=== PATIENT | female | born 1960 | race Caucasian/White ===

== ENCOUNTER 2024-03-15 12:05 | Emergency (ER) | payer SELFPAY ==
[2024-03-15 12:07] VITALS: BP 119/68; PULSE 88; RESP 16; TEMP 36.5; O2SAT 100
== END 2024-03-15 13:50 | disposition left against medical advice (07) ==
LOC: ED 13:53
PROVIDERS: PCP Internal Medicine
DX: M54.50 Low back pain, unspecified (principal); Z53.21 Procedure and treatment not carried out due to patient leaving prior to being seen by health care provider

== ENCOUNTER 2024-11-28 05:04 | Emergency (ER) | payer BC, SELFPAY ==
[2024-11-28 05:05] VITALS: BP 127/76; PULSE 89; RESP 11; TEMP 37.1; O2SAT 97; BMI 33.0
[2024-11-28] MEDS: 0.9% Normal Saline (1000mL) 1,000 ML 150 ML IV (05:15)
--- NOTE | 2024-11-28 05:15 | EKG12_ITS ---
Test Reason : BACK PAIN Blood Pressure : */* mmHG Vent. Rate : 86 BPM Atrial Rate : 86 BPM P-R Int : 142 ms QRS Dur : 82 ms QT Int : 414 ms P-R-T Axes : 50 16 -4 degrees QTcB Int : 495 ms Normal sinus rhythm QTcB >= 480 msec Abnormal ECG Confirmed by UMAIR SCANLON, LAMBERTO ([id number]), medical transcription editor MONIQUE MCCABE ([id number]) on 11/29/2024 1:32:45 PM Referred By: TRACEY Confirmed By: LAMBERTO BLOCK MD
--- NOTE | 2024-11-28 05:15 | CT_ITS ---
PROCEDURE: CTA CHEST W/WO CONTRAST 11/28/2024 REASON FOR EXAM: UPPER BACK PAIN, RULE OUT DISSECTION TECHNIQUE: CTA CHEST with CONTRAST Multiplanar Sagittal and Coronal images were obtained. CONTRAST: Isovue 370 VOLUME: 96 mL One or more dose reduction techniques were used (e.g., Automated exposure control, adjustment of the mA and/or kV according to patient size, use of iterative reconstruction technique). RADIATION DOSE SUMMARY: CTDlvol: 20 mGy DLP: 141 mGycm COMPARISON: No FINDINGS: Unremarkable base of neck and axilla. Thoracic spine degeneration. Normal esophagus. Small hiatal hernia. Normal heart size. No aortic dissection. No central pulmonary embolism No acute chest wall findings. No acute upper abdominal findings. Central airways are patent. Dependent atelectasis. No consolidation, effusion, or pneumothorax. CT/CTA Chest W/WO Contrast IMPRESSION: No embolism, dissection, or pneumonia. Reading Location: [place] [address]
--- NOTE | 2024-11-28 05:16 | ED.VIS.BACK ---
HPI History of Present Illness Chief Complaint: Back Detail of Chief Complaint: Upper back pain Informant: patient Narrative Narrative: Patient presents with upper back pain that she woke up with yesterday underneath her shoulder blades. It has been continuous. Does not seem to be positional. Rates her pain an 8 or 9 out of 10. This morning she woke up nauseated and then became diaphoretic. She had recent travel to [place] for vacation last week. She is currently anticoagulated with Eliquis for history of A-fib. She has had prior ablations for her A-fib. She is also on Tikosyn. She denies fever or cough or sore throat. She states few days ago she had some neck pain and headache that then resolved. Currently does not have any neck pain or headache. [facility] Medical History (Updated 11/28/24 @ 06:[address] Howie Constantino, DO) Hyperlipidemia HTN (hypertension) GERD (gastroesophageal reflux disease) Sleep apnea Osteoarthritis Afib Home Medications ?Medication ?Instructions ?Recorded ?Last Taken ?Type apixaban 5 mg tablet (Eliquis) 5 mg PO BID 11/28/24 Unknown History cetirizine 10 mg capsule (Allergy 10 mg PO DAILY 11/28/24 Unknown History Relief (cetirizine)) dofetilide 250 mcg capsule 250 mcg PO Q12H 11/28/24 Unknown History (Tikosyn) magnesium oxide 400 mg (241.3 mg 800 mg PO QHS 11/28/24 Unknown History magnesium) tablet metoclopramide HCl 5 mg tablet 5 mg PO Q6H PRN nausea and 11/28/24 Unknown Rx (Reglan) vomiting #10 tabs multivitamin 1 tab PO DAILY 11/28/24 Unknown History oxycodone-acetaminophen 5 mg-325 1 tab PO Q6H PRN PRN Pain 3 days 11/28/24 Unknown Rx mg tablet #12 TABLETS pantoprazole 20 mg tablet,delayed 20 mg PO DAILY 11/28/24 Unknown History release potassium chloride 10 mEq 10 meq PO BID 11/28/24 Unknown History capsule,extended release rosuvastatin 10 mg tablet 10 mg PO QHS 11/28/24 Unknown History sertraline 50 mg tablet (Zoloft) 75 mg PO Q24H 11/28/24 Unknown History spironolactone 25 mg tablet 25 mg PO DAILY 11/28/24 Unknown History Allergy/AdvReac Type Severity Reaction Status Date / Time morphine AdvReac Mild Nausea Verified 03/15/24 12:07 Social History Smoking Status: Never smoker ROS ROS ED Review of Systems ROS Unobtainable: other Constitutional Constitutional ED: Reports lethargy and sweats; Denies chills, fever(s) or weight loss Eyes Eyes: Denies blurry vision, change in vision or diplopia ENT ENT ED: Denies rhinorrhea or sore throat Cardiovascular Cardiovascular: Denies chest pain, orthopnea or racing heartbeat Respiratory/Chest Respiratory/Chest: Denies cough, dyspnea, dyspnea on exertion, orthopnea or sputum Gastrointestinal Gastrointestinal: Reports nausea; Denies abdominal pain, diarrhea or vomiting Genitourinary Genitourinary ED: Denies dysuria, hematuria or urinary frequency Musculoskeletal Musculoskeletal: Reports back pain; Denies arthralgias, myalgias or neck pain Integumentary Denies abscess, Abrasions or rash Neurologic Neurologic: Denies headache(s) or weakness Psychiatric Psychiatric: Denies anxiety, depression or suicidal thoughts Endocrine Endocrinology: Denies polydipsia, polyphagia or polyuria Hematologic/Lymphatic Hematologic/Lymphatic: Denies easy bleeding, easy bruising or lymphadenopathy Allergic/Immunologic Allergic/Immunologic ED: Denies mouth swelling, tongue swelling or urticaria EXAM Physical Exam Const Vital Signs: 11/28/24 05:05 11/28/24 05:30 Temperature 98.8 F Temperature Source Oral Pulse Rate 89 Respiratory Rate 11 L Respiratory Effort Normal Non-Labored Blood Pressure 127/76 H Blood Pressure Mean 93 Pulse Ox 97 Oxygen Delivery Method Room Air Positive well nourished and well developed General Appearance ED: well developed and NAD HEENT Reports TM's clear and moist mucous membranes normocephalic and atraumatic; Negative for trauma or tenderness Tympanic Membrane ED: Yes TM's clear Eyes PERRL and EOMs intact bilaterally General Eye ED: Negative for pale conjunctiva or scleral icterus Neck no lymphadenopathy, supple and no JVD General: Negative for tenderness Chest Wall inspection of chest normal and palpation of chest normal Chest: Negative for tenderness Resp normal respiratory effort and clear to auscultation bilaterally Effort and Inspection: Negative for respiratory distress or pain with movement Auscultation: Negative for rhonchi, wheezes or diminished lung sounds Cardio regular rate, regular rhythm, S1 normal heart sound, S2 normal heart sound and no murmurs Peripheral Pulses: pulses 2+ throughout GI normal to inspection, nondistended, normoactive bowel sounds, soft to palpation, non-tender, non-distended and no masses Back/Spine no CVA tenderness, normal to inspection and no thoracic nor lumbar tenderness Back/Spine Narrative: Unable to reproduce her pain with palpation of her back. Pain does not seem to be positional. Extremity normal to inspection General Extremety ED: Negative for edema General Extremity: Negative for edema Neuro oriented x3, CN's II-XII intact bilaterally, no sensory deficits noted and gait normal Sensorium / Orientation: awake, alert, oriented to person, oriented to place and oriented to time Motor Exam: strength 5/5 throughout and strength abnormal Psych mental status grossly normal Skin no rashes or lesions noted and no wounds MDM MDM MDM Narrative Medical decision making narrative: Patient presents with upper back pain. Nausea. At 1 point had some minimal chest discomfort that is now resolved. Clinically she looks well. She has no heart history. EKG obtained on arrival showed a sinus rhythm with ventricular rate of 86 bpm with no acute ST segment changes. CBC with differential showed a low white count of 2.8 with hemoglobin 12.4 platelet count of 161. Chemistries unremarkable. Troponin was less than 6. Lipase normal at 36. LFTs were normal. CTA of the chest was obtained to rule out dissection and this was negative for dissection or PE or pneumothorax or any acute process. She did have a noted small hiatal hernia. Patient was medicated with Dilaudid and Zofran initially and then continued to have nausea and was given Reglan 10 mg IV. We will obtain a delta troponin at 2 hours. Suspicion is low for acute coronary syndrome. Care of patient will be turned over to morning physician awaiting delta troponin however if this is negative I feel she can be safely discharged to home with a prescription for oxycodone and Reglan. Lab Data Attestation: I reviewed the patient's lab results. Labs: Laboratory Results - last 24 hr 11/28/24 05:15 WBC 2.8 L RBC 4.24 Hgb 12.4 Hct 37.0 MCV 87.3 MCH 29.2 MCHC 33.5 RDW Std Deviation 45.1 H RDW Coeff of Brayan 14.2 Plt Count 181 MPV 9.9 Immature Gran % (Auto) 0.400 Neut % (Auto) 58.3 Lymph % (Auto) 21.7 [place] % (Auto) 18.8 H Eos % (Auto) 0.4 Baso % (Auto) 0.4 Absolute Neuts (auto) 1.6 L Absolute Lymphs (auto) 0.60 L Nucleated RBC % 0 Sodium 136 Potassium 4.0 Chloride 100 Carbon Dioxide 23.0 Anion Gap 14 BUN 19 Creatinine 0.75 Estim Creat Clear Calc 73.93 Est GFR (MDRD) Non-Af 88 BUN/Creatinine Ratio 25.7 H Glucose 140 H Calcium 9.3 Total Bilirubin 0.56 Direct Bilirubin 0.24 AST 20 ALT 18 Alkaline Phosphatase 126 H Troponin T High Sens < 6 Total Protein 7.4 Albumin 4.3 Globulin 3.1 Lipase 36 Radiography Diagnostic Testing: Clinical Impression(s) from Imaging Studies Chest CTA 11/28/24 05:15 IMPRESSION: No embolism, dissection, or pneumonia. Reading Location: [place] [address] Discharge Plan Triage Chief Complaint: Back ED Provider: Howie Constantino Dx/Rx/DC Orders Clinical Impression: Back pain Instructions: ED Back Pain (Acute or Chronic) Prescriptions: New oxycodone-acetaminophen 5-325 mg tablet 1 tab PO Q6H PRN PRN (Reason: Pain) 3 Days Qty: 12 0RF metoclopramide HCl [Reglan] 5 mg tablet 5 mg PO Q6H PRN (Reason: nausea and vomiting) Qty: 10 0RF No Action dofetilide [Tikosyn] 250 mcg capsule 250 mcg PO Q12H Eliquis 5 mg tablet 5 mg PO BID sertraline [Zoloft] 50 mg tablet 75 mg PO Q24H spironolactone 25 mg tablet 25 mg PO DAILY pantoprazole 20 mg tablet,delayed release (DR/EC) 20 mg PO DAILY magnesium oxide 400 mg (241.3 mg magnesium) tablet 800 mg PO QHS Allergy Relief (cetirizine) 10 mg capsule 10 mg PO DAILY rosuvastatin 10 mg tablet 10 mg PO QHS multivitamin Tablet 1 tab PO DAILY potassium chloride 10 mEq capsule, extended release 10 meq PO BID Primary Care Provider: Luisa Garrison Referrals: Luisa Garrison MD [Primary Care Provider] - 3-5 Days Print Language: Romanian Disposition Disposition: Home, Self Care
[2024-11-28] MEDS: Ondansetron 4 MG/2 ML Vial IV (05:23)
[2024-11-28] MEDS: HYDROmorphone 1 MG/ML Syringe IV (05:24)
[2024-11-28 05:28] LABS: Absolute Neutrophil Count 1.6 X10^3/uL (2.0-7.7); Basophil# 0.01 X10^3/uL; Basophil% 0.4 % (0-1); Eosinophil# 0.01 X10^3/uL; Eosinophils% 0.4 % (0-5); Hemoglobin 12.4 g/dL (12.0-15.0); Lymphocyte % 21.7 % (19-41); Mean Corp Hgb Conc 33.5 g/dL (32-36); Mean Corpuscular Hgb 29.2 pg (27.0-32.0); Mean Corpuscular Volume 87.3 fL (81-99); Mean Platelet Vol. 9.9 fl (6.2-12.0); Monocyte# 0.52 X10^3/uL; Monocyte% 18.8 % (0-10); NRBC Flagged by Analyzer 0 % (0-5); Neutrophil # 1.61 X10^3/uL (2.7-7.7); Neutrophil % 58.3 % (47-70); POSITIVE DIFFERENTIAL YES; Platelet Count 181 K/mm3 (150-450); RBC Distribution Width CV 14.2 % (11.6-14.6); RBC Distribution Width SD 45.1 fl (35.1-43.9); Red Blood Count 4.24 M/mm3 (4.2-5.4); White Blood Count 2.8 K/mm3 (4.4-11.0)
--- OUTSIDE RECORDS SUMMARY | 2024-11-28 05:32 | XMS RPT_ITS | CCD ---
Author Organization [facility] Care Team Providers Care Mixer Machine Feeder Name Role Phone BLADIMIR SCANLON, DR LUISA Vargas Primary Care Physician Sharron Triplett Unavailable Unavailable Samples Supply Controller, Amy Unavailable Unavailable Araceli Ron Unavailable Unavailable LUISA GARRISON Primary Care Unavailable ABDULLAHI SCANLON~[phone], ABDULLAHI CHINCHILLA Attending Unavailable ABDULLAHI SCANLON~[phone], ABDULLAHI CHINCHILLA Admitting Unavailable BLADIMIR SCANLON, DR LUISA Vargas Primary Care Physician BLADIMIR SCANLON, DR LUISA Vargas Attending Donavan GARRISON MD, DR LUISA Vargas Primary Care Donavan GARRISON MD, DR LUISA Vargas Primary Care Donavan SALDAÑA MD, DR YANEZ Attending Ruby GARRISON MD, DR LUISA Vargas Primary Care Donavan GARRISON MD, DR LUISA Vargas Attending Donavan GARRISON MD, DR LUISA Vargas Primary Care Donavan GARRISON MD, DR LUISA Vargas Attending Donavan MITCHELL MD, DR MEMO Fernandez Admitting Donavan MITCHELL MD, DR MEMO Fernandez Attending Donavan GARRISON MD, DR LUISA Vargas Primary Care Donavan GARRISON MD, DR LUISA Vargas Attending Donavan GARRISON MD, DR LUISA Vargas Primary Care Donavan Garrison MD, Luisa Kwon Primary Care Provider LUISA GARRISON Primary Care Unavaila LUISA Perry Primary Care UnavailAVELINO Manriquez Admitting AVELINO [place] Attending LUISA Abbasi Primary Care UnavailLATHA Norman Consulting Ruby GARRISON MD, DR LUISA Vargas Primary Care Donavan GARRISON MD, DR LUISA Vargas Attending Donavan GARRISON MD, DR LUISA Vargas Attending Donavan GARRISON MD, DR LUISA Vargas Primary Care Donavan GARRISON MD, DR LUISA Vargas Primary Care Donavan GARRISON MD, DR LUISA Vargas Attending Donavan GARRISON MD, DR LUISA Vargas Primary Care Donavan GARRISON MD, DR LUISA Vargas Attending Donavan GARRISON MD, DR LUISA Vargas Primary Care Donavan GARRISON MD, DR LUISA Vargas Attending Donavan GARRISON MD, DR LUISA Vargas Primary Care Donavan GARRISON MD, DR LUISA Vargas Attending Donavan lizarraga Provider, Ed Physician Attending Luisa Moore [facility] Luisa Abbasi [facility] Care Howie Saleh Attending Unavailable Allergies Allergy Classification Reported Allergen(s) Allergy Type Date of Onset Reaction(s) Facility (20 sources) metroNIDAZOLE; Translations: [metronidazole containing compounds] Drug Allergy 9 Candidiasis of mouth and esophagus (disorder), Other: See Comments [facility] (20 sources) Morphine; Translations: [morphine] Drug Allergy 9 Nausea (finding), Vomiting [facility] (12 sources) Haloperidol; Translations: [haloperidol] Drug Allergy 4 [facility] Comment on above: chest heaviness (1 source) Morphine Drug Allergy 4 [facility] Repository Medications Current Medications Medication Drug Class(es) Dates Sig (Normalized) Sig (Original) apixaban 5 mg oral tablet (20 sources) Factor Xa Inhibitor Start: 03-26-2021 Eliquis 5 mg oral tablet Dose : 5 mg = 1 tab(s), Oral, BID, # 180 tab(s), 3 Refill(s), [id number] 162.6, cm, 09/29/23 11:39:00 EDT, Height, 73.3, kg, 09/29/23 11:39:00 EDT, Dosing Weight Start Date: 12/01/23 Status: Ordered Quantity: 180.0 Unit: tab(s) Repeat number: 4 ascorbic acid 500 mg oral tablet (9 sources) Vitamin C Start: 08-14-2020 Vitamin C 500 mg oral tablet Dose : 500 mg = 1 tab(s), Oral, qDay, # 30 tab(s), 0 Refill(s) Start Date: 08/14/20 Status: Ordered atorvastatin 20 mg oral tablet (16 sources) HMG-CoA Reductase Inhibitor Start: 02-20-2022 atorvastatin 20 mg oral tablet Dose : 20 mg = 1 tab(s), Oral, qHS, # 30 tab(s), 11 Refill(s), [id number] 163, cm, 02/19/22 15:24:00 EDT, Height, kg, 02/19/22 15:24:00 EDT, Dosing Weight Start Date: 02/20/22 Status: Ordered Start: 02-19-2021 atorvastatin 2 0 mg oral tablet Dose : 20 mg = 1 tab(s), Oral, qHS, # 30 tab(s), 11 Refill(s), [id number] 162.6, cm, 11/22/20 8:35:00 EDT, Height, kg, 02/11/21 10:40:00 EDT, Dosing Weight Start Date: 02/19/21 Status: Ordered baclofen 5 mg oral tablet (4 sources) gamma-Aminobutyric Acid-ergic Agonist Start: 09-24-2023 baclofen 5 mg oral tablet Dose : 10 mg = 2 tab(s), Oral, qHS, PRN Muscle pain, # 60 tab(s), 0 Refill(s), Pharmacy: [facility]/pharmacy #[id number], Lumbar strain, 162, cm, 09/24/23 13:19:00 EDT, Height, kg, 09/24/23 13:19:00 EDT, Dosing Weight Start Date: 09/24/23 Status: Ordered cetirizine hydrochloride 10 mg oral tablet (20 sources) Histamine-1 Receptor Antagonist Start: 03-26-2021 Zyrtec 10 mg oral tablet Dose : 10 mg = 1 tab(s), Oral, qDay, # 30 tab(s), 0 Refill(s) Start Date: 03/26/21 Status: Ordered Quantity: 30.0 Unit: tab(s) Repeat number: 1 clotrimazole 10 mg oral lozenge (3 sources) Azole Antifungal Start: 01-23-2024 End: 01-30-2024 clotrimazole (MYCELEX) 10 mg delano Use 1 Delano as instructed five times a day for 7 days. 35 tablet 01/23/2024 01/30/2024 Active Start: 03-19-2021 End: 04-02-2021 take 1 dose by mouth once Mycelex Delano 10 mg oral lo zenge Dose : 10 mg = 1 lozenge(s), Oral, 5x/Day, X 14 day(s), # 70 lozenge(s), 0 Refill(s), 04/02/21 12:18:00 EDT, Pharmacy: [facility]/pharmacy #[id number], 162.6, cm, 11/22/20 8:35:00 EDT, Height, kg, 02/11/21 10:40:00 EDT, Dosing Weight Start Date: 03/19/21 Stop Date: 04/02/21 Status: Ordered Co Q-10 100 mg oral capsule (7 sources) Start: 03-27-2023 Co Q-10 100 mg oral capsule Dose : 200 mg = 2 cap(s), Oral, Daily, 0 Refill(s) Start Date: 03/27/23 Status: Ordered Repeat number: 1 Start: 03-27-2023 Co Q-10 100 mg oral capsule Dose : 200 mg = 2 cap(s), Oral, Daily, 0 Refill(s) Start Date: 03/27/23 Status: Ordered colchicine 0.6 mg oral tablet (1 source) Start: 02-13-2022 colchicine 0.6 mg oral tablet Dose : 0.6 mg = 1 tab(s), Oral, BID, # 14 tab(s), 0 Refill(s), Pharmacy: [facility]/pharmacy #[id number], 163, cm, 02/12/22 6:17:00 EDT, Height Start Date: 02/13/22 Status: Ordered cyclobenzaprine hydrochloride 5 mg oral tablet (7 sources) Muscle Relaxant Start: 01-04-2024 take 1-2 tablets by mouth twice daily as needed for pain cyclobenzaprine 5 mg oral tablet See Instructions, PRN back pain, Take 1-2 tabs PO BID PRN for pain, # 30 tab(s), 11 Refill(s), Pharmacy: [facility]/pharmacy #[id number], 162.6, cm, 01/04/24 9:44:00 EDT, Height, kg, 01/04/24 9:44:00 EDT, Dosing Weight Start Date: 01/25/24 Status: Ordered Quantity: 30.0 Unit: tab(s) Repeat number: 12 24 hr dilTIAZem hydrochloride 120 mg extended release oral capsule (7 sources) Calcium Channel Carmela Start: 03-07-2022 Cardizem CD 120 mg/24 hours oral capsule, extended release Dose : 120 mg = 1 cap(s), Oral, qDay, # 30 cap(s), 11 Refill(s), Pharmacy: [facility]/pharmacy #[id number], 163, cm, 02/19/22 15:24:00 EDT, Height, kg, 02/19/22 15:24:00 EDT, Dosing Weight Start Date: 03/07/22 Status: Ordered Start: 01-14-2022 Cardizem CD 12 0 mg/24 hours oral capsule, extended release Dose : 120 mg = 1 cap(s), Oral, qDay, # 30 cap(s), 2 Refill(s), Pharmacy: [facility]/pharmacy #[id number], 162.6, cm, 01/13/22 16:12:00 EDT, Height Start Date: 01/14/22 Status: Ordered DME MISCellaneous (16 sources) Start: 09-23-2023 DME MISCellane ous See Instructions, CPAP 7CM, # 1 EA, 0 Refill(s), 75.6 Start Date: 09/23/23 Status: Ordered Quantity: 1.0 Unit: EA Repeat number: 1 Start: 09-23-2023 DME MISCellane ous See Instructions, CPAP 7CM, # 1 EA, 0 Refill(s), 75.6 Start Date: 09/23/23 Status: Ordered Start: 09-13-2018 DME MISCellane ous See Instructions, cpap 7 cm H20., # 1 EA, 0 Refill(s) Start Date: 09/13/18 Status: Ordered dofetilide 0.25 mg oral capsule (18 sources) Antiarrhythmic Start: 01-07-2024 take 1 capsule by mouth every twelve hours dofetilide 250 mcg oral capsule 1 cap(s), Oral, q12h, # 180 cap(s), 3 Refill(s), [id number] 162.6, cm, 01/04/24 9:44:00 EDT, Height, kg, 01/04/24 9:44:00 EDT, Dosing Weight Start Date: 01/07/24 Status: Ordered Quantity: 180.0 Unit: cap(s) Repeat number: 4 Start: 01-12-2023 take 1 capsule by mo ut every twelve hours dofetilide 250 mcg oral capsule 1 cap(s), Oral, q12h, # 60 cap(s), 11 Refill(s), Pharmacy: [id number], 162.6, cm, 12/01/22 15:43:00 EDT, Height, kg, 12/01/22 15:43:00 EDT, Dosing Weight Start Date: 01/12/23 Status: Ordered Start: 01-19-2022 Tikosyn 250 mc g oral capsule Dose : 250 mcg = 1 cap(s), Oral, q12h, # 60 cap(s), 11 Refill(s), Pharmacy: [facility] #[id number], Atrial fibrillation, 162.6, cm, 01/13/22 16:12:00 EDT, Height Start Date: 01/19/22 Status: Ordered take 1 capsule by mo ut every twelve hours dofetilide (TIKOSYN) 250 mcg capsule Take 250 mcg by mouth every 12 hours. Active inulin 1500 mg chewable tabl et (18 sources) Start: 11-22-2020 Fiber Choice 1 .5 g oral tablet, chewable Dose : 1.5 gram(s) = 1 tab(s), Chewed, Daily, # 90 tab(s), 0 Refill(s) Start Date: 11/22/20 Status: Ordered magnesium oxide 400 mg oral tablet (18 sources) Start: 03-14-2024 magnesium oxid e 400 mg oral tablet Dose : 800 mg = 2 tab(s), Oral, qHS, # 180 tab(s), 3 Refill(s), Pharmacy: [facility]/pharmacy #[id number], 162.6, cm, 01/04/24 9:44:00 EDT, Height, kg, 01/04/24 9:44:00 EDT, Dosing Weight Start Date: 03/14/24 Status: Ordered Quantity: 180.0 Unit: tab(s) Repeat number: 4 Start: 12-03-2023 take 2 tablets by mo [facility] once daily at bedtime magnesium oxide (MAG-OX) 400 mg (241.3 mg magnesium) tablet Take 2 tablets by mouth daily at bedtime. 12/03/2023 Active Start: 12-03-2023 take 1 tablet by jeannette every twelve hours magnesium oxide (MAG-OX) 400 mg (241.3 mg magnesium) tablet Take 1 tablet by mouth every 12 hours. 12/03/2023 Active Start: 01-19-2022 End: 01-20-2023 magnesium oxide 400 mg oral tablet Dose : 800 mg = 2 tab(s), Oral, qHS, # 180 tab(s), 3 Refill(s), Pharmacy: [facility] [id number], 162.6, cm, 12/01/22 15:43:00 EDT, Height, kg, 12/01/22 15:43:00 EDT, Dosing Weight Start Date: 01/08/23 Status: Ordered methylPREDNISolone 4 mg oral tablet (1 source) Corticosteroid Start: 09-28-2023 End: 10-04-2023 Medrol Dosepak 4 mg oral tablet Per Dosepak Instructions, Oral, Daily, as directed on package labeling, X 6 day(s), # 1 EA, 0 Refill(s), 10/04/23 10:45:00 AM EDT, Pharmacy: [facility]/pharmacy #[id number], 162, cm, 09/24/23 13:19:00 EDT, Height, kg, 09/24/23 13:19:00 EDT, Dosing Weight Start Date: 09/28/23 Stop Date: 10/04/23 Status: Ordered 24 hr metoprolol succinate 25 mg extended release oral tablet (2 sources) beta-Adrenergic Carmela Start: 02-12-2023 metoprolol succinate 25 mg oral TABLET extended release Dose : 12.5 mg = 0.5 tab(s), Oral, BIDM, # 30 tab(s), 11 Refill(s), Pharmacy: [facility]/pharm[facility] #[id number], 162.6, cm, 02/11/23 9:33:00 EDT, Height, kg, 02/11/23 9:33:00 EDT, Dosing Weight Start Date: 02/12/23 Status: Ordered Start: 02-11-2023 End: 02-11-2023 take 0.5 tablet by mouth in the evening metoprolol succinate 25 mg oral TABLET extended release Start: 02/11/23 7:00:00 PM EDT, Dose = 12.5 mg, = 0.5 tab(s), Oral, Hold if SBP (mmHg) Start Date: 02/11/23 Stop Date: 02/11/23 Status: Completed multivit with minerals/lutei n (MULTIVITAMIN 50 PLUS ORAL) (3 sources) Start: 07-19-2018 multivit with minerals/lutein (MULTIVITAMIN 50 PLUS ORAL) Take 1 tablet by mouth once daily. Last dose 04/05 due to surgery 07/19/2018 Active Start: 07-19-2018 multivit with minerals/lutein (MULTIVITAMIN 50 PLUS ORAL) 07/19/2018 Active Multivitamin preparation (20 sources) Start: 08-14-2020 take 1 tablet by mouth once daily Multivitamin Dose = 1 tab(s), Oral, Daily, 0 Refill(s) Start Date: 08/14/20 Status: Ordered Repeat number: 1 Start: 08-14-2020 take 1 tablet by jeannette th once daily Multivitamin Dose = 1 tab(s), Oral, Daily, 0 Refill(s) Start Date: 08/14/20 Status: Ordered nystatin [id number] unt/ml oral suspension (3 sources) Polyene Antifungal Start: 01-22-2024 End: 01-29-2024 nystatin (MYCOSTATIN) 100,000 unit/mL suspension Take 5 mL by mouth four times daily for 7 days. 1tsp swish in mouth for several minutes, then swallow (or expectorate) 4 times daily until gone. 140 mL 01/22/2024 01/23/2024 Discontinued (Changing Therapy/Dosage Form) pantoprazole 20 mg delayed release oral tablet (20 sources) Proton Pump Inhibitor Start: 07-20-2020 End: 02-18-2025 Protonix 20 mg oral enteric coated tablet Dose : 20 mg = 1 tab(s), Oral, qDay, # 90 tab(s), 3 Refill(s), Pharmacy: [facility]/pharmacy #[id number], 162.6, cm, 01/04/24 9:44:00 EDT, Height, kg, 01/04/24 9:44:00 EDT, Dosing Weight Start Date: 02/24/24 Stop Date: 02/18/25 Status: Ordered Quantity: 90.0 Unit: tab(s) Repeat number: 4 End: 03-29-[address] (PROTONIX) 4 0 mg tablet Take 40 mg by mouth once daily. Pqacc 03/29 DISCONTINUED 03/29/2024 Discontinued (Discontinued by Patient) potassium chloride 10 meq extended release oral capsule (20 sources) Start: 04-09-2021 End: 04-04-2022 potassium chloride 10 mEq or al capsule, extended release Dose : 10 mEq = 1 cap(s), Oral, BID, take with food., # 180 cap(s), 3 Refill(s), [id number] 162, cm, 03/26/21 8:52:00 EDT, Height, kg, 03/26/21 8:52:00 EDT, Dosing Weight Start Date: 04/09/21 Stop Date: 04/04/22 Status: Ordered Start: 01-02-2021 End: 01-03-2025 take 1 capsule by mouth twice daily at mealtime potassium chloride 10 mEq oral capsule, extended release 1 cap(s), Oral, BID, WITH FOOD., # 180 cap(s), 3 Refill(s), Pharmacy: [facility] #[id number], 162.6, cm, 01/04/24 9:44:00 EDT, Height, kg, 01/04/24 9:44:00 EDT, Dosing Weight Start Date: 03/14/24 Status: Ordered Quantity: 180.0 Unit: cap(s) Repeat number: 4 Start: 01-02-2021 potassium chlo ride 10 mEq oral capsule, extended release Dose : 10 mEq = 1 cap(s), Oral, BID, take with food., # 90 cap(s), 3 Refill(s), Pharmacy: [facility]acy #[id number], 162.6, cm, 11/22/20 8:35:00 EDT, Height, kg, 11/22/20 8:35:00 EDT, Dosing Weight Start Date: 01/02/21 Status: Ordered Start: 01-02-2021 potassium chlo ride 10 mEq oral capsule, extended release Dose : 10 mEq = 1 cap(s), Oral, qDay, take with food., # 90 cap(s), 3 Refill(s), Pharmacy: [facility]acy #[id number], 162.6, cm, 11/22/20 8:35:00 EDT, Height, kg, 11/22/20 8:35:00 EDT, Dosing Weight Start Date: 01/02/21 Status: Ordered rosuvastatin calcium 10 mg oral tablet (10 sources) HMG-CoA Reductase Inhibitor Start: 03-27-2023 End: 03-30-2025 rosuvastatin 10 mg oral tablet Dose : 10 mg = 1 tab(s), Oral, qHS, # 100 tab(s), 3 Refill(s), [id number] 162.6, cm, 01/04/24 9:44:00 EDT, Height, kg, 01/04/24 9:44:00 EDT, Dosing Weight Start Date: 02/24/24 Stop Date: 03/30/25 Status: Ordered Quantity: 100.0 Unit: tab(s) Repeat number: 4 sertraline 100 mg oral tablet (20 sources) Serotonin Reuptake Inhibitor Start: 09-28-2024 End: 09-23-2025 sertraline 100 mg oral tablet Dose : 100 mg = 1 tab(s), Oral, qDay, # 90 tab(s), 3 Refill(s), [id number] 162.6, cm, 09/28/24 13:26:00 EDT, Height, kg, 09/28/24 13:26:00 EDT, Dosing Weight Start Date: 09/28/24 Stop Date: 09/23/25 Status: Ordered Quantity: 90.0 Unit: tab(s) Repeat number: 4 Start: 05-02-2024 sertraline 50 mg oral tablet Dose : 75 mg = 1.5 tab(s), Oral, qDay, # 135 tab(s), 3 Refill(s), Pharmacy: [facility] #[id number], 162, cm, 04/06/24 11:05:00 EST, Height, kg, 04/06/24 11:05:00 EST, Dosing Weight Start Date: 05/02/24 Status: Ordered Quantity: 135.0 Unit: tab(s) Repeat number: 4 Start: 06-27-2019 End: 04-04-2024 take 1 tablet by mouth once daily sertraline (ZOLOFT) 50 mg tablet Take 1 tablet by mouth daily 90 tablet 3 07/06/2020 Active spironolactone 25 mg oral tablet (18 sources) Aldosterone Antagonist Start: 01-19-2022 take 1 tablet by mouth once daily at mealtime spironolactone 25 mg oral tablet See Instructions, TAKE 1 TABLET BY MOUTH EVERY DAY WITH MEALS, # 90 tab(s), 3 Refill(s), Pharmacy: [facility]/pharmacy #[id number], 162.6, cm, 01/04/24 9:44:00 EDT, Height, kg, 01/04/24 9:44:00 EDT, Dosing Weight Start Date: 02/24/24 Status: Ordered Quantity: 90.0 Unit: tab(s) Repeat number: 4 Vitamin C 500 mg oral tablet (16 sources) Start: 08-14-2020 Vitamin C 500 mg oral tablet Dose : 500 mg = 1 tab(s), Oral, qDay, # 30 tab(s), 0 Refill(s) Start Date: 08/14/20 Status: Ordered Quantity: 30.0 Unit: tab(s) Repeat number: 1 Start: 08-14-2020 Vitamin C 500 mg oral tablet Dose : 500 mg = 1 tab(s), Oral, qDay, # 30 tab(s), 0 Refill(s) Start Date: 08/14/20 Status: Ordered Zinc Acetate (1 source) ZINC ACETATE ORA L Take 1 tablet by mouth once daily. Last dose 04/05 due to surgery Active zinc gluconate 50 mg oral ta blet (20 sources) Start: 11-22-2020 zinc (as gluco brianna) 50 mg oral tablet Dose : 50 mg = 1 tab(s), Oral, Daily, # 30 tab(s), 0 Refill(s) Start Date: 11/22/20 Status: Ordered Quantity: 30.0 Unit: tab(s) Repeat number: 1 Completed/Discontinued Medications Medication Drug Class(es) Dates Sig (Normalized) Sig (Original) chlorthalidone 25 mg oral tablet (12 sources) Thiazide-like Diuretic Start: 08-14-2020 End: 03-29-2024 take 0.5 tablet by mouth once daily chlorthalidone (HYGROTON) 25 mg tablet Take 1/2 tablet by mouth once daily. 15 tablet 3 08/14/2020 03/29/2024 Discontinued (Discontinued by another Health Care Provider) flecainide acetate 150 mg oral tablet (18 sources) Antiarrhythmic Start: 03-16-2020 End: 03-29-2024 take 1 tablet by mouth every twelve hours flecainide (TAMBOCOR) 150 mg tablet take 1 tablet by mouth every 12 hours 180 tablet 3 03/16/2020 03/29/2024 Discontinued (Discontinued by another Health Care Provider) Start: 03-14-2019 End: 03-29-2024 take 1 tablet by mouth twice daily flecainide (TAMBOCOR) 150 mg tablet TAKE ONE TABLET BY MOUTH TWICE DAILY 180 tablet 3 03/14/2019 03/29/2024 Discontinued (Discontinued by another Health Care Provider) End: 03-29-2024 flecainide (TAMBOCOR) 100 mg tablet Take 100 mg by mouth two times a day. Pt reports no longer taking PACC 03/2803/29/2024 Discontinued (Discontinued by another Health Care Provider) meloxicam 15 mg oral tablet (10 sources) Nonsteroidal Anti-inflammatory Drug Start: 07-17-2020 End: 03-29-2024 meloxicam (MOBIC) 15 mg tablet Take 15 mg by mouth once daily. Pt reports no longer taking PACC 03/2807/17/2020 03/29/2024 Discontinued (Discontinued by another Health Care Provider) Misc Medication (5 sources) Start: 05-15-2021 Misc Medicatio n See Instructions, Magnesium Biscyclinate 400mg 1 po qhs, 0 Refill(s), 95.5 Start Date: 05/15/21 Status: Ordered Problems Active Problems Problem Classification Problem Date Documented Date Episodic/Chronic Adjustment disorders (3 sources) Grief finding 09-23-2022 Chronic Anxiety disorders (20 sources) Anxiety; Translations: [Panic disorder without agoraphobia] 09-15-2018 Chronic Cardiac dysrhythmias (20 sources) Atrial tachycardia; Translations: [Atrial fibrillation] Onset: 02-12-2022 08-14-2020 Chronic Comment on above: flecainide Cardiac dysrhythmias (14 sources) Palpitations 08-14-2020 Episodic Coagulation and hemorrhagic disorders (10 sources) 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 09-23-2022 Chronic Complications of surgical procedures or medical care (3 sources) Headache following lumbar puncture; Translations: [Other reaction to spinal and lumbar puncture] Onset: 03-29-2024 03-29-2024 Episodic Conduction disorders (20 sources) Sinus node dysfunction 08-14-2020 Chronic Diabetes mellitus without complication (16 sources) Hyperglycemia; Translations: [Prediabetes] 07-20-2020 Episodic Diseases of mouth; excluding dental (1 source) Painful mouth; Translations: [Other lesions of oral mucosa] 01-22-2024 Episodic Disorders of lipid metabolism (20 sources) Mixed hyperlipidemia; Translations: [Hypercholesterolemia] 07-20-2020 Chronic Esophageal disorders (20 sources) Gastroesophageal reflux disease 07-20-2020 Chronic Essential hypertension (20 sources) Benign essential hypertension; Translations: [Essential hypertension] Onset: 02-12-2022 11-22-2020 Chronic Fluid and electrolyte disorders (5 sources) Hypokalemia 01-21-2022 Episodic Hepatitis (7 sources) Nonalcoholic steatohepatitis 09-23-2022 Chronic Menopausal disorders (14 sources) Menopausal and postmenopausal disorders 09-15-2018 Chronic Mood disorders (10 sources) Recurrent major depressive episodes, mild 09-23-2022 Chronic Nausea and vomiting (3 sources) Postoperative nausea and vomiting; Translations: [Nausea with vomiting, unspecified] Onset: 03-29-2024 03-29-2024 Episodic Nutritional deficiencies (17 sources) Vitamin D deficiency 09-15-2018 Chronic Osteoarthritis (20 sources) Osteoarthritis of multiple joints ; Translations: [Osteoarthritis of right hip joint] Onset: 08-20-2023 11-04-2019 Chronic Other aftercare (5 sources) Post-discharge follow-up 01-21-2022 Episodic Other bone disease and musculoskeletal deformities (7 sources) Osteopenia 09-24-2023 Episodic Other circulatory disease (11 sources) H/O: atrial fibrillation 02-19-2022 Episodic Other connective tissue disease (2 sources) Hip joint prosthesis present; Translations: [Presence of right artificial hip joint] Chronic Other connective tissue disease (14 sources) Neuritis 01-12-2019 Episodic Other connective tissue disease (20 sources) Pain in right foot 01-12-2019 Episodic Other connective tissue disease (2 sources) Other specified soft tissue disorders; Translations: [OTHER SPEC SOFT TISSUE DISORDERS] Onset: 08-20-2023 Episodic Other connective tissue disease (1 source) Pain in left hand; Translations: [PAIN IN LEFT HAND] Onset: 08-20-2023 Episodic Other connective tissue disease (1 source) Pain in right hand; Translations: [PAIN IN RIGHT HAND] Onset: 08-20-2023 Episodic Other liver diseases (10 sources) Steatosis of liver 06-21-2021 Chronic Other nervous system disorders (20 sources) Mortons neuroma of right foot 01-12-2019 Chronic Other non-traumatic joint disorders (1 source) Pain in left hip; Translations: [Left hip pain] Onset: 04-19-2024 Episodic Other nutritional; endocrine; and metabolic disorders (6 sources) Hypomagnesemia; Translations: [Hypomagnesemia] Onset: 02-12-2022 01-21-2022 Chronic Other nutritional; endocrine; and metabolic disorders (8 sources) Disorder of carbohydrate metabolism 09-23-2022 Chronic Other nutritional; endocrine; and metabolic disorders (3 sources) Obesity 09-23-2022 Chronic Other nutritional; endocrine; and metabolic disorders (14 sources) Overweight 08-13-2020 Episodic Residual codes; unclassified (14 sources) Obstructive sleep apnea of adult 08-13-2020 Chronic Residual codes; unclassified (20 sources) Obstructive sleep apnea syndrome 09-15-2018 Chronic Residual codes; unclassified (2 sources) Sleep apnea; Translations: [Sleep apnea, unspecified] 03-29-2024 Chronic Residual codes; unclassified (1 source) Sleep apnea, unspecified; Translations: [Sleep apnea, unspecified type] Onset: 03-29-2024 Chronic Residual codes; unclassified (20 sources) Past history of procedure 08-14-2020 Episodic Comment on above: LVEF 52%, mod LAE, T R2+ [2016 echo]. Residual codes; unclassified (1 source) Other specified postprocedural states; Translations: [PONV (postoperative nausea and vomiting)] Onset: 03-29-2024 Episodic Residual codes; unclassified (1 source) Preoperative state 03-28-2024 Episodic Spondylosis; intervertebral disc disorders; other back problems (2 sources) Lumbar radiculitis 01-04-2024 Episodic Sprains and strains (5 sources) Low back strain 09-24-2023 Episodic Unclassified (18 sources) Patient encounter status 01-21-2022 Unclassified (1 source) Low back pain, unspecified; Translations: [Low back pain, unspecified] Onset: 04-07-2024 Past or Other Problems Problem Classification Problem Date Documented Da te Episodic/Chronic Other screening for suspected conditions (not mental disorders or infectious disease) (7 sources) Liver function tests abnormal; Translations: [Encounter for screening for malignant neoplasm of colon] Onset: 03-04-2024 09-23-2022 Episodic Results Test Name Value Interpretation Reference Range Facility US ABDOMEN COMPLETEon 2024 US ABDOMEN COMPLETE ORIGINAL EXAMINATION: COMPLETE ABDOMINAL ULTRASOUND11/24/2024 11:33 am ULTRASOUND ABDOMEN COMPLETE COMPARISON: Ultrasound 06/20/2021 TECHNIQUE: This report is based on interpretation of permanently recorded ultrasound images. HISTORY: ORDERING SYSTEM PROVIDED HISTORY: Reason for Exam: elevated liver enzymes, FINDINGS: Liver: . The visualized liver is mildly heterogeneous and coarsened with mild increased echogenicity. No suspicious focal lesion is seen and there is no obvious nodularity of the visualized liver margins. Bile ducts: There is no intrahepatic biliary duct dilatation. The common duct is 4 mm at the facundo hepatis. Gallbladder: The gallbladder is distended satisfactorily without calculi, wall thickening, pericholecystic edema or tenderness. Pancreas: The visualized pancreas shows no focal lesion or mass but some portions are obscured by bowel gas artifacts. . No free fluid is seen in the abdomen. Spleen: The spleen is borderline enlarged about 13 cm vertical dimension by my measurements.. Kidneys: Limited survey images of the kidneys show normal cortical thickness and echogenicity and no pelvocaliectasis. . Visualized aorta: Normal Visualized IVC: Normal IMPRESSION: Hepatic steatosis or other diffuse hepatocellular disease. Borderline splenomegaly. No acute findings. Interpreted by: Momo Gusman MD Preliminary Report By: Momo Gusman MD Electronically signed By Momo Gusman MD Dictated Date: 11/24/2024 3:33:01 PM Prelim Date: 11/24/2024 3:35:32 PM Sign Date: 11/24/2024 3:35:32 PM Ordering Provider: LUISA GARRISON Interpreted by: Momo Gusman MD Preliminary Report By: Momo Gusman MD Electronically signed By Momo Gusman MD Dictated Date: 11/24/2024 3:33:01 PM Prelim Date: 11/24/2024 3:35:32 PM Sign Date: 11/24/2024 3:35:32 PM Ordering Provider: LUISA GARRISON Normal [facility] FITon 11-10-2024 Lower GI hemoglobin IA Ql (Stl) Negative Normal Negative [facility] Comment on above: Performed By: #### F IT #### [address] [address] .Auto Diffon 10-12-2024 Basophil, Absolute 0.0 10 3/mcL Normal 0.0-0.3 [facility] Comment on above: Performed By: #### C MP, A1C, LIPID, CBC, ADIFF, ANEU, GFR #### [address] [address] Basophils/100 WBC (Bld) 0.5 % Normal 0.0-2.[address] [facility] Comment on above: Performed By: #### C MP, A1C, LIPID, CBC, ADIFF, ANEU, GFR #### [address] [address] Eosinophil, Absolute 0.2 10 3/mcL Normal 0.0-0.7 [facility] Comment on above: Performed By: #### C MP, A1C, LIPID, CBC, ADIFF, ANEU, GFR #### [address] [address] Eosinophils/100 WBC (Bld) 3.2 % Normal 0.0-6.[address] [facility] Comment on above: Performed By: #### C MP, A1C, LIPID, CBC, ADIFF, ANEU, GFR #### [address] [address] Lymphocyte, Absolute 1.4 10 3/mcL Normal 0.9-4.3 [facility] Comment on above: Performed By: #### C MP, A1C, LIPID, CBC, ADIFF, ANEU, GFR #### [address] [address] Lymphocytes/100 WBC (Bld) 18.0 % Low 20.0-40.[address] [facility] Comment on above: Performed By: #### C MP, A1C, LIPID, CBC, ADIFF, ANEU, GFR #### [address] [address] Monocyte, Absolute 0.5 10 3/mcL Normal 0.1-1.4 [facility] Comment on above: Performed By: #### C MP, A1C, LIPID, CBC, ADIFF, ANEU, GFR #### [address] [address] Monocytes/100 WBC (Bld) 6.3 % Normal 2.0-13.[address] [facility] Comment on above: Performed By: #### C MP, A1C, LIPID, CBC, ADIFF, ANEU, GFR #### [address] [address] Neutrophils/100 WBC (Bld) 72.0 % Normal 50.0-75.[address] [facility] Comment on above: Performed By: #### C MP, A1C, LIPID, CBC, ADIFF, ANEU, GFR #### [address] [address] .GFRon 10-12-2024 Estimated Glomerular Filtration Rate 96 ml/min/1.73sqm Normal [facility] Comment on above: Result Comment: Stages of Chronic Kidney Disease (CKD) Stage Description eGFR(ml/min/1.73 sq.m.) CKD 1 Normal kidney function or >=90 normal kindney function with possible kidney damage (ex. Proteinuria) CKD 2 Kidney damage with mild loss 60-89 of kidney function CKD 3a Mild to moderate loss of kidney 45-59 function CKD 3b Moderate to severe loss of 30-44 of kindey function CKD 4 Severe loss of kidney function 15-29 CKD 5 Kidney failure <15 Note: (go live 2024) the eGFR calculation was updated to the 2020 CKD-EPI creatinine equation without a race factor to calculate the eGFR results. Performed By: #### C MP, A1C, LIPID, CBC, ADIFF, ANEU, GFR #### [address] [address] .NEUABSon 10-12-2024 Neutrophil, Absolute 5.4 10 3/mcL Normal 2.3-8.1 [facility] Comment on above: Performed By: #### C MP, A1C, LIPID, CBC, ADIFF, ANEU, GFR #### [address] [address] A1Con 10-12-2024 Glucose [Mass/Vol] 117 mg/dL Normal [facility] Comment on above: Result Comment: Briana mated Average Glucose calculated by equation ((28.7xA1C)-46.7) Estimated average glucose (eAG) is a calculated value from Hemoglobin A1C and is customer operations representative of the average blood glucose level in the last 2-3 month period. Normal range: less than 114 mg/dL Performed By: #### C MP, A1C, LIPID, CBC, ADIFF, ANEU, GFR #### [address] [address] HbA1c (Bld) [Mass fraction] 5.7 % Normal 4.3-6.[address] [facility] Comment on above: Performed By: #### C MP, A1C, LIPID, CBC, ADIFF, ANEU, GFR #### [address] [address] CBCon 10-12-2024 Erythrocyte distribution width (RBC) [Ratio] 15.4 % Normal 11.5-15.[address] [facility] Comment on above: Performed By: #### C MP, A1C, LIPID, CBC, ADIFF, ANEU, GFR #### [address] [address] Hematocrit (Bld) [Volume fraction] 39.2 % Normal 34.0-46.[address] [facility] Comment on above: Performed By: #### C MP, A1C, LIPID, CBC, ADIFF, ANEU, GFR #### [address] [address] Hgb 13.3 G/dL Normal 12.0-16.[address] [facility] Comment on above: Performed By: #### C MP, A1C, LIPID, CBC, ADIFF, ANEU, GFR #### [address] [address] MCH (RBC) [Entitic mass] 29.2 pg Normal 27.0-33.[address] [facility] Comment on above: Performed By: #### C MP, A1C, LIPID, CBC, ADIFF, ANEU, GFR #### [address] [address] MCHC 33.9 G/dL Normal 32.0-36.[address] [facility] Comment on above: Performed By: #### C MP, A1C, LIPID, CBC, ADIFF, ANEU, GFR #### [address] [address] MCV (RBC) [Entitic vol] 86.1 fL Normal 80.0-99.[address] [facility] Comment on above: Performed By: #### C MP, A1C, LIPID, CBC, ADIFF, ANEU, GFR #### [address] [address] Platelet 223 10 3/mcL Normal 150-[address] [facility] Comment on above: Performed By: #### C MP, A1C, LIPID, CBC, ADIFF, ANEU, GFR #### [address] [address] Platelet mean volume (Bld) [Entitic vol] 8.3 fL Normal 6.6-10.[address] [facility] Comment on above: Performed By: #### C MP, A1C, LIPID, CBC, ADIFF, ANEU, GFR #### [address] [address] RBC 4.55 10 6/mcL Normal 4.10-5.[address] [facility] Comment on above: Performed By: #### C MP, A1C, LIPID, CBC, ADIFF, ANEU, GFR #### [address] [address] WBC 7.5 10 3/mcL Normal 4.5-10.[address] [facility] Comment on above: Performed By: #### C MP, A1C, LIPID, CBC, ADIFF, ANEU, GFR #### [address] [address] CMPon 10-12-2024 Albumin Level 3.7 G/dL Normal 3.4-4.[address] [facility] Comment on above: Performed By: #### C MP, A1C, LIPID, CBC, ADIFF, ANEU, GFR #### [address] [address] Albumin/Globulin [Mass ratio] 0.9 {ratio} Low 1.1-2.[address] [facility] Comment on above: Performed By: #### C MP, A1C, LIPID, CBC, ADIFF, ANEU, GFR #### [address] [address] ALP [Catalytic activity/Vol] 172 U/L High 40-[address] [facility] Comment on above: Performed By: #### C MP, A1C, LIPID, CBC, ADIFF, ANEU, GFR #### [address] [address] ALT [Catalytic activity/Vol] 38 U/L Normal 14-[address] [facility] Comment on above: Performed By: #### C MP, A1C, LIPID, CBC, ADIFF, ANEU, GFR #### [address] [address] AST [Catalytic activity/Vol] 23 U/L Normal 10-[address] [facility] Comment on above: Performed By: #### C MP, A1C, LIPID, CBC, ADIFF, ANEU, GFR #### [address] [address] Bili Total 0.5 mg/dL Normal 0.2-1.[address] [facility] Comment on above: Result Comment: Use of this assay is not recommended for patients undergoing treatment with eltrombopag due to the potential for falsely elevated results. Performed By: #### C MP, A1C, LIPID, CBC, ADIFF, ANEU, GFR #### [address] [address] BUN/Creatinine Ratio 24 ratio Normal 7-27 [facility] Comment on above: Performed By: #### C MP, A1C, LIPID, CBC, ADIFF, ANEU, GFR #### [address] [address] Calcium [Mass/Vol] 9.1 mg/dL Normal 8.4-10.2 [facility] Comment on above: Performed By: #### C MP, A1C, LIPID, CBC, ADIFF, ANEU, GFR #### [address] [address] Chloride [Moles/Vol] 106 mmol/L Normal 98-107 [facility] Comment on above: Performed By: #### C MP, A1C, LIPID, CBC, ADIFF, ANEU, GFR #### [address] [address] CO2 [Moles/Vol] 28 mmol/L Normal 23-[address] [facility] Comment on above: Performed By: #### C MP, A1C, LIPID, CBC, ADIFF, ANEU, GFR #### [address] [address] Creatinine [Mass/Vol] 0.68 mg/dL Normal 0.51-0.95 [facility] Comment on above: Performed By: #### C MP, A1C, LIPID, CBC, ADIFF, ANEU, GFR #### [address] [address] Electrolyte Balance 8.0 mEq/L Normal 4.0-15.0 [facility] Comment on above: Performed By: #### C MP, A1C, LIPID, CBC, ADIFF, ANEU, GFR #### [address] [address] Globulin 4.0 G/dL Normal 2.7-4.[address] [facility] Comment on above: Performed By: #### C MP, A1C, LIPID, CBC, ADIFF, ANEU, GFR #### [address] [address] Glucose [Mass/Vol] 112 mg/dL Normal 80-115 [facility] Comment on above: Performed By: #### C MP, A1C, LIPID, CBC, ADIFF, ANEU, GFR #### [address] [address] Potassium [Moles/Vol] 4.2 mmol/L Normal 3.5-5.1 [facility] Comment on above: Performed By: #### C MP, A1C, LIPID, CBC, ADIFF, ANEU, GFR #### [address] [address] Sodium [Moles/Vol] 142 mmol/L Normal 136-145 [facility] Comment on above: Performed By: #### C MP, A1C, LIPID, CBC, ADIFF, ANEU, GFR #### [address] [address] Total Protein 7.7 G/dL Normal 6.4-8.[address] [facility] Comment on above: Performed By: #### C MP, A1C, LIPID, CBC, ADIFF, ANEU, GFR #### [address] [address] Urea nitrogen [Mass/Vol] 16 mg/dL Normal 7-[address] [facility] Comment on above: Performed By: #### C MP, A1C, LIPID, CBC, ADIFF, ANEU, GFR #### [address] [address] GGTon 10-12-2024 Gamma GT 61 U/L High 5-[address] [facility] Comment on above: Performed By: #### C MP, A1C, LIPID, CBC, ADIFF, ANEU, GFR #### [address] [address] LABORATORYOrdered By: SYSTEM SYSTEM on 10-12-2024 Albumin BCP dye [Mass/Vol] 3.7 G/dL Normal 3.4 - 4.8 G/dL AO ADM SS Albumin/Globulin [Mass ratio] 0.9 {ratio} Low 1.1 - 2.5 ratio AO ADM SS ALP [Catalytic activity/Vol] 172 U/L High 40 - 135 U/L AO ADM SS ALT With P-5'-P [Catalytic activity/Vol] 38 U/L Normal 14 - 59 U/L AO ADM SS AST With P-5'-P [Catalytic activity/Vol] 23 U/L Normal 10 - 40 U/L AO ADM SS Basophils (Bld) [#/Vol] 0.0 103/mcL Normal 0.0 - 0.3 10^3/mcL AO Workflow SS Basophils/100 WBC (Bld) 0.5 % Normal 0.0 - 2.5 % AO Workflow SS Bilirubin [Mass/Vol] 0.5 mg/dL Normal 0.2 - 1 .0 mg/dL AO ADM SS Comment on above: Interpretive Data: U se of this assay is not recommended for patients undergoing treatment with eltrombopag due to the potential for falsely elevated results. Calcium [Mass/Vol] 9.1 mg/dL Normal 8.4 - 10. 2 mg/dL AO ADM SS Chloride [Moles/Vol] 106 mmol/L Normal 98 - 10 7 mmol/L AO ADM SS CO2 [Moles/Vol] 28 mmol/L Normal 23 - 31 mmol/L AO ADM SS Creatinine [Mass/Vol] 0.68 mg/dL Normal 0.51 - 0.95 mg/dL AO ADM SS Electrolyte Balance 8.0 mEq/L Normal 4.0 - 15 .0 mEq/L AO ADM SS Eosinophil, Absolute 0.2 103/mcL Normal 0.0 - 0 .7 10^3/mcL AO Workflow SS Eosinophils/100 WBC (Bld) 3.2 % Normal 0.0 - 6.0 % AO Workflow SS Erythrocyte distribution width (RBC) [Ratio] 15.4 % Normal 11.5 - 15.5 % AO Workflow SS Estimated Glomerular Filtration Rate 96 ml/min/1.73sqm Invalid Interpretation Code AO Chemistry S Comment on above: Interpretive Data: Stages of Chronic Kidney Disease (CKD) Stage Description eGFR(ml/min/1.73 sq.m.) CKD 1 Normal kidney function or >=90 normal kindney function with possible kidney damage (ex. Proteinuria) CKD 2 Kidney damage with mild loss 60-89 of kidney function CKD 3a Mild to moderate loss of kidney 45-59 function CKD 3b Moderate to severe loss of 30-44 of kindey function CKD 4 Severe loss of kidney function 15-29 CKD 5 Kidney failure <15 Note: (go live 2024) the eGFR calculation was updated to the 2020 CKD-EPI creatinine equation without a race factor to calculate the eGFR results. Gamma glutamyl transferase [Catalytic activity/Vol] 61 U/L High 5 - 55 U/L AH ADM SS Globulin 4.0 G/dL Normal 2.7 - 4.4 G/dL AO ADM SS Glucose [Mass/Vol] 112 mg/dL Normal 80 - 115 mg/dL AO ADM SS Glucose [Mass/Vol] 117 mg/dL Invalid Interpretation Code AO Chemistry S Comment on above: Interpretive Data: E stimated average glucose (eAG) is a calculated value from Hemoglobin A1C and is customer operations representative of the average blood glucose level in the last 2-3 month period. Normal range: less than 114 mg/dL HbA1c (Bld) [Mass fraction] 5.7 % Normal 4.3 - 6.4 % AO ADM SS Hematocrit (Bld) [Volume fraction] 39.2 % Normal 34.0 - 46.0 % AO Workflow SS Hemoglobin (Bld) [Mass/Vol] 13.3 G/dL Normal 12.0 - 16.0 G/dL AO Workflow SS Lymphocytes (Bld) [#/Vol] 1.4 103/mcL Normal 0.9 - 4.3 10^3/mcL AO Workflow SS Lymphocytes/100 WBC (Bld) 18.0 % Low 20.0 - 40.0 % AO Workflow SS MCH (RBC) [Entitic mass] 29.2 pg Normal 27.0 - 33.0 pg AO Workflow SS MCHC 33.9 G/dL Normal 32.0 - 36.0 G/dL AO Workflow SS MCV (RBC) [Entitic vol] 86.1 fL Normal 80.0 - 99.0 fL AO Workflow SS Monocytes (Bld) [#/Vol] 0.5 103/mcL Normal 0.1 - 1.4 10^3/mcL AO Workflow SS Monocytes/100 WBC (Bld) 6.3 % Normal 2.0 - 13.0 % AO Workflow SS Neutrophils (Bld) [#/Vol] 5.4 103/mcL Normal 2.3 - 8.1 10^3/mcL AO Workflow SS Neutrophils/100 WBC (Bld) 72.0 % Normal 50.0 - 75.0 % AO Workflow SS Platelet mean volume (Bld) [Entitic vol] 8.3 fL Normal 6.6 - 10.5 fL AO Workflow SS Platelets (Bld) [#/Vol] 223 103/mcL Normal 150 - 450 10^3/mcL AO Workflow SS Potassium [Moles/Vol] 4.2 mmol/L Normal 3.5 - 5.1 mmol/L AO ADM SS Protein [Mass/Vol] 7.7 G/dL Normal 6.4 - 8.2 G/dL AO ADM SS RBC (Bld) [#/Vol] 4.55 106/mcL Normal 4.10 - 5.3 0 10^6/mcL AO Workflow SS Sodium [Moles/Vol] 142 mmol/L Normal 136 - 145 mmol/L AO ADM SS Urea nitrogen [Mass/Vol] 16 mg/dL Normal 7 - 18 mg/dL AO ADM SS Urea nitrogen/Creatinine [Mass ratio] 24 ratio Normal 7 - 27 ratio AO ADM SS WBC (Bld) [#/Vol] 7.5 103/mcL Normal 4.5 - 10.8 10^3/mcL AO Workflow SS LABORATORYOrdered By: Mandie Rajput on 10-12-2024 Cholesterol [Mass/Vol] 141 mg/dL Normal 0 - 200 mg/dL AO ADM SS Comment on above: Interpretive Data: C holesterol Reference Interval: Less than 200 Desirable 200-239 Borderline high risk 240 and above High risk Cholesterol in HDL [Mass/Vol] 55 mg/dL Normal 40 - 60 mg/dL AO ADM SS Cholesterol in LDL [Mass/Vol] 61 mg/dL Normal 0 - 130 mg/dL AO ADM SS Triglyceride [Mass/Vol] 127 mg/dL Normal 0 - 150 mg/dL AO ADM SS Comment on above: Interpretive Data: T riglyceride Reference Interval: Less than 150 Normal 150-199 Borderline high risk 200-499 High risk 500 or higher Very high risk LIPIDon 10-12-2024 Cholesterol [Mass/Vol] 141 mg/dL Normal 0-[address] [facility] Comment on above: Result Comment: Chol esterol Reference Interval: Less than 200 Desirable 200-239 Borderline high risk 240 and above High risk Performed By: #### C MP, A1C, LIPID, CBC, ADIFF, ANEU, GFR #### [address] [address] Cholesterol in HDL [Mass/Vol] 55 mg/dL Normal 40-[address] [facility] Comment on above: Performed By: #### C MP, A1C, LIPID, CBC, ADIFF, ANEU, GFR #### [address] [address] Cholesterol in LDL [Mass/Vol] 61 mg/dL Normal 0-[address] [facility] Comment on above: Performed By: #### C MP, A1C, LIPID, CBC, ADIFF, ANEU, GFR #### [address] [address] Triglyceride [Mass/Vol] 127 mg/dL Normal 0-[address] [facility] Comment on above: Result Comment: Trig lyceride Reference Interval: Less than 150 Normal 150-199 Borderline high risk 200-499 High risk 500 or higher Very high risk Performed By: #### C MP, A1C, LIPID, CBC, ADIFF, ANEU, GFR #### [address] [address] .GFRon 06-29-2024 GFR Non- 80 ml/min/1.73sqm Normal [facility] Comment on above: Result Comment: GFR Population mean for , Non- Americans Ages 20-29 = 116 mL/min/1.73 sq.m. Ages 30-39 = 107 mL/min/1.73 sq.m. Ages 40-49 = 99 mL/min/1.73 sq.m. Ages 50-59 = 93 mL/min/1.73 sq.m. Ages 60-69 = 85 mL/min/1.73 sq.m. Ages 70+ = 75 mL/min/1.73 sq.m. Chronic Kidney Disease: Less than 60 mL/min/1.73 square meters End Stage Renal Disease: Less than 15 mL/min/1.73 square meters Performed By: #### C MP, A1C, LIPID, CBC, ADIFF, ANEU, GFR #### [address] [address] GFR 97 ml/min/1.73sqm Normal [facility] Comment on above: Result Comment: GFR Population mean for , Non- Americans Ages 20-29 = 116 mL/min/1.73 sq.m. Ages 30-39 = 107 mL/min/1.73 sq.m. Ages 40-49 = 99 mL/min/1.73 sq.m. Ages 50-59 = 93 mL/min/1.73 sq.m. Ages 60-69 = 85 mL/min/1.73 sq.m. Ages 70+ = 75 mL/min/1.73 sq.m. Chronic Kidney Disease: Less than 60 mL/min/1.73 square meters End Stage Renal Disease: Less than 15 mL/min/1.73 square meters Performed By: #### C MP, A1C, LIPID, CBC, ADIFF, ANEU, GFR #### [address] [address] BMPon 06-29-2024 BUN/Creatinine Ratio 21 ratio Normal 7-27 [facility] Comment on above: Performed By: #### B MP, GFR, MG #### [address] [address] Calcium [Mass/Vol] 9.2 mg/dL Normal 8.4-10.2 [facility] Comment on above: Performed By: #### B MP, GFR, MG #### [address] [address] Chloride [Moles/Vol] 102 mmol/L Normal 98-107 [facility] Comment on above: Performed By: #### B MP, GFR, MG #### [address] [address] CO2 [Moles/Vol] 27 mmol/L Normal 23-[address] [facility] Comment on above: Performed By: #### B MP, GFR, MG #### [address] [address] Creatinine [Mass/Vol] 0.73 mg/dL Normal 0.55-1.02 [facility] Comment on above: Result Comment: Test ing performed on Siemens Dimension EXL analyzer using a modified kinetic Luis Antonio technique. Performed By: #### B MP, GFR, MG #### [address] [address] Electrolyte Balance 8.0 mEq/L Normal 4.0-15.0 [facility] Comment on above: Performed By: #### B MP, GFR, MG #### [address] [address] Glucose [Mass/Vol] 85 mg/dL Normal 80-115 [facility] Comment on above: Performed By: #### B MP, GFR, MG #### [address] [address] Potassium [Moles/Vol] 3.2 mmol/L Low 3.5-5.1 [facility] Comment on above: Performed By: #### B MP, GFR, MG #### [address] [address] Sodium [Moles/Vol] 137 mmol/L Normal 136-145 [facility] Comment on above: Performed By: #### B MP, GFR, MG #### [address] [address] Urea nitrogen [Mass/Vol] 15 mg/dL Normal 7-[address] [facility] Comment on above: Performed By: #### B MP, GFR, MG #### [address] [address] LABORATORYOrdered By: SYSTEM SYSTEM on 06-29-2024 Calcium [Mass/Vol] 9.2 mg/dL Normal 8.4 - 10. 2 mg/dL AO ADM SS Chloride [Moles/Vol] 102 mmol/L Normal 98 - 10 7 mmol/L AO ADM SS CO2 [Moles/Vol] 27 mmol/L Normal 23 - 31 mmol/L AO ADM SS Creatinine [Mass/Vol] 0.73 mg/dL Normal 0.55 - 1.02 mg/dL AO ADM SS Comment on above: Interpretive Data: T esting performed on Siemens Dimension EXL analyzer using a modified kinetic Luis Antonio technique. Electrolyte Balance 8.0 mEq/L Normal 4.0 - 15 .0 mEq/L AO ADM SS GFR/1.73 sq M.predicted among blacks MDRD (S/P/Bld) [Vol rate/Area] 97 ml/min/1.73sqm Invalid Interpretation Code AO Chemistry S Comment on above: Interpretive Data: GFR Population mean for , Non- Americans Ages 20-29 = 116 mL/min/1.73 sq.m. Ages 30-39 = 107 mL/min/1.73 sq.m. Ages 40-49 = 99 mL/min/1.73 sq.m. Ages 50-59 = 93 mL/min/1.73 sq.m. Ages 60-69 = 85 mL/min/1.73 sq.m. Ages 70+ = 75 mL/min/1.73 sq.m. Chronic Kidney Disease: Less than 60 mL/min/1.73 square meters End Stage Renal Disease: Less than 15 mL/min/1.73 square meters GFR/1.73 sq M.predicted among non-blacks MDRD (S/P/Bld) [Vol rate/Area] 80 ml/min/1.73sqm Invalid Interpretation Code AO Chemistry S Comment on above: Interpretive Data: GFR Population mean for , Non- Americans Ages 20-29 = 116 mL/min/1.73 sq.m. Ages 30-39 = 107 mL/min/1.73 sq.m. Ages 40-49 = 99 mL/min/1.73 sq.m. Ages 50-59 = 93 mL/min/1.73 sq.m. Ages 60-69 = 85 mL/min/1.73 sq.m. Ages 70+ = 75 mL/min/1.73 sq.m. Chronic Kidney Disease: Less than 60 mL/min/1.73 square meters End Stage Renal Disease: Less than 15 mL/min/1.73 square meters Glucose [Mass/Vol] 85 mg/dL Normal 80 - 115 mg/dL AO ADM SS Magnesium [Mass/Vol] 1.8 mg/dL Normal 1.8 - 2 .4 mg/dL AO ADM SS Potassium [Moles/Vol] 3.2 mmol/L Low 3.5 - 5.1 mmol/L AO ADM SS Sodium [Moles/Vol] 137 mmol/L Normal 136 - 145 mmol/L AO ADM SS Urea nitrogen [Mass/Vol] 15 mg/dL Normal 7 - 18 mg/dL AO ADM SS Urea nitrogen/Creatinine [Mass ratio] 21 ratio Normal 7 - 27 ratio AO ADM SS MGon 06-29-2024 Magnesium [Mass/Vol] 1.8 mg/dL Normal 1.8-2.4 [facility] Comment on above: Performed By: #### C MP, A1C, LIPID, CBC, ADIFF, ANEU, GFR #### [facility] [address] [place], [place] [address] CBC W Auto Differential pane l (Bld)on 04-20-2024 Basophils (Bld) [#/Vol] 10*3/uL Normal <0.11 [facility] Comment on above: Order Comment: Speci men Type: BLOOD SPECIMENOrdering Facility: [facility] Address: [address] [place] [address] Performed By: #### 5 7021-8 ####[facility] LABORATORYCLIA [id number] [place] [address] [place] Basophils/100 WBC (Bld) 0.1 % Normal [facility] Comment on above: Order Comment: Speci men Type: BLOOD SPECIMENOrdering Facility: [facility] Address: [address] [place] [address] Performed By: #### 5 7021-8 ####[facility] LABORATORYCLIA [id number] [place] [address] [place] Differential cell count method Nom (Bld) Auto Normal [facility] Comment on above: Order Comment: Speci men Type: BLOOD SPECIMENOrdering Facility: [facility] Address: [address] [place] [address] Performed By: #### 5 7021-8 ####[facility] LABORATORYCLIA [id number] [place] [address] [place] Eosinophils (Bld) [#/Vol] 10*3/uL Normal <0.46 [facility] Comment on above: Order Comment: Speci men Type: BLOOD SPECIMENOrdering Facility: [facility] Address: [address] [place] [address] Performed By: #### 5 7021-8 ####[facility] LABORATORYCLIA [id number] [place] [id number] [place] Eosinophils/100 WBC (Bld) 0.0 % Normal [facility] Comment on above: Order Comment: Speci men Type: BLOOD SPECIMENOrdering Facility: [facility] Address: [address] [place] [address] Performed By: #### 5 7021-8 ####[facility] LABORATORYCLIA [id number] [place] [address] [place] Erythrocyte distribution width (RBC) [Ratio] 13.1 % Normal 11.5-15.0 [facility] Comment on above: Order Comment: Speci men Type: BLOOD SPECIMENOrdering Facility: [facility] Address: [address] [place] [address] Performed By: #### 5 7021-8 ####[facility] LABORATORYCLIA [id number] [place] [address] [place] Hematocrit (Bld) [Volume fraction] 30.3 % Low 36.0-46.0 [facility] Comment on above: Order Comment: Speci men Type: BLOOD SPECIMENOrdering Facility: [facility] Address: [address] [place] [address] Performed By: #### 5 7021-8 ####[facility] LABORATORYCLIA [id number] [place] [address] [place] Hemoglobin (Bld) [Mass/Vol] 10.1 g/dL Low 11.5-15.5 [facility] Comment on above: Order Comment: Speci men Type: BLOOD SPECIMENOrdering Facility: [facility] Address: [address] [place] [address] Performed By: #### 5 7021-8 ####[facility] LABORATORYCLIA [id number] [place] [address] [place] Immature granulocytes (Bld) [#/Vol] 0.09 10*3/uL Normal <0.10 [facility] Comment on above: Order Comment: Speci men Type: BLOOD SPECIMENOrdering Facility: [facility] Address: [address] [place] [address] Performed By: #### 5 7021-8 ####[facility] LABORATORYCLIA [id number] [place] [id number] [place] [facility] Immature granulocytes/100 WBC (Bld) 0.6 % Normal [facility] Comment on above: Order Comment: Speci men Type: BLOOD SPECIMENOrdering Facility: [facility] Address: [address] [place] [address] Performed By: #### 5 7021-8 ####[facility] LABORATORYCLIA [id number] [address] STATES [facility] Lymphocytes (Bld) [#/Vol] 1.02 10*3/uL Normal 1.00-4.00 [facility] Comment on above: Order Comment: Speci men Type: BLOOD SPECIMENOrdering Facility: [facility] Address: [address] [place] [address] Performed By: #### 5 7021-8 ####[facility] LABORATORYCLIA [id number] [address] Lymphocytes/100 WBC (Bld) 7.4 % Normal [facility] Comment on above: Order Comment: Speci men Type: BLOOD SPECIMENOrdering Facility: [facility] Address: [address] [place] [address] Performed By: #### 5 7021-8 ####[facility] LABORATORYCLIA [id number] [place] [id number] [place] MCH (RBC) [Entitic mass] 31.0 pg Normal 26.0-34.0 [facility] Comment on above: Order Comment: Speci men Type: BLOOD SPECIMENOrdering Facility: [facility] Address: [address] [place] [address] Performed By: #### 5 7021-8 ####[facility] LABORATORYCLIA [id number] [place] [id number] [place] MCHC (RBC) [Mass/Vol] 33.3 g/dL Normal 30.5-36.0 [facility] Comment on above: Order Comment: Speci men Type: BLOOD SPECIMENOrdering Facility: [facility] Address: [address] [place] [address] Performed By: #### 5 7021-8 ####[facility] LABORATORYCLIA [id number] [place] [address] [place] MCV (RBC) [Entitic vol] 92.9 fL Normal 80.0-100.0 [facility] Comment on above: Order Comment: Speci men Type: BLOOD SPECIMENOrdering Facility: [facility] Address: [address] [place] [address] Performed By: #### 5 7021-8 ####[facility] LABORATORYCLIA [id number] [place] [address] [place] Monocytes (Bld) [#/Vol] 0.92 10*3/uL High <0.87 [facility] Comment on above: Order Comment: Speci men Type: BLOOD SPECIMENOrdering Facility: [facility] Address: [address] [place] [address] Performed By: #### 5 7021-8 ####[facility] LABORATORYCLIA [id number] [address] [place] Monocytes/100 WBC (Bld) 6.6 % Normal [facility] Comment on above: Order Comment: Speci men Type: BLOOD SPECIMENOrdering Facility: [facility] Address: [address] [place] [address] Performed By: #### 5 7021-8 ####[facility] LABORATORYCLIA [id number] [place] [address] [place] Neutrophils (Bld) [#/Vol] 11.80 10*3/uL High 1.45-7.50 [facility] Comment on above: Order Comment: Speci men Type: BLOOD SPECIMENOrdering Facility: [facility] Address: [address] [place] [address] Performed By: #### 5 7021-8 ####[facility] LABORATORYCLIA [id number] [place] [id number] [place] Neutrophils/100 WBC (Bld) 85.3 % Normal [facility] Comment on above: Order Comment: Speci men Type: BLOOD SPECIMENOrdering Facility: [facility] Address: [address] [place] [address] Performed By: #### 5 7021-8 ####[facility] LABORATORYCLIA [id number] [place] [address] [place] Nucleated RBC (Bld) [#/Vol] 10*3/uL Normal <0.01 [facility] Comment on above: Order Comment: Speci men Type: BLOOD SPECIMENOrdering Facility: [facility] Address: [address] [place] [address] Performed By: #### 5 7021-8 ####[facility] LABORATORYCLIA [id number] [place] [address] [place] Nucleated RBC/100 WBC (Bld) [Ratio] 0.0 /100 WBC Normal [facility] Comment on above: Order Comment: Speci men Type: BLOOD SPECIMENOrdering Facility: [facility] Address: [address] [place] [address] Performed By: #### 5 7021-8 ####[facility] LABORATORYCLIA [id number] [place] [address] [place] Platelet mean volume (Bld) [Entitic vol] 10.2 fL Normal 9.0-12.7 [facility] Comment on above: Order Comment: Speci men Type: BLOOD SPECIMENOrdering Facility: [facility] Address: [address] [place] [address] Performed By: #### 5 7021-8 ####[facility] LABORATORYCLIA [id number] [place] [id number] [place] Platelets (Bld) [#/Vol] 236 10*3/uL Normal 150-400 [facility] Comment on above: Order Comment: Speci men Type: BLOOD SPECIMENOrdering Facility: [facility] Address: [address] [place] [address] Performed By: #### 5 7021-8 ####[facility] LABORATORYCLIA [id number] [place] [id number] [facility] RBC (Bld) [#/Vol] 3.26 10*6/uL Low 3.90-5.20 [facility] Comment on above: Order Comment: Speci men Type: BLOOD SPECIMENOrdering Facility: [facility] Address: [address] [place], [place] [address] Performed By: #### 5 7021-8 ####[facility] LABORATORYCLIA [id number] [place] [id number] [facility] WBC (Bld) [#/Vol] 13.85 10*3/uL High 3.70-11.00 [facility] Comment on above: Order Comment: Speci men Type: BLOOD SPECIMENOrdering Facility: [facility] Address: [address] [place], [place] [address] Performed By: #### 5 7021-8 ####[facility] LABORATORYCLIA [id number] [address] CNDSon 04-20-2024 CNDS HNO ID: [id number] Author: AVELINO DURON MD Service: Orthopaedic Surgery Author Type: Physician Type: Discharge Summary Filed: 04/23/2024 06:29 Note Text: DISCHARGE SUMMARY PATIENT NAME: Donna Snowden ADMISSION DATE: 04/19/2024 DISCHARGE DATE: 04/20/2024 ATTENDING PHYSICIAN: Avelino Duron MD Code Status: Not on file Highest Readmission Risk Score: 10 The 30 day readmissions risk score is derived from an internally validated risk model which evaluates patient level characteristics, utilization history, medication orders and lab results up until the day of discharge. Patients with a score of 40 or above are considered highest risk for readmission. Specific patient level drivers will be listed at the bottom of the summary. CONSULTING TEAMS DURING HOSPITALIZATION: Hospitalist for medical management Treatment Team: Attending Provider: Avelino Duron MD Consulting: MR AGUILAR CALDWELL APP2 Consulting: Latha Coats MD Consulting: Dee Hurley PA REASON FOR HOSPITALIZATION: Status post left hip replacement DIAGNOSIS: Principal Problem: Primary osteoarthritis of left hip (POA: Yes) Active Problems: S/P total left hip arthroplasty (POA: Yes) Acute postoperative anemia due to expected blood loss (POA: No) Sleep apnea (POA: Yes) Hypertension (POA: Yes) Obesity, Class I, BMI 30-34.9 (POA: Yes) HLD (hyperlipidemia) (POA: Yes) Thrombophilia (HCC) (POA: Yes) GERD (gastroesophageal reflux disease) (POA: Yes) MARISCAL (nonalcoholic steatohepatitis) (POA: Yes) Anxiety and depression (POA: Yes) PAF (paroxysmal atrial fibrillation) (HCC) (POA: Yes) Resolved Problems: * No resolved hospital problems. * OPERATIONS DURING HOSPITALIZATION: Left anterior approach total hip arthroplasty 04/19/2024 HOSPITAL COURSE: This is a 63-year-old female who came into [facility] as scheduled on 04/19/2024 and underwent left anterior approach total hip arthroplasty with Dr. Duron. The patient tolerated the procedure well and had no complications during the surgery or the subsequent recovery from anesthesia. They were then taken to the orthopedic unit for further recovery, physical therapy, and occupational therapy. She did very well during her stay, working with PT and OT throughout, full weightbearing left leg, left anterior precautions. She was resumed back on Eliquis postop day 1, ZEE hose were used, knee-high SCDs when in bed. Otherwise, medically she remained stable, was followed by hospitalist consult throughout her stay. She was able to discharge home with home health care PT/OT ordered on 04/20/2024, she was in stable condition. She will follow-up in the office on 05/06/2024 at 8:30 AM. PATIENT CONDITION AT DISCHARGE: Stable DISCHARGE DISPOSITION: Home with Home Health Pertinent physical findings on discharge were that the patient was alert, no acute distress, no shortness breath or chest pain, pain was under control, surgical dressing was dry and intact, and they were in stable condition. WOUND/SURGICAL SITE CARE: Wound/Surgical Site Care Do not change or remove your dressing Keep your dressing clean and dry Other: Keep surgical dressing in place until follow-up visit. If becomes loose or wet, can change to dry gauze and change as needed. You may shower but no soaking the wound/bath/pool/hot tub Some bleeding from the wound/surgical site can be expected. If excessive, see a doctor at once DIET: Resume pre-hospital diet ACTIVITY: Full weightbearing left leg, left anterior precautions ALLERGIES Allergen Reactions Flagyl [Metronidazo* Other: See Comments thrush Haloperidol Unknown Morphine Vomiting DISCHARGE MEDICATION: Medication List START taking these medications acetaminophen 500 mg tablet Commonly known as: TYLENOL Take 2 tablets by mouth every 8 hours as needed for pain. docusate sodium 100 mg capsule Commonly known as: COLACE Take 1 capsule by mouth two times a day as needed for constipation. ondansetron orally disintegrating 4 mg disintegrating tablet Commonly known as: ZOFRAN ODT Take 1 tablet by mouth every 6 hours as needed for up to 5 days. oxyCODONE IR 5 mg immediate release tablet Commonly known as: ROXICODONE Take 1 tablet by mouth every 6 hours as needed for up to 7 days. traMADol 50 mg tablet Commonly known as: ULTRAM Take 1 tablet by mouth every 6 hours as needed for up to 7 days. CONTINUE taking these medications cetirizine 10 mg tablet Commonly known as: ZYRTEC cyclobenzaprine 5 mg tablet Commonly known as: FLEXERIL dofetilide 250 mcg capsule Commonly known as: TIKOSYN ELIQUIS 5 mg tab(s) Generic drug: apixaban magnesium oxide 400 mg (241.3 mg magnesium) tablet Commonly known as: MAG-OX MULTIVITAMIN [address] 20 mg tablet Commonly known as: PROTONIX Take 1 tablet by mouth once daily. potassium chloride SR 10 mEq CR capsule Commonly known as (more content not included)... [facility] CONSULTon 04-20-2024 CONSULT HNO ID: [id number] Author: FABY SILVER MD Service: Cardiovascular Medicine Author Type: Physician Type: Consults Filed: 04/20/2024 14:19 Note Text: CARDIOLOGY CONSULT Requesting Provider: Avelino Duron MD Opinion/advice regarding: atrial fibrillation management CHIEF COMPLAINT: atrial fibrillation management HPI: Ms. Snowden is a 63 year old woman with a past medical history of atrial fibrillation (2 prior ablations, on dofetilide for rhythm control, mostly sinus rhythm with occasional fluttering sensation), hypertension, hyperlipidemia, DANIELLE and CPAP, GERD, MARISCAL, depression, anxiety, and thrombophilia who is post-operative day 1 after left total hip arthroplasty with spinal anesthesia for severe degenerative hip osteoarthritis and subacute subchondral femoral head fracture. She does not report palpitations, chest pain, dyspnea, orthopnea, edema, dizziness, or any cardiovascular symptoms. Occasionally she has a fleeting fluttering feeling in her chest, but is mostly in normal sinus rhythm on dofetilide. Meghan-operatively, dofetilide and apixaban were suspended but has been resumed today. Internal Medicine was consulted for meghan-operatively medical optimization, and recommended a cardiology consultation for atrial fibrillation. Review of systems was non-contributory. She is recovering well after surgery. The surgical team is planning to discharge her home today. PAST MEDICAL HISTORY: PAST MEDICAL HISTORY Diagnosis Date A-fib ([facility]) Dr. Talbot Anxiety state Arthritis Depression Dysplasia of cervix, unspecified Hypertension Dr. Talbot PONV (postoperative nausea and vomiting) severe Sleep apnea cpap PCP follows PAST SURGICAL HISTORY: PAST SURGICAL HISTORY Procedure Laterality Date BREAST SURGERY HX reduction JOINT REPLACEMENT HX R total hip 04/2021 LEEP PROCEDURE ([employer])_*FL PAST SURGICAL HISTORY OF ectopic repairs x4 PAST SURGICAL HISTORY OF 2021 ablation x2 for a fib TONSILLECTOMY HX FAMILY HISTORY: FAMILY HISTORY Problem Relation Age of Onset Hypertension Mother Heart Mother Irregular heart beat Hypertension Father Heart Father Irregular heart beat SOCIAL HISTORY: Social History Tobacco Use Smoking status: Never Smokeless tobacco: Never Vaping Use Vaping status: Never Used Substance Use Topics Alcohol use: Yes Comment: socially Drug use: No MEDICATIONS: Prior to Admission Medications: ZINC ACETATE ORALTake 1 tablet by mouth once daily. Last dose 04/05 due to surgeryDisp: Rfl: ascorbic acid, vitamin C, (VITAMIN C) 500 mg tabletTake 500 mg by mouth once daily. Last dose 04/05 due to surgeryDisp: Rfl: ELIQUIS 5 mg tab(s)Take 5 mg by mouth two times a day. Hold instructions per Dr. Paul: Rfl: cetirizine (ZYRTEC) 10 mg tabletTake 10 mg by mouth.Disp: Rfl: cyclobenzaprine (FLEXERIL) 5 mg tabletTAKE 1-2 TABS BY MOUTH TWICE A DAY NEEDED FOR BACK PAIN,Disp: Rfl: dofetilide (TIKOSYN) 250 mcg capsuleTake 250 mcg by mouth every 12 hours.Disp: Rfl: magnesium oxide (MAG-OX) 400 mg (241.3 mg magnesium) tabletTake 2 tablets by mouth daily at bedtime.Disp: Rfl: multivit with minerals/lutein (MULTIVITAMIN 50 PLUS ORAL)Take 1 tablet by mouth once daily. Last dose 04/05 due to surgeryDisp: Rfl: potassium chloride SR (MICRO-K) 10 mEq CR capsuleTake 10 mEq by mouth two times a day.Disp: Rfl: rosuvastatin (CRESTOR) 10 mg tabletTake 10 mg by mouth daily at bedtime.Disp: Rfl: spironolactone (ALDACTONE) 25 mg tablettake 1 tablet by mouth every day with mealsDisp: Rfl: pantoprazole DR (PROTONIX) 20 mg tabletTake 1 tablet by mouth once daily.Disp: 90 tabletRfl: 3 sertraline (ZOLOFT) 50 mg tabletTake 1 tablet by mouth dailyDisp: 90 tabletRfl: 3 (Patient taking differently: Take 75 mg by mouth once daily.) Current Facility-Administere d Medications Medication Dose Route Frequency apixaban 5 mg tab(s) (ELIQUIS) 5 mg ORAL BID iqileql-unygkbyum-vr tamin D3 500 mg-5 mcg (200 unit) 2 tablet 2 tablet ORAL BID senna 17.2 mg tab(s) (SENOKOT) 17.2 mg ORAL AT BEDTIME NaCl 0.9% iv flush bag 20 mL INTRAVENOUS PRN lactated ringers iv infusion 50 mL/hr INTRAVENOUS CONTINUOUS acetaminophen 1,000 mg tab(s) (TYLENOL) 1,000 mg ORAL q 8 H traMADol 50 mg tab(s) (ULTRAM) 50 mg ORAL q 6 H PRN oxyCODONE IR 5-10 mg tab(s) (ROXICODONE) 5-10 mg ORAL q 3 H PRN HYDROmorphone 0.5 mg injection (DILAUDID) 0.5 mg INTRAVENOUS q 3 H PRN dofetilide 250 mcg cap(s) (TIKOSYN) 250 mcg ORAL q 12 H 9a/9p rosuvastatin 10 mg tab(s) (CRESTOR) 10 mg ORAL AT BEDTIME pantoprazole DR 20 mg tab(s) (PROTONIX) 20 mg ORAL DAILY (6 AM) sertraline (ZOLOFT) tab(s) 75 mg 75 mg ORAL DAILY potassium chloride ER 10 mEq tab(s) (KLOR-CON M10) 10 mEq ORAL BID w MEALS dofetilide 250 mcg cap(s) (TIKOSYN) 250 mcg ORAL ONCE ALLERGIES: Flagyl [Metronidazole], Haloperidol, and Morphine COMPLETE REVIEW OF SYSTEMS: All ten ROS negative unless otherw (more content not included)... [facility] CONSULT HNO ID: [id number] Author: MARCIAL YEUNG DO Service: Hospital Medicine Author Type: Nurse Practitioner Type: Consults Filed: 04/20/2024 06:17 Note Text: Attestation signed by Marcial Yeung DO at 04/20/2024 6:17 AM Patient independently seen and examined by myself. I agree with the plan outlined by the mid-level provider. HOSPITALIST INITIAL CONSULT NOTE SERVICE DATE: 04/20/2024 SERVICE TIME: 5:00 AM REASON FOR CONSULT: Medical management REQUESTING PHYSICIAN: Dr. Duron PRIMARY CARE PHYSICIAN: Vicky Garrison MD Subjective Ms. Snowden is a 63 year old female with a past medical history significant for DANIELLE, hypertension, hyperlipidemia, atrial fibrillation, GERD, MARISCAL, depression, anxiety, and thrombophilia who presented for left total hip arthroplasty by Dr. Duron. Patient is being seen postoperatively. The patient reports she has had ongoing left hip pain that radiates down her left leg. She did have outpatient MRI that showed subacute femoral head subchondral fracture with advanced osteoarthritis and cartilage loss. She elected for surgical repair. She denies any preop fever, chills, shortness of breath, cough, chest pain, palpitations, abdominal pain, constipation, or dysuria. She currently reports her surgical pain to be 7 out of 10. Surgical dressing is dry and intact. Edema noted to left thigh. She has been able to tolerate an oral diet without any nausea/vomiting. She has been out of bed to the bedside commode with assistance without difficulties or lightheadedness. We were consulted for medical management. Preop labs reviewed and noted to be unremarkable except for alkaline phosphatase of 120. FUNCTIONAL STATUS: Partially dependent PAST MEDICAL HISTORY Diagnosis Date A-fib (HCC) Dr. Talbot Anxiety state Arthritis Depression Dysplasia of cervix, unspecified Hypertension Dr. Talbot PONV (postoperative nausea and vomiting) severe Sleep apnea cpap PCP follows PAST SURGICAL HISTORY Procedure Laterality Date BREAST SURGERY HX reduction JOINT REPLACEMENT HX R total hip 04/2021 LEEP PROCEDURE ([employer] DEPT)_*FL PAST SURGICAL HISTORY OF ectopic repairs x4 PAST SURGICAL HISTORY OF 2021 ablation x2 for a fib TONSILLECTOMY HX FAMILY HISTORY Problem Relation Age of Onset Hypertension Mother Heart Mother Irregular heart beat Hypertension Father Heart Father Irregular heart beat Social History Tobacco Use Smoking status: Never Smokeless tobacco: Never Vaping Use Vaping status: Never Used Substance Use Topics Alcohol use: Yes Comment: socially Drug use: No ZINC ACETATE ORAL, Take 1 tablet by mouth once daily. Last dose 04/05 due to surgery, Disp: , Rfl: ascorbic acid, vitamin C, (VITAMIN C) 500 mg tablet, Take 500 mg by mouth once daily. Last dose 04/05 due to surgery, Disp: , Rfl: ELIQUIS 5 mg tab(s), Take 5 mg by mouth two times a day. Hold instructions per Dr. Talbot, Disp: , Rfl: , 04/15/2024 at 1000 cetirizine (ZYRTEC) 10 mg tablet, Take 10 mg by mouth., Disp: , Rfl: cyclobenzaprine (FLEXERIL) 5 mg tablet, TAKE 1-2 TABS BY MOUTH TWICE A DAY NEEDED FOR BACK PAIN,, Disp: , Rfl: dofetilide (TIKOSYN) 250 mcg capsule, Take 250 mcg by mouth every 12 hours., Disp: , Rfl: , 04/19/2024 at 0900 magnesium oxide (MAG-OX) 400 mg (241.3 mg magnesium) tablet, Take 2 tablets by mouth daily at bedtime., Disp: , Rfl: multivit with minerals/lutein (MULTIVITAMIN 50 PLUS ORAL), Take 1 tablet by mouth once daily. Last dose 04/05 due to surgery, Disp: , Rfl: potassium chloride SR (MICRO-K) 10 mEq CR capsule, Take 10 mEq by mouth two times a day., Disp: , Rfl: rosuvastatin (CRESTOR) 10 mg tablet, Take 10 mg by mouth daily at bedtime., Disp: , Rfl: spironolactone (ALDACTONE) 25 mg tablet, take 1 tablet by mouth every day with meals, Disp: , Rfl: , 04/19/[address] (PROTONIX) 20 mg tablet, Take 1 tablet by mouth once daily., Disp: 90 tablet, Rfl: 3, 04/19/2024 at 0600 sertraline (ZOLOFT) 50 mg tablet, Take 1 tablet by mouth daily (Patient taking differently: Take 75 mg by mouth once daily.), Disp: 90 tablet, Rfl: 3 Allergies As of Date: 03/22/2024 Allergen Noted Reaction FLAGYL [METRONIDAZOLE] 05/10/2019 Other: See Comments HALOPERIDOL 01/22/2024 Unknown MORPHINE 04/29/2019 Vomiting Fully Assessed 01/22/2024 COMPLETE REVIEW OF SYSTEMS: Review of Systems Constitutional: Negative for chills and fever. HENT: Negative for congestion and sore throat. Eyes: Negative for pain. Respiratory: Negative for cough and shortness of breath. Cardiovascular: Negative for chest pain and palpitations. Gastrointestinal: Negative for abdominal pain and nausea. Genitourinary: Negative for dysuria and frequency. Musculosk (more content not included)... Normal [facility] Comprehensive metabolic 2000 panelon 04-20-2024 Albumin [Mass/Vol] 3.0 g/dL Low 3.2-5.0 [facility] Comment on above: Order Comment: Speci men Type: BLOOD SPECIMENOrdering Facility: [facility] Address: [address] [place] [address] Performed By: #### 2 4323-8, 10439-9, HSTROP ####[facility] LABORATORYCLIA [id number] [place] [address] [place] ALP [Catalytic activity/Vol] 98 U/L Normal 45-117 [facility] Comment on above: Order Comment: Speci men Type: BLOOD SPECIMENOrdering Facility: [facility] Address: [address] [place] [address] Performed By: #### 2 4323-8, 04100-8, HSTROP ####[facility] LABORATORYCLIA [id number] [address] OF [facility] ALT [Catalytic activity/Vol] 14 U/L Normal 13-61 [facility] Comment on above: Order Comment: Speci men Type: BLOOD SPECIMENOrdering Facility: [facility] Address: [address] [place] [address] Result Comment: Resu lts may be falsely depressed after the administration of Sulfasalazine and/or Sulfapyridine. Performed By: #### 2 4323-8, , HSTROP ####[facility] LABORATORYCLIA [id number] [address] Anion gap [Moles/Vol] 7 mmol/L Normal 5-16 [facility] Comment on above: Order Comment: Speci men Type: BLOOD SPECIMENOrdering Facility: [facility] Address: [address] [place] [address] Performed By: #### 2 4323-8, 68310-7, HSTROP ####[facility] LABORATORYCLIA [id number] [address] [place] AST [Catalytic activity/Vol] 20 U/L Normal 8-34 [facility] Comment on above: Order Comment: Speci men Type: BLOOD SPECIMENOrdering Facility: [facility] Address: [address] [place] [address] Result Comment: Resu lts may be falsely depressed after the administration of Sulfasalazine and/or Sulfapyridine. Performed By: #### 2 4323-8, 89953-3, HSTROP ####[facility] LABORATORYCLIA [id number] [place] [address] [place] Bilirubin [Mass/Vol] 0.5 mg/dL Normal 0.2-1.0 [facility] Comment on above: Order Comment: Speci men Type: BLOOD SPECIMENOrdering Facility: [facility] Address: [address] [place] [address] Performed By: #### 2 4323-8, , HSTROP ####[facility] LABORATORYCLIA [id number] [place] [address] [place] Calcium [Mass/Vol] 9.0 mg/dL Normal 8.5-10.5 [facility] Comment on above: Order Comment: Speci men Type: BLOOD SPECIMENOrdering Facility: [facility] Address: [address] [place] [address] Performed By: #### 2 4323-8, , HSTROP ####[facility] LABORATORYCLIA [id number] [place] [address] [place] Chloride [Moles/Vol] 107 mmol/L Normal 98-107 [facility] Comment on above: Order Comment: Speci men Type: BLOOD SPECIMENOrdering Facility: [facility] Address: [address] [place] [address] Performed By: #### 2 4323-8, , HSTROP ####[facility] LABORATORYCLIA [id number] [place] [address] [place] CO2 [Moles/Vol] 25 mmol/L Normal 21-32 [facility] Comment on above: Order Comment: Speci men Type: BLOOD SPECIMENOrdering Facility: [facility] Address: [address] [place] [address] Performed By: #### 2 4323-8, , HSTROP ####[facility] LABORATORYCLIA [id number] [place] [id number] [place] Creatinine [Mass/Vol] 0.61 mg/dL Normal 0.51-0.95 [facility] Comment on above: Order Comment: Speci men Type: BLOOD SPECIMENOrdering Facility: [facility] Address: [address] [place] [address] Result Comment: Annie ents receiving either N-Acetylcysteine (NAC) or Metamizole prior to venipuncture, may have falsely depressed results. Performed By: #### 2 4323-8, , HSTROP ####[facility] LABORATORYCLIA [id number] [place] [id number] [place] Creatinine and Glomerular filtration rate.predicted panel (S/P/Bld) 99 mL/min/1.73m??? Normal >=60 [facility] Comment on above: Order Comment: Sagar jensen Type: BLOOD SPECIMENOrdering Facility: [facility] Address: [address] [place] [address] Result Comment: Briana mated Glomerular Filtration Rate (eGFR) is calculated using the 2020 CKD-EPI creatinine equation. This equation utilizes serum creatinine, sex, and age as parameters. The creatinine assay has traceable calibration to isotope dilution-mass spectrometry. Refer to KDIGO guidelines for clinical interpretation. In patients with unstable renal function, e.g. those with acute kidney injury, the eGFR may not accurately reflect actual GFR. Performed By: #### 2 4323-8, , HSTROP ####[facility] LABORATORYCLIA [id number] [place] [id number] [place] Glucose [Mass/Vol] 121 mg/dL High 70-100 [facility] Comment on above: Order Comment: Sagar jensen Type: BLOOD SPECIMENOrdering Facility: [facility] Address: [address] [place] [id number] Result Comment: The [place] Diabetes Association (ADA) provides guidance for cutoff values for fasting glucose and random glucose. The ADA defines fasting as no caloric intake for at least 8 hours. Fasting plasma glucose results between 100 to 125 mg/dL indicate increased risk for diabetes (prediabetes). Fasting plasma glucose results greater than or equal to 126 mg/dL meet the criteria for diagnosis of diabetes. In the absence of unequivocal hyperglycemia, results should be confirmed by repeat testing. In a patient with classic symptoms of hyperglycemia or hyperglycemic crisis, random plasma glucose results greater than or equal to 200 mg/dL meet the criteria for diagnosis of diabetes. Reference: Standards of Medical Care in Diabetes 2016, [place] [employer] Association. Diabetes Care. 2016.39(Suppl 1). Results may be falsely elevated after the administration of Sulfapyridine. Results may be falsely depressed after the administration of Sulfasalazine. Performed By: #### 2 4323-8, , HSTROP ####[facility] LABORATORYCLIA [id number] [place] [id number] [place] Potassium [Moles/Vol] 4.3 mmol/L Normal 3.5-5.1 [facility] Comment on above: Order Comment: Speci men Type: BLOOD SPECIMENOrdering Facility: [facility] Address: [address] [place], [place] [id number] Performed By: #### 2 4323-8, , HSTROP ####[facility] LABORATORYCLIA [id number] [place] [id number] [place] Protein [Mass/Vol] 5.9 g/dL Low 6.0-8.5 [facility] Comment on above: Order Comment: Speci men Type: BLOOD SPECIMENOrdering Facility: [facility] Address: [address] [place] [address] Performed By: #### 2 4323-8, , HSTROP ####[facility] LABORATORYCLIA [id number] [place] [id number] [place] Sodium [Moles/Vol] 139 mmol/L Normal 136-145 [facility] Comment on above: Order Comment: Speci men Type: BLOOD SPECIMENOrdering Facility: [facility] Address: [address] [place] [address] Performed By: #### 2 4323-8, , HSTROP ####[facility] LABORATORYCLIA [id number] [place] [id number] [place] Urea nitrogen [Mass/Vol] 21 mg/dL Normal 7-26 [facility] Comment on above: Order Comment: Speci men Type: BLOOD SPECIMENOrdering Facility: [facility] Address: [address] [place] [id number] Performed By: #### 2 4323-8, , HSTROP ####[facility] LABORATORYCLIA [id number] [place] [id number] [place] ECG COMPLETEon 04-20-2024 ECG COMPLETE Ventricular Rate : 66 BPM Atrial Rate : 66 BPM P-R Interval : 150 ms QRS Duration : 84 ms Q-T Interval : 460 ms QTC Calculation(Bazett) : 482 ms Calculated P Dallas : 9 degrees Calculated R Dallas : 39 degrees Calculated T Dallas : 47 degrees Normal sinus rhythm Abnormal ECG When compared with ECG of 30-Apr-1994 23:06, No significant change was found P wave amplitude has decreased Confirmed by LATHA VELA MD ([id number]) on 04/23/2024 3:29:25 PM NAME : DONNA SNOWDEN PID : [id number] : 1960 Gender : Female Race : ORD : [id number] Procedure Date : Apr 20 2024 05:46:02 Edit Date : Apr 23 2024 15:29:31 Diagnosis: Normal sinus rhythm Abnormal ECG When compared with ECG of 30-Apr-1994 23:06, No significant change was found P wave amplitude has decreased Confirmed by LATHA VELA MD ([id number]) on 04/23/2024 3:29:25 PM Test Reason : rt Location : 28 : [id number] Overread By : LATHA VELA MD Edited By : LATHA VELA MD Referred By : , Acquired by : KENNETH COOPER [facility] HIGH SENSITIVITY TROPONIN Io n 04-20-2024 Tropinin I.cardiac panel High sensitivity method <2.5 Normal 0.0-34.0 [facility] Comment on above: Order Comment: Speci men Type: BLOOD SPECIMENOrdering Facility: [facility] Address: [address] [place] [address] [place] [address] Performed By: #### 2 4323-8, , HSTROP ####[facility] LABORATORYCLIA [id number] [place] [id number] [place] Magnesium SerPl-mCncon 04-20 Magnesium [Mass/Vol] 1.7 mg/dL Normal 1.6-2.6 [facility] Comment on above: Order Comment: Speci men Type: BLOOD SPECIMENOrdering Facility: [facility] Address: [facility] [address] Performed By: #### 2 4323-8, 01337-2, HSTROP ####[facility] LABORATORYCLIA [id number] [address] THERAPY NTon 04-20-2024 THERAPY NT HNO ID: [id number] Author: CHINA ROSALES, PT Service: Physical Therapy Author Type: Physical Therapist Type: Therapy (PT/OT/Speech/Resp) Filed: 04/20/2024 12:59 Note Text: Physical Therapy Evaluation Summary SERVICE DATE: 04/20/2024 SERVICE TIME: 0958 to 105 ROOM: [place] [address] PT 6 Clicks Score: 24 Total Joint Replacement Discharge Readiness: Cleared from Physical Therapy DISCHARGE RECOMMENDATIONS Outpatient PT ASSESSMENT Response to Therapy Interventions: Good Participation in Activities Pt tolerated PT eval well. She demosntrated good mobility and good safety. She would benefit from OP PT PRECAUTIONS Anterior Hip Precautions, Weight Bearing Restrictions Left Lower Extremity Weight Bearing Status: WBAT CURRENT HOSPITAL COURSE Elective sx, s/p left IDRIS - direct anterior approach by Dr. Duron on Relevant Past Medical History: A-fib, arthritis, HTN, PONV HOME LIVING Patient Lives With: Spouse Assistance Available: 24-Hour, Other: See Comment Comments: strong family support, off work til next week Entry To Home: Stairs, Without Rail Number Of Stairs Into Home: 2 Number Of Stairs To Bed/Bath: 0 Tub/Shower Type: walk in shower Laundry: main level, to assist Equipment Owned: Walker- Wheeled, Sock Aid, Grab Bars- Toilet, Commode- Raised, Lift Chair PRIOR FUNCTIONAL LEVEL Within Functional Limits Pt reports independence with ADLs, ambulates without AD. 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 SUBJECTIVE THERAPY DIAGNOSIS Reduced mobility-other TREATMENT INTERVENTIONS Evaluation, Therapeutic Activity ([id number]) Timed Code Treatment (minutes): 44 Skilled Treatment Time (minutes): 59 TRAINING AND EDUCATION PROVIDED Anatomy and Impact on Deficits, Assistive Device Use, Bed Mobility, Benefits of In-Hospital Mobility, Discharge Planning, Disease Specific Education, Falls Prevention, Gait Pattern, Reduction of Deviations, Positioning, Precautions/Restrict ions, Role of Physical Therapy, Transfers, Car Transfers, Curb Step Navigation, Edema Management, Energy Conservation, Equipment, Exercise Program, Expected Functional Level, Handout Issued THERAPEUTIC SKILLS USED Cues for Sequencing/Proper Technique for Activity, Cuing Verbal FUNCTIONAL STATUS Bed Mobility Supine To Sit: Supervision Transfers Sit To Stand: Supervision Stand To Sit: Supervision Bed to Chair Gait Supervision Gait Device: Wheeled Walker General Deviations/Observati ons: Non-functional gait speed, Shuffling Gait, Step length decreased, Antalgic gait Gait Distance (feet): 120 x 2 Stairs Curb Step: Supervision Device: Wheeled Walker GOALS Patient will demonstrate understanding of importance of mobility during hospital stay and resolve all functional needs identified. Rehab Potential: Excellent Progress Toward Goals: Progressing as expected PLAN PT Frequency: Discontinue Therapy Services Reasons Therapy Services Discontinued: No skilled needs Treatment Interventions: Education SIGNATURE: China Rosales PT PATIENT NAME: Donna Snowden DATE: April 20, 2024 TIME: 12:59 PM Normal [facility] THERAPY NT HNO ID: [id number] Author: PATRICK NG OTR/L Service: ? Author Type: Occupational Therapist Type: Therapy (PT/OT/Speech/Resp) Filed: 04/20/2024 11:42 Note Text: Occupational Therapy Evaluation Summary SERVICE DATE: 04/20/2024 SERVICE TIME: 1114 to 1137 ROOM: [place] [address] OT 6 Clicks Score: 22 Total Joint Replacement Discharge Readiness: Cleared from Occupational Therapy DISCHARGE RECOMMENDATIONS Home Recommended Discharge Disposition Comments: pt to return home with avaialble spousal and family support Anticipated Discharge Needs: Physical Assist at Home Physical Assist at Home for: Cleaning, Laundry, Meals, Safety Recommended Discharge Equipment: No equipment needs anticipated ASSESSMENT Response to Therapy Interventions: Good Participation in Activities, Requires Additional Time to Complete Activities, Pain Pt required hands on assist for LB ADL task completion. Provided education on ant hip precautions and AE to assist with self-care. Limited by pain but tolerated session well. PRECAUTIONS Anterior Hip Precautions, Weight Bearing Restrictions Left Lower Extremity Weight Bearing Status: WBAT CURRENT HOSPITAL COURSE Elective sx, s/p left IDRIS - direct anterior approach by Dr. Duron on Relevant Past Medical History: A-fib, arthritis, HTN, PONV HOME LIVING Patient Lives With: Spouse Assistance Available: 24-Hour, Other: See Comment Comments: strong family support, off work til next week Entry To Home: Stairs, Without Rail Number Of Stairs Into Home: 2 Number Of Stairs To Bed/Bath: 0 Tub/Shower Type: walk in shower Laundry: main level, to assist Equipment Owned: Walker- Wheeled, Sock Aid, Grab Bars- Toilet, Commode- Raised, Lift Chair PRIOR FUNCTIONAL LEVEL Within Functional Limits Pt reports independence with ADLs, ambulates without AD. 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 Baseline Cognition: Oriented to place, Oriented to self, Oriented to time, Oriented to situation SUBJECTIVE Pt pleasant and agreeable to session. COGNITION Responsiveness: Alert, Awake Follows Commands: 3-step Commands THERAPY DIAGNOSIS Reduced mobility-other, Decreased activities of daily living (ADL) TREATMENT INTERVENTIONS Evaluation, Self Residential Management ([id number]) Timed Code Treatment (minutes): 8 Skilled Treatment Time (minutes): 23 TRAINING AND EDUCATION PROVIDED Assistive Device Use, Adaptive Equipment/DME, Benefits of In-Hospital Mobility, Discharge Planning, Bed Mobility, Functional Mobility Involving ADLs, Home Set-up/Modifications , Lower Extremity Dressing, Positioning, Pain Management, Role of Occupational Therapy, Precautions/Restrict ions, Sitting Balance to Improve [place] with ADLs/Self-Care, Standing Balance to Improve [place] with ADLs/Self-Care, Safety/Judgment, Transfer - Toilet/Commode, Transfer - Sit to Stand THERAPEUTIC SKILLS USED Activity Dosing, Bilateral UE Integration, Cues for Sequencing/Proper Technique for Activity, Cuing Verbal, Physical Assist, Therapeutic Use of Self, Teach-Back for Education FUNCTIONAL STATUS Activities of Daily Living Assist Level Additional Information Feeding Independent Grooming Supervision Bathing Upper Body Supervision Bathing Lower Body Minimal Assistance Dressing Upper Body Supervision Dressing Lower Body Minimal Assistance, Additional Information required assist with initiation of donning pants, pt able to hike up in standing Toileting Supervision Mobility Assist Level Additional Information Bed Mobility Sit to Stand Supervision Stand to Sit Supervision Bed to Chair Toilet/Commode Supervision, Additional Information cues for positioning of LLE, encouraged use of grab bar Shower Functional Mobility Supervision, Additional Information Functional Mobility Device: Wheeled Walker pt walked to/from bathroom > back nurse's station >returned to room GOALS Patient will demonstrate progress with self-care, cognitive and/or coping needs identified to allow safe discharge to home with available support and/or physical assistance. Rehab Potential: Excellent PLAN OT Frequency: Discontinue Therapy Services Reasons Therapy Services Discontinued: No skilled needs, Independent in all functional mobility, Goals met Treatment Interventions: Education, Self Care/Home Management, Strengthening, Balance Training, Functional Mobility Training, Pain Management SIGNATURE: Patrick Ng OTR/L PATIENT NAME: Donna Snowden DATE: April 20, 2024 TIME: 11:42 AM [facility] ANES POSTPROC EVALon 024 ANES POSTPROC EVAL HNO ID: [id number] Author: PATRICK MAKI DO Service: Anesthesiology Author Type: Anesthesiologist Type: Anesthesia Postprocedure Evaluation Filed: 04/19/2024 16:15 Note Text: POST ANESTHESIA EVALUATION NOTE : 1960 Procedure Summary Date: 04/19/24 Room / Location: OR 06 / OR Anesthesia Start: 1137 Anesthesia Stop: 1433 Procedure: ARTHROPLASTY REPLACE JOINT TOTAL HIP (Left: Hip) Diagnosis: Left hip pain Primary osteoarthritis of left hip (Left hip pain [M25.552]) (Primary osteoarthritis of left hip [M16.12]) Surgeons: Avelino Duron MD Responsible Provider: Kenneth Villa DO Anesthesia Type: spinal ASA Status: 2 Anesthesia Type: spinal Last Vitals Vitals Value Taken Time BP 113/57 04/19/24 1600 Temp 36.9 ?C (98.4 ?F) 04/19/24 1429 Pulse 84 04/19/24 1613 Resp 16 04/19/24 1545 SpO2 95 % 04/19/24 1613 Vitals shown include unfiled device data. Post Anesthesia Patient Status Patient Evaluation: PACU. PACU/ICU Patient Condition: stable. Anticipated Disposition: inpatient floor planned admission. Neurological Status: aware and responsive. Pulmonary Status: breathing comfortably on room air Airway Control: returned to baseline unsupported. Cardiovascular Status: stable. Pain Management: clinically adequate Postoperative Hydration: acceptable. Intraoperative Events: no significant anesthesia events Post Operative Nausea/Vomiting Status: no significant post operative nausea or vomiting Recommendation: continue current plan of care. Anesthesia Observations No Documentation SIGNATURE: Patrick Maki DO PATIENT NAME: Donna Snowden DATE: April 19, 2024 TIME: 4:15 PM CSN: [id number] [facility] ANES PRE-OPon 04-19-2024 ANES PRE-OP HNO ID: [id number] Author: KENNETH VILLA DO Service: Anesthesiology Author Type: Anesthesiologist Type: Anesthesia Preprocedure Evaluation Filed: 04/19/2024 10:34 Note Text: ANESTHESIOLOGY DAY OF SURGERY NOTE : 1960 Procedure Information Date/Time: 04/19/24 1015 Procedure: ARTHROPLASTY REPLACE JOINT TOTAL HIP (Left: Hip) Location: MR OR 06 / MR OR Surgeons: Avelino Duron MD Estimated body mass index is 30.05 kg/m? as calculated from the following: Height as of this encounter: 162.6 cm (5' 4). Weight as of this encounter: 79.4 kg (175 lb 0.7 oz). L IDRIS 04/19 Francisco Javier 63yo female, nonsmoker. PMH: +DANIELLE cpap, HTN, HLD, AF s/p ablation 2022 ([facility]), Atach, thrombophilia, GERD, MARISCAL, ERICA, depression, severe PONV ECHO 2021 EF 52, NML LA/RA Most recent hematocrit and potassium results: Hematocrit 40.5 03/29/2024 Potassium 3.7 03/29/2024 Relevant Problems ANESTHESIA (+) PONV (postoperative nausea and vomiting) (+) Sleep apnea (+) Spinal headache CARDIO (+) A-fib (HCC) (+) Hypertension NEURO-PSYCH (+) Spinal headache PULMONARY (+) Sleep apnea Surgical History Current as of 04/19/24 09 LEEP PROCEDURE ([employer])_*FL PAST SURGICAL HISTORY OF PAST SURGICAL HISTORY OF JOINT REPLACEMENT HX BREAST SURGERY HX TONSILLECTOMY HX Substance History Current as of 04/19/24 09 Smoking Status: Never Smokeless Tobacco Status: Never Alcohol use: Yes, unspecified volume Comments: socially Drug use: No I - PHYSICAL EVALUATION AIRWAY Patient intubated: No. Tracheostomy tube not present Mallampati: II. TM distance: >3 FB. Neck ROM: full ROM without neurological symptoms. Mouth opening: adequate. Short neck: no. Thick neck: no Gonzalez present: no Lip Bite Test: II Microretrognathia/Mi cronagthia/Recessed Chin: No DENTAL Dental findings: teeth intact. Additional exam findings: yes. CARDIOVASCULAR Rhythm: regular PULMONARY Breath sounds clear to auscultation. II - ANESTHESIA PLAN ASA Score: 2 Anesthetic Plan: spinal The patient is not a current smoker. NPO Status: adequate Beta Carmela Administration of chronic beta carmela medication planned. Monitoring Plan Monitoring plan: standard ASA. Post Procedure Analgesic Plan Postoperative analgesic plan: multimodal analgesia. Informed Consent Anesthetic risks, benefits, alternatives, personnel and consent discussed: yes. Patient / Responsible Constitution Party agrees to proceed: yes Patient / Surrogate agrees to blood products: Yes Discussed the possibility of lip / dental damage: yes Vitals Value Taken Time BP 128/66 04/19/24 0741 Pulse 84 04/19/24 0740 Resp 20 04/19/24 0738 Temp 36.4 ?C (97.6 ?F) 04/19/24 0738 SpO2 96 % 04/19/24 0740 Vitals shown include unfiled device data. No current facility-administere d medications on file as of 04/19/2024. Outpatient Medications as of 04/19/2024 Medication Sig ZINC ACETATE ORAL Take 1 tablet by mouth once daily. Last dose 04/05 due to surgery ascorbic acid, vitamin C, (VITAMIN C) 500 mg tablet Take 500 mg by mouth once daily. Last dose 04/05 due to surgery ELIQUIS 5 mg tab(s) Take 5 mg by mouth two times a day. Hold instructions per Dr. Antione adenirizine (ZYRTE) 10 mg tablet Take 10 mg by mouth. cyclobenzaprine (FLEXERIL) 5 mg tablet TAKE 1-2 TABS BY MOUTH TWICE A DAY NEEDED FOR BACK PAIN, dofetilide (TIKOSYN) 250 mcg capsule Take 250 mcg by mouth every 12 hours. magnesium oxide (MAG-OX) 400 mg (241.3 mg magnesium) tablet Take 2 tablets by mouth daily at bedtime. multivit with minerals/lutein (MULTIVITAMIN 50 PLUS ORAL) Take 1 tablet by mouth once daily. Last dose 04/05 due to surgery potassium chloride SR (MICRO-K) 10 mEq CR capsule Take 10 mEq by mouth two times a day. rosuvastatin (CRESTOR) 10 mg tablet Take 10 mg by mouth daily at bedtime. spironolactone (ALDACTONE) 25 mg tablet take 1 tablet by mouth every day with meals pantoprazole DR (PROTONIX) 20 mg tablet Take 1 tablet by mouth once daily. sertraline (ZOLOFT) 50 mg tablet Take 1 tablet by mouth daily (Patient taking differently: Take 75 mg by mouth once daily.) I have interviewed and examined the patient. I have reviewed the medical record and/or the pre-anesthesia evaluation, pertinent labs, and test results. This contains updated information obtained within 48 hours of Surgery/Procedure. SIGNATURE: Kenneth Villa DO PATIENT NAME: Donna Snowden DATE: April 19, 2024 TIME: 8:57 AM CSN: [id number] [facility] HISTORY PHYSICALon HISTORY PHYSICAL HNO ID: [id number] Author: AVELINO DURON MD Service: Orthopaedic Surgery Author Type: Physician Type: H&P Filed: 04/19/2024 10:47 Note Text: UPDATED HISTORY AND PHYSICAL EXAMINATION SERVICE DATE: 04/19/2024 SERVICE TIME: 10:46 AM PHYSICAL EXAM MUST BE COMPLETED ON ADMISSION The History and Physical (completed in the past 30 days) has been reviewed and the patient has been examined. The contents accurately reflect the patient's condition with the following additions or revisions since the HANDP was completed. Examination indicates no changes. This HANDP can be found in the scanned documents . SIGNATURE: Avelino Duron MD PATIENT NAME: Donna Snowden DATE: April 19, 2024 TIME: 10:46 AM Patient seen and examined. Unlabored breathing. Regular pulse rate. Here today for left total hip arthroplasty, direct anterior. Surgical site confirmed and marked. Informed sent obtained documented. I discussed risk, benefits, alternatives to surgical invention with the patient and she wished to proceed. Plan for left total hip arthroplasty, direct anterior approach. Avelino Duron MD [facility] OPERATIVE NOon 04-19-2024 OPERATIVE NO HNO ID: [id number] Author: AVELINO DURON MD Service: Orthopaedic Surgery Author Type: Physician Type: Operative Report Filed: 04/19/2024 14:38 Note Text: Operative Report Patient Name: Donna Snowden LOG ID: [id number] Surgery Date: 04/19/2024 Surgeon(s) and Magisterial District Judge(s): Surgeons and Role: * Avelino Duron MD - Primary Desire Pillai PA-C Procedure(s): Left Total Hip Arthroplasty- Direct Anterior Approach Anesthesia: Spinal Preop Diagnosis: Pre-Op Diagnosis Codes: * Left hip pain [M25.552] * Primary osteoarthritis of left hip [M16.12] Postop Diagnosis: Same as Pre-Op Diagnosis Codes: * Left hip pain [M25.552] * Primary osteoarthritis of left hip [M16.12] Estimated Blood Loss: 300 cc Implants: Implant Name Type Inv. Item Serial No. Lead Slot Technician Lot No. LRB No. Used Action SCREW TRIDENT II 6.5MM 20MM BONE LOW PROFILE HEXAGONAL STERILE - [id number] Screw SCREW TRIDENT II 6.5MM 20MM BONE LOW PROFILE HEXAGONAL STERILE [facility] [employer] [id number] Left 1 Wasted STEM FEMORAL 103MM SIZE 4 HIGH OFFSET INSIGNIA COLLARED - [id number] Joint - Hip STEM FEMORAL 103MM SIZE 4 HIGH OFFSET INSIGNIA COLLARED [id number] Left 1 Implanted SCREW TRIDENT II 6.5MM 15MM BONE LOW PROFILE HEXAGONAL STERILE - [id number] Screw SCREW TRIDENT II 6.5MM 15MM BONE LOW PROFILE HEXAGONAL STERILE [facility] [id number] Left 1 Implanted SCREW TRIDENT II 6.5MM 30MM BONE LOW PROFILE HEXAGONAL STERILE - [id number] Screw SCREW TRIDENT II 6.5MM 30MM BONE LOW PROFILE HEXAGONAL STERILE [facility] [id number] Left 1 Implanted INSERT ACETABULAR 36MM 0D D HIP X3 TRIDENT STERILE LATEX FREE - [id number] Joint - Hip INSERT ACETABULAR 36MM 0D D HIP X3 TRIDENT STERILE LATEX FREE GREG [id number] Left 1 Implanted SHELL TRIDENT II 50MM D TRITANIUM ACETABULAR 3 SCREW HOLE CLUSTER STERILE - [id number] Joint SHELL TRIDENT II 50MM D TRITANIUM ACETABULAR 3 SCREW HOLE CLUSTER STERILE [facility] [id number] Left 1 Implanted HEAD V40 36MM 0MM OFFSET TAPER BIOLOX DELTA FEMORAL HIP - [id number] Joint HEAD V40 36MM 0MM OFFSET [facility] [id number] Left 1 Implanted Complications: None apparent at conclusion of case Indication: Patient is a 63 year old female with a chronic history of left hip pain that was refractory to nonoperative treatment and impairing activities of daily living. Radiographic and MRI evaluation demonstrated hip osteoarthritis as well as a subchondral femoral head fracture that was subacute. Surgical versus nonsurgical options were discussed with the patient and together we decided it was best to proceed with a total hip replacement with the goals of pain relief and improvement in function. All risks and benefits of surgery including bleeding, infection, dislocation, periprosthetic fracture, damage to blood vessels/tendons/nerv es, leg length discrepancy, blood clots, bleeding as well as medical and anesthesia related complications were discussed with the patient. DESCRIPTION OF PROCEDURE: The patient was taken to the operating room where anesthesia was administered by the physical director. The patient was positioned in a supine position with both feet secured in the boots on the HANA table. Perioperative IV antibiotics and TXA were administered. All bony prominences were padded. The operative hip was sterilely prepped and draped in usual orthopedic fashion. Bony landmarks palpated, outlined, incision marked and all remaining exposed skin covered with an Ioban drape. Draping gloves were removed and changed. After positioning, prep and drape, a time-out procedure was performed in conjunction with the World Health Organization. All staff present were in agreement to proceed. An approximately 8 cm long incision was made beginning lateral and distal to the anterior superior iliac spine and extending distally cm toward the ipsilateral lateral fibular head of the knee. Electrocautery was used to dissect through subcutaneous tissue. The fascia overlying the TFL was incised in line with its fibers. A Nunez elevator was used to separate the fascia from the TFL. A finger was then placed along the superior femoral neck, and a Cobra retractor was placed. A second cobra was placed distally between the vastus lateralis and and TFL muscle belly. Finger traction was used on rectus femoris to show the interval over the lateral femoral circumflex artery. Using electrocautery and a tonsil clamp, the ascending branches of the lateral femoral circumflex artery were ligated. The overlying investing fascia over the capsule was divided, and a purple Mehul retractor was inserted just superficial to the hip capsule and underneath the rectus and TFL. Two cobra retractors were used to isolate the femoral neck again. The anterior hip capsule was then incised with electrocautery starting at the edge of the acetabulum in line with the anterior superi (more content not included)... [facility] XR FLUOROSCOPYon 04-19-2024 XR FLUOROSCOPY * * *Final Report* * * DATE OF EXAM: Apr 19 2024 2:00PM [id number] [id number] - XR FLUOROSCOPY / PROCEDURE REASON: LT HIP ARTHROPLASTY * * * * Physician Interpretation * * * * XR FLUOROSCOPY Ordering Physician: AVELINO DURON FLUOROSCOPY AND RADIOGRAPHS UTILIZED IN THE OR Clinical Statement: Left hip arthroplasty FINDINGS: 38.3 second fluoroscopy time utilized. A total of 6 images were obtained during left hip arthroplasty. IMPRESSION: Documentation of fluoroscopy and radiographs utilized in the OR. Please see operative report for complete details Customer Engineering Specialist: [facility] Transcribe Date/Time: Apr 20 2024 7:58A Dictated by : SHAWN KNOTT MD This examination was interpreted and the report reviewed and electronically signed by: SHAWN KNOTT MD on Apr 20 2024 7:59AM EST [id number] CN [facility] XR HIP 3V PELV+ AP/LAT LTon 04-19-2024 XR HIP 3V PELV+ AP/LAT LT * * *Final Report* * * DATE OF EXAM: Apr 19 2024 3:11PM [id number] 5351 - XR HIP 3V PELV+ AP/LAT LT / PROCEDURE REASON: Post-operative / post-procedure assessment * * * * Physician Interpretation * * * * EXAM: XR HIP 3V PELV+ AP/LAT LT HISTORY: Post-operative / post-procedure assessment COMPARISON: None available FINDINGS: Subcutaneous gas projects over the left hip. Left hip arthroplasty is present. A right hip arthroplasty is present. Degenerative changes are present in the lumbar spine and sacroiliac joints. IMPRESSION: Interval left hip arthroplasty. Customer Engineering Specialist: [facility] Transcribe Date/Time: Apr 19 2024 4:15P Dictated by : PARVEEN GAITAN MD This examination was interpreted and the report reviewed and electronically signed by: PARVEEN GAITAN MD on Apr 19 2024 4:18PM EST [id number] CN Normal [facility] 25(OH)D3 SerPl-mCncon 2023 25-hydroxyvitamin D3 [Mass/Vol] 51.4 ng/mL Normal 30.0-100.0 [facility] Comment on above: Order Comment: Speci men Type: BLOOD SPECIMEN Ordering Facility: [facility] Address: [address] [place] [address] Result Comment: Defi ciency\X09\Less than 20 ng/mL Insufficiency\X09\20 - Less than 30 ng/mL Sufficiency\X09\30 - 100 ng/mL Performed By: #### 1 4338-8, 1988-07 #### [facility] CLIA [id number] [address] [place] [address] [place] [facility] ACTIVATED PARTIAL THROMBOPLA STIN TIMEon 03-29-2024 aPTT Coag (PPP) [Time] 34.2 s High [facility] CBC W Auto Differential pane l (Bld)on 03-29-2024 Basophils (Bld) [#/Vol] 0.03 10*3/uL [facility] Basophils/100 WBC (Bld) 0.4 % [facility] Differential cell count method Nom (Bld) Auto [facility] Eosinophils (Bld) [#/Vol] 0.05 10*3/uL [facility] Eosinophils/100 WBC (Bld) 0.6 % [facility] Erythrocyte distribution width (RBC) [Ratio] 12.9 % 11.5 - 15.0 % [facility] Hematocrit (Bld) [Volume fraction] 40.5 % 36.0 - 46.0 % [facility] Hemoglobin (Bld) [Mass/Vol] 13.6 g/dL 11.5 - 15.5 g/dL [facility] Immature granulocytes (Bld) [#/Vol] NINF [facility] Immature granulocytes/100 WBC (Bld) 0.3 % [facility] Lymphocytes (Bld) [#/Vol] 1.61 10*3/uL [facility] Lymphocytes/100 WBC (Bld) 20.7 % [facility] MCH (RBC) [Entitic mass] 30.4 pg 26.0 - 34.0 pg [facility] MCHC (RBC) [Mass/Vol] 33.6 g/dL 30.5 - 36.0 g/dL [facility] MCV (RBC) [Entitic vol] 90.6 fL 80.0 - 100.0 fL [facility] Monocytes (Bld) [#/Vol] 0.37 10*3/uL [facility] Monocytes/100 WBC (Bld) 4.8 % [facility] Neutrophils (Bld) [#/Vol] 5.70 10*3/uL [facility] Neutrophils/100 WBC (Bld) 73.2 % [facility] Nucleated RBC (Bld) [#/Vol] NINF [facility] Nucleated RBC/100 WBC (Bld) [Ratio] 0.0 % /100 WBC [facility] Platelet mean volume (Bld) [Entitic vol] 10.3 fL 9.0 - 12.7 fL [facility] Platelets (Bld) [#/Vol] 242 10*3/uL [facility] RBC (Bld) [#/Vol] 4.47 10*6/uL 3.90 - 5.2 0 m/uL [facility] WBC (Bld) [#/Vol] 7.78 10*3/uL [facility] Basophils (Bld) [#/Vol] 0.03 10*3/uL Normal <0.11 [facility] Comment on above: Order Comment: Speci men Type: BLOOD SPECIMEN Ordering Facility: [facility] Address: [address] [place] [address] Performed By: #### 5 7021-8 #### [facility] CLIA [id number] [address] [place] [address] [place] Basophils/100 WBC (Bld) 0.4 % [facility] Comment on above: Order Comment: Speci men Type: BLOOD SPECIMEN Ordering Facility: [facility] Address: [address] [place] [address] Performed By: #### 5 7021-8 #### [facility] CLIA [id number] [address] [place] [address] [place] Differential cell count method Nom (Bld) Auto Normal [facility] Comment on above: Order Comment: Speci men Type: BLOOD SPECIMEN Ordering Facility: [facility] Address: [address] [place] [address] Performed By: #### 5 7021-8 #### [facility] CLIA [id number] [address] [place] [address] [place] Eosinophils (Bld) [#/Vol] 0.05 10*3/uL Normal <0.46 [facility] Comment on above: Order Comment: Speci men Type: BLOOD SPECIMEN Ordering Facility: [facility] Address: [address] [place] [address] Performed By: #### 5 7021-8 #### [facility] CLIA [id number] [address] [place] [address] [place] Eosinophils/100 WBC (Bld) 0.6 % Normal [facility] Comment on above: Order Comment: Speci men Type: BLOOD SPECIMEN Ordering Facility: [facility] Address: [address] [place] [address] Performed By: #### 5 7021-8 #### [facility] CLIA [id number] [address] [place] [address] [place] Erythrocyte distribution width (RBC) [Ratio] 12.9 % Normal 11.5-15.0 [facility] Comment on above: Order Comment: Speci men Type: BLOOD SPECIMEN Ordering Facility: [facility] Address: [address] [place] [address] Performed By: #### 5 7021-8 #### [facility] CLIA [id number] [address] [place] [address] [place] Hematocrit (Bld) [Volume fraction] 40.5 % Normal 36.0-46.0 [facility] Comment on above: Order Comment: Speci men Type: BLOOD SPECIMEN Ordering Facility: [facility] Address: [address] [place] [address] Performed By: #### 5 7021-8 #### [facility] CLIA [id number] [address] [place] [address] [place] Hemoglobin (Bld) [Mass/Vol] 13.6 g/dL Normal 11.5-15.5 [facility] Comment on above: Order Comment: Speci men Type: BLOOD SPECIMEN Ordering Facility: [facility] Address: [address] [place] [address] Performed By: #### 5 7021-8 #### [facility] CLIA [id number] [address] [place] [address] [place] Immature granulocytes (Bld) [#/Vol] 10*3/uL Normal <0.10 [facility] Comment on above: Order Comment: Speci men Type: BLOOD SPECIMEN Ordering Facility: [facility] Address: [address] [place] [address] Performed By: #### 5 7021-8 #### [facility] CLIA [id number] [address] [place] [address] [place] Immature granulocytes/100 WBC (Bld) 0.3 % Normal [facility] Comment on above: Order Comment: Speci men Type: BLOOD SPECIMEN Ordering Facility: [facility] Address: [address] [place] [address] Performed By: #### 5 7021-8 #### [facility] CLIA [id number] [address] [place] [address] [place] Lymphocytes (Bld) [#/Vol] 1.61 10*3/uL Normal 1.00-4.00 [facility] Comment on above: Order Comment: Speci men Type: BLOOD SPECIMEN Ordering Facility: [facility] Address: [address] [place] [address] Performed By: #### 5 7021-8 #### [facility] CLIA [id number] [address] [place] [address] [place] Lymphocytes/100 WBC (Bld) 20.7 % Normal [facility] Comment on above: Order Comment: Speci men Type: BLOOD SPECIMEN Ordering Facility[facility] Address: [address] [place] [address] Performed By: #### 5 7021-8 #### [facility] CLIA [id number] [address] [place] [address] OF [facility] MCH (RBC) [Entitic mass] 30.4 pg Normal 26.0-34.0 [facility] Comment on above: Order Comment: Speci men Type: BLOOD SPECIMEN Ordering Facility: [facility] Address: [address] [place] [address] Performed By: #### 5 7021-8 #### [facility] CLIA [id number] [address] [place] [address] [place] MCHC (RBC) [Mass/Vol] 33.6 g/dL Normal 30.5-36.0 [facility] Comment on above: Order Comment: Speci men Type: BLOOD SPECIMEN Ordering Facility[facility] Address: [address] [place] [address] Performed By: #### 5 7021-8 #### [facility] [place] [id number] [address] [place] [address] [place] MCV (RBC) [Entitic vol] 90.6 fL Normal 80.0-100.0 [facility] Comment on above: Order Comment: Speci men Type: BLOOD SPECIMEN Ordering Facility[facility] Address: [address] [place] [address] Performed By: #### 5 7021-8 #### [facility] [place] [id number] [address] [place] [address] [place] Monocytes (Bld) [#/Vol] 0.37 10*3/uL Normal <0.87 [facility] Comment on above: Order Comment: Speci men Type: BLOOD SPECIMEN Ordering Facility: [facility] Address: [address] [place] [address] Performed By: #### 5 7021-8 #### [facility] CLIA [id number] [address] [place] [address] Monocytes/100 WBC (Bld) 4.8 % Normal [facility] Comment on above: Order Comment: Speci men Type: BLOOD SPECIMEN Ordering Facility: [facility] Address: [address] [place] [address] Performed By: #### 5 7021-8 #### [facility] CLIA [id number] [address] [place] [address] [place] Neutrophils (Bld) [#/Vol] 5.70 10*3/uL Normal 1.45-7.50 [facility] Comment on above: Order Comment: Speci men Type: BLOOD SPECIMEN Ordering Facility: [facility] Address: [address] [place] [address] Performed By: #### 5 7021-8 #### [facility] CLIA [id number] [address] [place] [address] [place] Neutrophils/100 WBC (Bld) 73.2 % Normal [facility] Comment on above: Order Comment: Speci men Type: BLOOD SPECIMEN Ordering Facility: [facility] Address: [address] [place] [address] Performed By: #### 5 7021-8 #### [facility] CLIA [id number] [address] [place] [address] [place] Nucleated RBC (Bld) [#/Vol] 10*3/uL Normal <0.01 [facility] Comment on above: Order Comment: Speci men Type: BLOOD SPECIMEN Ordering Facility[facility] Address: [address] [place] [address] Performed By: #### 5 7021-8 #### [facility] CLIA [id number] [address] [place] [address] [place] Nucleated RBC/100 WBC (Bld) [Ratio] 0.0 /100 WBC Normal [facility] Comment on above: Order Comment: Speci men Type: BLOOD SPECIMEN Ordering Facility: [facility] Address: [facility] [place] [address] Performed By: #### 5 7021-8 #### [facility] CLIA [id number] [address] [place], [place] [address] [place] Platelet mean volume (Bld) [Entitic vol] 10.3 fL Normal 9.0-12.7 [facility] Comment on above: Order Comment: Speci men Type: BLOOD SPECIMEN Ordering Facility: [facility] Address: [address] [place] [address] Performed By: #### 5 7021-8 #### [facility] CLIA [id number] [address] [place] [address] [place] Platelets (Bld) [#/Vol] 242 10*3/uL Normal 150-400 [facility] Comment on above: Order Comment: Speci men Type: BLOOD SPECIMEN Ordering Facility[facility] Address: [address] [place] [address] Performed By: #### 5 7021-8 #### [facility] CLIA [id number] [address] [place] [address] RBC (Bld) [#/Vol] 4.47 10*6/uL Normal 3.90-5.20 [facility] Comment on above: Order Comment: Speci men Type: BLOOD SPECIMEN Ordering Facility[facility] Address: [address] [place] [address] Performed By: #### 5 7021-8 #### [facility] CLIA [id number] [address] [place] [address] [place] WBC (Bld) [#/Vol] 7.78 10*3/uL Normal 3.70-11.00 [facility] Comment on above: Order Comment: Speci men Type: BLOOD SPECIMEN Ordering [facility] Address: [address] [place] [address] Performed By: #### 5 7021-8 #### [facility] CLIA [id number] [address] [place], [place] [address] [facility] OF [place] Comprehensive metabolic 2000 panelon 03-29-2024 Albumin [Mass/Vol] 3.9 g/dL 3.2 - 5.0 g/dL [facility] ALP [Catalytic activity/Vol] 120 U/L High 45 - 117 U/L [facility] ALT [Catalytic activity/Vol] 16 U/L 13 - 61 U/L [facility] Comment on above: Results may be false ly depressed after the administration of Sulfasalazine and/or Sulfapyridine. Anion gap [Moles/Vol] 9 mmol/L 5 - 16 mmol/L [facility] AST [Catalytic activity/Vol] 18 U/L 8 - 34 U/L [facility] Comment on above: Results may be false ly depressed after the administration of Sulfasalazine and/or Sulfapyridine. Bilirubin [Mass/Vol] 0.9 mg/dL 0.2 - 1 .0 mg/dL [facility] Calcium [Mass/Vol] 9.7 mg/dL 8.5 - 10. 5 mg/dL [facility] Chloride [Moles/Vol] 107 mmol/L 98 - 10 7 mmol/L [facility] CO2 [Moles/Vol] 23 mmol/L 21 - 32 mmol/L [facility] Creatinine [Mass/Vol] 0.55 mg/dL 0.51 - 0.95 mg/dL [facility] Comment on above: Patients receiving e ither N-Acetylcysteine (NAC) or Metamizole prior to venipuncture, may have falsely depressed results. GFR/1.73 sq M.predicted among non-blacks MDRD (S/P/Bld) [Vol rate/Area] 102 mL/min/{1.73_m2} - PINF [facility] Comment on above: Estimated Glomerular Filtration Rate (eGFR) is calculated using the 2020 CKD-EPI creatinine equation. This equation utilizes serum creatinine, sex, and age as parameters. The creatinine assay has traceable calibration to isotope dilution-mass spectrometry. Refer to KDIGO guidelines for clinical interpretation. In patients with unstable renal function, e.g. those with acute kidney injury, the eGFR may not accurately reflect actual GFR. Glucose [Mass/Vol] 124 mg/dL High 70 - 100 mg/dL [facility] Comment on above: The [place] Diabete s Association (ADA) provides guidance for cutoff values for fasting glucose and random glucose. The ADA defines fasting as no caloric intake for at least 8 hours. Fasting plasma glucose results between 100 to 125 mg/dL indicate increased risk for diabetes (prediabetes). Fasting plasma glucose results greater than or equal to 126 mg/dL meet the criteria for diagnosis of diabetes. In the absence of unequivocal hyperglycemia, results should be confirmed by repeat testing. In a patient with classic symptoms of hyperglycemia or hyperglycemic crisis, random plasma glucose results greater than or equal to 200 mg/dL meet the criteria for diagnosis of diabetes. Reference: Standards of Medical Care in Diabetes 2016, [place] [employer] Association. Diabetes Care. 2016.39(Suppl 1). Results may be falsely elevated after the administration of Sulfapyridine. Results may be falsely depressed after the administration of Sulfasalazine. Interpretation and review of laboratory results Abnormal [facility] Potassium [Moles/Vol] 3.7 mmol/L 3.5 - 5.1 mmol/L [facility] Protein [Mass/Vol] 7.4 g/dL 6.0 - 8.5 g/dL [facility] Sodium [Moles/Vol] 139 mmol/L 136 - 145 mmol/L [facility] Urea nitrogen [Mass/Vol] 14 mg/dL 7 - 26 mg/dL [facility] Albumin [Mass/Vol] 3.9 g/dL Normal 3.2-5.0 [facility] Comment on above: Order Comment: Sagar jensen Type: BLOOD SPECIMEN Order[facility] Facility[facility] Address: [address] [place] [address] Performed By: #### 2 4323-8 #### [facility] CLIA [id number] [address] [place] [address] [place] ALP [Catalytic activity/Vol] 120 U/L High 45-117 [facility] Comment on above: Order Comment: Sagar jensen Type: BLOOD SPECIMEN Order[facility] Address: [address] [place] [address] Performed By: #### 2 4323-8 #### [facility] CLIA [id number] [address] [place] [address] [place] ALT [Catalytic activity/Vol] 16 U/L Normal 13-61 [facility] Comment on above: Order Comment: Sagar jensen Type: BLOOD SPECIMEN Ordering Facility: [facility] Address: [address] [place] [address] Result Comment: Resu lts may be falsely depressed after the administration of Sulfasalazine and/or Sulfapyridine. Performed By: #### 2 4323-8 #### [facility] CLIA [id number] [address] [place] [id number] [place] Anion gap [Moles/Vol] 9 mmol/L Normal 5-16 [facility] Comment on above: Order Comment: Speci men Type: BLOOD SPECIMEN Order[facility] Facility[facility] Address: [address] [place] [address] Performed By: #### 2 4323-8 #### [facility] CLIA [id number] [address] [place] [address] [place] AST [Catalytic activity/Vol] 18 U/L Normal 8-34 [facility] Comment on above: Order Comment: Speci men Type: BLOOD SPECIMEN Ordering Facility[facility] Address: [address] [place] [address] Result Comment: Resu lts may be falsely depressed after the administration of Sulfasalazine and/or Sulfapyridine. Performed By: #### 2 4323-8 #### [facility] CLIA [id number] [address] [place] [address] [place] Bilirubin [Mass/Vol] 0.9 mg/dL Normal 0.2-1.0 [facility] Comment on above: Order Comment: Speci men Type: BLOOD SPECIMEN Order[facility] Address: [address] [place] [address] Performed By: #### 2 4323-8 #### [facility] CLIA [id number] [address] [place] [address] [place] Calcium [Mass/Vol] 9.7 mg/dL Normal 8.5-10.5 [facility] Comment on above: Order Comment: Speci men Type: BLOOD SPECIMEN Ordering Facility[facility] Address: [address] [place] [address] Performed By: #### 2 4323-8 #### [facility] CLIA [id number] [address] [place] [address] [place] Chloride [Moles/Vol] 107 mmol/L Normal 98-107 [facility] Comment on above: Order Comment: Speci men Type: BLOOD SPECIMEN Ordering Facility[facility] Address: [address] [place] [address] Performed By: #### 2 4323-8 #### [facility] CLIA [id number] [address] [place], [place] [address] [place] CO2 [Moles/Vol] 23 mmol/L Normal 21-32 [facility] Comment on above: Order Comment: Speci men Type: BLOOD SPECIMEN Order[facility] Facility[facility] Address: [address] [place] [address] Performed By: #### 2 4323-8 #### [facility] CLIA [id number] [address] [place] [address] [place] Creatinine [Mass/Vol] 0.55 mg/dL Normal 0.51-0.95 [facility] Comment on above: Order Comment: Speci men Type: BLOOD SPECIMEN Ordering Facility: [facility] Address: [address] [place] [address] Result Comment: Annie ents receiving either N-Acetylcysteine (NAC) or Metamizole prior to venipuncture, may have falsely depressed results. Performed By: #### 2 4323-8 #### [facility] CLIA [id number] [address] [place] [address] [facility] Creatinine and Glomerular filtration rate.predicted panel (S/P/Bld) 102 mL/min/1.73m??? Normal >=60 [facility] Comment on above: Order Comment: Speci men Type: BLOOD SPECIMEN Ordering Facility: [facility] Address: [address] [place] [address] Result Comment: Briana mated Glomerular Filtration Rate (eGFR) is calculated using the 2020 CKD-EPI creatinine equation. This equation utilizes serum creatinine, sex, and age as parameters. The creatinine assay has traceable calibration to isotope dilution-mass spectrometry. Refer to KDIGO guidelines for clinical interpretation. In patients with unstable renal function, e.g. those with acute kidney injury, the eGFR may not accurately reflect actual GFR. Performed By: #### 2 4323-8 #### [facility] CLIA [id number] [address] [place], [place] [id number] [place] Glucose [Mass/Vol] 124 mg/dL High 70-100 [facility] Comment on above: Order Comment: Sagar jensen Type: BLOOD SPECIMEN Ordering Facility: [facility] Address: [address] [place], [place] [id number] Result Comment: The [place] Diabetes Association (ADA) provides guidance for cutoff values for fasting glucose and random glucose. The ADA defines fasting as no caloric intake for at least 8 hours. Fasting plasma glucose results between 100 to 125 mg/dL indicate increased risk for diabetes (prediabetes). Fasting plasma glucose results greater than or equal to 126 mg/dL meet the criteria for diagnosis of diabetes. In the absence of unequivocal hyperglycemia, results should be confirmed by repeat testing. In a patient with classic symptoms of hyperglycemia or hyperglycemic crisis, random plasma glucose results greater than or equal to 200 mg/dL meet the criteria for diagnosis of diabetes. Reference: Standards of Medical Care in Diabetes 2016, [place] Diabetes Association. Diabetes Care. 2016.39(Suppl 1). Results may be falsely elevated after the administration of Sulfapyridine. Results may be falsely depressed after the administration of Sulfasalazine. Performed By: #### 2 4323-8 #### [facility] CLIA [id number] [address] [place] [address] [place] Potassium [Moles/Vol] 3.7 mmol/L Normal 3.5-5.1 [facility] Comment on above: Order Comment: Sagar jensen Type: BLOOD SPECIMEN Ordering Facility: [facility] Address: [address] [place] [address] Performed By: #### 2 4323-8 #### [facility] CLIA [id number] [address] [place], [place] [id number] [place] Protein [Mass/Vol] 7.4 g/dL Normal 6.0-8.5 [facility] Comment on above: Order Comment: Sagar jensen Type: BLOOD SPECIMEN Ordering Facility: [facility] Address: [address] [place] [id number] Performed By: #### 2 4323-8 #### [facility] CLIA [id number] [address] [place] [address] [place] Sodium [Moles/Vol] 139 mmol/L Normal 136-145 [facility] Comment on above: Order Comment: Guadalupei men Type: BLOOD SPECIMEN Ordering Facility: [facility] Address: [address] [place] [address] Performed By: #### 2 4323-8 #### [facility] CLIA [id number] [address] [place] [address] [place] Urea nitrogen [Mass/Vol] 14 mg/dL Normal 7-26 [facility] Comment on above: Order Comment: Speci men Type: BLOOD SPECIMEN Ordering Facility: [facility] Address: [address] [place] [address] Performed By: #### 2 4323-8 #### [facility] CLIA [id number] [address] [place] [address] [place] HbA1c (Bld)on 03-29-2024 Average glucose Estimated from glycated hemoglobin (Bld) [Mass/Vol] 105 mg/dL Normal [facility] Comment on above: Order Comment: Guadalu[place] men Type: BLOOD SPECIMEN Ordering Facility: [facility] Address: [address] [place] [address] Result Comment: eAG: (Estimated average glucose) is a calculated value from HgbA1c and is customer operations representative of the average blood glucose level in the last 2-3 month period. Performed By: #### 5 7021-8 #### [facility] CLIA [id number] [address] [place] [address] [place] HbA1c (Bld) [Mass fraction] 5.3 % Normal 4.3-5.6 [facility] Comment on above: Order Comment: Guadalupei men Type: BLOOD SPECIMEN Ordering Facility: [facility] Address: [address] [place] [address] Result Comment: [place] Diabetes Association guidelines indicate that patients with HgbA1c in the range 5.7-6.4% are at increased risk for development of diabetes, and intervention by lifestyle modification may be beneficial. HgbA1c greater or equal to 6.5% is considered diagnostic of diabetes. Performed By: #### 5 7021-8 #### [facility] CLIA [id number] [address] [place] [address] [place] No Panel Informationon 03-29 Interpretation and review of laboratory results Normal [facility] PREALBUMINon 03-29-2024 Prealbumin [Mass/Vol] 27 mg/dL 20 - 40 mg/dL [facility] PT panel Coag (PPP)on 2023 INR Coag (PPP) [Relative time] 1.0 {INR} 0.9 - 1.3 [facility] Comment on above: Vitamin K Antagonist (VKA) Therapeutic Range: INR 2 to 3 (Target INR of 2.5) Note: For patients treated with VKA drugs, such as warfarin, the [place] College [employer] 2012 Guideline recommends a therapeutic INR range of 2 to 3 (target INR of 2.5). This recommendation includes high-risk patients with antiphospholipid syndrome with previous arterial or venous thromboembolism, current-generation mechanical or bioprosthetic aortic heart valve replacement. Note: Patients with mechanical aortic valve replacement and additional risk factors for thromboembolic events (atrial fibrillation, previous thromboembolism, LV dysfunction, hypercoagulable conditions) or an older generation mechanical AVR (i.e., ball in-Cage) or any mechanical MVR should have a INR therapeutic range of 2.5 to 3.5 (target INR of 3). Kimberly GH, et al. Chest 2012, 141:7S-47S Arnold RA, et al. [facility] 2017, 70: 252-289 Interpretation and review of laboratory results Normal [facility] PT Coag (PPP) [Time] 11.2 s [facility] INR Coag (PPP) [Relative time] 1.0 {INR} Normal 0.9-1.3 [facility] Comment on above: Order Comment: Speci men Type: BLOOD SPECIMEN Ordering Facility: [facility] Address: [address] [place] [address] Result Comment: Divina min K Antagonist (VKA) Therapeutic Range: INR 2 to 3 (Target INR of 2.5) Note: For patients treated with VKA drugs, such as warfarin, the [place] [employer] 2012 Guideline recommends a therapeutic INR range of 2 to 3 (target INR of 2.5). This recommendation includes high-risk patients with antiphospholipid syndrome with previous arterial or venous thromboembolism, current-generation mechanical or bioprosthetic aortic heart valve replacement. Note: Patients with mechanical aortic valve replacement and additional risk factors for thromboembolic events (atrial fibrillation, previous thromboembolism, LV dysfunction, hypercoagulable conditions) or an older generation mechanical AVR (i.e., ball in-Cage) or any mechanical MVR should have a INR therapeutic range of 2.5 to 3.5 (target INR of 3). Kimberly GH, et al. Chest 2012, 141:7S-47S Arnold RA, et al. [facility] 2017, 70: 252-289 Performed By: #### 3 4528-0, 74564-2 #### [facility] CLIA [id number] [address] [place] [address] [place] PT Coag (PPP) [Time] 11.2 s Normal 9.7-13.0 [facility] Comment on above: Order Comment: Sagar jensen Type: BLOOD SPECIMEN Ordering Facility: [facility] Address: [address] [place] [address] Performed By: #### 3 4528-0, 27892-2 #### [facility] CLIA [id number] [address] [place] [address] [place] Prealb SerPl-mCncon 03-29-20 Prealbumin [Mass/Vol] 27 mg/dL Normal 20-40 [facility] Comment on above: Order Comment: Sagar jensen Type: BLOOD SPECIMEN Ordering Facility: [facility] Address: [address] [place] [address] Performed By: #### 1 4338-8, 1988-07 #### [facility] CLIA [id number] [address] [place] [address] [place] STAPHYLOCOCCUS AUREUS AND MR SA SCREEN, PCR, NASALon 03-29-2024 S. aureus and MRSA panel DAWOOD+probe (Nose) Not detected Normal Not Detected [facility] Comment on above: Order Comment: Sagar jensen Type: BLOOD SPECIMEN Ordering Facility: [facility] Address: [address] [place] [address] Performed By: #### 5 7021-8 #### [facility] CLIA [id number] [address] [facility] [employer] [place] [id number] [place] STAPHYLOCOCCUS AUREUS & MRSA SCREEN, PCR, NASALon 03-29-2024 Interpretation and review of laboratory results Normal [facility] S. aureus and MRSA panel DAWOOD+probe (Nose) Not detected Not Detected [facility] VITAMIN D 25 HYDROXYon 03-29 25-hydroxyvitamin D3 [Mass/Vol] 51.4 ng/mL 30.0 - 100.0 ng/mL [facility] Comment on above: Deficiency Less than 20 ng/mL Insufficiency 20 - Less than 30 ng/mL Sufficiency 30 - 100 ng/mL aPTT Coag (PPP) [Time]on Interpretation and review of laboratory results Abnormal [facility] Unfractionated Heparin Therapeutic Ranges: Standard Heparin Nomogram: 53 to 78 seconds (anti-Xa level of 0.3 to 0.7 U/ml) Low Dose/ACS Nomogram: 49 to 67 seconds (anti-Xa level of 0.2 to 0.5 U/ml) Stroke Treatment Nomogram: 49 to 67 seconds (anti-Xa level of 0.2 to 0.5 U/ml) Note: The APTT therapeutic range has been determined for the current lot of laboratory APTT reagent in use throughout the [facility]. [facility] aPTT PPPon 03-29-2024 aPTT Coag (PPP) [Time] 34.2 s High 23.0-32.4 [facility] Comment on above: Order Comment: Speci men Type: BLOOD SPECIMEN Ordering Facility: [facility] Address: [address] [place] [address] Performed By: #### 3 4528-0, 62009-1 #### [facility] CLIA [id number] [address] [facility] [employer] [place] [id number] [place] CNCOon 03-28-2024 CNCO Letter Text Normal [facility] MA MAMMOGRAM SCREENING BILAT ERAL W/TOMOon 03-06-2024 MA MAMMOGRAM SCREENING BILATERAL W/ERFA ORIGINAL FROM: [facility] [address] [address] PROCEDURE FOR: DONNA SNOWDEN [address] [place] [address] Home: PID#: [id number] Exam#: [id number] : 1960 Age: 63 TO: LUISA GARRISON MD [address] [place], [place] [address] Fax: NO FAX EXAMINATION: SCREENING DIGITAL BILATERAL MAMMOGRAM WITH TOMOSYNTHESIS, 03/04/2024 3:02 pm TECHNIQUE: Screening mammography of the bilateral breasts was performed with tomosynthesis. 2D standard and 3D tomosynthesis combination imaging performed through both breasts in the MLO and CC projection. Computer aided detection was utilized in the interpretation of this exam. COMPARISON: 02/06/2023, 01/24/2022 HISTORY: Breast cancer screening. FINDINGS: BREAST DENSITY: The breasts are heterogeneously dense, which may obscure small masses. There are postoperative changes in both breasts. There are benign appearing calcifications in both breasts. There are no significant masses or calcifications. IMPRESSION: No mammographic evidence of malignancy. Continued screening with annual mammograms is recommended. Tyrer zick risk calculations, generated with the history provided, report this patient's 10 year risk and lifetime risk for developing breast cancer at 3.5% and 7.3%, respectively. Based on this assessment tool, if the patient's calculated lifetime risk is below 20%, then the patient is considered at average risk for developing breast cancer. If the patient's calculated lifetime risk is at or above 20%, then the patient is considered high risk for developing breast cancer and may be a candidate for supplemental breast MRI screening in addition to annual mammographic screening per the [place] [employer]. BIRADS: BI-RADS: 2: Benign RECALL: 1 year screening RECALL TYPE: mammo LETTER SENT: Normal BI-RADS 1 and 2 Interpreted by: Royal Salazar MD Preliminary Report By: Royal Salazar MD Electronically signed By Royal Salazar MD Dictated Date: 03/06/2024 10:50:35 PM Prelim Date: 03/06/2024 10:54:10 PM Sign Date: 03/06/2024 10:54:10 PM Ordering Provider: LUISA GARRISON Junior Web Developer: ERIC BROWN (R))(CT) letter sent: Normal BI-RADS 1 and 2 Mammogram BI-RADS: 2 Benign Normal [facility] DONNA SNOWDEN ([id number]) 1960 F [facility] Date Time Provider Department 01/23/24 VIRGIE JONES [facility] During your visit today, we recorded the following information about you: Virgie Jones APRN.[facility] 01/23/2024 9:22 AM Signed Nystatin solution not available, sent in clotrimazole delano Sent to listed pharmacy Allergies As of Date: 01/23/2024 Noted Allergy Reaction FLAGYL (METRONIDAZOLE) 05/10/2019 14 - Other: See Comments Comments: thrush HALOPERIDOL 01/22/2024 16 - Unknown MORPHINE 04/29/2019 11 - Vomiting Date Reviewed: 01/22/2024 Reviewed by: Aslhy Estrella MA - Fully Assessed Order(s):clotrimazol e (MYCELEX) 10 mg trocheUse 1 Delano as instructed five times a day for 7 days.Disp: 35 tabletRfl: 0 Prescriptions as of 01/23/2024 - clotrimazole (MYCELEX) 10 mg delano Use 1 Delano as instructed five times a day for 7 days. - ELIQUIS 5 mg tab(s) Take 5 mg by mouth two times a day. - cetirizine (ZYRTEC) 10 mg tablet Take 10 mg by mouth. - cyclobenzaprine (FLEXERIL) 5 mg tablet TAKE 1-2 TABS BY MOUTH TWICE A DAY NEEDED FOR BACK PAIN, - dofetilide (TIKOSYN) 250 mcg capsule Take 250 mcg by mouth every 12 hours. - magnesium oxide (MAG-OX) 400 mg (241.3 mg magnesium) tablet Take 1 tablet by mouth every 12 hours. - multivit with minerals/lutein (MULTIVITAMIN 50 PLUS ORAL) - potassium chloride SR (MICRO-K) 10 mEq CR capsule Take by mouth. - rosuvastatin (CRESTOR) 10 mg tablet Take 10 mg by mouth daily at bedtime. - spironolactone (ALDACTONE) 25 mg tablet take 1 tablet by mouth every day with meals - chlorthalidone (HYGROTON) 25 mg tablet Take 1/2 tablet by mouth once daily. - meloxicam (MOBIC) 15 mg tablet Take 15 mg by mouth once daily. - pantoprazole DR (PROTONIX) 20 mg tablet Take 1 tablet by mouth once daily. - sertraline (ZOLOFT) 50 mg tablet Take 1 tablet by mouth daily - flecainide (TAMBOCOR) 150 mg tablet take 1 tablet by mouth every 12 hours - sertraline (ZOLOFT) 50 mg tablet TAKE ONE TABLET BY MOUTH ONCE DAILY - flecainide (TAMBOCOR) 100 mg tablet Take 100 mg by mouth twice daily. - pantoprazole DR (PROTONIX) 40 mg tablet Take 40 mg by mouth once daily. - flecainide (TAMBOCOR) 150 mg tablet TAKE ONE TABLET BY MOUTH TWICE DAILY Problem List As Of Date: 01/23/2024 (None) Prescriptions ordered this encounter Disp Refills Start End CLOTRIMAZOLE 10 MG DELANO 35 t* 0 01/23/2024 01/30/2024 Route: MUCOUS MEM Sig: Use 1 Delano as instructed five times a day for 7 days. Medications Discontinued During This Encounter Prescriptions - nystatin (MYCOSTATIN) 100,000 unit/mL suspension (Discontinued) Take 5 mL by mouth four times daily for 7 days. 1tsp swish in mouth for several minutes, then swallow (or expectorate) 4 times daily until gone. Encounter Status:Closed by VIRGIE JONES on 01/23/24 [facility] Ankit 01-22-2024 CNOV Office Visit (UCWSTR) DONNA SNOWDEN ([id number]) 1960 F [facility] Date Time Provider Department 01/22/24 7:45 PM JOY AVENDAÑO During your visit today, we recorded the following information about you: Temperature Pulse Respiration Blood pressure 97.7 degrees 85/minute 18/minute 120/63 Weight 75.1 kg Joy Avendaño APRN.DECATOR OPERATOR 01/22/2024 7:51 PM Signed This note was created using NoteWriter. Subjective Donna Snowden is a 63 year old female. 63 year old female with PMH arthritis, afib (Eliquis) presents for mouth complaints. Acute onset 3 days ago Endoses initially started with tongue discomfort +pain +cracking Has progressively worsened States that she has had thrush in past, citing this feels similar. She was on steroids and flexeril a couple weeks ago otherwise denies recent ATB usage The history is provided by the patient. No cushion assembler was used. Mouth/Lip Problem This is a new problem. The current episode started in the past 7 days. The problem occurs constantly. The problem has been gradually worsening. Pertinent negatives include no abdominal pain, anorexia, arthralgias, change in bowel habit, chest pain, chills, congestion, coughing, diaphoresis, fatigue, fever, headaches, joint swelling, myalgias, nausea, neck pain, numbness, rash, sore throat, swollen glands, urinary symptoms, vertigo, visual change, vomiting or weakness. Nothing aggravates the symptoms. She has tried nothing for the symptoms. The treatment provided no relief. 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 cetirizine (ZYRTEC) 10 mg tablet Take 10 mg by mouth. cyclobenzaprine (FLEXERIL) 5 mg tablet TAKE 1-2 TABS BY MOUTH TWICE A DAY NEEDED FOR BACK PAIN, dofetilide (TIKOSYN) 250 mcg capsule Take 250 mcg by mouth every 12 hours. magnesium oxide (MAG-OX) 400 mg (241.3 mg magnesium) tablet Take 1 tablet by mouth every 12 hours. multivit with minerals/lutein (MULTIVITAMIN 50 PLUS ORAL) potassium chloride SR (MICRO-K) 10 mEq CR capsule Take by mouth. rosuvastatin (CRESTOR) 10 mg tablet Take 10 mg by mouth daily at bedtime. spironolactone (ALDACTONE) 25 mg tablet take 1 tablet by mouth every day with meals nystatin (MYCOSTATIN) 100,000 unit/mL suspension Take 5 mL by mouth four times daily for 7 days. 1tsp swish in mouth for several minutes, then swallow (or expectorate) 4 times daily until gone. chlorthalidone (HYGROTON) 25 mg tablet Take 1/2 tablet by mouth once daily. (Patient not taking: Reported on 01/22/2024) meloxicam (MOBIC) 15 mg tablet Take 15 mg by mouth once daily. (Patient not taking: Reported on 01/22/2024) pantoprazole DR (PROTONIX) 20 mg tablet Take 1 tablet by mouth once daily. (Patient not taking: Reported on 01/22/2024) sertraline (ZOLOFT) 50 mg tablet Take 1 tablet by mouth daily (Patient not taking: Reported on 01/22/2024) flecainide (TAMBOCOR) 150 mg tablet take 1 tablet by mouth every 12 hours (Patient not taking: Reported on 01/22/2024) sertraline (ZOLOFT) 50 mg tablet TAKE ONE TABLET BY MOUTH ONCE DAILY flecainide (TAMBOCOR) 100 mg tablet Take 100 mg by mouth twice daily. (Patient not taking: Reported on 01/22/2024) pantoprazole DR (PROTONIX) 40 mg tablet Take 40 mg by mouth once daily. (Patient not taking: Reported on 01/22/2024) flecainide (TAMBOCOR) 150 mg tablet TAKE ONE TABLET BY MOUTH TWICE DAILY FAMILY HISTORY Problem Relation Age of Onset Hypertension Mother Heart Mother Irregular heart beat Hypertension Father Heart Father Irregular heart beat Social History Tobacco Use Smoking status: Never Smokeless tobacco: Never Vaping Use Vaping status: Never Used Substance Use Topics Alcohol use: Yes Comment: socially Drug use: No Review of Systems Constitutional: Negative for chills, diaphoresis, fatigue and fever. HENT: Negative for congestion and sore throat. +mouth pain Eyes: Negative for pain, discharge, redness and itching. Respiratory: Negative for apnea, cough and chest tightness. Cardiovascular: Negative for chest pain. Gastrointestinal: Negative for abdominal pain, anorexia, change in bowel habit, nausea and vomiting. Musculoskeletal: Negative for arthralgias, joint swelling, myalgias and neck pain. Skin: Negative for color change, pallor and rash. Allergic/Immunologic : Negative for environmental allergies, food allergies and immunocompromised state. Neurological: Negative for dizziness, vertigo, facial asymmetry, weakness, numbness and headaches. Hematological: Negative for adenopathy. Does not bruise/bleed easily. Psychiatric/B (more content not included)... Normal [facility] Fungus Spec Culton 4 Fungus identified Cx Nom (Unsp spec) ORGANISM ID: 1 Few Petty dubliniensis ORGANISM ID: 2 Few Petty albicans Normal [facility] Comment on above: Performed By: #### 5 80-1 #### [facility] CLIA [id number] [address] [place] [address] [place] HBSABon 10-03-2023 Hep B Surf Ab 18.5 mIU/mL Normal >=10.0 [facility] ([place]) Comment on above: Result Comment: 0 to < 10.0 mIU/mL Nonreactive Patient is considered not to have protective immunity to HBV infection >/= 10.0 mIU/mL Reactive Patient is considered to have protective immunity to HBV infection. This assay is traceable to the World Health Organization (WHO) Hepatitis B Immunoglobulin 1st International Reference Preparation (1976). The accepted criteria for immunity to HBV is anti-HBs activity >/= 10.0 mIU/mL, as defined by the WHO International Reference Preparation. Performed By: #### H BSAB #### [place] [address] LABORATORYOrdered By: SYSTEM SYSTEM on 10-02-2023 HBV surface Ab Qn (S) 18.5 mIU/mL Normal >=10.0mIU/mL ADM Comment on above: Interpretive Data: 0 to < 10.0 mIU/mL Nonreactive Patient is considered not to have protective immunity to HBV infection >/= 10.0 mIU/mL Reactive Patient is considered to have protective immunity to HBV infection. This assay is traceable to the World Health Organization (WHO) Hepatitis B Immunoglobulin 1st International Reference Preparation (1976). The accepted criteria for immunity to HBV is anti-HBs activity >/= 10.0 mIU/mL, as defined by the WHO International Reference Preparation. .GFRon 09-25-2023 GFR 95 ml/min/1.73sqm Normal [facility] ([place]) Comment on above: Result Comment: GFR Population mean for , Non- Americans Ages 20-29 = 116 mL/min/1.73 sq.m. Ages 30-39 = 107 mL/min/1.73 sq.m. Ages 40-49 = 99 mL/min/1.73 sq.m. Ages 50-59 = 93 mL/min/1.73 sq.m. Ages 60-69 = 85 mL/min/1.73 sq.m. Ages 70+ = 75 mL/min/1.73 sq.m. Chronic Kidney Disease: Less than 60 mL/min/1.73 square meters End Stage Renal Disease: Less than 15 mL/min/1.73 square meters Performed By: #### H CV1, HBSAG #### [address] [address] #### CMP, GFR, A1C, LIPID #### [address] [address] GFR Non- 79 ml/min/1.73sqm Normal [facility] ([place]) Comment on above: Result Comment: GFR Population mean for , Non- Americans Ages 20-29 = 116 mL/min/1.73 sq.m. Ages 30-39 = 107 mL/min/1.73 sq.m. Ages 40-49 = 99 mL/min/1.73 sq.m. Ages 50-59 = 93 mL/min/1.73 sq.m. Ages 60-69 = 85 mL/min/1.73 sq.m. Ages 70+ = 75 mL/min/1.73 sq.m. Chronic Kidney Disease: Less than 60 mL/min/1.73 square meters End Stage Renal Disease: Less than 15 mL/min/1.73 square meters Performed By: #### H CV1, HBSAG #### [place] [address] #### CMP, GFR, A1C, LIPID #### [address] [address] A1Con 09-25-2023 HbA1c (Bld) [Mass fraction] 5.5 % Normal 4.3-6.4 [facility] ([place]) Comment on above: Performed By: #### H CV1, HBSAG #### [place] [address] #### CMP, GFR, A1C, LIPID #### [address] [address] CMPon 09-25-2023 Albumin Level 3.7 G/dL Normal 3.4-4.8 [facility] ([place]) Comment on above: Performed By: #### H CV1, HBSAG #### [place] [address] #### CMP, GFR, A1C, LIPID #### [address] [address] Albumin/Globulin [Mass ratio] 1.3 {ratio} Normal 1.1-2.5 [facility] ([place]) Comment on above: Performed By: #### H CV1, HBSAG #### [place] [address] #### CMP, GFR, A1C, LIPID #### [address] [address] ALP [Catalytic activity/Vol] 110 U/L Normal 40-135 [facility] [facility] ([place] Comment on above: Performed By: #### H CV1, HBSAG #### [place] [address] #### CMP, GFR, A1C, LIPID #### [address] [address] ALT [Catalytic activity/Vol] 18 U/L Normal 14-59 [facility] ([place] Comment on above: Performed By: #### H CV1, HBSAG #### [place] [address] #### CMP, GFR, A1C, LIPID #### [address] [address] AST [Catalytic activity/Vol] 13 U/L Normal 10-40 [facility] ([place] Comment on above: Performed By: #### H CV1, HBSAG #### [place] [address] #### CMP, GFR, A1C, LIPID #### [address] [address] Bili Total 0.8 mg/dL Normal 0.2-1.0 [facility] ([place] Comment on above: Result Comment: Use of this assay is not recommended for patients undergoing treatment with eltrombopag due to the potential for falsely elevated results. Performed By: #### H CV1, HBSAG #### [place] [address] #### CMP, GFR, A1C, LIPID #### [address] [address] BUN/Creatinine Ratio 19 ratio Normal 7-27 [facility] ([place] Comment on above: Performed By: #### H CV1, HBSAG #### [place] [address] #### CMP, GFR, A1C, LIPID #### [address] [address] Calcium [Mass/Vol] 8.6 mg/dL Normal 8.4-10.2 [facility] ([place]) Comment on above: Performed By: #### H CV1, HBSAG #### [place] [address] #### CMP, GFR, A1C, LIPID #### [address] [address] Chloride [Moles/Vol] 106 mmol/L Normal 98-107 [facility] ([place]) Comment on above: Performed By: #### H CV1, HBSAG #### [place] [address] #### CMP, GFR, A1C, LIPID #### [address] [address] CO2 [Moles/Vol] 30 mmol/L Normal 23-31 [facility] ([place] Comment on above: Performed By: #### H CV1, HBSAG #### [address] [address] #### CMP, GFR, A1C, LIPID #### [address] [address] Creatinine [Mass/Vol] 0.74 mg/dL Normal 0.55-1.02 [facility] ([place]) Comment on above: Performed By: #### H CV1, HBSAG #### [address] [address] #### CMP, GFR, A1C, LIPID #### [address] [address] Electrolyte Balance 8.0 mEq/L Normal 4.0-15.0 [facility] ([place]) Comment on above: Performed By: #### H CV1, HBSAG #### [address] [address] #### CMP, GFR, A1C, LIPID #### [address] [address] Globulin 2.9 G/dL Normal [facility] ([place] Comment on above: Performed By: #### H CV1, HBSAG #### [address] [address] #### CMP, GFR, A1C, LIPID #### [address] [address] Glucose [Mass/Vol] 103 mg/dL Normal 80-115 [facility] ([place]) Comment on above: Performed By: #### H CV1, HBSAG #### [address] [address] #### CMP, GFR, A1C, LIPID #### [address] [address] Potassium [Moles/Vol] 3.9 mmol/L Normal 3.5-5.1 [facility] ([place]) Comment on above: Performed By: #### H CV1, HBSAG #### [place] [address] #### CMP, GFR, A1C, LIPID #### [address] [address] Sodium [Moles/Vol] 144 mmol/L Normal 136-145 [facility] ([place]) Comment on above: Performed By: #### H CV1, HBSAG #### [place] [address] #### CMP, GFR, A1C, LIPID #### [address] [address] Total Protein 6.6 G/dL Normal 6.4-8.2 [facility] ([place] Comment on above: Performed By: #### H CV1, HBSAG #### [place] [address] #### CMP, GFR, A1C, LIPID #### [address] [address] Urea nitrogen [Mass/Vol] 14 mg/dL Normal 7-18 [facility] ([place] Comment on above: Performed By: #### H CV1, HBSAG #### [place] [address] #### CMP, GFR, A1C, LIPID #### [address] [address] HBSAGon 09-25-2023 Hep B Surf Ag Non-Reactive Normal Non-Reactive [facility] ([place] Comment on above: Performed By: #### H CV1, HBSAG #### [place] [address] #### CMP, GFR, A1C, LIPID #### [address] [address] HCVon 09-25-2023 Hep C Ab Non-Reactive Normal Non-Reactive [facility] ([place] Comment on above: Performed By: #### H CV1, HBSAG #### [place] [address] #### CMP, GFR, A1C, LIPID #### [place] [address] [place], [place] [address] Hep C Ab Int Normal [facility] ([place] Comment on above: Result Comment: Nonr eactive: Samples with a value < 0.80 are considered nonreactive (negative) for antibodies to HCV. A negative test result does not exclude the possibility of exposure to or infection with HCV. HCV antibodies may be undetectable in some stages of the infection and in some clinical conditions. See Interp Performed By: #### H CV1, HBSAG #### [facility] [address] [place] [address] #### CMP, GFR, A1C, LIPID #### [place] [address] [place], [place] [address] LABORATORYOrdered By: SYSTEM SYSTEM on 09-25-2023 Albumin BCP dye [Mass/Vol] 3.7 G/dL Normal 3.4 - 4.8 G/dL AO ADM SS Albumin/Globulin [Mass ratio] 1.3 {ratio} Normal 1.1 - 2.5 ratio AO ADM SS ALP [Catalytic activity/Vol] 110 U/L Normal 40 - 135 U/L AO ADM SS ALT With P-5'-P [Catalytic activity/Vol] 18 U/L Normal 14 - 59 U/L AO ADM SS AST With P-5'-P [Catalytic activity/Vol] 13 U/L Normal 10 - 40 U/L AO ADM SS Bilirubin [Mass/Vol] 0.8 mg/dL Normal 0.2 - 1 .0 mg/dL AO ADM SS Comment on above: Interpretive Data: U se of this assay is not recommended for patients undergoing treatment with eltrombopag due to the potential for falsely elevated results. Calcium [Mass/Vol] 8.6 mg/dL Normal 8.4 - 10. 2 mg/dL AO ADM SS Chloride [Moles/Vol] 106 mmol/L Normal 98 - 10 7 mmol/L AO ADM SS CO2 [Moles/Vol] 30 mmol/L Normal 23 - 31 mmol/L AO ADM SS Creatinine [Mass/Vol] 0.74 mg/dL Normal 0.55 - 1.02 mg/dL AO ADM SS Electrolyte Balance 8.0 mEq/L Normal 4.0 - 15 .0 mEq/L AO ADM SS GFR/1.73 sq M.predicted among blacks MDRD (S/P/Bld) [Vol rate/Area] 95 ml/min/1.73sqm Invalid Interpretation Code AO Chemistry S Comment on above: Interpretive Data: GFR Population mean for , Non- Americans Ages 20-29 = 116 mL/min/1.73 sq.m. Ages 30-39 = 107 mL/min/1.73 sq.m. Ages 40-49 = 99 mL/min/1.73 sq.m. Ages 50-59 = 93 mL/min/1.73 sq.m. Ages 60-69 = 85 mL/min/1.73 sq.m. Ages 70+ = 75 mL/min/1.73 sq.m. Chronic Kidney Disease: Less than 60 mL/min/1.73 square meters End Stage Renal Disease: Less than 15 mL/min/1.73 square meters GFR/1.73 sq M.predicted among non-blacks MDRD (S/P/Bld) [Vol rate/Area] 79 ml/min/1.73sqm Invalid Interpretation Code AO Chemistry S Comment on above: Interpretive Data: GFR Population mean for , Non- Americans Ages 20-29 = 116 mL/min/1.73 sq.m. Ages 30-39 = 107 mL/min/1.73 sq.m. Ages 40-49 = 99 mL/min/1.73 sq.m. Ages 50-59 = 93 mL/min/1.73 sq.m. Ages 60-69 = 85 mL/min/1.73 sq.m. Ages 70+ = 75 mL/min/1.73 sq.m. Chronic Kidney Disease: Less than 60 mL/min/1.73 square meters End Stage Renal Disease: Less than 15 mL/min/1.73 square meters Globulin 2.9 G/dL Invalid Interpretation Code AO ADM SS Glucose [Mass/Vol] 103 mg/dL Normal 80 - 115 mg/dL AO ADM SS HbA1c (Bld) [Mass fraction] 5.5 % Normal 4.3 - 6.4 % AO ADM SS HBV surface Ag IA Ql Non-Reactive (09/25/23 9:24 AM) Normal Non-Reactive AH ADM SS Potassium [Moles/Vol] 3.9 mmol/L Normal 3.5 - 5.1 mmol/L AO ADM SS Protein [Mass/Vol] 6.6 G/dL Normal 6.4 - 8.2 G/dL AO ADM SS Sodium [Moles/Vol] 144 mmol/L Normal 136 - 145 mmol/L AO ADM SS Urea nitrogen [Mass/Vol] 14 mg/dL Normal 7 - 18 mg/dL AO ADM SS Urea nitrogen/Creatinine [Mass ratio] 19 ratio Normal 7 - 27 ratio AO ADM SS LABORATORYOrdered By: Anne-Marie Dykes on 09-25-2023 Cholesterol [Mass/Vol] 153 mg/dL Normal 0 - 200 mg/dL AO ADM SS Comment on above: Interpretive Data: C holesterol Reference Interval: Less than 200 Desirable 200-239 Borderline high risk 240 and above High risk Cholesterol in HDL [Mass/Vol] 61 mg/dL High 40 - 60 mg/dL AO ADM SS Cholesterol in LDL [Mass/Vol] 78 mg/dL Normal 0 - 130 mg/dL AO ADM SS Triglyceride [Mass/Vol] 71 mg/dL Normal 0 - 150 mg/dL AO ADM SS Comment on above: Interpretive Data: T riglyceride Reference Interval: Less than 150 Normal 150-199 Borderline high risk 200-499 High risk 500 or higher Very high risk LABORATORYOrdered By: Onelia Wood on 09-25-2023 HCV Ab IA Ql Non-Reactive (09/25/23 9:24 AM) Normal Non-Reactive AH ADM SS HCV Ab IA Ql Nonreactive: Samples with a value < 0.80 are considered nonreactive (negative) for antibodies to HCV.A negative test result does not exclude the possibility of exposure to or infection with HCV. HCV antibodies may be undetectable in some stages of the infection and in some clinical conditions. Invalid Interpretation Code Chemistry S LIPIDon 09-25-2023 Cholesterol [Mass/Vol] 153 mg/dL Normal 0-200 [facility] ([place]) Comment on above: Result Comment: Chol esterol Reference Interval: Less than 200 Desirable 200-239 Borderline high risk 240 and above High risk Performed By: #### H CV1, HBSAG #### [facility] [address] [place] [address] #### CMP, GFR, A1C, LIPID #### [address] [address] Cholesterol in HDL [Mass/Vol] 61 mg/dL High 40-60 [facility] ([place]) Comment on above: Performed By: #### H CV1, HBSAG #### [address] [address] #### CMP, GFR, A1C, LIPID #### [address] [address] Cholesterol in LDL [Mass/Vol] 78 mg/dL Normal 0-130 [facility] ([place]) Comment on above: Performed By: #### H CV1, HBSAG #### [facility] [address] [place] [address] #### CMP, GFR, A1C, LIPID #### [address] [address] Triglyceride [Mass/Vol] 71 mg/dL Normal 0-150 [facility] ([place]) Comment on above: Result Comment: Trig lyceride Reference Interval: Less than 150 Normal 150-199 Borderline high risk 200-499 High risk 500 or higher Very high risk Performed By: #### H CV1, HBSAG #### [facility] [address] [place] [address] #### CMP, GFR, A1C, LIPID #### [place] [address] [place], [place] [address] HLA B27on 08-23-2023 HLA-B27 Antigen Negative Normal Negative [facility] Comment on above: Result Comment: Test Performed by [employer] [facility], [address] [place] [address] Jacob Livingston M.D., Ph.D., Director of Laboratories , [facility] [id number] Performed By: #### H LAB27 #### [facility] [address] [place], [place] [address] ACEon 08-21-2023 SANDI 56 U/L Normal 14-82 [facility] Comment on above: Order Comment: Stop administration of ca ptopril, enalapril, or lisinopril for 12 hours prior to venipuncture (reduces SANDI activity). Performed at: [facility] [address] [id number] Plasterer Helper: Jj Daigle PhD, Phone: [phone] Performed By: #### A CE #### [facility] RESULTS C-Reactive Proteinon 024 CRP [Mass/Vol] 3.4 mg/L Normal <=9.9 [facility] Comment on above: Performed By: #### C RPR #### [facility] [address] [place] [address] CBC with Diffon 08-19-2023 BA# 0.0 x(10)3/cumm Normal 0.0-0.1 [facility] Comment on above: Performed By: #### C BCDIFF, ESR #### [facility] [address] [place] [address] Basophils/100 WBC (Bld) 0.7 % Normal 0.0-1.0 [facility] Comment on above: Performed By: #### C BCDIFF, ESR #### [facility] [address] [place], [place] [id number] EO# 0.3 x(10)3/cumm Normal 0.0-0.4 [facility] Comment on above: Performed By: #### C BCDIFF, ESR #### [facility] [address] [place] [address] Eosinophils/100 WBC (Bld) 5.0 % Normal 0.0-6.1 [facility] Comment on above: Performed By: #### C BCDIFF, ESR #### [facility] [address] [place] [address] Erythrocyte distribution width (RBC) [Ratio] 13.9 % Normal 11.1-15.3 [facility] Comment on above: Performed By: #### C BCDIFF, ESR #### [facility] [address] [place], [place] [phone] Hematocrit (Bld) [Volume fraction] 37.9 % Normal 34.6-45.0 [facility] Comment on above: Performed By: #### C BCDIFF, ESR #### [facility] [address] [place] [address] Hemoglobin (Bld) [Mass/Vol] 12.9 g/dL Normal 11.5-15.5 [facility] Comment on above: Performed By: #### C ANA, ESR #### [facility] [address] [place] [address] LY# 1.6 x(10)3/cumm Normal 0.8-2.9 [facility] Comment on above: Performed By: #### C ANA, ESR #### [facility] [address] [place] [address] Lymphocytes/100 WBC (Bld) 30.6 % Normal 12.2-42.6 [facility] Comment on above: Performed By: #### C ANA, ESR #### [facility] [address] [place], [place] [phone] MCH (RBC) [Entitic mass] 30.4 pg Normal 27.2-33.6 [facility] Comment on above: Performed By: #### Kennedi PEREZ, ESR #### [facility] [address] [place], [place] [id number] MCHC (RBC) [Mass/Vol] 34.1 g/dL Normal 32.9-35.3 [facility] Comment on above: Performed By: #### Kennedi PEREZ, ESR #### [facility] [address] [place] [address] MCV (RBC) [Entitic vol] 89.2 fL Normal 81.3-96.7 [facility] Comment on above: Performed By: #### Kennedi PEREZ, ESR #### [facility] [address] [place] [address] MO# 0.3 x(10)3/cumm Normal 0.2-0.8 [facility] Comment on above: Performed By: #### Kennedi PEREZ, ESR #### [facility] [address] [place], [place] [phone] Monocytes/100 WBC (Bld) 5.7 % Normal 3.3-11.6 [facility] Comment on above: Performed By: #### Kennedi PEREZ, ESR #### [facility] [address] [place] [address] NE# 3.1 x(10)3/cumm Normal 1.3-7.4 [facility] Comment on above: Performed By: #### C ANA, ESR #### [facility] [address] [place] [address] Neutrophils/100 WBC (Bld) 58.0 % Normal 44.9-78.8 [facility] Comment on above: Performed By: #### C ANA, ESR #### [facility] [address] [place] [address] Platelet mean volume (Bld) [Entitic vol] 9.1 fL Normal 6.4-10.0 [facility] Comment on above: Performed By: #### C ANA, ESR #### [facility] [address] [place] [address] PLT 197 x(10)3/cumm Normal 138-367 [facility] Comment on above: Performed By: #### C ANA, ESR #### [facility] [address] [place] [address] Plt Morph Normal [facility] Comment on above: Performed By: #### Kennedi PEREZ, ESR #### [facility] [address] [place] [address] RBC 4.25 X(10)6/cumm Normal 3.90-5.10 [facility] Comment on above: Performed By: #### Kennedi PEREZ, ESR #### [facility] [address] [place] [address] RBC Morph cont Normal [facility] Comment on above: Performed By: #### C ANA, ESR #### [facility] [address] [place] [address] RBC morphology finding Nom (Bld) Normal [facility] Comment on above: Performed By: #### C ANA, ESR #### [facility] [address] [place] [address] WBC 5.3 x(10)3/cumm Normal 3.6-10.3 [facility] Comment on above: Performed By: #### C ANA, ESR #### [facility] [address] [place], [place] [address] WBC Morph Normal [facility] Comment on above: Performed By: #### C ANA, ESR #### [facility] [address], [place] [address] Sed Rate - Westergrenon 03-2 Sed Rate 25 mm/hr High [facility] Comment on above: Performed By: #### C ANA, ESR #### [facility] [address] [place], [place] [address] .GFRon 03-25-2023 GFR Non- 71 ml/min/1.73sqm Normal [facility] ([place] Comment on above: Result Comment: GFR Population mean for , Non- Americans Ages 20-29 = 116 mL/min/1.73 sq.m. Ages 30-39 = 107 mL/min/1.73 sq.m. Ages 40-49 = 99 mL/min/1.73 sq.m. Ages 50-59 = 93 mL/min/1.73 sq.m. Ages 60-69 = 85 mL/min/1.73 sq.m. Ages 70+ = 75 mL/min/1.73 sq.m. Chronic Kidney Disease: Less than 60 mL/min/1.73 square meters End Stage Renal Disease: Less than 15 mL/min/1.73 square meters Performed By: #### G FR, VIDH, LIPID, CMP ####[address] [address] GFR 86 ml/min/1.73sqm Normal [facility] ([place]) Comment on above: Result Comment: GFR Population mean for , Non- Americans Ages 20-29 = 116 mL/min/1.73 sq.m. Ages 30-39 = 107 mL/min/1.73 sq.m. Ages 40-49 = 99 mL/min/1.73 sq.m. Ages 50-59 = 93 mL/min/1.73 sq.m. Ages 60-69 = 85 mL/min/1.73 sq.m. Ages 70+ = 75 mL/min/1.73 sq.m. Chronic Kidney Disease: Less than 60 mL/min/1.73 square meters End Stage Renal Disease: Less than 15 mL/min/1.73 square meters Performed By: #### G FR, VIDH, LIPID, CMP ####[address] [place], [place] [address] CMPon 03-25-2023 Albumin Level 3.9 G/dL Normal 3.4-4.8 [facility] ([place] Comment on above: Performed By: #### G FR, VIDH, LIPID, CMP ####[address] [place], [place] [address] Albumin/Globulin [Mass ratio] 1.2 {ratio} Normal 1.1-2.5 [facility] ([place] Comment on above: Performed By: #### Kylie FR, VIDH, LIPID, CMP ####[address] [place], [place] [address] ALP [Catalytic activity/Vol] 133 U/L Normal 40-135 [facility] ([place] Comment on above: Performed By: #### Kylie FR, VIDH, LIPID, CMP ####[address] [place], [place] [address] ALT [Catalytic activity/Vol] 20 U/L Normal 14-59 [facility] ([place] Comment on above: Performed By: #### G FR, VIDH, LIPID, CMP ####[address] [place], [place] [address] AST [Catalytic activity/Vol] 16 U/L Normal 10-40 [facility] ([place]) Comment on above: Performed By: #### G FR, VIDH, LIPID, CMP ####[address] [place], [place] [address] Bili Total 0.9 mg/dL Normal 0.2-1.0 [facility] ([place] Comment on above: Result Comment: Use of this assay is not recommended for patients undergoing treatment with eltrombopag due to the potential for falsely elevated results. Performed By: #### G FR, VIDH, LIPID, CMP ####[address] [place], [place] [address] BUN/Creatinine Ratio 15 ratio Normal 7-27 [facility] ([place] Comment on above: Performed By: #### Kylie FR, VIDH, LIPID, CMP ####[address] [place], [place] [address] Calcium [Mass/Vol] 9.0 mg/dL Normal 8.4-10.2 [facility] ([place]) Comment on above: Performed By: #### Kylie FR, VIDH, LIPID, CMP ####[address] [place], [place] [address] Chloride [Moles/Vol] 104 mmol/L Normal 98-107 [facility] ([place]) Comment on above: Performed By: #### Kylie FR, VIDH, LIPID, CMP ####[address] [place], [place] [address] CO2 [Moles/Vol] 27 mmol/L Normal 23-31 [facility] ([place] Comment on above: Performed By: #### Kylie FR, VIDH, LIPID, CMP ####[address] [place], [place] [address] Creatinine [Mass/Vol] 0.81 mg/dL Normal 0.55-1.02 [facility] ([place]) Comment on above: Performed By: #### Kylie FR, VIDH, LIPID, CMP ####[address] [place], [place] [address] Electrolyte Balance 11.0 mEq/L Normal 4.0-15.0 [facility] ([place]) Comment on above: Performed By: #### Kylie FR, VIDH, LIPID, CMP ####[address] [place], [place] [address] Globulin 3.2 G/dL Normal [facility] ([place] Comment on above: Performed By: #### Kylie FR, VIDH, LIPID, CMP ####[address] [place], [place] [address] Glucose [Mass/Vol] 104 mg/dL Normal 80-115 [facility] ([place]) Comment on above: Performed By: #### G FR, VIDH, LIPID, CMP ####[address] [place], [place] [address] Potassium [Moles/Vol] 4.3 mmol/L Normal 3.5-5.1 [facility] ([place]) Comment on above: Performed By: #### G FR, VIDH, LIPID, CMP ####[address] [place], [place] [address] Sodium [Moles/Vol] 142 mmol/L Normal 136-145 [facility] ([place]) Comment on above: Performed By: #### G FR, VIDH, LIPID, CMP ####[address] [place], [place] [address] Total Protein 7.1 G/dL Normal 6.4-8.2 [facility] ([place] Comment on above: Performed By: #### G FR, VIDH, LIPID, CMP ####[address] [place], [place] [address] Urea nitrogen [Mass/Vol] 12 mg/dL Normal 7-18 [facility] ([place] Comment on above: Performed By: #### G FR, VIDH, LIPID, CMP ####[address] [place], [place] [address] LIPIDon 03-25-2022 Cholesterol [Mass/Vol] 226 mg/dL High 0-200 [facility] ([place] Comment on above: Result Comment: Chol esterol Reference Interval: Less than 200 Desirable 200-239 Borderline high risk 240 and above High risk Performed By: #### G FR, VIDH, LIPID, CMP ####[address] [place], [place] [address] Cholesterol in HDL [Mass/Vol] 47 mg/dL Normal 40-60 [facility] ([place] Comment on above: Performed By: #### G FR, VIDH, LIPID, CMP ####[address] [place], [place] [address] Cholesterol in LDL [Mass/Vol] 149 mg/dL High 0-130 [facility] ([place] Comment on above: Performed By: #### G FR, VIDH, LIPID, CMP ####[facility] [place] [address] Triglyceride [Mass/Vol] 149 mg/dL Normal 0-150 [facility] ([place] Comment on above: Result Comment: Trig lyceride Reference Interval: Less than 150 Normal 150-199 Borderline high risk 200-499 High risk 500 or higher Very high risk Performed By: #### G FR, VIDH, LIPID, CMP ####[address] [place], [place] [address] VIDHon 03-25-2023 Vit. D 25-Hydroxy 53.9 ng/mL Normal [facility] ([place] Comment on above: Result Comment: Inte rpretive Values Based on Total 25(OH) Vitamin D: Deficient <20 ng/mL Insufficient 20 - <30 ng/mL Sufficient 30-100 ng/mL Performed By: #### G FR, VIDH, LIPID, CMP #### [id number] [place], [place] [address] .Auto Diffon 02-11-2023 Basophil, Absolute 0.0 10 3/mcL Normal 0.0-0.3 [facility] ([place] Comment on above: Performed By: #### C BC, GFR, CMP, ADIFF, PRO, ANEU ####[address] [address] Basophils/100 WBC (Bld) 0.6 % Normal 0.0-2.5 [facility] ([place] Comment on above: Performed By: #### C BC, GFR, CMP, ADIFF, PRO, ANEU ####[address] [address] Eosinophil, Absolute 0.2 10 3/mcL Normal 0.0-0.7 [facility] ([place]) Comment on above: Performed By: #### C BC, GFR, CMP, ADIFF, PRO, ANEU ####[address] [address] Eosinophils/100 WBC (Bld) 2.8 % Normal 0.0-6.0 [facility] ([place] Comment on above: Performed By: #### C BC, GFR, CMP, ADIFF, PRO, ANEU ####[address] [address] Lymphocyte, Absolute 1.4 10 3/mcL Normal 0.9-4.3 [facility] ([place] Comment on above: Performed By: #### C BC, GFR, CMP, ADIFF, PRO, ANEU ####[address] [address] Lymphocytes/100 WBC (Bld) 22.9 % Normal 20.0-40.0 [facility] ([place] Comment on above: Performed By: #### C BC, GFR, CMP, ADIFF, PRO, ANEU ####[address] [address] Monocyte, Absolute 0.4 10 3/mcL Normal 0.1-1.4 [facility] ([place] Comment on above: Performed By: #### C BC, GFR, CMP, ADIFF, PRO, ANEU ####[address] [address] Monocytes/100 WBC (Bld) 6.5 % Normal 2.0-13.0 [facility] ([place] Comment on above: Performed By: #### C BC, GFR, CMP, ADIFF, PRO, ANEU ####[address] [address] Neutrophils/100 WBC (Bld) 67.2 % Normal 50.0-75.0 [facility] ([place] Comment on above: Performed By: #### C BC, GFR, CMP, ADIFF, PRO, ANEU ####[address] [address] .GFRon 02-11-2023 GFR >60 Normal [facility] ([place] Comment on above: Result Comment: GFR Population mean for , Non- Americans Ages 20-29 = 116 mL/min/1.73 sq.m. Ages 30-39 = 107 mL/min/1.73 sq.m. Ages 40-49 = 99 mL/min/1.73 sq.m. Ages 50-59 = 93 mL/min/1.73 sq.m. Ages 60-69 = 85 mL/min/1.73 sq.m. Ages 70+ = 75 mL/min/1.73 sq.m. Chronic Kidney Disease: Less than 60 mL/min/1.73 square meters End Stage Renal Disease: Less than 15 mL/min/1.73 square meters Performed By: #### C BC, GFR, CMP, ADIFF, PRO, ANEU ####[address] [address] GFR Non- >60 Normal [facility] ([place]) Comment on above: Result Comment: GFR Population mean for , Non- Americans Ages 20-29 = 116 mL/min/1.73 sq.m. Ages 30-39 = 107 mL/min/1.73 sq.m. Ages 40-49 = 99 mL/min/1.73 sq.m. Ages 50-59 = 93 mL/min/1.73 sq.m. Ages 60-69 = 85 mL/min/1.73 sq.m. Ages 70+ = 75 mL/min/1.73 sq.m. Chronic Kidney Disease: Less than 60 mL/min/1.73 square meters End Stage Renal Disease: Less than 15 mL/min/1.73 square meters Performed By: #### C BC, GFR, CMP, ADIFF, PRO, ANEU ####[place] [address] .NEUABSon 02-11-2023 Neutrophil, Absolute 4.0 10 3/mcL Normal 2.3-8.1 [facility] ([place]) Comment on above: Performed By: #### C BC, GFR, CMP, ADIFF, PRO, ANEU ####[place] [address] CBCon 02-11-2023 Erythrocyte distribution width (RBC) [Ratio] 13.8 % Normal 11.5-15.5 [facility] ([place]) Comment on above: Performed By: #### C BC, GFR, CMP, ADIFF, PRO, ANEU ####[place] [address] Hematocrit (Bld) [Volume fraction] 40.6 % Normal 34.0-46.0 [facility] ([place]) Comment on above: Performed By: #### C BC, GFR, CMP, ADIFF, PRO, ANEU ####[place] [address] Hgb 14.0 G/dL Normal 12.0-16.0 [facility] ([place]) Comment on above: Performed By: #### C BC, GFR, CMP, ADIFF, PRO, ANEU ####[place] [address] MCH (RBC) [Entitic mass] 31.6 pg Normal 27.0-33.0 [facility] ([place]) Comment on above: Performed By: #### C BC, GFR, CMP, ADIFF, PRO, ANEU ####[place] [address] MCHC 34.4 G/dL Normal 32.0-36.0 [facility] ([place]) Comment on above: Performed By: #### C BC, GFR, CMP, ADIFF, PRO, ANEU ####[place] [address] MCV (RBC) [Entitic vol] 91.9 fL Normal 80.0-99.0 [facility] ([place]) Comment on above: Performed By: #### C BC, GFR, CMP, ADIFF, PRO, ANEU ####[place] [address] Platelet 191 10 3/mcL Normal 150-450 [facility] ([place]) Comment on above: Performed By: #### C BC, GFR, CMP, ADIFF, PRO, ANEU ####[place] [address] Platelet mean volume (Bld) [Entitic vol] 9.2 fL Normal 6.6-10.5 [facility] ([place]) Comment on above: Performed By: #### C BC, GFR, CMP, ADIFF, PRO, ANEU ####[place] [address] RBC 4.42 10 6/mcL Normal 4.10-5.30 [facility] ([place]) Comment on above: Performed By: #### C BC, GFR, CMP, ADIFF, PRO, ANEU ####[place] [address] WBC 6.0 10 3/mcL Normal 4.5-10.8 [facility] ([place]) Comment on above: Performed By: #### C BC, GFR, CMP, ADIFF, PRO, ANEU ####[address] [address] CMPon 02-11-2023 Albumin Level 4.2 G/dL Normal 3.2-4.8 [facility] ([place]) Comment on above: Performed By: #### C BC, GFR, CMP, ADIFF, PRO, ANEU ####[address] [address] Albumin/Globulin [Mass ratio] 1.3 {ratio} Normal 0.9-1.6 [facility] ([place]) Comment on above: Performed By: #### C BC, GFR, CMP, ADIFF, PRO, ANEU ####[address] [address] ALP [Catalytic activity/Vol] 127 U/L High 38-126 [facility] ([place]) Comment on above: Performed By: #### C BC, GFR, CMP, ADIFF, PRO, ANEU ####[address] [address] ALT [Catalytic activity/Vol] 22 U/L Normal 10-49 [facility] ([place]) Comment on above: Performed By: #### C BC, GFR, CMP, ADIFF, PRO, ANEU ####[place] [id number] AST [Catalytic activity/Vol] 21 U/L Normal 8-34 [facility] ([place]) Comment on above: Performed By: #### C BC, GFR, CMP, ADIFF, PRO, ANEU ####[address] [address] Bili Total 0.80 mg/dL Normal 0.20-1.20 [facility] ([place]) Comment on above: Result Comment: Use of this assay is not recommended for patients undergoing treatment with eltrombopag due to the potential for falsely elevated results. Performed By: #### C BC, GFR, CMP, ADIFF, PRO, ANEU ####[address] [address] BUN/Creatinine Ratio 21.1 ratio Normal 10.0-22.0 [facility] ([place]) Comment on above: Performed By: #### C BC, GFR, CMP, ADIFF, PRO, ANEU ####[place] [address] Calcium [Mass/Vol] 9.6 mg/dL Normal 8.7-10.4 [facility] ([place]) Comment on above: Performed By: #### C BC, GFR, CMP, ADIFF, PRO, ANEU ####[place] [address] Chloride [Moles/Vol] 109 mmol/L Normal 98-110 [facility] ([place]) Comment on above: Performed By: #### C BC, GFR, CMP, ADIFF, PRO, ANEU ####[place] [address] CO2 [Moles/Vol] 26 mmol/L Normal 22-32 [facility] ([place]) Comment on above: Performed By: #### C BC, GFR, CMP, ADIFF, PRO, ANEU ####[place] [address] Creatinine [Mass/Vol] 0.76 mg/dL Normal 0.50-1.20 [facility] ([place]) Comment on above: Performed By: #### C BC, GFR, CMP, ADIFF, PRO, ANEU ####[place] [address] Electrolyte Balance 8.0 mEq/L Normal 4.0-15.0 [facility] ([place]) Comment on above: Performed By: #### C BC, GFR, CMP, ADIFF, PRO, ANEU ####[place] [address] Globulin 3.2 G/dL Normal 1.5-3.8 [facility] ([place]) Comment on above: Performed By: #### C BC, GFR, CMP, ADIFF, PRO, ANEU ####[place] [address] Glucose [Mass/Vol] 100 mg/dL Normal 82-115 [facility] ([place]) Comment on above: Performed By: #### C BC, GFR, CMP, ADIFF, PRO, ANEU ####[address] [address] Potassium [Moles/Vol] 4.4 mmol/L Normal 3.5-5.0 [facility] ([place]) Comment on above: Performed By: #### C BC, GFR, CMP, ADIFF, PRO, ANEU ####[address] [address] Sodium [Moles/Vol] 143 mmol/L Normal 136-145 [facility] ([place]) Comment on above: Performed By: #### C BC, GFR, CMP, ADIFF, PRO, ANEU ####[address] [address] Total Protein 7.4 G/dL Normal 5.7-8.2 [facility] ([place]) Comment on above: Result Comment: No te - New Reference Range in effect 19 Performed By: #### C BC, GFR, CMP, ADIFF, PRO, ANEU ####[address] [address] Urea nitrogen [Mass/Vol] 16.0 mg/dL Normal 8.0-22.0 [facility] ([place]) Comment on above: Performed By: #### C BC, GFR, CMP, ADIFF, PRO, ANEU ####[address] [address] LABORATORYOrdered By: SYSTEM SYSTEM on 02-11-2023 Albumin BCP dye [Mass/Vol] 4.2 G/dL Invalid Interpretation Code 3.2 - 4.8 G/dL ADM SS Albumin/Globulin [Mass ratio] 1.3 {ratio} Invalid Interpretation Code 0.9 - 1.6 ratio AH ADM SS ALP [Catalytic activity/Vol] 127 U/L Invalid Interpretation Code 38 - 126 U/L ADM SS ALT No additional P-5'-P [Catalytic activity/Vol] 22 U/L Invalid Interpretation Code 10 - 49 U/L ADM SS AST [Catalytic activity/Vol] 21 U/L Invalid Interpretation Code 8 - 34 U/L ADM SS Basophils (Bld) [#/Vol] 0.0 103/mcL Invalid Interpretation Code 0.0 - 0.3 10^3/mcL Workflow SS Basophils/100 WBC (Bld) 0.6 % Invalid Interpretation Code 0.0 - 2.5 % Workflow SS Bilirubin [Mass/Vol] 0.80 mg/dL Invalid Interpretation Code 0.20 - 1.20 mg/dL ADM SS Comment on above: Interpretive Data: U se of this assay is not recommended for patients undergoing treatment with eltrombopag due to the potential for falsely elevated results. Calcium [Mass/Vol] 9.6 mg/dL Invalid Interpretation Code 8.7 - 10.4 mg/dL ADM SS Chloride [Moles/Vol] 109 mmol/L Invalid Interpretation Code 98 - 110 mEq/L ADM SS CO2 [Moles/Vol] 26 mmol/L Invalid Interpretation Code 22 - 32 mEq/L ADM SS Creatinine [Mass/Vol] 0.76 mg/dL Invalid Interpretation Code 0.50 - 1.20 mg/dL ADM SS Electrolyte Balance 8.0 mEq/L Invalid Interpretation Code 4.0 - 15.0 mEq/L ADM SS Eosinophils (Bld) [#/Vol] 0.2 103/mcL Invalid Interpretation Code 0.0 - 0.7 10^3/mcL Workflow SS Eosinophils/100 WBC (Bld) 2.8 % Invalid Interpretation Code 0.0 - 6.0 % Workflow SS Erythrocyte distribution width (RBC) [Ratio] 13.8 % Invalid Interpretation Code 11.5 - 15.5 % Workflow SS GFR/1.73 sq M.predicted among blacks MDRD (S/P/Bld) [Vol rate/Area] ml/min/1.73sqm Invalid Interpretation Code Chemistry S Comment on above: Interpretive Data: GFR Population mean for , Non- Americans Ages 20-29 = 116 mL/min/1.73 sq.m. Ages 30-39 = 107 mL/min/1.73 sq.m. Ages 40-49 = 99 mL/min/1.73 sq.m. Ages 50-59 = 93 mL/min/1.73 sq.m. Ages 60-69 = 85 mL/min/1.73 sq.m. Ages 70+ = 75 mL/min/1.73 sq.m. Chronic Kidney Disease: Less than 60 mL/min/1.73 square meters End Stage Renal Disease: Less than 15 mL/min/1.73 square meters GFR/1.73 sq M.predicted among non-blacks MDRD (S/P/Bld) [Vol rate/Area] ml/min/1.73sqm Invalid Interpretation Code Chemistry S Comment on above: Interpretive Data: GFR Population mean for , Non- Americans Ages 20-29 = 116 mL/min/1.73 sq.m. Ages 30-39 = 107 mL/min/1.73 sq.m. Ages 40-49 = 99 mL/min/1.73 sq.m. Ages 50-59 = 93 mL/min/1.73 sq.m. Ages 60-69 = 85 mL/min/1.73 sq.m. Ages 70+ = 75 mL/min/1.73 sq.m. Chronic Kidney Disease: Less than 60 mL/min/1.73 square meters End Stage Renal Disease: Less than 15 mL/min/1.73 square meters Globulin 3.2 G/dL Invalid Interpretation Code 1.5 - 3.8 G/dL ADM SS Glucose [Mass/Vol] 100 mg/dL Invalid Interpretation Code 82 - 115 mg/dL ADM SS Hematocrit (Bld) [Volume fraction] 40.6 % Invalid Interpretation Code 34.0 - 46.0 % Workflow SS Hemoglobin (Bld) [Mass/Vol] 14.0 G/dL Invalid Interpretation Code 12.0 - 16.0 G/dL AH Workflow SS Lymphocytes (Bld) [#/Vol] 1.4 103/mcL Invalid Interpretation Code 0.9 - 4.3 10^3/mcL AH Workflow SS Lymphocytes/100 WBC (Bld) 22.9 % Invalid Interpretation Code 20.0 - 40.0 % Workflow SS MCH (RBC) [Entitic mass] 31.6 pg Invalid Interpretation Code 27.0 - 33.0 pg AH Workflow SS MCHC 34.4 G/dL Invalid Interpretation Code 32.0 - 36.0 G/dL AH Workflow SS MCV (RBC) [Entitic vol] 91.9 fL Invalid Interpretation Code 80.0 - 99.0 fL Workflow SS Monocytes (Bld) [#/Vol] 0.4 103/mcL Invalid Interpretation Code 0.1 - 1.4 10^3/mcL AH Workflow SS Monocytes/100 WBC (Bld) 6.5 % Invalid Interpretation Code 2.0 - 13.0 % AH Workflow SS Neutrophils (Bld) [#/Vol] 4.0 103/mcL Invalid Interpretation Code 2.3 - 8.1 10^3/mcL AH Workflow SS Neutrophils/100 WBC (Bld) 67.2 % Invalid Interpretation Code 50.0 - 75.0 % AH Workflow SS Platelet mean volume (Bld) [Entitic vol] 9.2 fL Invalid Interpretation Code 6.6 - 10.5 fL AH Workflow SS Platelets (Bld) [#/Vol] 191 103/mcL Invalid Interpretation Code 150 - 450 10^3/mcL AH Workflow SS Potassium [Moles/Vol] 4.4 mmol/L Invalid Interpretation Code 3.5 - 5.0 mEq/L AH ADM SS Protein [Mass/Vol] 7.4 G/dL Invalid Interpretation Code 5.7 - 8.2 G/dL AH ADM SS Comment on above: Interpretive Data: * *Note - New Reference Range in effect 19 RBC (Bld) [#/Vol] 4.42 106/mcL Invalid Interpretation Code 4.10 - 5.30 10^6/mcL AH Workflow SS Sodium [Moles/Vol] 143 mmol/L Invalid Interpretation Code 136 - 145 mEq/L AH ADM SS Urea nitrogen [Mass/Vol] 16.0 mg/dL Invalid Interpretation Code 8.0 - 22.0 mg/dL AH ADM SS Urea nitrogen/Creatinine [Mass ratio] 21.1 ratio Invalid Interpretation Code 10.0 - 22.0 ratio AH ADM SS WBC (Bld) [#/Vol] 6.0 103/mcL Invalid Interpretation Code 4.5 - 10.8 10^3/mcL AH Workflow SS LABORATORYOrdered By: Raúl Riley on 02-11-2023 PT Coag (PPP) [Time] 12.1 s Invalid Interpretation Code 9.0 - 14.2 seconds [facility] SS Comment on above: Interpretive Data: E ffective 12/14/07, Protime results may be affected by some antibiotics (i.e. Ciprofloxacin, Azithromycin, Bactrim) which may potentiate the action of oral anticoagulants, with further increases in Protime/INR. PT International Ratio 1.1 ratio Invalid Interpretation Code [facility] SS Comment on above: Interpretive Data: T he [employer] (CHEST, 1991, 102:312S-25S) recommended therapeutic range for oral anticoagulant therapy is: LOW RISK: Prophylaxis of venous thrombosis INR: 2.0-3.0 Treatment of pulmonary embolism 2.0-3.0 Prevention of systemic embolism 2.0-3.0 HIGH RISK: Mechanical prosthetic valves 2.5-3.5 PROon 02-11-2023 INR Coag (PPP) [Relative time] 1.1 {INR} Normal [facility] ([place]) Comment on above: Result Comment: The [employer] (CHEST, 1991, 102:312S-25S) recommended therapeutic range for oral anticoagulant therapy is: LOW RISK: Prophylaxis of venous thrombosis INR: 2.0-3.0 Treatment of pulmonary embolism 2.0-3.0 Prevention of systemic embolism 2.0-3.0 HIGH RISK: Mechanical prosthetic valves 2.5-3.5 Performed By: #### C BC, GFR, CMP, ADIFF, PRO, ANEU ####[place] [id number] [address] [place] [address] PT Coag (PPP) [Time] 12.1 s Normal 9.0-14.2 [facility] ([place]) Comment on above: Result Comment: Effe ctive 12/14/07, Protime results may be affected by some antibiotics (i.e. Ciprofloxacin, Azithromycin, Bactrim) which may potentiate the action of oral anticoagulants, with further increases in Protime/INR. Performed By: #### C BC, GFR, CMP, ADIFF, PRO, ANEU ####[place] [id number] [place] [address] BD BONE DENSITY DEXA AXIAL S [facility] 02-06-2023 BD BONE DENSITY DEXA AXIAL [facility] ORIGINAL EXAMINATION: BONE DENSITOMETRY 02/06/2023 1:52 pm TECHNIQUE: A bone density dual x-ray absorptiometry (DEXA) scan was performed of the lumbar spine and left hip. COMPARISON: None. HISTORY: ORDERING SYSTEM PROVIDED HISTORY: Reason for Exam: screen FINDINGS: T Score Left Femoral Neck: -0.8 Left Femoral Neck: 0.757 (g/cm2) T Score Left Hip: -1.3 Left Hip: 0.780 (g/cm2) T Score Lumbar Spine: -0.3 Lumbar Spine: 1.017 (g/cmd2) FRAX: 10 year fracture risk assessment Major osteoporotic fracture: 7.3% Hip fracture: 0.4% IMPRESSION: Osteopenia by WHO criteria. *By the World Health Organization criteria: (Comparing with young normal sex matched population) - Normal: T-score at or above -1 SD (standard deviation) - Osteopenia: T-score between -1 and -2.5 SD - Osteoporosis: T-score at or below -2.5 SD Interpreted by: Royal Larsen DO Preliminary Report By: Royal Larsen DO Electronically signed By Royal Larsen DO Dictated Date: 02/06/2023 3:08:33 PM Prelim Date: 02/06/2023 3:09:01 PM Sign Date: 02/06/2023 3:09:01 PM Ordering Provider: LUISA Angel [facility] ([place]) MA MAMMOGRAM SCREENING BILAT ERAL W/TOMOon 02-06-2023 MA MAMMOGRAM SCREENING BILATERAL W/EFRA ORIGINAL FROM: [address] [address] PROCEDURE FOR: DONNA SNOWDEN [address] [place] [address] Home: PID#: [id number] Exam#: [id number] : 1960 Age: 62 TO: LUISA GARRISON MD [address] [place], [place] [address] Fax: NO FAX EXAMINATION: SCREENING DIGITAL BILATERAL MAMMOGRAM WITH TOMOSYNTHESIS, 02/06/2023 1:25 pm TECHNIQUE: Screening mammography of the bilateral breasts was performed with tomosynthesis. 2D standard and 3D tomosynthesis combination imaging performed through both breasts in the MLO and CC projection. Computer aided detection was utilized in the interpretation of this exam. COMPARISON: 01/24/2022, 01/17/2021 HISTORY: Breast cancer screening. FINDINGS: BREAST DENSITY: Scattered fibroglandular tissue There are postoperative changes in both breasts. There are no significant masses or calcifications. IMPRESSION: No mammographic evidence of malignancy. Continued screening with annual mammograms is recommended. BIRADS: MAMMOGRAM BI-RADS: 2: Benign finding RECALL: 1 year screening RECALL TYPE: mammo LETTER SENT: Normal BI-RADS 1 and 2 Interpreted by: Royal Salazar MD Preliminary Report By: Royal Salazar MD Electronically signed By Royal Salazar MD Dictated Date: 02/06/2023 6:44:15 PM Prelim Date: 02/06/2023 6:45:39 PM Sign Date: 02/06/2023 6:45:39 PM Ordering Provider: LUISA GARRISON Junior Web Developer: VICKY ERAZO RT (R)(M) letter sent: Normal BI-RADS 1 and 2 Mammogram BI-RADS: 2 Benign Normal [facility] ([place]) LABORATORYOrdered By: SYSTEM SYSTEM on 10-09-2022 Albumin BCP dye [Mass/Vol] 4.3 G/dL Invalid Interpretation Code 3.4 - 4.8 G/dL AO ADM SS Albumin/Globulin [Mass ratio] 1.3 {ratio} Invalid Interpretation Code 1.1 - 2.5 ratio AO ADM SS ALP [Catalytic activity/Vol] 165 U/L Invalid Interpretation Code 40 - 135 U/L AO ADM SS ALT With P-5'-P [Catalytic activity/Vol] 78 U/L Invalid Interpretation Code 14 - 59 U/L AO ADM SS AST With P-5'-P [Catalytic activity/Vol] 42 U/L Invalid Interpretation Code 10 - 40 U/L AO ADM SS Bilirubin [Mass/Vol] 1.0 mg/dL Invalid Interpretation Code 0.2 - 1.0 mg/dL AO ADM SS Calcium [Mass/Vol] 9.0 mg/dL Invalid Interpretation Code 8.4 - 10.2 mg/dL AO ADM SS Chloride [Moles/Vol] 104 mmol/L Invalid Interpretation Code 98 - 107 mmol/L AO ADM SS CO2 [Moles/Vol] 26 mmol/L Invalid Interpretation Code 23 - 31 mmol/L AO ADM SS Creatinine [Mass/Vol] 0.88 mg/dL Invalid Interpretation Code 0.55 - 1.02 mg/dL AO ADM SS Electrolyte Balance 9.0 mEq/L Invalid Interpretation Code 4.0 - 15.0 mEq/L AO ADM SS GFR/1.73 sq M.predicted among blacks MDRD (S/P/Bld) [Vol rate/Area] 78 ml/min/1.73sqm Invalid Interpretation Code AO Chemistry S GFR/1.73 sq M.predicted among non-blacks MDRD (S/P/Bld) [Vol rate/Area] 65 ml/min/1.73sqm Invalid Interpretation Code AO Chemistry S Globulin 3.3 G/dL Invalid Interpretation Code AO ADM SS Glucose [Mass/Vol] 140 mg/dL Invalid Interpretation Code 80 - 115 mg/dL AO ADM SS Magnesium [Mass/Vol] 1.7 mg/dL Invalid Interpretation Code 1.8 - 2.4 mg/dL AO ADM SS Potassium [Moles/Vol] 4.2 mmol/L Invalid Interpretation Code 3.5 - 5.1 mmol/L AO ADM SS Protein [Mass/Vol] 7.6 G/dL Invalid Interpretation Code 6.4 - 8.2 G/dL AO ADM SS Sodium [Moles/Vol] 139 mmol/L Invalid Interpretation Code 136 - 145 mmol/L AO ADM SS Urea nitrogen [Mass/Vol] 20 mg/dL Invalid Interpretation Code 7 - 18 mg/dL AO ADM SS Urea nitrogen/Creatinine [Mass ratio] 23 ratio Invalid Interpretation Code 7 - 27 ratio AO ADM SS LABORATORYOrdered By: SYSTEM SYSTEM on 09-20-2022 Albumin BCP dye [Mass/Vol] 4.0 G/dL Invalid Interpretation Code 3.4 - 4.8 G/dL AO ADM SS Albumin/Globulin [Mass ratio] 1.2 {ratio} Invalid Interpretation Code 1.1 - 2.5 ratio AO ADM SS ALP [Catalytic activity/Vol] 175 U/L Invalid Interpretation Code 40 - 135 U/L AO ADM SS ALT With P-5'-P [Catalytic activity/Vol] 81 U/L Invalid Interpretation Code 14 - 59 U/L AO ADM SS AST With P-5'-P [Catalytic activity/Vol] 45 U/L Invalid Interpretation Code 10 - 40 U/L AO ADM SS Bilirubin [Mass/Vol] 0.8 mg/dL Invalid Interpretation Code 0.2 - 1.0 mg/dL AO ADM SS Calcium [Mass/Vol] 9.0 mg/dL Invalid Interpretation Code 8.4 - 10.2 mg/dL AO ADM SS Chloride [Moles/Vol] 104 mmol/L Invalid Interpretation Code 98 - 107 mmol/L AO ADM SS CO2 [Moles/Vol] 27 mmol/L Invalid Interpretation Code 23 - 31 mmol/L AO ADM SS Creatinine [Mass/Vol] 0.87 mg/dL Invalid Interpretation Code 0.55 - 1.02 mg/dL AO ADM SS Electrolyte Balance 9.0 mEq/L Invalid Interpretation Code 4.0 - 15.0 mEq/L AO ADM SS GFR/1.73 sq M.predicted among blacks MDRD (S/P/Bld) [Vol rate/Area] 79 ml/min/1.73sqm Invalid Interpretation Code AO Chemistry S GFR/1.73 sq M.predicted among non-blacks MDRD (S/P/Bld) [Vol rate/Area] 66 ml/min/1.73sqm Invalid Interpretation Code AO Chemistry S Globulin 3.4 G/dL Invalid Interpretation Code AO ADM SS Glucose [Mass/Vol] 122 mg/dL Invalid Interpretation Code 80 - 115 mg/dL AO ADM SS Magnesium [Mass/Vol] 1.9 mg/dL Invalid Interpretation Code 1.8 - 2.4 mg/dL AO ADM SS Potassium [Moles/Vol] 4.4 mmol/L Invalid Interpretation Code 3.5 - 5.1 mmol/L AO ADM SS Protein [Mass/Vol] 7.4 G/dL Invalid Interpretation Code 6.4 - 8.2 G/dL AO ADM SS Sodium [Moles/Vol] 140 mmol/L Invalid Interpretation Code 136 - 145 mmol/L AO ADM SS TSH Qn 1.36 m[IU]/L Invalid Interpretation Code 0.36 - 3.74 mcIU/mL AO ADM SS Urea nitrogen [Mass/Vol] 12 mg/dL Invalid Interpretation Code 7 - 18 mg/dL AO ADM SS Urea nitrogen/Creatinine [Mass ratio] 14 ratio Invalid Interpretation Code 7 - 27 ratio AO ADM SS LABORATORYOrdered By: Bhavani Rdz on 09-20-2022 Basophil, Absolute 0.1 103/mcL Invalid Interpretation Code 0.0 - 0.2 10^3/mcL AO Workflow SS Basophils/100 WBC (Bld) 0.7 % Invalid Interpretation Code 0.0 - 2.5 % AO Workflow SS Eosinophil, Absolute 0.1 103/mcL Invalid Interpretation Code 0.0 - 0.4 10^3/mcL AO Workflow SS Eosinophils/100 WBC (Bld) 2.0 % Invalid Interpretation Code 0.0 - 7.0 % AO Workflow SS Erythrocyte distribution width (RBC) [Ratio] 14.4 % Invalid Interpretation Code 11.5 - 14.5 % AO Workflow SS Hematocrit (Bld) [Volume fraction] 38.9 % Invalid Interpretation Code 37.0 - 47.0 % AO Workflow SS Hemoglobin (Bld) [Mass/Vol] 13.6 G/dL Invalid Interpretation Code 12.0 - 16.0 G/dL AO Workflow SS Lymphocyte, Absolute 1.6 103/mcL Invalid Interpretation Code 0.8 - 3.9 10^3/mcL AO Workflow SS Lymphocytes/100 WBC (Bld) 22.7 % Invalid Interpretation Code 10.0 - 50.0 % AO Workflow SS MCH (RBC) [Entitic mass] 30.7 pg Invalid Interpretation Code 27.0 - 31.2 pg AO Workflow SS MCHC 34.9 G/dL Invalid Interpretation Code 33.0 - 37.0 G/dL AO Workflow SS MCV (RBC) [Entitic vol] 88.1 fL Invalid Interpretation Code 80.0 - 94.0 fL AO Workflow SS Monocyte, Absolute 0.5 103/mcL Invalid Interpretation Code 0.2 - 1.0 10^3/mcL AO Workflow SS Monocytes/100 WBC (Bld) 6.5 % Invalid Interpretation Code 1.7 - 13.0 % AO Workflow SS Neutrophil, Absolute 4.8 103/mcL Invalid Interpretation Code 2.9 - 6.2 10^3/mcL AO Workflow SS Neutrophils/100 WBC (Bld) 68.1 % Invalid Interpretation Code 37.0 - 80.0 % AO Workflow SS Platelet mean volume (Bld) [Entitic vol] 8.0 fL Invalid Interpretation Code 7.4 - 10.4 fL AO Workflow SS Platelets (Bld) [#/Vol] 233 103/mcL Invalid Interpretation Code 130 - 400 10^3/mcL AO Workflow SS RBC (Bld) [#/Vol] 4.42 106/mcL Invalid Interpretation Code 4.20 - 5.40 10^6/mcL AO Workflow SS WBC (Bld) [#/Vol] 7.0 103/mcL Invalid Interpretation Code 4.6 - 10.8 10^3/mcL AO Workflow SS LABORATORYOrdered By: Sravani Armando on 09-20-2022 Cholesterol [Mass/Vol] 134 mg/dL Invalid Interpretation Code 0 - 200 mg/dL AO ADM SS Cholesterol in HDL [Mass/Vol] 46 mg/dL Invalid Interpretation Code 40 - 60 mg/dL AO ADM SS Cholesterol in LDL [Mass/Vol] 64 mg/dL Invalid Interpretation Code 0 - 130 mg/dL AO ADM SS Triglyceride [Mass/Vol] 118 mg/dL Invalid Interpretation Code 0 - 150 mg/dL AO ADM SS LABORATORYOrdered By: SYSTEM SYSTEM on 02-12-2022 Albumin BCP dye [Mass/Vol] 4.0 G/dL Invalid Interpretation Code 3.2 - 4.8 G/dL AH ADM SS Albumin/Globulin [Mass ratio] 1.2 {ratio} Invalid Interpretation Code 0.9 - 1.6 ratio AH ADM SS ALP [Catalytic activity/Vol] 168 U/L Invalid Interpretation Code 38 - 126 U/L AH ADM SS ALT No additional P-5'-P [Catalytic activity/Vol] 69 U/L Invalid Interpretation Code 10 - 49 U/L AH ADM SS AST [Catalytic activity/Vol] 44 U/L Invalid Interpretation Code 8 - 34 U/L ADM SS Basophils (Bld) [#/Vol] 0.1 103/mcL Invalid Interpretation Code 0.0 - 0.3 10^3/mcL AH Workflow SS Basophils/100 WBC (Bld) 0.6 % Invalid Interpretation Code 0.0 - 2.5 % AH Workflow SS Bilirubin [Mass/Vol] 0.90 mg/dL Invalid Interpretation Code 0.20 - 1.20 mg/dL AH ADM SS Calcium [Mass/Vol] 9.6 mg/dL Invalid Interpretation Code 8.7 - 10.4 mg/dL AH ADM SS Chloride [Moles/Vol] 105 mmol/L Invalid Interpretation Code 98 - 110 mEq/L ADM SS CO2 [Moles/Vol] 24 mmol/L Invalid Interpretation Code 22 - 32 mEq/L ADM SS Creatinine [Mass/Vol] 0.72 mg/dL Invalid Interpretation Code 0.50 - 1.20 mg/dL AH ADM SS Electrolyte Balance 11.0 mEq/L Invalid Interpretation Code 4.0 - 15.0 mEq/L AH ADM SS Eosinophils (Bld) [#/Vol] 0.2 103/mcL Invalid Interpretation Code 0.0 - 0.7 10^3/mcL AH Workflow SS Eosinophils/100 WBC (Bld) 1.9 % Invalid Interpretation Code 0.0 - 6.0 % AH Workflow SS Erythrocyte distribution width (RBC) [Ratio] 14.3 % Invalid Interpretation Code 11.5 - 15.5 % AH Workflow SS GFR/1.73 sq M.predicted among blacks MDRD (S/P/Bld) [Vol rate/Area] ml/min/1.73sqm Invalid Interpretation Code Chemistry S GFR/1.73 sq M.predicted among non-blacks MDRD (S/P/Bld) [Vol rate/Area] ml/min/1.73sqm Invalid Interpretation Code Chemistry S Globulin 3.4 G/dL Invalid Interpretation Code 1.5 - 3.8 G/dL ADM SS Glucose [Mass/Vol] 108 mg/dL Invalid Interpretation Code 82 - 115 mg/dL ADM SS Hematocrit (Bld) [Volume fraction] 38.7 % Invalid Interpretation Code 34.0 - 46.0 % AH Workflow SS Hemoglobin (Bld) [Mass/Vol] 13.5 G/dL Invalid Interpretation Code 12.0 - 16.0 G/dL AH Workflow SS Lymphocytes (Bld) [#/Vol] 1.5 103/mcL Invalid Interpretation Code 0.9 - 4.3 10^3/mcL AH Workflow SS Lymphocytes/100 WBC (Bld) 17.5 % Invalid Interpretation Code 20.0 - 40.0 % AH Workflow SS MCH (RBC) [Entitic mass] 30.9 pg Invalid Interpretation Code 27.0 - 33.0 pg AH Workflow SS MCHC 34.9 G/dL Invalid Interpretation Code 32.0 - 36.0 G/dL AH Workflow SS MCV (RBC) [Entitic vol] 88.6 fL Invalid Interpretation Code 80.0 - 99.0 fL AH Workflow SS Monocytes (Bld) [#/Vol] 0.6 103/mcL Invalid Interpretation Code 0.1 - 1.4 10^3/mcL AH Workflow SS Monocytes/100 WBC (Bld) 6.9 % Invalid Interpretation Code 2.0 - 13.0 % AH Workflow SS Neutrophils (Bld) [#/Vol] 6.3 103/mcL Invalid Interpretation Code 2.3 - 8.1 10^3/mcL AH Workflow SS Neutrophils/100 WBC (Bld) 73.1 % Invalid Interpretation Code 50.0 - 75.0 % AH Workflow SS Platelet mean volume (Bld) [Entitic vol] 8.0 fL Invalid Interpretation Code 6.6 - 10.5 fL AH Workflow SS Platelets (Bld) [#/Vol] 206 103/mcL Invalid Interpretation Code 150 - 450 10^3/mcL AH Workflow SS Potassium [Moles/Vol] 4.2 mmol/L Invalid Interpretation Code 3.5 - 5.0 mEq/L AH ADM SS Protein [Mass/Vol] 7.4 G/dL Invalid Interpretation Code 5.7 - 8.2 G/dL AH ADM SS RBC (Bld) [#/Vol] 4.37 106/mcL Invalid Interpretation Code 4.10 - 5.30 10^6/mcL Workflow SS Sodium [Moles/Vol] 140 mmol/L Invalid Interpretation Code 136 - 145 mEq/L AH ADM SS Urea nitrogen [Mass/Vol] 24.0 mg/dL Invalid Interpretation Code 8.0 - 22.0 mg/dL AH ADM SS Urea nitrogen/Creatinine [Mass ratio] 33.3 ratio Invalid Interpretation Code 10.0 - 22.0 ratio AH ADM SS WBC (Bld) [#/Vol] 8.6 103/mcL Invalid Interpretation Code 4.5 - 10.8 10^3/mcL Workflow SS LABORATORYOrdered By: Maida East on 02-12-2022 INR Coag (PPP) [Relative time] 1.1 {INR} Invalid Interpretation Code AH Auto Coag SS PT Coag (PPP) [Time] 13.3 s Invalid Interpretation Code 9.0 - 14.9 seconds Auto Coag SS LABORATORYOrdered By: Iza Moody on 01-28-2022 Calcium [Mass/Vol] 9.1 mg/dL Invalid Interpretation Code 8.4 - 10.2 mg/dL AO ADM SS Chloride [Moles/Vol] 103 mmol/L Invalid Interpretation Code 98 - 107 mmol/L AO ADM SS CO2 [Moles/Vol] 27 mmol/L Invalid Interpretation Code 23 - 31 mmol/L AO ADM SS Creatinine [Mass/Vol] 0.83 mg/dL Invalid Interpretation Code 0.55 - 1.02 mg/dL AO ADM SS Electrolyte Balance 9.0 mEq/L Invalid Interpretation Code 4.0 - 15.0 mEq/L AO ADM SS Glucose [Mass/Vol] 146 mg/dL Invalid Interpretation Code 80 - 115 mg/dL AO ADM SS Magnesium [Mass/Vol] 1.8 mg/dL Invalid Interpretation Code 1.8 - 2.4 mg/dL AO ADM SS Potassium [Moles/Vol] 4.4 mmol/L Invalid Interpretation Code 3.5 - 5.1 mmol/L AO ADM SS Sodium [Moles/Vol] 139 mmol/L Invalid Interpretation Code 136 - 145 mmol/L AO ADM SS Urea nitrogen [Mass/Vol] 19 mg/dL Invalid Interpretation Code 7 - 18 mg/dL AO ADM SS Urea nitrogen/Creatinine [Mass ratio] 23 ratio Invalid Interpretation Code 7 - 27 ratio AO ADM SS LABORATORYOrdered By: SYSTEM SYSTEM on 01-28-2022 GFR 84 ml/min/1.73sqm Invalid Interpretation Code AO Chemistry S GFR Non- 69 ml/min/1.73sqm Invalid Interpretation Code AO Chemistry S LABORATORYOrdered By: Iza Moody on 10-31-2021 Albumin BCP dye [Mass/Vol] 4.0 G/dL Invalid Interpretation Code 3.4 - 4.8 G/dL AO ADM SS Albumin/Globulin [Mass ratio] 1.2 {ratio} Invalid Interpretation Code 1.1 - 2.5 ratio AO ADM SS ALP [Catalytic activity/Vol] 180 U/L Invalid Interpretation Code 40 - 135 U/L AO ADM SS AST With P-5'-P [Catalytic activity/Vol] 47 U/L Invalid Interpretation Code 10 - 40 U/L AO ADM SS Basophil, Absolute 0.0 103/mcL Invalid Interpretation Code 0.0 - 0.2 10^3/mcL AO Workflow SS Basophils/100 WBC (Bld) 0.4 % Invalid Interpretation Code 0.0 - 2.5 % AO Workflow SS Bili Indirect 0.5 mg/dL Invalid Interpretation Code AO Chemistry S Bilirubin.direct [Mass/Vol] 0.2 mg/dL Invalid Interpretation Code 0.0 - 0.2 mg/dL AO ADM SS Eosinophil, Absolute 0.1 103/mcL Invalid Interpretation Code 0.0 - 0.4 10^3/mcL AO Workflow SS Eosinophils/100 WBC (Bld) 2.2 % Invalid Interpretation Code 0.0 - 7.0 % AO Workflow SS Erythrocyte distribution width (RBC) [Ratio] 14.7 % Invalid Interpretation Code 11.5 - 14.5 % AO Workflow SS Globulin 3.3 G/dL Invalid Interpretation Code AO ADM SS Hematocrit (Bld) [Volume fraction] 37.6 % Invalid Interpretation Code 37.0 - 47.0 % AO Workflow SS Hgb 13.0 G/dL Invalid Interpretation Code 12.0 - 16.0 G/dL AO Workflow SS Lymphocyte, Absolute 1.6 103/mcL Invalid Interpretation Code 0.8 - 3.9 10^3/mcL AO Workflow SS Lymphocytes/100 WBC (Bld) 23.5 % Invalid Interpretation Code 10.0 - 50.0 % AO Workflow SS MCH (RBC) [Entitic mass] 30.1 pg Invalid Interpretation Code 27.0 - 31.2 pg AO Workflow SS MCHC 34.4 G/dL Invalid Interpretation Code 33.0 - 37.0 G/dL AO Workflow SS MCV (RBC) [Entitic vol] 87.4 fL Invalid Interpretation Code 80.0 - 94.0 fL AO Workflow SS Monocyte, Absolute 0.5 103/mcL Invalid Interpretation Code 0.2 - 1.0 10^3/mcL AO Workflow SS Monocytes/100 WBC (Bld) 7.2 % Invalid Interpretation Code 1.7 - 13.0 % AO Workflow SS Neutrophil, Absolute 4.6 103/mcL Invalid Interpretation Code 2.9 - 6.2 10^3/mcL AO Workflow SS Neutrophils/100 WBC (Bld) 66.7 % Invalid Interpretation Code 37.0 - 80.0 % AO Workflow SS Platelet 229 103/mcL Invalid Interpretation Code 130 - 400 10^3/mcL AO Workflow SS Platelet mean volume (Bld) [Entitic vol] 8.1 fL Invalid Interpretation Code 7.4 - 10.4 fL AO Workflow SS RBC 4.31 106/mcL Invalid Interpretation Code 4.20 - 5.40 10^6/mcL AO Workflow SS WBC 6.8 103/mcL Invalid Interpretation Code 4.6 - 10.8 10^3/mcL AO Workflow SS LABORATORYOrdered By: Gaudencio Millard on 10-31-2021 Albumin BCP dye [Mass/Vol] 3.9 G/dL Invalid Interpretation Code 3.4 - 4.8 G/dL AO ADM SS Albumin/Globulin [Mass ratio] 1.1 {ratio} Invalid Interpretation Code 1.1 - 2.5 ratio AO ADM SS ALP [Catalytic activity/Vol] 181 U/L Invalid Interpretation Code 40 - 135 U/L AO ADM SS AST With P-5'-P [Catalytic activity/Vol] 48 U/L Invalid Interpretation Code 10 - 40 U/L AO ADM SS Calcium [Mass/Vol] 8.8 mg/dL Invalid Interpretation Code 8.4 - 10.2 mg/dL AO ADM SS Chloride [Moles/Vol] 103 mmol/L Invalid Interpretation Code 98 - 107 mmol/L AO ADM SS Cholesterol [Mass/Vol] 148 mg/dL Invalid Interpretation Code 0 - 200 mg/dL AO ADM SS Cholesterol in HDL [Mass/Vol] 54 mg/dL Invalid Interpretation Code 40 - 60 mg/dL AO ADM SS Cholesterol in LDL [Mass/Vol] 71 mg/dL Invalid Interpretation Code 0 - 130 mg/dL AO ADM SS CO2 [Moles/Vol] 31 mmol/L Invalid Interpretation Code 23 - 31 mmol/L AO ADM SS Creatinine [Mass/Vol] 0.79 mg/dL Invalid Interpretation Code 0.55 - 1.02 mg/dL AO ADM SS Electrolyte Balance 10.0 mEq/L Invalid Interpretation Code 4.0 - 15.0 mEq/L AO ADM SS Globulin 3.4 G/dL Invalid Interpretation Code AO ADM SS Glucose [Mass/Vol] 108 mg/dL Invalid Interpretation Code 80 - 115 mg/dL AO ADM SS Potassium [Moles/Vol] 3.6 mmol/L Invalid Interpretation Code 3.5 - 5.1 mmol/L AO ADM SS Sodium [Moles/Vol] 144 mmol/L Invalid Interpretation Code 136 - 145 mmol/L AO ADM SS Triglyceride [Mass/Vol] 116 mg/dL Invalid Interpretation Code 0 - 150 mg/dL AO ADM SS TSH Qn 1.73 m[IU]/L Invalid Interpretation Code 0.36 - 3.74 mcIU/mL AO ADM SS Urea nitrogen [Mass/Vol] 15 mg/dL Invalid Interpretation Code 7 - 18 mg/dL AO ADM SS Urea nitrogen/Creatinine [Mass ratio] 19 ratio Invalid Interpretation Code 7 - 27 ratio AO ADM SS LABORATORYOrdered By: SYSTEM SYSTEM on 10-31-2021 GFR 89 ml/min/1.73sqm Invalid Interpretation Code AO Chemistry S GFR Non- 74 ml/min/1.73sqm Invalid Interpretation Code AO Chemistry S Monocyte distribution width Auto (Bld) [Entitic vol] Not Performed 1 *NA* (10/31/21 9:13 AM) Invalid Interpretation Code 0.00 - 20.00 AO Hematology S Comment on above: Result Comment: MDW testing performed only on adult ER patients between the ages of 18-89 years. Laboratory - Chemistry and C hemistry - challengeOrdered By: Lacie Moody on 10-31-2021 ALT With P-5'-P [Catalytic activity/Vol] 77 U/L Invalid Interpretation Code 14 - 59 U/L AO ADM SS Bilirubin [Mass/Vol] 0.7 mg/dL Invalid Interpretation Code 0.2 - 1.0 mg/dL AO ADM SS Protein [Mass/Vol] 7.3 G/dL Invalid Interpretation Code 6.4 - 8.2 G/dL AO ADM SS LABORATORYOrdered By: SYSTEM SYSTEM on 05-30-2021 Gamma glutamyl transferase [Catalytic activity/Vol] 159 U/L Invalid Interpretation Code 5 - 55 U/L AH ADM SS LABORATORYOrdered By: Iza Moody on 05-30-2021 Magnesium [Mass/Vol] 1.9 mg/dL Invalid Interpretation Code 1.8 - 2.4 mg/dL AO ADM SS LABORATORYOrdered By: Iza Moody on 05-15-2021 Albumin BCP dye [Mass/Vol] 3.6 G/dL Invalid Interpretation Code 3.4 - 4.8 G/dL AO ADM SS Albumin/Globulin [Mass ratio] 0.9 {ratio} Invalid Interpretation Code 1.1 - 2.5 ratio AO ADM SS ALP [Catalytic activity/Vol] 257 U/L Invalid Interpretation Code 40 - 135 U/L AO ADM SS ALT With P-5'-P [Catalytic activity/Vol] 44 U/L Invalid Interpretation Code 14 - 59 U/L AO ADM SS AST With P-5'-P [Catalytic activity/Vol] 25 U/L Invalid Interpretation Code 10 - 40 U/L AO ADM SS Bili Indirect 0.4 mg/dL Invalid Interpretation Code AO Chemistry S Bilirubin [Mass/Vol] 0.6 mg/dL Invalid Interpretation Code 0.2 - 1.0 mg/dL AO ADM SS Bilirubin.direct [Mass/Vol] 0.2 mg/dL Invalid Interpretation Code 0.0 - 0.2 mg/dL AO ADM SS Calcium [Mass/Vol] 9.0 mg/dL Invalid Interpretation Code 8.4 - 10.2 mg/dL AO ADM SS Chloride [Moles/Vol] 104 mmol/L Invalid Interpretation Code 98 - 107 mmol/L AO ADM SS Cholesterol [Mass/Vol] 136 mg/dL Invalid Interpretation Code 0 - 200 mg/dL AO ADM SS Cholesterol in HDL [Mass/Vol] 51 mg/dL Invalid Interpretation Code 40 - 60 mg/dL AO ADM SS Cholesterol in LDL [Mass/Vol] 61 mg/dL Invalid Interpretation Code 0 - 130 mg/dL AO ADM SS CO2 [Moles/Vol] 29 mmol/L Invalid Interpretation Code 23 - 31 mmol/L AO ADM SS Creatinine [Mass/Vol] 0.64 mg/dL Invalid Interpretation Code 0.55 - 1.02 mg/dL AO ADM SS Electrolyte Balance 11.0 mEq/L Invalid Interpretation Code AO ADM SS Globulin 3.9 G/dL Invalid Interpretation Code AO ADM SS Glucose [Mass/Vol] 113 mg/dL Invalid Interpretation Code 80 - 115 mg/dL AO ADM SS Magnesium [Mass/Vol] 1.7 mg/dL Invalid Interpretation Code 1.8 - 2.4 mg/dL AO ADM SS Potassium [Moles/Vol] 3.3 mmol/L Invalid Interpretation Code 3.5 - 5.1 mmol/L AO ADM SS Protein [Mass/Vol] 7.5 G/dL Invalid Interpretation Code 6.4 - 8.2 G/dL AO ADM SS Sodium [Moles/Vol] 144 mmol/L Invalid Interpretation Code 136 - 145 mmol/L AO ADM SS Triglyceride [Mass/Vol] 119 mg/dL Invalid Interpretation Code 0 - 150 mg/dL AO ADM SS Urea nitrogen [Mass/Vol] 14 mg/dL Invalid Interpretation Code 7 - 18 mg/dL AO ADM SS Urea nitrogen/Creatinine [Mass ratio] 22 ratio Invalid Interpretation Code 7 - 27 ratio AO ADM SS LABORATORYOrdered By: SYSTEM SYSTEM on 05-15-2021 GFR 114 ml/min/1.73sqm Invalid Interpretation Code AO Chemistry S GFR Non- 94 ml/min/1.73sqm Invalid Interpretation Code AO Chemistry S LABORATORYOrdered By: Anne-Marie Dykes on 03-21-2021 Appearance (U) Clear (03/21/21 9:42 AM) Invalid Interpretation Code Clear AO Auto Urine SS Bacteria LM.HPF (Urine sed) [#/Area] Trace /HPF Invalid Interpretation Code AO Auto Urine SS Bilirubin Ql (U) Negative (03/21/21 9:42 AM) Invalid Interpretation Code Negative AO Auto Urine SS Color (U) Yellow (03/21/21 9:42 AM) Invalid Interpretation Code AO Auto Urine SS Glucose Test strip (U) [Mass/Vol] Negative Invalid Interpretation Code Negativemg/dL AO Auto Urine SS Hemoglobin Auto test strip (U) [Mass/Vol] Trace *ABN* (03/21/21 9:42 AM) Invalid Interpretation Code Negative AO Auto Urine SS Ketones Ql (U) Negative Invalid Interpretation Code Negativemg/dL AO Auto Urine SS UA Leuk Est Trace *ABN* (03/21/21 9:42 AM) Invalid Interpretation Code Negative AO Auto Urine SS UA Nitrite Negative (03/21/21 9:42 AM) Invalid Interpretation Code Negative AO Auto Urine SS UA pH 6.5 (03/21/21 9:42 AM) Invalid Interpretation Code 5.0 - 8.0 AO Auto Urine SS UA Protein Negative Invalid Interpretation Code Negativemg/dL AO Auto Urine SS UA RBC 0-5 /HPF Invalid Interpretation Code None Seen/HPF AO Auto Urine SS UA Spec Grav 1.025 (03/21/21 9:42 AM) Invalid Interpretation Code 1.015-1.025 AO Auto Urine SS UA Specimen Type Clean Catch (03/21/21 9:42 AM) Invalid Interpretation Code AO Auto Urine SS UA Squam Epithelial 5-10 /HPF Invalid Interpretation Code None Seen/HPF AO Auto Urine SS UA Urobilinogen 0.2 E.U./dL Invalid Interpretation Code 0.2-1.0E.U./d L AO Auto Urine SS WBC LM.HPF (Urine sed) [#/Area] 5-10 /HPF Invalid Interpretation Code None Seen/HPF AO Auto Urine SS LABORATORYOrdered By: Gaudencio Millard on 03-21-2021 aPTT Coag (Bld) [Time] 31.5 s Invalid Interpretation Code 24.8 - 33.3 seconds AO Coag SS Heparin dose (APTT) None Invalid Interpretation Code AO Coag SS INR Coag (PPP) [Relative time] 1.1 {INR} Invalid Interpretation Code 0.9 - 1.2 ratio AO Coag SS PT Coag (PPP) [Time] 12.1 s Invalid Interpretation Code 9.7 - 14.3 seconds AO Coag SS Calcium [Mass/Vol] 8.5 mg/dL Invalid Interpretation Code 8.4 - 10.2 mg/dL AO ADM SS Chloride [Moles/Vol] 105 mmol/L Invalid Interpretation Code 98 - 107 mmol/L AO ADM SS CO2 [Moles/Vol] 30 mmol/L Invalid Interpretation Code 23 - 31 mmol/L AO ADM SS Creatinine [Mass/Vol] 0.73 mg/dL Invalid Interpretation Code 0.55 - 1.02 mg/dL AO ADM SS Electrolyte Balance 10.0 mEq/L Invalid Interpretation Code AO ADM SS Glucose [Mass/Vol] 109 mg/dL Invalid Interpretation Code 80 - 115 mg/dL AO ADM SS HbA1c (Bld) [Mass fraction] 5.2 % Invalid Interpretation Code 4.3 - 6.4 % AO ADM SS Potassium [Moles/Vol] 3.4 mmol/L Invalid Interpretation Code 3.5 - 5.1 mmol/L AO ADM SS Sodium [Moles/Vol] 145 mmol/L Invalid Interpretation Code 136 - 145 mmol/L AO ADM SS Urea nitrogen [Mass/Vol] 14 mg/dL Invalid Interpretation Code 7 - 18 mg/dL AO ADM SS Urea nitrogen/Creatinine [Mass ratio] 19 ratio Invalid Interpretation Code 7 - 27 ratio AO ADM SS LABORATORYOrdered By: Sravani Armando on 03-21-2021 Basophil, Absolute 0.00 103/mcL Invalid Interpretation Code 0.00 - 0.19 10^3/mcL AO Auto Heme SS Basophils/100 WBC (Bld) 0.5 % Invalid Interpretation Code 0.0 - 2.5 % AO Auto Heme SS Eosinophil, Absolute 0.30 103/mcL Invalid Interpretation Code 0.00 - 0.40 10^3/mcL AO Auto Heme SS Eosinophils/100 WBC (Bld) 4.5 % Invalid Interpretation Code 0.0 - 7.0 % AO Auto Heme SS Erythrocyte distribution width (RBC) [Ratio] 14.0 % Invalid Interpretation Code 11.5 - 14.5 % AO Auto Heme SS Hematocrit (Bld) [Volume fraction] 35.9 % Invalid Interpretation Code 37.0 - 47.0 % AO Auto Heme SS Hemoglobin (Bld) [Mass/Vol] 12.6 G/dL Invalid Interpretation Code 12.0 - 16.0 G/dL AO Auto Heme SS Lymphocyte, Absolute 1.40 103/mcL Invalid Interpretation Code 0.77 - 3.85 10^3/mcL AO Auto Heme SS Lymphocytes/100 WBC (Bld) 19.8 % Invalid Interpretation Code 10.0 - 50.0 % AO Auto Heme SS MCH (RBC) [Entitic mass] 31.7 pg Invalid Interpretation Code 27.0 - 31.2 pg AO Auto Heme SS MCHC (RBC) [Mass/Vol] 35.2 G/dL Invalid Interpretation Code 33.0 - 37.0 G/dL AO Auto Heme SS MCV (RBC) [Entitic vol] 90.0 fL Invalid Interpretation Code 80.0 - 94.0 fL AO Auto Heme SS Monocyte, Absolute 0.40 103/mcL Invalid Interpretation Code 0.15 - 1.00 10^3/mcL AO Auto Heme SS Monocytes/100 WBC (Bld) 6.4 % Invalid Interpretation Code 1.7 - 13.0 % AO Auto Heme SS Neutrophil, Absolute 4.70 103/mcL Invalid Interpretation Code 2.85 - 6.16 10^3/mcL AO Auto Heme SS Neutrophils/100 WBC (Bld) 68.8 % Invalid Interpretation Code 37.0 - 80.0 % AO Auto Heme SS Platelet mean volume (Bld) [Entitic vol] 8.5 fL Invalid Interpretation Code 7.4 - 10.4 fL AO Auto Heme SS Platelets (Bld) [#/Vol] 219 103/mcL Invalid Interpretation Code 130 - 400 10^3/mcL AO Auto Heme SS RBC (Bld) [#/Vol] 3.99 106/mcL Invalid Interpretation Code 4.20 - 5.40 10^6/mcL AO Auto Heme SS WBC (Bld) [#/Vol] 6.90 103/mcL Invalid Interpretation Code 4.60 - 10.80 10^3/mcL AO Auto Heme SS LABORATORYOrdered By: SYSTEM SYSTEM on 03-21-2021 GFR 98 ml/min/1.73sqm Invalid Interpretation Code AO Chemistry S GFR Non- 81 ml/min/1.73sqm Invalid Interpretation Code AO Chemistry S Basic metabolic 2000 panelon 03-08-2021 Anion gap [Moles/Vol] 11.0 mmol/L Normal 6.0-18.0 [facility] Comment on above: Performed By: #### 4 8642-3x1, CD:[id number], 09093-3, 19396-1, 48534-9 #### [facility] [address], [place] Calcium [Mass/Vol] 9.7 mg/dL Normal 8.9-10.3 [facility] Comment on above: Performed By: #### 4 8642-3x1, CD:[id number], 46225-9, 61910-5, 66726-1 #### [facility] [address] [place], [place] Chloride [Moles/Vol] 102 mmol/L Normal 98-107 [facility] Comment on above: Performed By: #### 4 8642-3x1, CD:[id number], 23265-0, 89422-9, 46929-9 #### [facility] [address] [place], [place] CO2 [Moles/Vol] 27 mmol/L Normal 22-32 [facility] Comment on above: Performed By: #### 4 8642-3x1, CD:[id number], 98089-9, 40341-0, 51309-0 #### [facility] [address], [place] Creatinine [Mass/Vol] 0.65 mg/dL Normal 0.60-1.30 [facility] Comment on above: Performed By: #### 4 8642-3x1, CD:[id number], 11775-5, 86400-2, 67647-9 #### [facility] [address] [place], [place] Glucose [Mass/Vol] 110 mg/dL High 70-99 [facility] Comment on above: Result Comment: U pdated ADA Reference Range A normal fasting glucose concentration is less than 100 mg/dL. An impaired fasting glucose concentration is 100-125 mg/dL. A provisional diagnosis of diabetes mellitus can be made when a fasting glucose concentration is greater than 125 mg/dL. Performed By: #### 4 8642-3x1, CD:[id number], 59464-9, 40392-7, 76798-7 #### [facility] [address] [place], [place] Potassium [Moles/Vol] 3.3 mmol/L Low 3.6-5.1 [facility] Comment on above: Performed By: #### 4 8642-3x1, CD:[id number], 15836-6, 33198-5, 29542-2 #### [facility] [address] [place], [place] Sodium [Moles/Vol] 140 mmol/L Normal 136-145 [facility] Comment on above: Performed By: #### 4 8642-3x1, CD:[id number], 42038-0, 43410-6, 66972-6 #### [facility] [address] [place], [place] Urea nitrogen (BldV) [Mass/Vol] 17 mg/dL Normal 8-20 [facility] Comment on above: Performed By: #### 4 8642-3x1, CD:[id number], 29851-3, 48808-8, 38189-6 #### [facility] [address] [place], [place] CBC W Auto Differential pane l (Bld)on 03-08-2021 Basophils (Bld) [#/Vol] 0.10 thou/mcL Normal 0.00-0.20 [facility] Comment on above: Performed By: #### 5 7021-8 #### [address] Basophils/100 WBC (Bld) 0.7 % Normal 0.0-2.0 [facility] Comment on above: Performed By: #### 5 7021-8 #### [address] Eosinophils (Bld) [#/Vol] 0.30 thou/mcL Normal 0.00-0.70 [facility] Comment on above: Performed By: #### 5 7021-8 #### [address] Eosinophils/100 WBC (Bld) 3.2 % Normal 0.0-7.0 [facility] Comment on above: Performed By: #### 5 7021-8 #### [facility] [address] [place], [place] Erythrocyte distribution width (RBC) [Entitic vol] 14.0 % Normal 11.0-14.8 [facility] Comment on above: Performed By: #### 5 7021-8 #### [facility] [address] [place], [place] Hematocrit (Bld) [Volume fraction] 40.7 % Normal 35.0-45.0 [facility] Comment on above: Performed By: #### 5 7021-8 #### [facility] [address] [place], [place] Hemoglobin (Bld) [Mass/Vol] 14.1 g/dL Normal 12.0-16.0 [facility] Comment on above: Performed By: #### 7021-8 #### [facility] [address] [place], [place] Lymphocytes (Bld) [#/Vol] 1.90 thou/mcL Normal 1.00-4.80 [facility] Comment on above: Performed By: #### 70-8 #### [facility] [address] [place], [place] Lymphocytes/100 WBC (Bld) 20.8 % Low 22.0-44.0 [facility] Comment on above: Performed By: #### 7021-8 #### [facility] [address] [place], [place] MCH (RBC) [Entitic mass] 31.5 Picograms Normal 27.0-34.0 [facility] Comment on above: Performed By: #### 70-8 #### [facility] [address] [place], [place] MCHC (RBC) [Mass/Vol] 34.6 g/dL Normal 32.0-36.0 [facility] Comment on above: Performed By: #### 7021-8 #### [facility] [address] [place], [place] MCV (RBC) [Entitic vol] 90.9 fL Normal 80.0-97.0 [facility] Comment on above: Performed By: #### 7021-8 #### [facility] [address] [place], [place] Monocytes (Bld) [#/Vol] 0.50 thou/mcL Normal 0.00-0.90 [facility] Comment on above: Performed By: #### 7021-8 #### [facility] [address] [place], [place] Monocytes/100 WBC (Bld) 5.8 % Normal 0.0-12.0 [facility] Comment on above: Performed By: #### 5 7021-8 #### [facility] [address] [place], [place] Neutrophils (Bld) [#/Vol] 6.40 thou/mcL Normal 1.80-7.70 [facility] Comment on above: Performed By: #### 5 7021-8 #### [facility] [address] [place], [place] Neutrophils/100 WBC (Bld) 69.5 % Normal 40.0-70.0 [facility] Comment on above: Performed By: #### 5 7021-8 #### [address] Platelet mean volume (Bld) [Entitic vol] 8.0 fL Normal 6.2-12.1 [facility] Comment on above: Performed By: #### 5 7021-8 #### [address] Platelets (Bld) [#/Vol] 259 thou/mcL Normal 142-424 [facility] Comment on above: Performed By: #### 5 7021-8 #### [address] RBC (Bld) [#/Vol] 4.48 million/mcL Normal 3.80-5.10 [facility] Comment on above: Performed By: #### 5 7021-8 #### [address] WBC (Bld) [#/Vol] 9.2 thou/mcL Normal 4.6-10.2 [facility] Comment on above: Performed By: #### 5 7021-8 #### [facility] [address] [place] [address] CT Ang Chest w and/or w/o Co ntraston 03-08-2021 CTA Chest vessels WO and W contrast IV EXAMINATION TYPE: CT Ang Chest w and/or w/o Contrast , with 3-D Reconstructions DATE OF EXAM : 03/08/2021 2:00 PM HISTORY: Pulmonary Embolism palpitations. Shortness of breath COMPARISON: Chest x-ray from today TECHNIQUE: The scan was performed through the entire chest using the pulmonary embolism protocol with bolus administration of intravenous contrast. FINDINGS: Vascular: No evidence of pulmonary embolism. Thoracic aorta is normal in caliber. No aortic dissection. Central airways: Patent Lungs: Mild focal groundglass opacity in the medial right lower lobe (image 97, series 4). There is no dense focal consolidation. No pulmonary edema. Pleura: No pleural effusion or pneumothorax. Lymph nodes: No lymphadenopathy. Heart: Top normal in size. No pericardial effusion. Chest wall: Normal. Upper abdomen: The visualized upper abdominal structures appear normal. Bones: No osseous lesion. Other: 1.3 cm right thyroid nodule, nonspecific. IMPRESSION: 1. No pulmonary embolism. 2. Focal groundglass opacity in the medial right lower lobe, nonspecific. This could be infectious/inflammat ory. However recommend follow-up chest CT in 3-6 months for further evaluation. Lung Nodule detected warranting follow up evaluation. [facility] thanks you for the opportunity to care for your patient. Workstation ID: [id number] FINAL REPORT Dictated By: Israel Millard MD 03/08/2021 14:06 Assigned Physician: Israel Millard MD Reviewed and Electronically Signed By: Israel Millard MD 03/08/2021 14:13 Transcribed by: [facility] 03/08/2021 14:06 Technologist: MANDY AUGUSTIN [facility] Coronavirus (COVID-19/SARS-C oV-2) RAPIDon 03-08-2021 Employed in healthcare No [facility] Comment on above: Performed By: #### 9 4532-9x2 #### [facility] [address] [place] [address] First test Yes [facility] Comment on above: Performed By: #### 9 4532-9x2 #### [facility] [address] [place] [address] [facility] Comment on above: Performed By: #### 9 4532-9x2 #### [facility] [address] [place] [address] Illness or injury onset date and time UNKNOWN [facility] Comment on above: Performed By: #### 9 4532-9x2 #### [facility] [address] [place] [address] Patient was hospitalized because of this condition [facility] Comment on above: Performed By: #### 9 4532-9x2 #### [facility] [address] [place], [place] [id number] status NotPreg [facility] Comment on above: Performed By: #### 9 4532-9x2 #### [place] [address] Resides in congregate care setting No [facility] Comment on above: Performed By: #### 9 4532-9x2 #### [facility] [address] [place], [place] [id number] SARS-CoV-2 (COVID-19) RNA DAWOOD+probe Ql (Resp) Not detected [facility] Comment on above: Result Comment: This test was performed via the [employer] ID NOW COVID-19 assay and has been authorized by FDA under an Emergency Use Authorization (EUA). The assay is validated for nasopharyngeal (NAIL STICKER), nasal, and oropharyngeal (OP) direct swabs. The limit of detection of the assay is approximately 125 genome equivalence/mL; however, detection of SARS-CoV-2 may be affected by the sample collection and transport methods, patient factors (e.g., presence of symptoms, and/or stage of infection), and a negative result does not rule out the possibility of infection. For updated information, refer to the Center for Disease Control website: www.cdc.gov/coronavirus. Performed By: #### 9 4532-9x2 #### [facility] [address] [place], [place] [address] Symptomatic as defined by CDC Yes [facility] Comment on above: Performed By: #### 9 4532-9x2 #### [facility] [address] [place] [id number] ED Pat Eduon 03-08-2021 ED Pat Edu [facility] [address] [address] Emergency Department Discharge Instructions DONNA SNOWDEN , Please provide this information to your Primary Care/Specialist Name : DONNA SNOWDEN Current Date : 03/08/2021 17:37:07 : 1960 Primary Care Physician : Physician, PCP Unknown Diagnosis: Follow-Up Instructions: DONNA SNOWDEN has been given these follow-up instructions: FOLLOW-UP APPOINTMENTS: Provider: Specialty: Address: Date: PCP Unknown Physician Family Practice Follow-up as needed Provider: Specialty: Address: Date: Follow up with primary care provider 1 to 2 days Comment: Call for an Appointment Laboratory Orders: Name: Status: CBC with Differential Completed Basic Metabolic Panel Completed Troponin I High Sensitivity Completed D-Dimer Quantitative Completed Coronavirus (COVID-19/SARS-CoV-2 ) RAPID Completed Procalcitonin Level Completed GFRaa Completed GFRbb Completed Radiology Orders: Name: Status: XR Chest [address] Ang Chest w and/or w/o Contrast Completed Diagnostic Tests: Name: Status: ECG 12 Lead Completed Procedure(s) and Patient Education(s) : Atrial Fibrillation EMERGENCY SERVICES MEDICATION LIST Lista de Medicaciones de los Servicios de Emergencia Name DONNA SNOWDEN MRN (COL)-[id number] PLEASE READ THE FOLLOWING REGARDING YOUR MEDICATIONS Based on the information available during your visit we have given you the medication instructions below. Continue taking medications you took prior to your visit unless you have been told to change. Please share this information with your own doctor. Carry a list of your medications with you in case of an emergency. Update it when medications are stopped, doses are changed, or new medications (including wnqj-kfb-ysxlyld products) are added. If you have any questions, check with your doctor. Por la informaci??n disponible keily baig visita, las instrucciones de medicaci??n aparecen debajo. Favor de continuar tomando las medicaciones Ud. gregory?? antes de baig visita por lo menos que hay cambios. Favor de compartir esta informaci??n con baig medico. Lleva alison lista de medicaciones consigo por pako de emergenc??a. Actualiza la lista cuando Ud. anatoly de liza las medicaciones, si cambian las dosis, o si hay nuevas medicaciones a??adidas (incluyendo medicaciones vendidas sin prescripci??n). Favor de preguntar a baig medico por cualquier radames. THESE ARE THE MEDICATIONS YOU SHOULD BE TAKING doxycycline (doxycycline 100 mg oral capsule) 1 Capsule By Mouth once a day for 7 Days. Refills: 0. MEDICATIONS GIVEN DURING MEDICAL VISIT Sodium Chloride 0.9% 1,000 mL last dose given on 03/08/2021 at 12:48 Route: Intravenous Bolus, Infuse over 60 mins. azithromycin 500 mg last dose given on 03/08/2021 at 12:50 Route: IV Piggyback Administer over 60 minutes Sodium Chloride 0.9% 250 mL last dose given on 03/08/2021 at 12:51 Route: IV Piggyback ceftriaxone 1 Gm last dose given on 03/08/2021 at 12:51 Route: Intravenous NON-MEDICATION PRESCRIPTION SCHEDULING PHONE NUMBER: MEDICATION CHANGE DETAILS (Not your Final Home Medication List) During the course of your visit, your home medication list was updated with the most current information. The details of those changes are shown below: NEW MEDICATIONS Printed Prescriptions doxycycline (doxycycline 100 mg oral capsule) 1 Capsule By Mouth once a day for 7 Days. Refills: 0. Comment UPDATED MEDICATIONS None UNCHANGED MEDICATIONS None STOP TAKING THESE MEDICATIONS None DO NOT TAKE UNTIL YOU TALK TO YOUR DOCTOR None [address] [address] Emergency Department Discharge Instructions Name: DONNA SNOWDEN Current Date: 03/08/2021 17:37:07 : 1960 Primary Physician: Physician, PCP Unknown We would like to thank you for choosing [facility] for your emergency medical needs. We examined and treated you today on an emergency basis only. This was not a substitute for, or an effort to provide, complete medical care. In most cases, you must let your doctor (or the doctor we referred you to) check you again. Tell your doctor about any new or lasting problems. We cannot recognize and treat all injuries or illnesses in one emergency department visit. After you leave, you should follow the directions attached. Instructions for obtaining X-rays: When following up with your doctor or a bone doctor, you may need to take copies of your x-rays that were done in the Emergency Department. If you didn't receive these upon your discharge from the emergency department, please call . When the final report becomes available and it is reviewed, the emergency department will attempt to contact you if there are any changes in your instructions. It is important (more content not included)... Normal [facility] Fibrin D-dimer FEU (PPP) [Ma ss/Vol]on 03-08-2021 Fibrin D-dimer Qn (PPP) 0.75 mcg/mL High 0.27-0.49 [facility] Comment on above: Result Comment: NORM AL REFERENCE RANGE 0.27-0.49 ug/ml (FEU) CUTOFF 0.49 ug/ml (FEU) At this cutoff level, the negative predictive value for this test is 95-100% for venous thromboembolism (VTE) in patients with a low or moderate pre-test probability of deep vein thrombosis (DVT)/pulmonary embolism (PE). Clinical correlation is essential. Performed By: #### 4 8065-7 #### [address] [address] GFR/1.73 sq M.predicted (S/P /Bld) [Vol rate/Area]on 03-08-2021 GFR/1.73 sq M.predicted among blacks MDRD (S/P/Bld) [Vol rate/Area] mL/min/{1.73_m2} Normal [facility] Comment on above: Result Comment: The MDRD equation has not been validated for those over 70 years, women, patients with serious co-morbid conditions, or with extremes of body size, muscle mass of nutritional status. Performed By: #### 4 8642-3x1, CD:[id number], 15998-8, 53954-1, 34571-0 #### [facility] [address] [place], [place] GFRbbon 03-08-2021 GFR/1.73 sq M.predicted among non-blacks MDRD (S/P/Bld) [Vol rate/Area] mL/min/{1.73_m2} Normal [facility] Comment on above: Performed By: #### 4 8642-3x1, CD:[id number], 74965-2, 10865-8, 88555-2 #### [facility] [address] [place], [place] Procalcitonin Levelon 2020 Procalcitonin [Mass/Vol] 0.11 ng/mL Normal <0.49 [facility] Comment on above: Result Comment: * Diagnosis of Systemic Bacterial Infection/Sepsis * * * * <0.50 ng/mL: Bacterial infection very unlikely * * * * >=0.50 - <2.00 ng/mL: Bacterial Sepsis is possible * * Other conditions also possible * * * * >=2.00 - <10.00 ng/mL: Bacterial Sepsis is likely * * * * >=10.00 ng/mL: Severe Bacterial Sepsis * * or Septic shock probable * * Initiation of antibotics for diagnosis of lower * * respiratory tract infection (LRT) * * <0.10 ng/mL: Strongly discourage * * * * >=0.10 - <0.25 ng/mL: Discourage * * * * >=0.25 - <0.50 ng/mL: Encourage * * * * >=0.50 ng/mL: Strongly encourage * * When to Discontinue Antibotics * * Sepsis: <=0.5 ng/mL or >80% decrease from peak * * LRTI: <=0.25 ng/mL or >80% decrease from peak * Procalcitonin levels should be evaluated in context of all laboratory findings and the total clinical status of the patient. Performed By: #### 4 8065-7 #### [address] [address] Troponin I High Sensitivityo n 03-08-2021 Troponin I High Sensitivity 3 ng/L Normal 0-13 [facility] Comment on above: Result Comment: Effe ctive October 01, 2020, the conventional Troponin I methodology has changed to a High Sensitive Troponin I(hsTnI). There are new reference ranges for both Male and Female along with a change in the unit of measurement. Performed By: #### 4 8642-3x1, CD:[id number], 69921-1, 21464-5, 46221-0 #### [place] [address] [place], [place] XR Chest 1 Viewon 03-08-2021 XR Chest Single view EXAMINATION TYPE: X R Chest 1 View DATE OF EXAM : 03/08/2021 11:58 AM HISTORY: Chest Pain, COMPARISON: NONE FINDINGS: Portable AP chest demonstrates mild enlargement of the cardiac silhouette accentuated by film technique. History of atrial fibrillation. There is diffuse prominence of bronchovascular markings which could relate to venous congestion/early congestive heart failure but I cannot confirm overt cephalization of flow. Therefore could not exclude an inflammatory/infecti ous process. Please correlate with equivocal exam findings. IMPRESSION: Faint interstitial alveolar opacities noted bilaterally as discussed above. [facility] thanks you for the opportunity to care for your patient. Workstation ID: [id number] FINAL REPORT Dictated By: Anuj Neal MD 03/08/2021 12:11 Assigned Physician: Anuj Neal MD Reviewed and Electronically Signed By: Anuj Neal MD 03/08/2021 12:12 Transcribed by: ABIMAEL 03/08/2021 12:11 Technologist: DAVID Angel [facility] HNO ID: [id number] Author: MERI Subramanian (Ct) Service: Radiology Author Type: Vegetable Vendor Type: Allied Health Filed: 08/11/2020 11:50 AM Note Text: Radiology Service Progress Note PATIENT NAME: Donna Snowden DATE OF SERVICE: August 11, 2020 TIME: 11:36 AM PATIENT IDENTITY VERIFICATION COMPLETED USING TWO (2) IDENTIFIERS: Name and Date of confirmed by patient verbally. FALL SCREENING: Has the patient had 2 falls in the last year or 1 fall with injury or currently using an Ambulatory Assistive Device (Walker, Cane, Wheelchair, Crutches, etc.)? Emergency Room Patient: Screened in ED PATIENT GENDER DATA: Female. status: : No status: NO. PATIENT RELEVANT IMPLANT DATA REVIEWED: Not Applicable RADIOLOGY DEPARTMENT: CT; Exam(s) Completed: Brain PERIPHERAL IV DATA: Not applicable SIGNED BY: MERI Subramanian August 11, 2020 11:36 AM [facility] CBC and Differentialon 08-11 Abs Baso 0.04 k/uL Normal <0.11 [facility] Comment on above: Performed By: #### C BCDIF, CMP, MG1 #### [facility] [address] [place] [address] Abs [place] 0.29 k/uL Normal <0.87 [facility] Comment on above: Performed By: #### C BCDIF, CMP, MG1 #### [facility] [address] [address] Abs Neut 3.32 k/uL Normal 1.45-7.50 [facility] Comment on above: Performed By: #### C BCDIF, CMP, MG1 #### [facility] [address] [place] [address] Absolute nRBC <0.01 Normal <0.01 [facility] Comment on above: Performed By: #### C BCDIF, CMP, MG1 #### [facility] [address] [place] [address] Basophils/100 WBC (Bld) 0.8 % Normal [facility] Comment on above: Performed By: #### C BCDIF, CMP, MG1 #### [facility] [address] [place] [address] DTYPE Auto Diff Normal [facility] Comment on above: Performed By: #### C BCDIF, CMP, MG1 #### [facility] [address] [place] [address] Eosinophils (Bld) [#/Vol] 0.10 10*3/uL Normal <0.46 [facility] Comment on above: Performed By: #### C BCDIF, CMP, MG1 #### [facility] [address] [place] [address] Eosinophils/100 WBC (Bld) 1.9 % Normal [facility] Comment on above: Performed By: #### C BCDIF, CMP, MG1 #### [facility] [address] [place] [address] Erythrocyte distribution width (RBC) [Ratio] 13.0 % Normal 11.5-15.0 [facility] Comment on above: Performed By: #### C BCDIF, CMP, MG1 #### [facility] [address] [place] [address] Hematocrit (Bld) [Volume fraction] 39.6 % Normal 36.0-46.0 [facility] Comment on above: Performed By: #### C BCEZEQUIEL ROCHA, MG1 #### [facility] [address] [facility] [phone] Hemoglobin (Bld) [Mass/Vol] 13.3 g/dL Normal 11.5-15.5 [facility] Comment on above: Performed By: #### C BCAJ CMP, MG1 #### [facility] [address] [facility] [phone] Lymphocytes (Bld) [#/Vol] 1.53 10*3/uL Normal 1.00-4.00 [facility] Comment on above: Performed By: #### C BCMARYCRUZF CMP, MG1 #### [facility] [address] [facility] [phone] Lymphocytes/100 WBC (Bld) 28.9 % Normal [facility] Comment on above: Performed By: #### C BCAJ CMP, MG1 #### [facility] [address] [phone] MCH (RBC) [Entitic mass] 30.7 pG Normal 26.0-34.0 [facility] Comment on above: Performed By: #### C BCMARYCRUZF CMP, MG1 #### [facility] [address] [facility] [phone] MCHC (RBC) [Mass/Vol] 33.6 g/dL Normal 30.5-36.0 [facility] Comment on above: Performed By: #### C BCDIF CMP, MG1 #### [facility] [address] [facility] [phone] MCV (RBC) [Entitic vol] 91.5 fL Normal 80.0-100.0 [facility] Comment on above: Performed By: #### C BCDIF CMP, MG1 #### [facility] [address] [facility] [phone] Monocytes/100 WBC (Bld) 5.5 % Normal [facility] Comment on above: Performed By: #### C BCDIF CMP, MG1 #### [facility] [address] [phone] Neutrophils/100 WBC (Bld) 62.9 % Normal [facility] Comment on above: Performed By: #### C EZEQUIEL RIDLEY, MG1 #### [facility] [address] NRBCs 0.0 /100 WBC Normal 0 [facility] Comment on above: Performed By: #### C BCAJ CMP, MG1 #### [facility] [address] Platelet mean volume (Bld) [Entitic vol] 10.3 fL Normal 9.0-12.7 [facility] Comment on above: Performed By: #### C EZEQUIEL RIDLEY, MG1 #### [facility] [address] Platelets (Bld) [#/Vol] 224 10*3/uL Normal 150-400 [facility] Comment on above: Performed By: #### Kennedi BCAJ CMP, MG1 #### [facility] [address] RBC (Bld) [#/Vol] 4.33 10*6/uL Normal 3.90-5.20 [facility] Comment on above: Performed By: #### Kennedi BCAJ CMP, MG1 #### [facility] [address] [place] [address] WBC (Bld) [#/Vol] 5.29 10*3/uL Normal 3.70-11.00 [facility] Comment on above: Performed By: #### Kennedi BCMARYCRUZF CMP, MG1 #### [facility] [address] [place], [place] [address] CT BRAIN WO IVCONon 08-12-[address] BRAIN WO IVCON * * *Final Report* * * DATE OF EXAM: Aug 11 2020 11:54AM [facility] 0504 - CT BRAIN WO IVCON / PROCEDURE REASON: Dizziness * * * * Physician Interpretation * * * * EXAMINATION: CT BRAIN WO IVCON CLINICAL HISTORY: Dizziness TECHNIQUE: Serial axial images without IV contrast were obtained from the vertex to the foramen magnum. MQ: [id number] CT Radiation dose: Integrated Dose-Length Product (DLP) for this visit = 638 mGy*cm CT Dose Reduction Employed: No dose reduction techniques were required COMPARISON: None. RESULT: Post-operative change: None. Acute change: No evidence of an acute infarct or other acute parenchymal process. Hemorrhage: No evidence of acute intracranial hemorrhage. ECASS hemorrhagic transformation score: Not Applicable Mass Lesion / Mass Effect: There is no evidence of an intracranial mass or extraaxial fluid collection. No significant mass effect. Chronic change: None apparent. Parenchyma: There is no significant volume loss. The brain parenchyma is otherwise within normal limits for age. Ventricles: The ventricles are within normal limits of size and configuration for age. Paranasal sinuses and skull base: The visualized paranasal sinuses are grossly clear. The skull base and imaged soft tissues are unremarkable. Air Control/Anti Air Warfare Officer (topogram) images: No additional findings. IMPRESSION: No acute intracranial process identified. Customer Engineering Specialist: TRISTIN Transcribe Date/Time: Aug 11 2020 11:57A Dictated by : ELANA DELAROSA MD This examination was interpreted and the report reviewed and electronically signed by: ELANA DELAROSA MD on Aug 11 2020 11:59AM EST [id number] CN Normal [facility] Comp Metabolic Panelon 08-11 Albumin [Mass/Vol] 4.6 g/dL Normal 3.9-4.9 [facility] Comment on above: Performed By: #### C BCDIF, CMP, MG1 #### [facility] [address] [place] [address] ALP [Catalytic activity/Vol] 126 U/L High 34-123 [facility] Comment on above: Performed By: #### C BCDIF, CMP, MG1 #### [facility] [address] [place], [place] [phone] ALT [Catalytic activity/Vol] 14 U/L Normal 7-38 [facility] Comment on above: Performed By: #### C BCDIF, CMP, MG1 #### [facility] [address] [place], [place] [phone] Anion gap [Moles/Vol] 9 mmol/L Normal 9-18 [facility] Comment on above: Performed By: #### C BCDIF, CMP, MG1 #### [facility] [address] [place], [place] [phone] AST [Catalytic activity/Vol] 13 U/L Normal 13-35 [facility] Comment on above: Performed By: #### C BCDIF, CMP, MG1 #### [facility] [address] [place] [address] Bilirubin [Mass/Vol] 0.5 mg/dL Normal 0.2-1.3 [facility] Comment on above: Performed By: #### C BCDIF, CMP, MG1 #### [facility] [address] [place] [address] Calcium [Mass/Vol] 9.2 mg/dL Normal 8.5-10.2 [facility] Comment on above: Performed By: #### C BCDIF, CMP, MG1 #### [facility] [address] [place] [address] Chloride [Moles/Vol] 105 mmol/L Normal 97-105 [facility] Comment on above: Performed By: #### C BCDIF, CMP, MG1 #### [facility] [address] [place] [address] CO2 [Moles/Vol] 27 mmol/L Normal 22-30 [facility] Comment on above: Performed By: #### C BCDIF, CMP, MG1 #### [facility] [address] [place] [address] Creatinine [Mass/Vol] 0.58 mg/dL Normal 0.58-0.96 [facility] Comment on above: Performed By: #### C BCDIF, CMP, MG1 #### [facility] [address] [place] [address] eGFR- Amer. >60 Normal [facility] Comment on above: Performed By: #### C BCDIF, CMP, MG1 #### [facility] [address] [place], [place] [phone] GFR/1.73 sq M predicted among non-blacks MDRD (S/P/Bld) [Vol rate/Area] mL/min/{1.73_m2} Normal [facility] Comment on above: Result Comment: eGFR (Estimated GFR) Units of measure: mL/min/1.73 meters squared eGFR is derived from the reexpressed MDRD Study equation using the following parameters: serum creatinine, age, gender and race. The creatinine assay has been calibrated to be traceable to IDMS. An eGFR <60 mL/min/1.73m2 for >3 months is consistent with chronic kidney disease. Refer to KDOQI guidelines for clinical interpretation. In patients with unstable renal function, e.g. those with acute kidney injury, the eGFR may not accurately reflect actual GFR. Performed By: #### C BCDIF CMP, MG1 #### [facility] [address] [place] [address] Glucose [Mass/Vol] 114 mg/dL High 74-99 [facility] Comment on above: Result Comment: The [place] Diabetes Association (ADA) provides guidance for cutoff values for fasting glucose and random glucose. The ADA defines fasting as no caloric intake for at least 8 hours. Fasting plasma glucose results between 100 to 125 mg/dL indicate increased risk for diabetes (prediabetes). Fasting plasma glucose results greater than or equal to 126 mg/dL meet the criteria for diagnosis of diabetes. In the absence of unequivocal hyperglycemia, results should be confirmed by repeat testing. In a patient with classic symptoms of hyperglycemia or hyperglycemic crisis, random plasma glucose results greater than or equal to 200 mg/dL meet the criteria for diagnosis of diabetes. Reference: Standards of Medical Care in Diabetes 2016, [place] [employer] Association. Diabetes Care. 2016.39(Suppl 1). Performed By: #### C BCDIF CMP, MG1 #### [facility] [address] [place], [place] [phone] Potassium [Moles/Vol] 4.1 mmol/L Normal 3.7-5.1 [facility] Comment on above: Performed By: #### C BCDIF CMP, MG1 #### [facility] [address] [place] [address] Protein [Mass/Vol] 7.7 g/dL Normal 6.3-8.0 [facility] Comment on above: Performed By: #### C BCDIF, CMP, MG1 #### [facility] [address] [place] [address] Sodium [Moles/Vol] 141 mmol/L Normal 136-144 [facility] Comment on above: Performed By: #### C BCDIF, CMP, MG1 #### [facility] [address] [place], [place] [address] Urea nitrogen [Mass/Vol] 14 mg/dL Normal 12-19 [facility] Comment on above: Performed By: #### C BCDIF, CMP, MG1 #### [facility] [address] [facility] [phone] ED NOTEon 08-11-2020 ED NOTE HNO ID: [id number] Author: Rebekah Obando) MONSE Bruce Service: ? Author Type: Registered Nurse Type: ED Notes Filed: 08/11/2020 2:09 PM Note Text: Patient in stable condition upon discharge. resp even and unlabored no distress noted. Discharge and follow up reviewed plan of care is agreed upon. Patient thankful for care upon discharge. [facility] ED NOTE HNO ID: [id number] Author: Rebekah Obando) MONSE Bruce Service: ? Author Type: Registered Nurse Type: ED Notes Filed: 08/11/2020 10:30 AM Note Text: Patient presents to ed with dizziness and hypertension x 3 days [facility] ED PROV NOTEon 08-11-2020 ED PROV NOTE HNO ID: [id number] Author: Maria Eugenia Babb ([place]) Service: ? Author Type: Physician Magisterial District Judge Type: ED Provider Notes Filed: 08/11/2020 1:44 PM Note Text: ED Provider Note Patient Name: Donna Snowden SERVICE DATE: 08/11/20 History Patient presents with: Dizziness Hypertension 59-year-old female, with a history of an arrhythmia on flecainide, presents to the ED with dizziness and lightheadedness. She states about 3 days ago she was lying in bed and when she turned she felt like the room was spinning. That was the last time that she felt the room spinning sensation. Since then she has had lightheadedness and dizziness. She does not feel like she is going to pass out, she states the best she can describe it as feeling as if she is in a fog. She denies any chest pain or pressure or shortness of breath. No double vision one-sided weakness slurred speech or facial droop. She does not take anything for hypertension, she is on flecainide for an arrhythmia, unsure the name but knows that she also has PACs. Her tear down man is in [place]. 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)_*[place] - PAST SURGICAL HISTORY OF ectopic repairs x4 FAMILY HISTORY Problem Relation Age of Onset - Hypertension Mother - Heart Mother Irregular heart beat - Hypertension Father - Heart Father Irregular heart beat Social History Tobacco Use - Smoking status: Never Smoker - Smokeless tobacco: Never Used Substance and Sexual Activity - Alcohol use: Yes Comment: socially - Drug use: No - Sexual activity: Yes Partners: Male control/protection: Surgical ALLERGIES Allergen Reactions - Flagyl [Metronidazo* Other: See Comments thrush - Morphine Vomiting Review of Systems Constitutional: Negative for chills and fever. HENT: Negative. Eyes: Negative for photophobia and visual disturbance. Respiratory: Negative for cough and shortness of breath. Cardiovascular: Negative for chest pain. Gastrointestinal: Negative for abdominal pain, constipation, diarrhea, nausea and vomiting. Genitourinary: Negative for difficulty urinating and dysuria. Musculoskeletal: Negative for back pain. Skin: Negative for rash and wound. Neurological: Positive for dizziness and light-headedness. Negative for seizures, syncope, speech difficulty, weakness, numbness and headaches. Hematological: Negative. Psychiatric/Behavior al: Negative. Physical Exam BP 181/63 Pulse 75 Temp (Src) 97.7 (Oral) Resp 18 Wt 200 lb (90.7kg) SpO2 97% O2 Therapy: Room Air Physical Exam Vitals and nursing note reviewed. Constitutional: General: She is not in acute distress. Appearance: Normal appearance. She is not ill-appearing or toxic-appearing. HENT: Head: Normocephalic and atraumatic. Nose: Nose normal. Mouth/Throat: Mouth: Mucous membranes are moist. Pharynx: Oropharynx is clear. Eyes: Extraocular Movements: Extraocular movements intact. Conjunctiva/sclera: Conjunctivae normal. Cardiovascular: Rate and Rhythm: Normal rate and regular rhythm. Pulmonary: Effort: Pulmonary effort is normal. No respiratory distress. Breath sounds: Normal breath sounds. No wheezing or rhonchi. Abdominal: General: There is no distension. Palpations: Abdomen is soft. Tenderness: There is no abdominal tenderness. There is no guarding. Musculoskeletal: General: Normal range of motion. Cervical back: Normal range of motion and neck supple. No rigidity. Skin: General: Skin is warm and dry. Neurological: General: No focal deficit present. Mental Status: She is alert and oriented to person, place, and time. GCS: GCS eye subscore is 4. GCS verbal subscore is 5. GCS motor subscore is 6. Cranial Nerves: No cranial nerve deficit. Sensory: No sensory deficit. Motor: No weakness. Coordination: Coordination is intact. Gait: Gait is intact. Psychiatric: Mood and Affect: Mood normal. Diagnostic Testing ED Labs Ordered and Reviewed COMP METABOLIC PANEL - Abnormal; Notable for the following components: Result Value Ref Range Alkaline Phosphatase 126 (*) 34 - 123 U/L Glucose 114 (*) 74 - 99 mg/dL All other components within normal limits CBC + DIFF HIGH SENSITIVITY TROPONIN T HIGH SENSITIVITY TROPONIN T MAGNESIUM BLD URINALYSIS CT BRAIN WO IVCON Final Result IMPRESSION: No acute intracranial process identified. Customer Engineering Specialist: TRISTIN Transcribe Date/Time: Aug 11 2020 11:57A Dictated by : ELANA DELAROSA MD This examination was interpreted and the report reviewed and electronically signed by: ELANA DELAROSA MD on Aug 11 2020 11:59AM EST Procedures ED Course / Clinical Impression Clinical Impressions as of Aug 11 1340 Dizziness Lightheadedness Elevated blood pressure reading without diagnosis of hypertension MDM / Disposition / Plan Patient presenting to the ED today with dizziness and lightheadedness for the last 3 days. She states it started initially she was laying in bed and turned over and felt some room spinning dizziness. That subsequently went away and she has not felt that since. Since then she has just felt lightheaded and in a fog and off. No specific complaints of one-sided weakness slurred speech or facial droop. No chest pain or trouble breathing. She is on flecainide for an arrhythmia that it controls, she believes PACs. She sees her tear down man on Thursday. She is also noted some elevated blood pressure readings intermittently the last few days which she does not have a history of. She was anywhere from 12- 40 while here. Stated that she should discuss this with her tear down man on Thursday as they may want to start her on an antihypertensive. Her CT brain was without abnormality. EKG without ST changes. High-sensitivity troponin was negative x2. Remainder of labs are unremarkable. I am comfortable discharging her home at this point which she is to. She will continue to follow with her tear down man and is aware to return for worsening Additional Tests or Interventions: ECG EKG INTERPRETATION: Ordered and Reviewed Rhythm: Normal sinus rhythm Rate: 65 [place]: Normal axis Intervals: Normal WA interval QRS Complex: Normal ST Segment: Normal ST-T segments QT Interval: Normal Compared with Prior: Interpretation performed by Maria Eugenia Babb PA-C The patient was DISCHARGED: Counseled patient regarding lab results AND radiology results AND suspected diagnosis AND need for follow-up. Discharged home with verbal and written instructions. They were instructed to return as needed for persistent or worsening symptoms or any new concerns. Condition at time of disposition: stable SIGNATURE: KIM Adams (Pa) 08/11/20 1344 Normal [facility] High Sens Troponin Ton 08-11 High Sensitivity LIBERTY <6 Normal <12 [facility] Comment on above: Performed By: #### H STNT #### [facility] [address] [place] [address] High Sensitivity LIBERTY <6 Normal <12 [facility] Comment on above: Performed By: #### H STNT #### [facility] [address] [place] [address] Magnesiumon 08-11-2020 Magnesium [Mass/Vol] 1.9 mg/dL Normal 1.7-2.3 [facility] Comment on above: Performed By: #### C BCDIF, CMP, MG1 #### [facility] [address] [place] [address] Urinalysison 08-11-2020 Bilirubin, Urine Negative Normal Negative [facility] Comment on above: Performed By: #### U A #### [facility] [address] [place] [address] Clarity (U) Clear Normal Clear [facility] Comment on above: Performed By: #### U A #### [facility] [address] [place] [address] Color (U) Yellow Normal Yellow [facility] Comment on above: Performed By: #### U A #### [facility] [address] [place] [address] Glucose Ql (U) Negative Normal Negative [facility] Comment on above: Performed By: #### U A #### [facility] [address] Hemoglobin/Blood,Ur Negative Normal Negative [facility] Comment on above: Performed By: #### U A #### [facility] [address] Ketones Ql (U) Negative Normal Negative [facility] Comment on above: Performed By: #### U A #### [facility] [address] [place] [address] Leukest Negative Normal Negative [facility] Comment on above: Performed By: #### U A #### [facility] [address] [place] [address] Nitrite Ql (U) Negative Normal Negative [facility] Comment on above: Performed By: #### U A #### [facility] [address] [place] [address] pH (Bld) 6.5 Normal 5.0-8.0 [facility] Comment on above: Performed By: #### U A #### [facility] [address] [place] [address] Protein (U) [Mass/Vol] Negative Normal Negative [facility] Comment on above: Performed By: #### U A #### [facility] [address] [place] [address] Specific [place], Ur 1.025 Normal 1.005-1.030 [facility] Comment on above: Performed By: #### U A #### [facility] [address] [place] [address] Urobilinogen Qn (U) 0.2 E.U./dL Normal 0.2-1.0 [facility] Comment on above: Performed By: #### U A #### [facility] [address] [place], [place] [id number] MRI LUMBAR SPINE WO IVCONon 04-17-2020 MRI LUMBAR SPINE WO IVCON Final Report DATE OF EXAM: Apr 17 2020 6:49AM [id number] - MRI LUMBAR SPINE WO IVCON / PROCEDURE REASON: [id number] M54.5 Physician Interpretation EXAMINATION: MRI LUMBAR SPINE WO IVCON CLINICAL HISTORY: Low back pain and right hip pain TECHNIQUE: Routine lumbosacral spine MR protocol without gadolinium. MQ: [id number] COMPARISON: None. RESULT: Counting reference: Lumbosacral junction. For the purposes of this report, L4-5 is considered the level of the iliac crest and assume there are 5 lumbar-type vertebrae. Anatomic variant: None. Localizer images: Small renal cysts bilaterally. Alignment: Alignment is anatomic. Bone marrow signal/fracture: No evidence of pathologic marrow infiltration. No evidence of prior fracture. Conus: The conus is within normal limits of signal intensity and morphology. Paraspinal soft tissues: Paraspinal soft tissues are within normal limits. Lower thoracic spine: Visualized lower thoracic canal and foramina are patent. T12-L1: No central canal stenosis or foraminal narrowing. L1-L2: No central canal stenosis or foraminal narrowing. L2-L3: Small midline disc protrusion with craniad migration minimally impresses on the ventral thecal sac. No significant central canal stenosis. Subtle broad-based right intraforaminal disc protrusion causes minimal right foraminal narrowing. Left foramen is widely patent. L3-L4: Minimal disc bulging causes minimal bilateral foraminal narrowing but no central canal stenosis. L4-L5: Mild disc bulging and degenerative facet and ligamentum flavum hypertrophy cause mild central canal stenosis with mild bilateral foraminal narrowing. L5-S1: No central canal stenosis or foraminal narrowing. Sacrum and iliac wings: The visualized sacrum and iliac wings are within normal limits. IMPRESSION: 1. At L2-3, small midline disc protrusion with craniad migration minimally impresses on the ventral thecal sac. Subtle broad-based right intraforaminal disc protrusion at this level causes minimal right foraminal narrowing. 2. At L3-4, minimal disc bulging causes minimal bilateral foraminal narrowing. 3. At L4-5, mild disc bulging and degenerative facet and ligamentum flavum hypertrophy cause mild central canal stenosis with mild bilateral foraminal narrowing. Anatomic Thoracic/Lumbar Variant: None. L4-5 is considered the level of the iliac crest and assume there are 5 lumbar-type vertebrae. Customer Engineering Specialist: PSCB Transcribe Date/Time: Apr 17 2020 8:07A Dictated by : JASPER CARRASCO MD This examination was interpreted and the report reviewed and electronically signed by: JASPER CARRASCO MD on Apr 17 2020 8:15AM EST Normal [facility] PROGRESSon 09-19-2019 PROGRESS HNO ID: [id number] Author: Megha Matthews Service: ? Author Type: Physician Type: Progress Notes Filed: 09/19/2019 11:59 AM Note Text: This note was created using [employer]. Subjective Donna Snowden is a 59 year old female. HPI Review of Systems Objective There were no vitals taken for this visit. Physical Exam Assessment and Plan First visit 09/19/2019 CCP negative, Drug and disease monitoring : 07/14/2017 cbc diff normal ESR 30 mm ( normal 30) cmp normal , CRP normal, 04/17 ESR 32 mm ( normal < 30) , urine normal 12/2016 ESR 23 mm CRP 0.84 mg/dl The patient did not show for this appointment. Megha Matthews MD [facility] 09-01-2019 CNPN Telephone (AGRHEUHWN) DONNA SNOWDEN ([id number]) 1960 [address] [facility] Date Time Provider Department 09/01/19 MEGHA MATTHEWS During your visit today, we recorded the following information about you: Megha Matthews MD 09/01/2019 8:59 AM Signed Scanned documents from Dr Chaves CCP negative, Drug and disease monitoring : 07/14/2017 cbc diff normal ESR 30 mm ( normal 30) cmp normal , CRP normal, 04/17 ESR 32 mm ( normal < 30) , urine normal 12/2016 ESR 23 mm CRP 0.84 mg/dl Allergies As of Date: 09/01/2019 Noted Allergy Reaction FLAGYL (METRONIDAZOLE) 05/10/2019 14 - Other: See Comments Comments: thrush MORPHINE 04/29/2019 11 - Vomiting Date Reviewed: 05/10/2019 Reviewed by: Pat Hernandez LPN - Fully Assessed Reason for Visit: rheum labs [Other] Prescriptions as of 09/01/2019 Sig: FLAGYL ORAL Take by mouth. FLECAINIDE 100 MG TABLET Take 100 mg by mouth twice da* PANTOPRAZOLE 40 MG TABLET,DEL* Take 40 mg by mouth once jeffrey* TOPROL XL 50 MG TABLET,EXTEND* Take one(1) tablet daily. ZOLOFT 50 MG TABLET Take one(1) tablet daily. Problem List As Of Date: 09/01/2019 (None) Encounter Status:Closed by MEGHA MATTHEWS MD on 09/01/19 [facility] Vital Signs Date Time Vital Sign Value Performing Clinician Feliciano villarreal 03-29-2024 12:47-0400 Diastolic blood pressure 65 mm[Hg] Pacc 1 Work Phone: [facility] 03-29-2024 12:47-0400 Systolic blood pressure 118 mm[Hg] Pacc 1 Work Phone: [facility] 03-29-2024 12:46-0400 Body height 162.6 cm Pacc 1 Work Phone: [facility] 03-29-2024 12:46-0400 Body mass index (BMI) [Ratio] 28.15 kg/m2 Pacc 1 Work Phone: [facility] 03-29-2024 12:46-0400 Body weight 74.39 kg Pacc 1 Work Phone: [facility] 03-29-2024 12:46-0400 Heart rate 85 /min Pacc 1 Work Phone: [facility] 03-29-2024 12:46-0400 Respiratory rate 18 /min Pacc 1 Work Phone: [facility] 03-29-2024 12:46-0400 SaO2% (BldA) [Mass fraction] 98 % Pacc 1 Work Phone: [facility] 01-22-2024 19:39-0400 Body temperature 97.7 [degF] Joy Avendaño APRN.DECATOR OPERATOR Work Phone: [facility] 01-22-2024 19:39-0400 Body weight 75.1 kg Joy Avendaño PAPER TUBE CUTTER.DECATOR OPERATOR Work Phone: [facility] 01-22-2024 19:39-0400 Diastolic blood pressure 63 mm[Hg] Joy Avendaño PAPER TUBE CUTTER.DECATOR OPERATOR Work Phone: [facility] 01-22-2024 19:39-0400 Heart rate 85 /min Joy Avendaño PAPER TUBE CUTTER.DECATOR OPERATOR Work Phone: [facility] 01-22-2024 19:39-0400 Respiratory rate 18 /min Joy Avendaño PAPER TUBE CUTTER.DECATOR OPERATOR Work Phone: [facility] 01-22-2024 19:39-0400 SaO2% (BldA) [Mass fraction] 97 % Joy Avendaño PAPER TUBE CUTTER.DECATOR OPERATOR Work Phone: [facility] 01-22-2024 19:39-0400 Systolic blood pressure 120 mm[Hg] Joy Avendaño PAPER TUBE CUTTER.DECATOR OPERATOR Work Phone: [facility] 02-12-2023 07:35-0400 Heart rate 72 /min DR MEMO MITCHELL MD [facility] 02-12-2023 04:30-0400 Blood Pressure Cuff Size DR MEMO MITCHELL MD [address] 02-12-2023 04:30-[address] MEMO MITCHELL MD [facility] 02-12-2023 04:30-[address] MEMO Lamas MD [facility] 02-12-2023 04:30-0400 Body temperature 97.16 [degF] DR MEMO MITCHELL MD [facility] 02-12-2023 04:30-0400 Diastolic Blood Pressure Non-Invasive [address] MEMO MITCHELL MD [facility] 02-12-2023 04:30-0400 Heart rate 74 /min DR MEMO MITCHELL MD [facility] 02-12-2023 04:30-0400 Respiratory rate 18 /min DR MEMO MITCHELL MD [address] [place] [address] 02-12-2023 04:30-0400 Systolic Blood Pressure Non-Invasive [address] MEMO MITCHELL MD [address] [place] [address] 02-12-2023 04:00-0400 Heart rate 77 /min DR MEMO MITCHELL MD [address] [place] [address] 02-11-2023 20:41-0400 Heart rate 89 /min DR MEMO MITCHELL MD [address] [place] [address] 02-11-2023 19:30-[address] MEMO Lamas MD [address] [place] [address] 02-11-2023 19:30-0400 Body temperature 97.52 [degF] DR MEMO MITCHELL MD [address] [place] [address] 02-11-2023 19:30-0400 Diastolic Blood Pressure Non-Invasive [address] MEMO MITCHELL MD [address] [place] [address] 02-11-2023 19:30-0400 Respiratory rate 18 /min DR MEMO MITCHELL MD [address] [place] [address] 02-11-2023 19:30-0400 Systolic Blood Pressure Non-Invasive [address] MEMO MITCHELL MD [address] [place] [address] 02-11-2023 17:18-0400 Diastolic Blood Pressure Non-Invasive [address] MEMO MITCHELL MD [address] [place] [address] 02-11-2023 17:18-0400 Systolic Blood Pressure Non-Invasive [address] MEMO MITCHELL MD [address] [place] [address] 02-11-2023 16:53-0400 Respiratory rate 16 /min DR MEMO MITCHELL MD [address] [place] [address] 02-11-2023 15:25-0400 Body temperature 96.98 [degF] DR MEMO MITCHELL MD [address] [place] [address] 02-11-2023 15:15-0400 Respiratory Rate - Anes 15 br/min DR MEMO MITCHELL MD [address] [place] [address] 02-11-2023 15:10-0400 Respiratory Rate - Anes 16 br/min DR MEMO MITCHELL MD [address] [place] [address] 02-11-2023 15:05-0400 Respiratory Rate - Anes 7 br/min DR MEMO MITCHLEL MD [address] [place] [address] 02-11-2023 14:55-0400 Body temperature 96.62 [degF] DR MEMO MITCHELL MD [address] [place] [address] 02-11-2023 14:50-0400 Body temperature 96.76 [degF] DR MEMO MITCHELL MD [address] [place] [address] 02-11-2023 14:45-0400 Body temperature 96.71 [degF] DR MEMO MITCHELL MD [address] [place] [address] 02-11-2023 09:26-0400 Body height 162.[address] MEMO MITCHELL MD [address] [place] [address] 02-11-2023 09:26-0400 Body temperature 98.06 [degF] DR MEMO MITCHELL MD [address] [place] [address] 02-11-2023 09:26-0400 Body weight 80.[address] MEMO MITCHELL MD [address] [place] [address] 02-11-2023 09:26-0400 Heart rate 80 /min DR MEMO MITCHELL MD [address] [place] [address] 02-13-2022 07:45-0400 Heart rate 74 /min DR MEMO MITCHELL MD [address] [place] [address] 02-13-2022 07:45-0400 Reason For Taking VItal Signs DR MEMO MITCHELL MD [address] [place] [address] 02-13-2022 05:00-0400 Body temperature 97.88 [degF] DR MEMO MITCHELL MD [address] [place] [address] 02-13-2022 05:00-0400 Diastolic blood pressure 53 mm[Hg] DR MEMO MITCHELL MD [address] [place] [address] 02-13-2022 05:00-0400 Heart rate 80 /min DR MEMO MITCHELL MD [address] [place] [address] 02-13-2022 05:00-0400 Mean blood pressure 70 mm[Hg] DR MEMO MITCHELL MD [address] [place] [address] 02-13-2022 05:00-0400 Respiratory rate 18 /min DR MEMO MITCHELL MD [address] [place] [address] 02-13-2022 05:00-0400 Systolic blood pressure 105 mm[Hg] DR MEMO MITCHELL MD [address] [place] [address] 02-13-2022 03:21-0400 Heart rate 71 /min DR MEMO MITCHELL MD [address] [place] [address] 02-13-2022 03:21-0400 Reason For Taking VItal Signs DR MEMO MITCHELL MD [address] [place] [address] 02-12-2022 19:34-0400 Body temperature 98.6 [degF] DR MEMO MITCHELL MD [address] [place] [address] 02-12-2022 19:34-0400 Diastolic blood pressure 70 mm[Hg] DR MEMO MITCHELL MD [address] [place] [address] 02-12-2022 19:34-0400 Mean blood pressure 85 mm[Hg] DR MEMO MITCHELL MD [address] [place] [address] 02-12-2022 19:34-0400 Respiratory rate 18 /min DR MEMO MITCHELL MD [address] [place] [address] 02-12-2022 19:34-0400 Systolic blood pressure 116 mm[Hg] DR MEMO MITCHELL MD [address] [place] [address] 02-12-2022 15:30-0400 Diastolic Blood Pressure NBP [address] MEMO MITCHELL MD [address] [place] [address] 02-12-2022 15:30-0400 Systolic Blood Pressure NBP [address] MEMO MITCHELL MD [address] [place] [address] 02-12-2022 14:30-0400 Diastolic Blood Pressure NBP [address] MEMO MITCHELL MD [address] [place] [address] 02-12-2022 14:30-0400 Systolic Blood Pressure NBP [address] MEMO MITCHELL MD [address] [place] [address] 02-12-2022 13:38-0400 Diastolic Blood Pressure NBP [address] MEMO MITCHELL MD [address] [place] [address] 02-12-2022 13:38-0400 Respiratory rate 18 /min DR MEMO MITCHELL MD [address] [place] [address] 02-12-2022 13:38-0400 Systolic Blood Pressure NBP [address] MEMO MITCHELL MD [address] [place] [address] 02-12-2022 10:42-0400 Body temperature 97.34 [degF] DR MEMO MITCHELL MD [address] [place] [address] 02-12-2022 10:10-0400 Body temperature 95.76 [degF] DR MEMO MITCHELL MD [address] [place] [address] 02-12-2022 10:05-0400 Body temperature 95.81 [degF] DR MEMO MITCHELL MD [address] [place] [address] 02-12-2022 10:00-0400 Body temperature 95.74 [degF] DR MEMO MITCHELL MD [address] [place] [address] 02-12-2022 06:17-0400 Body height [address] MEMO MITCHELL MD [address] [place] [address] 02-12-2022 06:17-0400 Body weight 95.[address] MEMO MITCHELL MD [facility] 02-12-2022 06:17-0400 Body weight 35.87 kg/m2 DR MEMO MITCHELL MD [facility] 02-12-2022 06:17-0400 diastolic 76 mm[Hg] DR MEMO MITCHELL MD [facility] 02-12-2022 06:17-0400 Heart rate 90 /min DR MEMO MITCHELL MD [facility] 02-12-2022 06:17-0400 systolic 142 mm[Hg] DR MEMO MITCHELL MD [facility] Encounters Encounter Date Encounter Type Care Provider Facility Start: 11-28-2024 ambulatory Luisa Hughes ty:[facility] Start: 11-24-2024 End: 11-24-[address] LUISA GARRISON MD Facility:[facility] Start: 11-24-2024 End: 11-24-[address] LUISA GARRISON MD [facility] Start: 10-31-2024 End: 11-04-[address] LUISA GARRISON MD Facility: Start: 10-12-2024 End: 10-12-[address] LUISA GARRISON MD Facility:[facility] Start: 10-12-2024 End: 10-12-[address] LUISA GARRISON MD [facility] Start: 06-29-2024 End: 06-29-[address] LUISA GARRISON MD Facility:[facility] Start: 06-29-2024 End: 06-29-[address] LUISA GARRISON MD [facility] Start: 04-19-2024 End: 04-20-2024 ambulatory AVELINO DURON Facility:[id number] Start: 03-29-2024 Encounter for other preprocedural examination LUISALAZARO MATHISBLADIMIR [facility] Start: 03-29-2024 End: 03-29-2024 ambulatory LUISA GARRISON Facility:[id number] Start: 03-29-2024 End: 03-29-2024 Office outpatient new 45 minutes [address] [place] [id number] Work Phone: Pre Anesthesia Comment on above: Preop testing (Prima ry Dx); Paroxysmal atrial fibrillation (HCC); PONV (postoperative nausea and vomiting); Sleep apnea, unspecified type; Primary hypertension; Spinal headache Start: 03-29-2024 End: 03-29-2024 [facility] Work Phone: Start: 03-15-2024 End: 03-15-2024 Emergency department patient visit Ed Physician Provider Facility:[facility] Start: 03-04-2024 End: 03-04-[address] LUISA GARRISON MD Facility:[facility] Start: 03-04-2024 End: 03-04-[address] LUISA GARRISON MD [facility] Start: 01-23-2024 End: 01-23-2024 Telephone encounter Virgie Jones APRN.DECATOR OPERATOR Work Phone: [facility] Start: 01-22-2024 End: 01-22-2024 ambulatory LUISA GARRISON Facility:[facility] Start: 01-22-2024 End: 01-22-2024 Patient encounter procedure Joy Avendaño APRN.DECATOR OPERATOR Work Phone: [facility] Comment on above: Mouth pain (Primary Dx) Start: 10-02-2023 End: 10-03-[address] LUISA GARRISON MD Facility:[facility] Start: 10-02-2023 End: 10-02-[address] LUISA GARRISON MD [facility] Start: 09-25-2023 End: 09-26-[address] LUISA GARRISON MD Facility:[facility] Start: 09-25-2023 End: 09-25-[address] LUISA GARRISON MD [facility] Start: 09-09-2023 End: 10-20-[address] LUISA GARRISON MD Facility:[facility] Start: 09-09-2023 End: 10-20-[address] BEAU SALDAÑA MD [facility] Start: 08-19-2023 End: 08-20-2023 ambulatory LUISA GARRISON [facility] Start: 03-25-2023 End: 03-26-[address] LUISA GARRISON MD Facility:[facility] Start: 02-11-2023 End: 02-12-[address] MEMO MITCHELL MD Facility:[facility] Start: 02-11-2023 End: 02-12-[address] MEMO MITCHELL MD [facility] Start: 02-06-2023 End: 02-07-[address] LUISA GARRISON MD Facility:[facility] Start: 02-06-2023 End: 02-06-[address] LUISA GARRISON MD [facility] Start: 10-09-2022 End: 10-09-2022 Patient encounter procedure MS AALIYAH THOMPSON [facility] Start: 09-20-2022 End: 09-20-[address] LUISA GARRISON MD [facility] Start: 02-12-2022 End: 02-13-[address] MEMO MITCHELL MD [facility] Start: 01-30-2022 End: 01-30-[address] MEMO MITCHELL MD [facility] Start: 01-28-2022 End: 01-28-[address] LUISA GARRISON MD [facility] Start: 01-24-2022 End: 01-24-[address] LUISA GARRISON MD [facility] Start: 10-31-2021 End: 10-31-[address] LUISA GARRISON MD [facility] Start: 06-20-2021 End: 06-20-[address] LUISA GARRISON MD [facility] Start: 05-30-2021 End: 05-30-[address] LUISA GARRISON MD [facility] Start: 05-28-2021 End: 07-25-[address] BEAU SALDAÑA MD [facility] Start: 05-15-2021 End: 05-15-[address] LUISA GARRISON MD [facility] Start: 04-15-2021 End: 04-15-[address] LUISA GARRISON MD [facility] Start: 04-03-2021 End: 04-03-2021 Patient encounter procedure MS AALIYAH DOWLING JAY [facility] Start: 03-21-2021 End: 03-21-[address] BEAU SALDAÑA MD [facility] Procedures Date Procedure Procedure Detail Performing Clinician Start: 04-16-2024 Insertion of hip prosthesis DR LUISA GARRISON MD Comment on above: L hip Start: 03-29-2024 Iadna s aureus ampli fied probe tq Avelino Duron MD Work Phone: Start: 03-29-2024 Thromboplastin time partial plasma/whole blood Avelino Duron MD Work Phone: Start: 11-01-2022 Electrocardiographic monitor and recorder, device (physical object) DR LUISA GARRISON MD Comment on above: SUMMARY: ABNORMAL ST UDY Poor recordings: P waves not well-seen. Based on strips provided I have to assume the irregular rhythms are ATRIAL FIBRILLATION with V-response 50-127 bpm, and episodes of regular rhythm suggesting sinus mechanism. No significant pauses seen. Patient symptoms of skipped beats several times are associated with these irregular rhythms. Start: 02-12-2022 Cryoablation - actio n (qualifier value) DR LUISA GARRISON MD Comment on above: SUMMARY: 1. Successful CRYO PVAI with exit block in all pulmonary veins. 2. Presenting rhythm sinus cl 770ms, pr 140ms, qrs 90ms, QT 458ms. AF developed during mapping. Esophagus coursed closer to right pulmonary veins requiring titration of energy. Two left pulmonary veins, three right pulmonary veins. 3. Normal Sinus Node function (info not provided). 4. Normal Atrial refractoriness: AERP 600/270. 5. Normal AVN function: AH 80ms, AVN Wenckebach 420ms, VA Wenckebach 300ms, AVNERP 600/310. 6. Normal HIS-purkinje function: HV 50ms. 7. Normal Ventricular refractoriness: VERPrva 600/270, 400/250. 8. Subsequent to CRYO AF persisted. DCC 200j synch returned normal sinus rhythm which was maintained. Exit block mapping/pacing demonstrated subsequently. Start: 04-16-2021 Arthroplasty of righ t hip joint DR BEAU SALDAÑA MD Start: 04-01-[address] BEAU SALDAÑA MD Comment on above: Summary: 1. Left ventricle: The cavity size is normal. Wall thickness is normal. Systolic function is normal. The estimated ejection fraction is 50-55%. Wall motion is normal; there are no regional wall motion abnormalities. Normal diastolic function. 2. Right ventricle: The RV systolic pressure by Doppler is 17 mm Hg. Start: 01-18-2021 Lipid 1996 panel - S tom or Plasma Joy Avendaño PAPER TUBE CUTTER.DECATOR OPERATOR Work Phone: Start: 01-31-[address] BEAU SALDAÑA MD Comment on above: Outside Source Comme nt: EF 50-55%, LA moderately dilated, Mild MR, Mod TR [address] BEAU Lora Comment on above: Outside Source Comme nt: 03/2015, 11/[address] BEAU SALDAÑA MD Comment on above: Outside Source Comme nt: 03/2015: Exercise nuclear stress test showing small fixed apical defect consistent with scar versus breast attenuation. No reversible ischemia noted. EF 63%. 2012: EF 53% Ectopic (disorder) DR BEAU SALDAÑA MD Comment on above: [address] BEAU SALDAÑA MD Tooth extraction DR BEAU STRICKLAND MD Comment on above: WISDOM Plan of Treatment Date Care Activity Detail Author Start: 09-23-2033 Urine microalbumin profile DTaP,Tdap,Td Vaccine (2 - Td or Tdap) [facility] Start: 2033 RSV Vaccine (1 - 1-d ose 75+ series) RSV Vaccine (1 - 1-dose 75+ series) [facility] Start: 03-29-2027 Diabetes Screening Diabetes Screenin [facility] Start: 01-18-2026 Lipid panel [facility] Start: 03-29-2025 BP Controlled (<130/80) BP Controlle d (<130/80) [facility] Start: 01-24-2025 Screening for malign ant neoplasm of colon [facility] Start: 01-12-2025 Diabetes Screening Diabetes Screenin [facility] Start: 04-19-2024 End: 04-19-2024 Admission to same day surgery center 04/19/2024 10:25 AM EST - 04/19/2024 2:00 PM EST Surgery [facility] [address] [place] [address] Avelino Duron MD [address] [place] [address] ARTHROPLASTY REPLACE JOINT TOTAL HIP [facility] Comment on above: ARTHROPLASTY REPLACE JOINT TOTAL HIP Start: 04-19-2024 End: 04-19-2024 Arthrp acetblr/prox fem prostc agrft/algrft ARTHROPLASTY REPLACE JOINT TOTAL HIP Left hip pain Primary osteoarthritis of left hip 04/19/2024 10:25 AM EST MR OR Start: 04-19-2024 Subsequent hospital visit by physician 04/19/2024 10:25 AM EST Hospital Encounter [facility] [address] [place] [address] Avelino Duron MD [address] [place], [place] [id number] Left hip pain [M25.552], Primary osteoarthritis of left hip [M16.12] [facility] Comment on above: Left hip pain [M25.5 52], Primary osteoarthritis of left hip [M16.12] Start: 03-29-2024 End: 03-28-2025 ECG COMPLETE ECG COMPLETE ECG Routine Preop testing Expected: 03/29/2024, Expires: 03/28/2025 [facility] Work Phone: Comment on above: Expected: 03/29/2024 , Expires: 03/28/2025 Start: 03-29-2024 End: 06-28-2024 Hemoglobin A1c in Blood [facility] Work Phone: Comment on above: Expected: 03/29/2024 , Expires: 06/28/2024 Start: 01-31-2024 Covid-19 Vaccine () Covid-19 Vaccine () [facility] Start: 01-31-2024 Influenza vaccination Influenza Vacc ine (#1) [facility] Start: 01-22-2024 End: 04-22-2024 Fungus identified in Unspecified specimen by Culture YEAST SCREEN Microbiology Routine Mouth pain Expected: 01/22/2024, Expires: 04/22/2024 [facility] Work Phone: Comment on above: Expected: 01/22/2024 , Expires: 04/22/2024 Start: 08-23-2023 Advance Directive Discussion Advance Directive Discussion [facility] Start: 08-23-2023 Pneumococcal Vaccine : 65+ (1 of 1 - PCV) Pneumococcal Vaccine: 65+ (1 of 1 - PCV) [facility] Start: 08-23-2023 Screening for osteoporosis Bone Density Screening [facility] Start: 01-30-2023 Covid-19 Vaccine () Covid-19 Vaccine () [facility] Start: 2018 RSV Vaccine (1 - 1-d ose 60+ series) RSV Vaccine (1 - 1-dose 60+ series) [facility] Start: 11-09-2011 Screening for malign ant neoplasm of breast Mammogram Screening [facility] Start: 08-23-2003 Screening for malign ant neoplasm of colon [facility] Start: 1976 Annual PCP Team Smocker melissa Disease Visit Annual PCP Team Chronic Disease Visit [facility] Start: 1976 Anxiety Screening Anxiety Screening [facility] Start: 1976 Depression Screening Depression Scre ening [facility] Immunizations Immunization Date Immunization Notes Care Provider Kathie amezcua 09-28-2024 Pneumococcal conjuga te PCV20, polysaccharide [id number] conjugate, adjuvant, PF; Translations: [Prevnar 20] DR LUISA GARRISON MD [facility] Comment on above: Result Comment: mikael gibson 05-17-2024 hepatitis A vaccine, adult dosage; Translations: [Havrix] DR LUISA GARRISON MD [facility] Comment on above: Result Comment: Kyleigh pickett by 03-21-2024 influenza virus vacc ine, unspecified formulation DR LUISA GARRISON MD [facility] 10-21-2023 hepatitis A vaccine, adult dosage; Translations: [Havrix] DR LUISA GARRISON MD [facility] Comment on above: Result Comment: Kyleigh pickett by DENIS 09-24-2023 tetanus toxoid, redu liane diphtheria toxoid, and acellular pertussis vaccine, adsorbed; Translations: [Boostrix (Tdap)] DR LUISA GARRISON MD [facility] Comment on above: Early/Late Reason: E may/Late Reason: Other: 08-26-2023 zoster vaccine recombinant; Translations: [Shingrix] DR LUISA GARRISON MD [facility] Comment on above: Result Comment: #2 TJ 03-27-2023 zoster vaccine recombinant; Translations: [Shingrix] DR LUISA GARRISON MD [facility] 03-19-2023 influenza virus vacc ine, unspecified formulation DR LUISA GARRISON MD [facility] 03-13-2022 influenza virus vacc ine, unspecified formulation DR LUISA GARRISON MD [facility] 05-21-2021 SARS-CoV-2 (COVID-19 ) mRNA-[address] LUISA GARRISON MD [facility] 06-27-2020 SARS-CoV-2 (COVID-19 ) mRNA-[address] BEAU SALDAÑA MD [facility] Comment on above: Result Comment: 2020: TPV15 05-30-2020 SARS-CoV-2 (COVID-19 ) mRNA-[address] BEAU SALDAÑA MD [facility] Comment on above: Result Comment: 2020: TPV15 03-13-2014 influenza virus vacc ine, unspecified formulation DR BEAU SALDAÑA MD [facility] Payers Date Payer Category Payer Private Health Insurance [id number] 2024 Self-pay 2022 Unknown [id number] 1959 Unknown [id number] 1958 Unknown [id number] 2.16.8 [id number] 1958 Unknown [id number] 2.16.8 [id number] 1958 Unknown [id number] 2.16.8 [id number] 1958 Unknown [id number] 2.16.8 [id number] 1958 Unknown [id number] 2.16.8 [id number] 1958 Unknown [id number] 2.16.8 [id number] 1958 Unknown [id number] 2.16.8 [id number] 1958 Unknown [id number] 2.16. [id number] 1958 Unknown [id number] 2.16. [id number] 1958 Unknown [id number] 2.16. [id number] 1958 Unknown [id number] 2.16.8 [id number] 1958 Unknown [id number] 2.16.8 [id number] 1958 Unknown [id number] 2.16.8 [id number] Unknown [id number] 2.16.8 [id number] Unknown [id number] 2.16.8 [id number] Social History Date Type Detail Facility Start: 07-25-2018 Ex-smoker (finding) [facility] Sex Assigned At Female [facility] Start: 01-22-2024 Tobacco smoking stat us NHIS Never smoked tobacco [facility] Start: 01-22-2024 Tobacco use and exposure Smoke less tobacco non-user [facility] Start: 01-22-2024 End: 03-29-2024 Alcoholic beverage intake Current drinker of alcohol (finding) [facility] Start: 05-07-2020 End: 01-22-2024 History of Social function [facility] Start: 05-07-2020 End: 01-22-2024 Tobacco use panel [facility] National Score (1-10 0), lower number is lower risk Not on file [facility] Start: 1960 Sex assigned at Not on file [facility] Sexual Orientation [place] Alessandra michel [facility] Start: 04-26-2019 Sex Female (finding) [facility] Functional Status Date Assessment Result Facility 02-12-2023 Functional Status Awake, Up ad scott [facility] 02-12-2023 Functional Status Repositions self [facility] 02-11-2023 Functional Status [facility] 02-11-2023 Functional Status Evening Snack Percent 1 00 [facility] 02-11-2023 Functional Status [facility] 02-11-2023 Functional Status Patient Identified Iden tification band [facility] 02-11-2023 Functional Status Maintained [facility] 02-13-2022 Functional Status Ambulating in ohara, Ambulating in room [facility] 02-13-2022 Functional Status [facility] 02-12-2022 Functional Status [facility] 02-12-2022 Functional Status [facility] 02-12-2022 Functional Status Patient Identi fied Identification band, Verbal [facility] 02-12-2022 Functional Status Maintained [facility] Mental Status Date Assessment Result Facility 02-12-2023 Mental Status Oriented x [address] [facility] 02-12-[address] [facility] 02-11-[address] [facility] 02-13-2022 Mental Status Oriented x [address] [facility] 02-12-[address] [facility] 02-12-[address] [facility] 02-12-[address] [facility] Clinical Notes 03-08-2021 to 11-24-2024 Note Date & Type Note Facility 11-24-2024 Note Exam Date Time Procedure Performing Provider Status 11/24/24 11:29 AM US Abdomen Complete MOMO GUSMAN MD; Auth (Verified) [id number] ORIGINAL EXAMINATION: COMPLETE ABDOMINAL ULTRASOUND11/24/2024 11:33 am ULTRASOUND ABDOMEN COMPLETE COMPARISON: Ultrasound 06/20/2021 TECHNIQUE: This report is based on interpretation of permanently recorded ultrasound images. HISTORY: ORDERING SYSTEM PROVIDED HISTORY: Reason for Exam: elevated liver enzymes, FINDINGS: Liver: . The visualized liver is mildly heterogeneous and coarsened with mild increased echogenicity. No suspicious focal lesion is seen and there is no obvious nodularity of the visualized liver margins. Bile ducts: There is no intrahepatic biliary duct dilatation. The common duct is 4 mm at the facundo hepatis. Gallbladder: The gallbladder is distended satisfactorily without calculi, wall thickening, pericholecystic edema or tenderness. Pancreas: The visualized pancreas shows no focal lesion or mass but some portions are obscured by bowel gas artifacts. . No free fluid is seen in the abdomen. Spleen: The spleen is borderline enlarged about 13 cm vertical dimension by my measurements.. Kidneys: Limited survey images of the kidneys show normal cortical thickness and echogenicity and no pelvocaliectasis. . Visualized aorta: Normal Visualized IVC: Normal IMPRESSION: Hepatic steatosis or other diffuse hepatocellular disease. Borderline splenomegaly. No acute findings. Interpreted by: Momo Gusman MD Preliminary Report By: Momo Gusman MD Electronically signed By oMmo Gusman MD Dictated Date: 11/24/2024 3:33:01 PM Prelim Date: 11/24/2024 3:35:32 PM Sign Date: 11/24/2024 3:35:32 PM Ordering Provider: LUISA GARRISON Interpreted by: Momo Gusman MD Preliminary Report By: Momo Gusman MD Electronically signed By Momo Gusman MD Dictated Date: 11/24/2024 3:33:01 PM Prelim Date: 11/24/2024 3:35:32 PM Sign Date: 11/24/2024 3:35:32 PM Ordering Provider: LUISA GARRISON [facility]11-20-2024 NoteHNO ID: [id number] Author: YESSENIA TAVARES RN Service: Care Management Author Type: Registered Nurse Type: Care Mgt Progress Note Filed: 04/20/2024 13:05 Note Text: CARE MANAGEMENT PROGRESS NOTE SERVICE DATE: 04/20/2024 SERVICE TIME: 1200 LOS: 0 days [place] of Choice Given: Yes Level of Care Discussed: Home Care;Other: See Comment (DME) Financial Disclosure Provided: Yes Provider List: Home Care --------- Chart reviewed. S/p L IDRIS by on 04/19/24. Is A/O x4 and usually independent in all ADL's. Lives with Mally Snowden [phone] who is able to provide intermittent physical assistance and transportation as needed. Has 2 steps to enter one level home. Has a CPAP ([facility]), wheeled walker, elevated commode, lift chair and grab bars on toilet. Has med and Rx coverage. PCP is . PT/OT rec Home. Is unable to get transport to and from Outpt PT/OT upon d/c and is req HHC. HHC FOC is whomever is within insurance network. Multiple HHC ref sent via [employer]. D/C Plan is Home w/ Care and Support from and [facility] for Skilled PT/OT (staff will call pt w/in 24-48hrs to set up start of care- info placed on AVS) when med cleared. HHC order obtained, uploaded and sent via [employer]. Family will provide d/c transportation. CM will cont to follow and assist with safe d/c planning. -------- Intimate Partner Violence We have begun to talk to patients about safe and healthy relationships because it can have a large impact on your health. Do you feel safe around your partner or ex-partner?: Yes Food Insecurity Within the past 12 months, you worried that your food would run out before you got the money to buy more.: Never true Within the past 12 months, the food you bought just didn't last and you didn't have money to get more.: Never true Transportation Needs In the past 12 months, has lack of transportation kept you from medical appointments or from getting medications?: No In the past 12 months, has lack of transportation kept you from meetings, work, or from getting things needed for daily living?: No Housing Stability In the last 12 months, was there a time when you were not able to pay the mortgage or rent on time?: No At any time in the past 12 months, were you homeless or living in a fdc (including now)?: No Utilities In the past 12 months has the electric, gas, oil, or water [employer] threatened to shut off services in your home?: No SIGNATURE: Yessenia Tavares RN PATIENT NAME: Donna Snowden DATE: April 20, 2024 TIME: 12:03 PM PAGER/CONTACT #: [phone] HNO ID: [id number] Author: ROYAL WATTS APRN.CNP Service: Orthopaedic Surgery Author Type: Nurse Practitioner Type: Progress Notes Filed: 04/20/2024 11:27 Note Text: ORTHOPAEDIC POSTOP PROGRESS NOTE SERVICE DATE: 04/20/2024 SERVICE TIME: 1115 Subjective INTERVAL HPI: Respiratory: Denies shortness of breath Cardiac: Denies chest pain or palpitations. Musculoskeletal: Reports that the pain is under control. Denies numbness or tingling to extremities. Objective Patient Vitals for the past 24 hrs: BP Temp Temp src Pulse Resp SpO2 04/20/24 0914 (!) 106/47 36.9 ?C (98.4 ?F) Oral 75 12 98 % 04/20/24 0344 105/53 36.7 ?C (98 ?F) Oral 71 18 98 % 04/19/24 2356 -- -- -- -- -- 97 % 04/19/24 2330 98/64 -- -- 84 17 99 % 04/19/24 1821 109/64 36.6 ?C (97.9 ?F) Oral 86 16 98 % 04/19/24 1707 122/69 -- -- 90 16 99 % 04/19/24 1645 106/57 36.8 ?C (98.2 ?F) -- 87 16 98 % 04/19/24 1630 110/57 -- -- 84 16 97 % 04/19/24 1615 112/60 -- -- 83 16 96 % 04/19/24 1600 113/57 -- -- 85 16 97 % 04/19/24 1545 116/56 -- -- 89 16 97 % 04/19/24 1530 127/61 -- -- 96 16 95 % 04/19/24 1520 117/56 -- -- 97 16 100 % 04/19/24 1515 117/55 -- -- 99 16 100 % 04/19/24 1510 113/56 -- -- 94 16 100 % 04/19/24 1505 110/55 -- -- 94 16 100 % 04/19/24 1500 109/61 -- -- 99 16 100 % 04/19/24 1455 113/61 -- -- 96 16 100 % 04/19/24 1450 106/59 -- -- 101 16 100 % 04/19/24 1445 105/59 -- -- 96 16 100 % 04/19/24 1440 -- -- -- 102 -- 100 % 04/19/24 1435 -- -- -- 98 -- 100 % 04/19/24 1430 104/59 -- -- 102 16 100 % 04/19/24 1429 112/61 36.9 ?C (98.4 ?F) -- 103 16 98 % 04/19/24 1145 139/64 -- -- 92 20 97 % 04/19/24 1140 139/65 -- -- 85 20 97 % 04/19/24 1135 129/65 -- -- 83 20 99 % 04/19/24 1105 -- -- -- 76 -- 97 % 04/19/24 1100 138/63 -- -- 75 -- 98 % 04/19/24 1055 -- -- -- 75 -- 98 % 04/19/24 1050 -- -- -- 77 -- 98 % 04/19/24 1045 133/68 -- -- 75 -- 100 % 04/19/24 1040 -- -- -- 79 -- 100 % 04/19/24 1035 134/66 36.9 ?C (98.4 ?F) Temporal 82 20 98 % Intake/Output Summary (Last 24 hours) at 04/20/2024 1003 Last data filed at 04/19/2024 2334 Gross per 24 hour Intake 2231 ml Output 300 ml Net 1931 ml EXAM: Cardiovascular - Heart is regular rate by radial pulse. Respiratory - nonlabored, regular, even. Musculoskeletal - Dressing is dry intact to the left hip. Pulses are +2. Able to dorsiflex and plantarflex bilateral feet. Sensation intact to light touch. Neurologic - Patient is alert and appropriate. DATA: CBC with diff: WBC 13.85 04/20/2024 RBC 3.26 04/20/2024 Hemoglobin 10.1 04/20/2024 Hematocrit 30.3 04/20/2024 MCV 92.9 04/20/2024 MCH 31.0 04/20/2024 MCHC 33.3 04/20/2024 RDW-CV 13.1 04/20/2024 Platelet Count 236 04/20/2024 MPV 10.2 04/20/2024 Neut% 85.3 04/20/2024 Lymph% 7.4 04/20/2024 [place]% 6.6 04/20/2024 Eosin% 0.0 04/20/2024 Baso% 0.1 04/20/2024 Abs Neut (ANC) 11.80 04/20/2024 Abs [place] 0.92 04/20/2024 Abs Eosin <0.03 04/20/2024 Abs Baso <0.03 04/20/2024 Assessment/Plan Principal Problem: Primary osteoarthritis of left hip (POA: Yes) Assessment AND Plan: Active Problems: S/P total left hip arthroplasty (POA: Yes) Assessment AND Plan: -Status post left anterior approach total hip arthroplasty 04/19/2024. Postop day #1: - Vital signs are stable and afebrile. -HANDH today is 10.1/30.3. Fairly expected acute blood loss anemia. Tolerating well. -Full weightbearing left leg, left anterior precautions. - Physical therapy and occupational therapy. -DVT prophylaxis: Teds, SCDs also being used here in the hospital. Patient is resuming back on Eliquis today as at home. - Home Health PT/OT ordered - has no ride to and from therapy session for a couple weeks. - Follow-up appointment is with Dr. Duron on 05/06/2024 at 8:30 AM. - Prescriptions were provided in the office for oxycodone, Ultram every 6 as needed, Tylenol [id number], Zofran, Colace, and instructions to resume Eliquis. Acute postoperative anemia due to expected blood loss (POA: No) Assessment AND Plan: Sleep apnea (POA: Yes) Assessment AND Plan: Hypertension (POA: Yes) Assessment AND Plan: Obesity, Class I, BMI 30-34.9 (POA: Yes) Assessment AND Plan: HLD (hyperlipidemia) (POA: Yes) Assessment AND Plan: Thrombophilia (HCC) (POA: Yes) Assessment AND Plan: GERD (gastroesophageal reflux disease) (POA: Yes) Assessment AND Plan: MARISCAL (nonalcoholic steatohepatitis) (POA: Yes) Assessment AND Plan: Anxiety and depression (POA: Yes) Assessment AND Plan: PAF (paroxysmal atrial fibrillation) (HCC) (POA: Yes) Assessment AND Plan: Resolved Problems: * No resolved hospital problems. * Medication and Non-Pharmacologic VTE Prophylaxis/Anticoagulants Anticoagulant AND Antiplatelet Medications (From admission, onward) Start Dose Route Frequency Last Action Ordered Stop 04/20/24 0900 apixaban 5 mg tab(s) (ELIQUIS) 5 mg ORAL 2 TIMES DAILY Given, 04/20 0914 04/19/24 193 (more content not included)...[facility]11-20-2024 NoteHNO ID: [id number] Author: LACI LANGLEY RN Service: ? Author Type: Registered Nurse Type: Progress Notes Filed: 04/20/2024 10:39 Note Text: Complaints of pain medicated per [facility]11-19-2024 NoteHNO ID: [id number] Author: TOO RODRIGUEZ RN Service: ? Author Type: Registered Nurse Type: Nursing Progress Note Filed: 04/19/2024 13:16 Note Text: Other: SURGIPHOR USED INTRA OP FOR IRRIGATION PER [facility] 04-19-2024 NoteHNO ID: [id number] Author: THOMAS SAVAGE APRN.CRNA Service: Anesthesiology Author Type: Nurse Hand Quilter Type: Anesthesia Procedure Notes Filed: 04/19/2024 13:54 Note Text: ANESTHESIOLOGY PROCEDURE NOTE Spinal Block General Information Procedure Start Time/Medication Administration: 04/19/2024 11:37 AM Procedure End time: 04/19/2024 11:44 AM Patient location during procedure: pre-op Timeout Performed Pre-procedure: timeout performed Consent Obtained: Yes Patient identity confirmed: arm band, care donor services team leader and patient Reason for Block: primary surgical anesthetic Staffing Anesthesiologist: Kenneth Villa DO TERMINAL OPERATIONS SUPERVISOR: Thomas Savage APRN.TERMINAL OPERATIONS SUPERVISOR Performed by: TERMINAL OPERATIONS SUPERVISOR Preparation Sterility Preparation: hand hygiene performed prior to procedure, sterile gloves, drapes, and procedure tray, surgical cap used, mask used, sterile drape used during line insertion, skin prep agent completely dried prior to procedure Sterility Technique Not Completely Performed Due to Extreme Emergency: No Site Prep: Chloraprep Procedure Details Patient Position: sitting Ultrasound Guided: No Monitoring: Pulse Ox and NIBP Approach: Midline Location: L4-5 Injection Technique: single-shot Needle Needle Type: pencil-tip Needle Gauge: 25 G Needle Length: 3.5 in CSF: CSF clear Assessment Sensory Level: T8 Events: tolerated well Comments No introducer used. SIGNATURE: Thomas Savage APRN.CRNA PATIENT NAME: Donna Snowden DATE: April 19, 2024 TIME: 12:07 PM [facility]: [id number] NoteHNO ID: [id number] Author: LEENA BRYSON RN Service: ? Author Type: Registered Nurse Type: Progress Notes Filed: 04/18/2024 13:15 Note Text: MEDICATION INSTRUCTIONS PRIOR TO SURGERY Please read below carefully for your personalized instructions. Medications: If you are on blood thinner or anticoagulants including aspirin, please confirm with your surgical team on when to stop these medications. Unless instructed differently by your surgical team, stay on all of your medications until your surgery. Pre-Surgery Med Instructions Medication Instructions ZINC ACETATE ORAL DO NOT TAKE MORNING OF SURGERY ascorbic acid, vitamin C, (VITAMIN C) 500 mg tablet DO NOT TAKE MORNING OF SURGERY ELIQUIS 5 mg tab(s) Follow Prescribers Instructions cetirizine (ZYRTEC) 10 mg tablet If you normally take this medication in the morning, it is ok to take the morning of surgery with a sip of water. cyclobenzaprine (FLEXERIL) 5 mg tablet DO NOT TAKE MORNING OF SURGERY dofetilide (TIKOSYN) 250 mcg capsule If you normally take this medication in the morning, it is ok to take the morning of surgery with a sip of water. magnesium oxide (MAG-OX) 400 mg (241.3 mg magnesium) tablet DO NOT TAKE MORNING OF SURGERY multivit with minerals/lutein (MULTIVITAMIN 50 PLUS ORAL) DO NOT TAKE MORNING OF SURGERY potassium chloride SR (MICRO-K) 10 mEq CR capsule DO NOT TAKE MORNING OF SURGERY rosuvastatin (CRESTOR) 10 mg tablet If you normally take this medication in the morning, it is ok to take the morning of surgery with a sip of water. spironolactone (ALDACTONE) 25 mg tablet DO NOT TAKE MORNING OF SURGERY pantoprazole DR (PROTONIX) 20 mg tablet If you normally take this medication in the morning, it is ok to take the morning of surgery with a sip of water. sertraline (ZOLOFT) 50 mg tablet If you normally take this medication in the morning, it is ok to take the morning of surgery with a sip of water. If you have any medication changes between receiving these instructions and your surgery date, please provide this updated information with the nurse who calls you the week day prior to your surgical procedure so we can update your list and provide you with updated instructions for the morning of your procedure. PRE-PROCEDURE INSTRUCTIONS TO PREPARE FOR YOUR PROCEDURE: Your arrival time for your procedure is 1100. Do NOT eat any solid foods after MIDNIGHT the night prior to your procedure - this includes gum or mints. You can drink clear liquids* up until 0900 , which is 2 hours before your arrival time. *Clear liquids = water, carbohydrate drink (sports drink that is clear or yellow in color), Ensure Pre-Surgery (given by TABATHA or your ), fruit juice without pulp (apple/cranberry), clear tea, black coffee (no cream). NO CARBONATED BEVERAGES AND NO ALCOHOL. Shower the morning of the procedure, put on clean clothes, and have clean sheets for your bed to help prevent infection after your procedure. Leave all valuables such as jewelry including rings, piercings, wallets, and purses at home. Wear comfortable, loose-fitting clothing. If you wear glasses or contacts, please bring a case. SPECIAL INSTRUCTIONS: If instructed, bring your first voided urine specimen with you. If you were provided skin preparation to use prior to your procedure, complete this as directed. If you were provided Ensure Pre-Surgery drink, you need to drink this at 0900. This should be consumed quickly (in less than 5 minutes, rather than sipped over time) If a bowel preparation has been ordered by your physician, it is very important to follow the bowel prep instructions or your procedure may need to be rescheduled. If you use crutches or a walker, bring them with you. If you have a home CPAP/BIPAP machine, bring it with you. If you were instructed to complete a fleets enema or bowel prep, complete as directed. Bring copy of Living Will/Power of Casino Change Attendant. Do not smoke or chew. If you use tobacco, quit or at least cut down before surgery. Do not smoke or chew after midnight the day before your surgery. This effects bleeding, infection, healing, and so much more. Do not take any Diet or Herbal Supplements 2 weeks prior to your surgery date. Please notify your physician if there is any change in your physical condition such as a cold, cough, fever, sore throat, or skin irritation near the surgical site. Visitors under the age of 14 are restricted in the Surgery Center. UPON ARRIVAL: Access to [facility] (the glass building) is located on [address] [place] [address]. [employer] parking is available for your convenience from 5am-5pm- there is a $5.00 charge for this service. Take the elevators directly inside the entrance to the 1st Floor Surgery Lobby. Sign in at the podium located to the left when you get off the elevators. A payment may be expected at the time of service. One visitor may come back (more content not included)...[facility] 04-15-2024 NoteHNO ID: [id number] Author: ENOCH BOTELLO APRN.RAMON Service: ? Author Type: Nurse Practitioner Type: Progress Notes Filed: 04/15/2024 12:31 Note Text: Summary: med clearance Bladimir provided medical clearance, approved 3 day hold eliquis (as did cardiology) Scan on 04/13/2024 11:33 AM by Corey Ordoñez PA-C: Medical clearance and office [facility]11-05-2024 NoteHNO ID: [id number] Author: ENOCH BOTELLO APRN.CNP Service: ? Author Type: Nurse Practitioner Type: Progress Notes Filed: 04/05/2024 14:06 Note Text: Summary: cardiac clearance Paula's DECATOR OPERATOR cleared at low risk, approved holding eliquis 3 days Scan on 04/04/2024 10:29 AM by Corey Ordoñez PA-C: [facility] NoteHNO ID: [id number] Author: ENOCH BOTELLO APRN.CNP Service: ? Author Type: Nurse Practitioner Type: Progress Notes Filed: 03/30/2024 09:46 Note Text: Summary: pacc consult PACC Consult SERVICE DATE: 03/29/2024 SERVICE TIME: 1:19 PM PRIMARY CARE PHYSICIAN: Vicky Garrison MD REASON FOR VISIT: Donna Snowden is a 63 year old female who is scheduled for L IDRIS at the request of Dr. Duron for PACC consult The patient has the following: ACTIVE PROBLEM LIST A-Fib ([facility]) Ponv (Postoperative Nausea and Vomiting) Sleep Apnea Hypertension Subjective CHIEF COMPLAINT: L hip pain 63yo female, nonsmoker. PMH: +DANIELLE cpap, HTN, HLD, AF s/p ablation 2022 ([facility]), Atach, thrombophilia, GERD, MARISCAL, ERICA, depression, severe PONV PAST MEDICAL HISTORY Diagnosis Date A-fib ([facility]) Dr. Talbot Arthritis Dysplasia of cervix, unspecified Hypertension Dr. Talbot PONV (postoperative nausea and vomiting) severe Sleep apnea cpap PCP follows PAST SURGICAL HISTORY Procedure Laterality Date BREAST SURGERY HX reduction JOINT REPLACEMENT HX R total hip 04/2021 LEEP PROCEDURE ([employer] DEPT)_*FL PAST SURGICAL HISTORY OF ectopic repairs x4 PAST SURGICAL HISTORY OF 2021 ablation x2 for a fib TONSILLECTOMY HX FAMILY HISTORY Problem Relation Age of Onset Hypertension Mother Heart Mother Irregular heart beat Hypertension Father Heart Father Irregular heart beat SOCIAL HISTORY: Social History Tobacco Use Smoking status: Never Smokeless tobacco: Never Vaping Use Vaping status: Never Used Substance Use Topics Alcohol use: Yes Comment: socially Drug use: No Prior to Admission medications as of 03/29/24 1251 Medication Sig Last Dose Taking ZINC ACETATE ORAL Take 1 tablet by mouth once daily. Last dose 04/05 due to surgery Taking Yes ascorbic acid, vitamin C, (VITAMIN C) 500 mg tablet Take 500 mg by mouth once daily. Last dose 04/05 due to surgery Taking Yes ELIQUIS 5 mg tab(s) Take 5 mg by mouth two times a day. Hold instructions per Dr. Talbot Taking Yes cetirizine (ZYRTEC) 10 mg tablet Take 10 mg by mouth. Taking Yes cyclobenzaprine (FLEXERIL) 5 mg tablet TAKE 1-2 TABS BY MOUTH TWICE A DAY NEEDED FOR BACK PAIN, Taking Yes dofetilide (TIKOSYN) 250 mcg capsule Take 250 mcg by mouth every 12 hours. Taking Yes magnesium oxide (MAG-OX) 400 mg (241.3 mg magnesium) tablet Take 2 tablets by mouth daily at bedtime. Taking Yes multivit with minerals/lutein (MULTIVITAMIN 50 PLUS ORAL) Take 1 tablet by mouth once daily. Last dose 04/05 due to surgery Taking Yes potassium chloride SR (MICRO-K) 10 mEq CR capsule Take 10 mEq by mouth two times a day. Taking Yes rosuvastatin (CRESTOR) 10 mg tablet Take 10 mg by mouth daily at bedtime. Taking Yes spironolactone (ALDACTONE) 25 mg tablet take 1 tablet by mouth every day with meals Taking Yes pantoprazole DR (PROTONIX) 20 mg tablet Take 1 tablet by mouth once daily. Taking Yes sertraline (ZOLOFT) 50 mg tablet Take 1 tablet by mouth daily Patient taking differently: Take 75 mg by mouth once daily. Taking Yes No medication comments found. ALLERGIES Allergen Reactions Flagyl [Metronidazo* Other: See Comments thrush Haloperidol Unknown Morphine Vomiting REVIEW OF SYSTEMS: PAIN ASSESSMENT: Pain Pain Level: 4 Frequency: Continuous General: No weight loss, malaise or fevers. Neuro: No history of TIA's, stroke, TICKET MARKER tumor, impaired sensorium, hemiplegia, paraplegia or quadraplegia. No neurological symptoms or problems. Respiratory: Positive for DANIELLE Cardiovascular: Positive for: Arrhythmia, Afib/Aflutter, Anticoagulation therapy, HLD, Hypertension GI: Positive for GERD, Liver disease : No history of dysuria, frequency or incontinence,, stones or chronic kidney disease POULTRY SERVICE TECHNICIAN: Negative for abnormal vaginal bleeding, abnormal vaginal discharge. : Denies, No LMP recorded. Patient has had an ablation. Endocrine: No history of diabetes. Has not taken steroids within the past 30 days. No history of endocrinological symptoms or problems. Hematology: Chronic anti-coagulation / platelet meds (DOAC) Oncology: No history of CA metastasis, chemo within 30 days, or radiotherapy within 90 days. Has not lost 10% of body wt in 6 months. No history of oncological symptoms or problems. Psych: Anxiety, Depression Musculoskeletal: Joint pain Skin: Negative for lesions, rash and itching. Objective PHYSICAL EXAM: VITALS: BP 118/65 Pulse 85 Resp 18 Ht 5' 4 (1.63m) Wt 164 lb (74.4kg) SpO2 98% BMI 28.14 kg/(m2). General: Alert and oriented, No acute distress, Healthy appearance Skin: Normal color, no rash, no lesions. Extremities: No deformity, no edema or tenderness, no joint swelling or clu (more content not included)...[facility]10-[facility] History of Present illness Narrative* Enoch Botello APRN.DECATOR OPERATOR - 03/29/2024 1:19 PM EDT Summary: pacc consult PACC Consult SERVICE DATE: 03/29/2024 SERVICE TIME: 1:19 PM PRIMARY CARE PHYSICIAN: Vicky Garrison MD REASON FOR VISIT: Donna Snowden is a 63 year old female who is scheduled for L IDRIS at the request of Dr. Duron for PACC consult The patient has the following: ACTIVE PROBLEM LIST A-Fib ([facility]) Ponv (Postoperative Nausea and Vomiting) Sleep Apnea Hypertension Subjective CHIEF COMPLAINT: L hip pain 63yo female, nonsmoker. PMH: +DANIELLE cpap, HTN, HLD, AF s/p ablation 2022 ([facility]), Atach, thrombophilia, GERD, MARISCAL, ERICA, depression, severe PONV PAST MEDICAL HISTORY Diagnosis Date A-fib ([facility]) Dr. Talbot Arthritis Dysplasia of cervix, unspecified Hypertension Dr. Talbot PONV (postoperative nausea and vomiting) severe Sleep apnea cpap PCP follows PAST SURGICAL HISTORY Procedure Laterality Date BREAST SURGERY HX reduction JOINT REPLACEMENT HX R total hip 04/2021 LEEP PROCEDURE ([employer] DEPT)_*FL PAST SURGICAL HISTORY OF ectopic repairs x4 PAST SURGICAL HISTORY OF 2021 ablation x2 for a fib TONSILLECTOMY HX FAMILY HISTORY Problem Relation Age of Onset Hypertension Mother Heart Mother Irregular heart beat Hypertension Father Heart Father Irregular heart beat SOCIAL HISTORY: Social History Tobacco Use Smoking status: Never Smokeless tobacco: Never Vaping Use Vaping status: Never Used Substance Use Topics Alcohol use: Yes Comment: socially Drug use: No Prior to Admission medications as of 03/29/24 1251 Medication Sig Last Dose Taking ZINC ACETATE ORAL Take 1 tablet by mouth once daily. Last dose 04/05 due to surgery Taking Yes ascorbic acid, vitamin C, (VITAMIN C) 500 mg tablet Take 500 mg by mouth once daily. Last dose ue to surgery Taking Yes ELIQUIS 5 mg tab(s) Take 5 mg by mouth two times a day. Hold instructions per Dr. Talbot Taking Yes cetirizine (ZYRTEC) 10 mg tablet Take 10 mg by mouth. Taking Yes cyclobenzaprine (FLEXERIL) 5 mg tablet TAKE 1-2 TABS BY MOUTH TWICE A DAY NEEDED FOR BACK PAIN, Taking Yes dofetilide (TIKOSYN) 250 mcg capsule Take 250 mcg by mouth every 12 hours. Taking Yes magnesium oxide (MAG-OX) 400 mg (241.3 mg magnesium) tablet Take 2 tablets by mouth daily at bedtime. Taking Yes multivit with minerals/lutein (MULTIVITAMIN 50 PLUS ORAL) Take 1 tablet by mouth once daily. Last dose 04/05 due to surgery Taking Yes potassium chloride SR (MICRO-K) 10 mEq CR capsule Take 10 mEq by mouth two times a day. Taking Yes rosuvastatin (CRESTOR) 10 mg tablet Take 10 mg by mouth daily at bedtime. Taking Yes spironolactone (ALDACTONE) 25 mg tablet take 1 tablet by mouth every day with meals Taking Yes pantoprazole DR (PROTONIX) 20 mg tablet Take 1 tablet by mouth once daily. Taking Yes sertraline (ZOLOFT) 50 mg tablet Take 1 tablet by mouth daily Patient taking differently: Take 75 mg by mouth once daily. Taking Yes No medication comments found. ALLERGIES Allergen Reactions Flagyl [Metronidazo* Other: See Comments thrush Haloperidol Unknown Morphine Vomiting REVIEW OF SYSTEMS: PAIN ASSESSMENT: Pain Pain Level: 4 Frequency: Continuous General: No weight loss, malaise or fevers. Neuro: No history of TIA's, stroke, TICKET MARKER tumor, impaired sensorium, hemiplegia, paraplegia or quadraplegia. No neurological symptoms or problems. Respiratory: Positive for DANIELLE Cardiovascular: Positive for: Arrhythmia, Afib/Aflutter, Anticoagulation therapy, HLD, Hypertension GI: Positive for GERD, Liver disease : No history of dysuria, frequency or incontinence,, stones or chronic kidney disease POULTRY SERVICE TECHNICIAN: Negative for abnormal vaginal bleeding, abnormal vaginal discharge. : Denies, No LMP recorded. Patient has had an ablation. Endocrine: No history of diabetes. Has not taken steroids within the past 30 days. No history of endocrinological symptoms or problems. Hematology: Chronic anti-coagulation / platelet meds (DOAC) Oncology: No history of CA metastasis, chemo within 30 days, or radiotherapy within 90 days. Has not lost 10% of body wt in 6 months. No history of oncological symptoms or problems. Psych: Anxiety, Depression Musculoskeletal: Joint pain Skin: Negative for lesions, rash and itching. Objective PHYSICAL EXAM: VITALS: BP 118/65 Pulse 85 Resp 18 Ht 5' 4 (1.63m) Wt 164 lb (74.4kg) SpO2 98% BMI 28.14 kg/(m^2). General: Alert and oriented, No acute distress, Healthy appearance Skin: Normal color, no rash, no lesions. Extremities: No deformity, no edema or tenderness, no joint swelling or clubbing. Neurological: Normal cognition and motor skills. Pulses: Not examined Diagnostic tests reviewed for today's visit: Lab Value Units Date High Low HB No results within date range. HCT No results within date range. WBC No results within date range. PLT No results within date range. NA No results within date range. K No results within date range. GLUC No results within date range. BUN No results within date range. CREAT No results within date range. PTSEC No results within date range. INR No results within date range. APTT No results within date range. ALT No results within date range. AST No results within date range. TBILI No results within date range. TSH No results within date range. Lab Value Units Date High Low HCGQT No results within date range. UHCG No results within date range. HCG, BODY* No results within date range. Lab Value Units Date High Low ABORHD No results within date range. ABSCREEN No results within date range. Hemoglobin A1C (%) Date Value 01/18/2021 5.5 PENDING ECHO 2021 EF 52, NML LA/RA Assessment/Plan ASSESSMENT/PLAN: 1. Preop testing - ICD9: V72.84, ICD10: Z01.818 (primary diagnosis) Labs pending. Abnormals will be communicated back to her care team. 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 She had her R hip done at [place] previously and did well, but requested to be done at the hospital this time. She lives at home with her . Drives, maintains her home. 2. Paroxysmal atrial fibrillation (HCC) - ICD9: 427.31, ICD10: I48.0 Follows with [facility] s/p ablation. Denies any recurrent AF however has occasional irregular beats.We did discuss potential of flipping back into AF postop- states she did not after her previous hip. She continues on eliquis and will get her instructions from [facility]. To continue Tikosyn for DOS. 3. PONV (postoperative nausea and vomiting) - ICD9: 787.01, ICD10: R11.2, Z98.890 Requesting scopolamine patch preop. This will be ordered for her DOS. 4. Sleep apnea, unspecified type - ICD9: 780.57, ICD10: G47.30 Compliant with CPAP. 5. Primary hypertension - ICD9: 401.9, ICD10: I10 - Controlled - Continue current medications - Recommend home blood pressure monitoring, to bring results to next visit - Encouraged sodium restriction, DASH or Mediterranean diet - Recommend regular aerobic exercise - Holding spirolactone for DOS. 6. Spinal headache - ICD9: 349.0, ICD10: G97.1 She had spinal anesthesia at [facility] and developed a spinal headache the next day- relieved with lying flat. She will discuss with anesthesia DOS. No problem-specific Assessment & Plan notes found for this encounter. METS: Walk indoors, such as around the house (1.75 METs) Do light work around the house, such as dusting or washing dishes (2.70 METs) Take care of self; that is eating, dressing, bathing, using the toilet (2.75 METs) Walk a block or two on level ground (2.75 METs) Do moderate work around the house such as vacuuming, sweeping floors, or carrying in groceries (3.50 METs) Climb a flight of stairs or walk up a hill (5.50 METs) Do heavy work around the house, such as scrubbing floors, lifting or moving heavy furniture (8.00 METs) Patient denies any chest pain or undue shortness of breath with the above physical activity. ANESTHESIA FINDINGS: Intubation History: No history of difficult intubation Significant Anesthesia Considerations: Postop nausea/vomiting Airway History: No abnormal airway history Planned Anesthetic: Per anesthesia choice Instructions Given to Patient: Instructions located in the after visit summary. Patient given verbal and written preop instructions and voices comprehension and compliance. SIGNATURE: Enoch Botello APRN.CNP PATIENT NAME: Donna Snowden DATE: March 29, 2024 TIME: 1:19 PM * Enoch Botello APRN.CNP - 03/29/2024 1:06 PM EDTSummary: dos meds MEDICATION INSTRUCTIONS PRIOR TO SURGERY Please read below carefully for your personalized instructions. Medications: If you are on blood thinner or anticoagulants including aspirin, please confirm with your surgical team on when to stop these medications. Unless instructed differently by your surgical team, stay on all of your medications until your surgery. Pre-Surgery Med Instructions Medication Instructions ZINC ACETATE ORAL DO NOT TAKE MORNING OF SURGERY ascorbic acid, vitamin C, (VITAMIN C) 500 mg tablet DO NOT TAKE MORNING OF SURGERY ELIQUIS 5 mg tab(s) Follow Prescribers Instructions cetirizine (ZYRTEC) 10 mg tablet If you normally take this medication in the morning, it is ok to take the morning of surgery with a sip of water. cyclobenzaprine (FLEXERIL) 5 mg tablet DO NOT TAKE MORNING OF SURGERY dofetilide (TIKOSYN) 250 mcg capsule If you normally take this medication in the morning, it is ok to take the morning of surgery with a sip of water. magnesium oxide (MAG-OX) 400 mg (241.3 mg magnesium) tablet DO NOT TAKE MORNING OF SURGERY multivit with minerals/lutein (MULTIVITAMIN 50 PLUS ORAL) DO NOT TAKE MORNING OF SURGERY potassium chloride SR (MICRO-K) 10 mEq CR capsule DO NOT TAKE MORNING OF SURGERY rosuvastatin (CRESTOR) 10 mg tablet If you normally take this medication in the morning, it is ok to take the morning of surgery with a sip of water. spironolactone (ALDACTONE) 25 mg tablet DO NOT TAKE MORNING OF SURGERY pantoprazole DR (PROTONIX) 20 mg tablet If you normally take this medication in the morning, it is ok to take the morning of surgery with a sip of water. sertraline (ZOLOFT) 50 mg tablet If you normally take this medication in the morning, it is ok to take the morning of surgery with a sip of water. If you have any medication changes between receiving these instructions and your surgery date, please provide this updated information with the nurse who calls you the week day prior to your surgicalprocedure so we can update your list and provide you with updated instructions for the morning of your procedure. * Enoch Botello APRN.CNP - 03/29/2024 12:30 PM EDT L IDRIS 04/19 [place] 63yo female, nonsmoker. PMH: +DANIELLE cpap, HTN, HLD, AF s/p ablation 2022 ([facility]), Atach, thrombophilia, GERD, MARISCAL, ERICA, depression, severe PONV ECHO 2021 EF 52, NML LA/RA [facility] Instructions* Patient Instructions* Enoch Botello APRN.CNP - 03/29/2024 1:08 PM EDT MEDICATION INSTRUCTIONS PRIOR TO SURGERY Please read below carefully for your personalized instructions. Medications: If you are on blood thinner or anticoagulants including aspirin, please confirm with your surgical team on when to stop these medications. Unless instructed differently by your surgical team, stay on all of your medications until your surgery. Pre-Surgery Med Instructions Medication Instructions ZINC ACETATE ORAL DO NOT TAKE MORNING OF SURGERY ascorbic acid, vitamin C, (VITAMIN C) 500 mg tablet DO NOT TAKE MORNING OF SURGERY ELIQUIS 5 mg tab(s) Follow Prescribers Instructions cetirizine (ZYRTEC) 10 mg tablet If you normally take this medication in the morning, it is ok to take the morning of surgery with a sip of water. cyclobenzaprine (FLEXERIL) 5 mg tablet DO NOT TAKE MORNING OF SURGERY dofetilide (TIKOSYN) 250 mcg capsule If you normally take this medication in the morning, it is ok to take the morning of surgery with a sip of water. magnesium oxide (MAG-OX) 400 mg (241.3 mg magnesium) tablet DO NOT TAKE MORNING OF SURGERY multivit with minerals/lutein (MULTIVITAMIN 50 PLUS ORAL) DO NOT TAKE MORNING OF SURGERY potassium chloride SR (MICRO-K) 10 mEq CR capsule DO NOT TAKE MORNING OF SURGERY rosuvastatin (CRESTOR) 10 mg tablet If you normally take this medication in the morning, it is ok to take the morning of surgery with a sip of water. spironolactone (ALDACTONE) 25 mg tablet DO NOT TAKE MORNING OF SURGERY pantoprazole DR (PROTONIX) 20 mg tablet If you normally take this medication in the morning, it is ok to take the morning of surgery with a sip of water. sertraline (ZOLOFT) 50 mg tablet If you normally take this medication in the morning, it is ok to take the morning of surgery with a sip of water. If you have any medication changes between receiving these instructions and your surgery date, please provide this updated information with the nurse who calls you the week day prior to your surgicalprocedure so we can update your list and provide you with updated instructions for the morning of your procedure. [facility] NoteHNO ID: [id number] Author: ENOCH BOTELLO APRN.CNP Service: ? Author Type: Nurse Practitioner Type: Progress Notes Filed: 03/29/2024 13:31 Note Text: Summary: dos meds MEDICATION INSTRUCTIONS PRIOR TO SURGERY Please read below carefully for your personalized instructions. Medications: If you are on blood thinner or anticoagulants including aspirin, please confirm with your surgical team on when to stop these medications. Unless instructed differently by your surgical team, stay on all of your medications until your surgery. Pre-Surgery Med Instructions Medication Instructions ZINC ACETATE ORAL DO NOT TAKE MORNING OF SURGERY ascorbic acid, vitamin C, (VITAMIN C) 500 mg tablet DO NOT TAKE MORNING OF SURGERY ELIQUIS 5 mg tab(s) Follow Prescribers Instructions cetirizine (ZYRTEC) 10 mg tablet If you normally take this medication in the morning, it is ok to take the morning of surgery with a sip of water. cyclobenzaprine (FLEXERIL) 5 mg tablet DO NOT TAKE MORNING OF SURGERY dofetilide (TIKOSYN) 250 mcg capsule If you normally take this medication in the morning, it is ok to take the morning of surgery with a sip of water. magnesium oxide (MAG-OX) 400 mg (241.3 mg magnesium) tablet DO NOT TAKE MORNING OF SURGERY multivit with minerals/lutein (MULTIVITAMIN 50 PLUS ORAL) DO NOT TAKE MORNING OF SURGERY potassium chloride SR (MICRO-K) 10 mEq CR capsule DO NOT TAKE MORNING OF SURGERY rosuvastatin (CRESTOR) 10 mg tablet If you normally take this medication in the morning, it is ok to take the morning of surgery with a sip of water. spironolactone (ALDACTONE) 25 mg tablet DO NOT TAKE MORNING OF SURGERY pantoprazole DR (PROTONIX) 20 mg tablet If you normally take this medication in the morning, it is ok to take the morning of surgery with a sip of water. sertraline (ZOLOFT) 50 mg tablet If you normally take this medication in the morning, it is ok to take the morning of surgery with a sip of water. If you have any medication changes between receiving these instructions and your surgery date, please provide this updated information with the nurse who calls you the week day prior to your surgical procedure so we can update your list and provide you with updated instructions for the morning of your procedure.[facility]10-29-2024 NoteHNO ID: [id number] Author: ENOCH BOTELLO APRN.RAMON Service: ? Author Type: Nurse Practitioner Type: Progress Notes Filed: 03/29/2024 13:31 Note Text: L IDRIS 04/19 [place] 63yo female, nonsmoker. PMH: +DANIELLE cpap, HTN, HLD, AF s/p ablation 2022 ([place]), [place], thrombophilia, GERD, MARISCAL, ERICA, depression, severe PONV ECHO 2021 EF 52, NML [place]/[facility]08-24-2024 Telephone encounter Note* Telephone Encounter - Virgie Jones APRN.CNP - 01/23/2024 9:17 AM EDT Nystatin solution not available, sent in clotrimazole [place] [facility] Miscellaneous Notes* Telephone Encounter - Virgie Jones APRN.CNP - 01/23/2024 9:17 AM EDT Nystatin solution not available, sent in clotrimazole [place] Sent to listed pharmacy documented [facility]24 NoteHNO ID: [id number] Author: JOY AVENDAÑO APRN.CNP Service: ? Author Type: Nurse Practitioner Type: Progress Notes Filed: 01/22/2024 19:51 Note Text: This note was created using NoteWriter. Subjective Donna Snowden is a 63 year old female. 63 year old female with PMH arthritis, afib (Eliquis) presents for mouth complaints. Acute onset 3 days ago Endoses initially started with tongue discomfort +pain +cracking Has progressively worsened States that she has had thrush in past, citing this feels similar. She was on steroids and flexeril a couple weeks ago otherwise denies recent ATB usage The history is provided by the patient. No cushion assembler was used. Mouth/Lip Problem This is a new problem. The current episode started in the past 7 days. The problem occurs constantly. The problem has been gradually worsening. Pertinent negatives include no abdominal pain, anorexia, arthralgias, change in bowel habit, chest pain, chills, congestion, coughing, diaphoresis, fatigue, fever, headaches, joint swelling, myalgias, nausea, neck pain, numbness, rash, sore throat, swollen glands, urinary symptoms, vertigo, visual change, vomiting or weakness. Nothing aggravates the symptoms. She has tried nothing for the symptoms. The treatment provided no relief. 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 cetirizine (ZYRTEC) 10 mg tablet Take 10 mg by mouth. cyclobenzaprine (FLEXERIL) 5 mg tablet TAKE 1-2 TABS BY MOUTH TWICE A DAY NEEDED FOR BACK PAIN, dofetilide (TIKOSYN) 250 mcg capsule Take 250 mcg by mouth every 12 hours. magnesium oxide (MAG-OX) 400 mg (241.3 mg magnesium) tablet Take 1 tablet by mouth every 12 hours. multivit with minerals/lutein (MULTIVITAMIN 50 PLUS ORAL) potassium chloride SR (MICRO-K) 10 mEq CR capsule Take by mouth. rosuvastatin (CRESTOR) 10 mg tablet Take 10 mg by mouth daily at bedtime. spironolactone (ALDACTONE) 25 mg tablet take 1 tablet by mouth every day with meals nystatin (MYCOSTATIN) 100,000 unit/mL suspension Take 5 mL by mouth four times daily for 7 days. 1tsp swish in mouth for several minutes, then swallow (or expectorate) 4 times daily until gone. chlorthalidone (HYGROTON) 25 mg tablet Take 1/2 tablet by mouth once daily. (Patient not taking: Reported on 01/22/2024) meloxicam (MOBIC) 15 mg tablet Take 15 mg by mouth once daily. (Patient not taking: Reported on 01/22/2024) pantoprazole DR (PROTONIX) 20 mg tablet Take 1 tablet by mouth once daily. (Patient not taking: Reported on 01/22/2024) sertraline (ZOLOFT) 50 mg tablet Take 1 tablet by mouth daily (Patient not taking: Reported on 01/22/2024) flecainide (TAMBOCOR) 150 mg tablet take 1 tablet by mouth every 12 hours (Patient not taking: Reported on 01/22/2024) sertraline (ZOLOFT) 50 mg tablet TAKE ONE TABLET BY MOUTH ONCE DAILY flecainide (TAMBOCOR) 100 mg tablet Take 100 mg by mouth twice daily. (Patient not taking: Reported on 01/22/2024) pantoprazole DR (PROTONIX) 40 mg tablet Take 40 mg by mouth once daily. (Patient not taking: Reported on 01/22/2024) flecainide (TAMBOCOR) 150 mg tablet TAKE ONE TABLET BY MOUTH TWICE DAILY FAMILY HISTORY Problem Relation Age of Onset Hypertension Mother Heart Mother Irregular heart beat Hypertension Father Heart Father Irregular heart beat Social History Tobacco Use Smoking status: Never Smokeless tobacco: Never Vaping Use Vaping status: Never Used Substance Use Topics Alcohol use: Yes Comment: socially Drug use: No Review of Systems Constitutional: Negative for chills, diaphoresis, fatigue and fever. HENT: Negative for congestion and sore throat. +mouth pain Eyes: Negative for pain, discharge, redness and itching. Respiratory: Negative for apnea, cough and chest tightness. Cardiovascular: Negative for chest pain. Gastrointestinal: Negative for abdominal pain, anorexia, change in bowel habit, nausea and vomiting. Musculoskeletal: Negative for arthralgias, joint swelling, myalgias and neck pain. Skin: Negative for color change, pallor and rash. Allergic/Immunologic: Negative for environmental allergies, food allergies and immunocompromised state. Neurological: Negative for dizziness, vertigo, facial asymmetry, weakness, numbness and headaches. Hematological: Negative for adenopathy. Does not bruise/bleed easily. Psychiatric/Behavioral: Negative for agitation and behavioral problems. Objective BP 120/63 Pulse 85 Temp 36.5 ?C (97.7 ?F) Resp 18 Wt 75.1 kg (165 lb 9.1 oz) SpO2 97% Physical Exam Vitals and nursing note reviewed. Constitutional: General: She is not in acute distress. Appearance: N (more content not included)...[facility]08-23-2024 History of Present illness Narrative* Joy Avendaño APRN.DECATOR OPERATOR - 01/22/2024 7:42 PM EDT This note was created using NoteWriter. Subjective Donna Snowden is a 63 year old female. 63 year old female with PMH arthritis, afib (Eliquis) presents for mouth complaints. Acute onset 3 days ago Fouzia initially started with tongue discomfort +pain +cracking Has progressively worsened States that she has had thrush in past, citing this feels similar. She was on steroids and flexeril a couple weeks ago otherwise denies recent ATB usage The history is provided by the patient. No cushion assembler was used. Mouth/Lip Problem This is a new problem. The current episode started in the past 7 days. The problem occurs constantly. The problem has been gradually worsening. Pertinent negatives include no abdominal pain, anorexia, arthralgias, change in bowel habit, chest pain, chills, congestion, coughing, diaphoresis, fatigue, fever, headaches, joint swelling, myalgias, nausea, neck pain, numbness, rash, sore throat, swollen glands, urinary symptoms, vertigo, visual change, vomiting or weakness. Nothing aggravates the symptoms. She has tried nothing for the symptoms. The treatment provided no relief. 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 cetirizine (ZYRTEC) 10 mg tablet Take 10 mg by mouth. cyclobenzaprine (FLEXERIL) 5 mg tablet TAKE 1-2 TABS BY MOUTH TWICE A DAY NEEDED FOR BACK PAIN, dofetilide (TIKOSYN) 250 mcg capsule Take 250 mcg by mouth every 12 hours. magnesium oxide (MAG-OX) 400 mg (241.3 mg magnesium) tablet Take 1 tablet by mouth every 12 hours. multivit with minerals/lutein (MULTIVITAMIN 50 PLUS ORAL) potassium chloride SR (MICRO-K) 10 mEq CR capsule Take by mouth. rosuvastatin (CRESTOR) 10 mg tablet Take 10 mg by mouth daily at bedtime. spironolactone (ALDACTONE) 25 mg tablet take 1 tablet by mouth every day with meals nystatin (MYCOSTATIN) 100,000 unit/mL suspension Take 5 mL by mouth four times daily for 7 days. 1tsp swish in mouth for several minutes, then swallow (or expectorate) 4 times daily until gone. chlorthalidone (HYGROTON) 25 mg tablet Take 1/2 tablet by mouth once daily. (Patient not taking: Reported on 01/22/2024) meloxicam (MOBIC) 15 mg tablet Take 15 mg by mouth once daily. (Patient not taking: Reported on 01/22/2024) pantoprazole DR (PROTONIX) 20 mg tablet Take 1 tablet by mouth once daily. (Patient not taking: Reported on 01/22/2024) sertraline (ZOLOFT) 50 mg tablet Take 1 tablet by mouth daily (Patient not taking: Reported on 01/22/2024) flecainide (TAMBOCOR) 150 mg tablet take 1 tablet by mouth every 12 hours (Patient not taking: Reported on 01/22/2024) sertraline (ZOLOFT) 50 mg tablet TAKE ONE TABLET BY MOUTH ONCE DAILY flecainide (TAMBOCOR) 100 mg tablet Take 100 mg by mouth twice daily. (Patient not taking: Reportedon 01/22/2024) pantoprazole DR (PROTONIX) 40 mg tablet Take 40 mg by mouth once daily. (Patient not taking: Reported on 01/22/2024) flecainide (TAMBOCOR) 150 mg tablet TAKE ONE TABLET BY MOUTH TWICE DAILY FAMILY HISTORY Problem Relation Age of Onset Hypertension Mother Heart Mother Irregular heart beat Hypertension Father Heart Father Irregular heart beat Social History Tobacco Use Smoking status: Never Smokeless tobacco: Never Vaping Use Vaping status: Never Used Substance Use Topics Alcohol use: Yes Comment: socially Drug use: No Review of Systems Constitutional: Negative for chills, diaphoresis, fatigue and fever. HENT: Negative for congestion and sore throat. +mouth pain Eyes: Negative for pain, discharge, redness and itching. Respiratory: Negative for apnea, cough and chest tightness. Cardiovascular: Negative for chest pain. Gastrointestinal: Negative for abdominal pain, anorexia, change in bowel habit, nausea and vomiting. Musculoskeletal: Negative for arthralgias, joint swelling, myalgias and neck pain. Skin: Negative for color change, pallor and rash. Allergic/Immunologic: Negative for environmental allergies, food allergies and immunocompromised state. Neurological: Negative for dizziness, vertigo, facial asymmetry, weakness, numbness and headaches. Hematological: Negative for adenopathy. Does not bruise/bleed easily. Psychiatric/Behavioral: Negative for agitation and behavioral problems. Objective BP 120/63 Pulse 85 Temp 36.5 C (97.7 F) Resp 18 Wt 75.1 kg (165 lb 9.1 oz) SpO2 97% Physical Exam Vitals and nursing note reviewed. Constitutional: General: She is not in acute distress. Appearance: Normal appearance. She is normal weight. She is not ill-appearing, toxic-appearing or diaphoretic. HENT: Head: Normocephalic and atraumatic. Right Ear: Ear canal and external ear normal. Left Ear: Ear canal and external ear normal. Nose: Nose normal. No congestion or rhinorrhea. Mouth/Throat: Mouth: Mucous membranes are moist. Pharynx: Posterior oropharyngeal erythema present. No oropharyngeal exudate. Comments: Tongue with erythema Cracking Eyes: General: Right eye: No discharge. Left eye: No discharge. Extraocular Movements: Extraocular movements intact. Conjunctiva/sclera: Conjunctivae normal. Pupils: Pupils are equal, round, and reactive to light. Cardiovascular: Rate and Rhythm: Normal rate and regular rhythm. Pulses: Normal pulses. Heart sounds: Normal heart sounds. No murmur heard. No friction rub. Pulmonary: Effort: Pulmonary effort is normal. No respiratory distress. Breath sounds: Normal breath sounds. No stridor. No wheezing, rhonchi or rales. Chest: Chest wall: No tenderness. Abdominal: General: Abdomen is flat. There is no distension. Palpations: Abdomen is soft. There is no mass. Tenderness: There is no abdominal tenderness. There is no right CVA tenderness, left CVA tenderness, guarding or rebound. Hernia: No hernia is present. Musculoskeletal: General: No swelling, tenderness, deformity or signs of injury. Normal range of motion. Cervical back: Normal range of motion and neck supple. No rigidity. Right lower leg: No edema. Left lower leg: No edema. Lymphadenopathy: Cervical: No cervical adenopathy. Skin: General: Skin is warm and dry. Coloration: Skin is not jaundiced or pale. Findings: No bruising, erythema, lesion or rash. Neurological: General: No focal deficit present. Mental Status: She is alert and oriented to person, place, and time. Cranial Nerves: No cranial nerve deficit. Sensory: No sensory deficit. Motor: No weakness. Coordination: Coordination normal. Gait: Gait normal. Psychiatric: Mood and Affect: Mood normal. Behavior: Behavior normal. Thought Content: Thought content normal. Judgment: Judgment normal. Assessment and Plan ASSESSMENT/PLAN: 1. Mouth pain - ICD9: 528.9, ICD10: K13.79 X 3 days History of same No red flags - YEAST SCREEN-obtained and pending RX Nystatin suspension Follow up with PCP Joy Avendaño APRN.DECATOR OPERATOR [facility] Hospital Discharge instructions Patient Education 02/12/2023 07:43:36 3-- EP Study/Ablation (03/2018) (CUSTOM) ELECTROPHYSIOLOGY STUDY/ABLATION Discharge Instructions DIET INSTRUCTIONS Resume diet as prior to procedure ACTIVITIES Do not drive FOR 24 HOURS No heavy lifting GREATER THAN 25 POUNDS or pushing or straining FOR 48 hours BATHING/SHOWERING May tub bathe in 48 hour Do not sit in hot tub, whirlpool, or swim for 48 hours May shower today WOUND CARE You MAY go home with a Band-Aid over your procedure site. Keep this Band-Aid on for the next 24 hours and then remove it leaving the site open to air. Some degree of bruising and tenderness is normal around the procedure site. It will take a while for any bruising to completely resolve. Keep your site clean and dry. You need to report the following to your metal weather stripper: Any draining or oozing from the site Any swelling at the site Any increased pain or tenderness at the site Any numbness in your leg where the procedure was done Any sign of infection WATCH FOR SIGNS OF INFECTION: Elevated temperature above 100.5 Redness or swelling Increased pain Foul odor or drainage. If you have any questions, please call your doctor at the number listed on your follow up instructions. Follow all instructions given to you by your physician. Document Released: 05/18/2006 Document Revised: 05/04/2013 Document Reviewed: 05/19/2014 ExitCare Patient Information 2015 [employer]. This information is not intended to replace advicegiven to you by your health care provider. Make sure you discuss any questions you have with your health care provider. Follow Up Care 12/03/2022 08:12:43 With:MEMO MITCHELL MD Address: [address] [place] [address]- [phone] When:03/31/2023 11:15:00 [facility] 09-14-2023 Summary of episode note Discharge Instructions Thank you for allowing [place] to assist you with your healthcare needs. The following is importantdischarge information regarding your hospital visit. Your Care Team LUISA GARRISON MD What to do next Scheduled Follow-Up Appointments Appointment Type When With Where Contact InformationPC OV Follow Up 03/27/2023 08:30 AM EDT LUISA GARRISON MD [facility] CV OV 03/31/2023 11:15 AM EDT [facility] PC Wellness Annual 09/24/2023 01:30 PM EDT LUISA GARRISON MD [facility] CV OV 10/06/2023 10:45 AM EDT [facility]IY[facility] DOWL[facility] Follow Up Appointments Follow Up with MEMO MITCHELL MD When 03/31/2023 11:15 AM EDT Where: [address] [place] [address]- [phone] The Following Activity and Diet Have Been Ordered for You Discharge Activity - Ordered -- Lifting Restricted less than 25 pounds, No lifting over 25 pounds for 48 hours. May shower. No tub bath or pool for 48 hours., 02/12/23 6:44:00 EDT Discharge Diet - Ordered -- No changes were made to your diet during your hospital stay. Please resume your pre hospitalization diet on discharge., 02/12/23 6:44:00 EDT Allergies Haldol metronidazole (Thrush of mouth and esophagus) morphine (Nausea) Medications Please ask your primary doctor or pharmacist before taking any other medication not listed, including over the counter drugs, herbal medications, vitamins and or supplements as they may interact withyour home medications. What How Much When Instructions Last Dose New metoprolol (metoprolol succinate 25 mg oral TABLET extended release) 0.5 tab(s) by mouth Twice daily with meals Refills: 11 Pickup at [facility]/pharmacy #[id number] Unchanged apixaban (Eliquis 5 mg oral tablet) 1 tab(s) by mouth Two (2) times a day Unchanged ascorbic acid (Vitamin C 500 mg oral tablet) 1 tab(s) by mouth Once a day Unchanged cetirizine (Zyrtec 10 mg oral tablet) 1 tab(s) by mouth Once a day Unchanged dofetilide (dofetilide 250 mcg oral capsule) 1 cap by mouth Every 12 hours Unchanged inulin (Fiber Choice 1.5 g oral tablet, chewable) 1 tab(s) Chewed Every day Unchanged magnesium oxide (magnesium oxide 400 mg oral tablet) 1 tab(s) by mouth Two (2) times a day Unchanged multivitamin (Multivitamin) 1 tab(s) by mouth Every day Unchanged pantoprazole (Protonix 20 mg oral enteric coated tablet) 1 tab(s) by mouth Once a day Duration: 90 Days Unchanged potassium chloride (potassium chloride 10 mEq oral capsule, extended release) 1 cap by mouth Two (2) times a day Duration: 90 Days WITH FOOD. Unchanged sertraline (sertraline 50 mg oral tablet) 1.5 tab(s) by mouth Once a day Duration: 90 Days Unchanged spironolactone (spironolactone 25 mg oral tablet) See instructions TAKE 1 TABLET BY MOUTH EVERY DAY WITH MEALS Unchanged zinc gluconate (zinc (as gluconate) 50 mg oral tablet) 1 tab(s) by mouth Every day Pharmacy Information [facility]/pharmacy #[id number]: [address], [place] [id number] [phone] What How Much When Comments Stop Taking dilTIAZem (Cardizem CD 120 mg/ 24 hours oral capsule, extended release) 1 cap by mouth Once a day Please take this list to your next doctor s visit. Bring all medications you take, including over the counter medications, herbals and other supplements with you to your doctor s visit. Patients and families are reminded to discard old lists and to update any records with all medication providers or retail pharmacies. Education Materials ELECTROPHYSIOLOGY STUDY/ABLATION Discharge Instructions DIET INSTRUCTIONS Resume diet as prior to procedure ACTIVITIES Do not drive FOR 24 HOURS No heavy lifting GREATER THAN 25 POUNDS or pushing or straining FOR 48 hours BATHING/SHOWERING May tub bathe in 48 hour Do not sit in hot tub, whirlpool, or swim for 48 hours May shower today WOUND CARE You MAY go home with a Band-Aid over your procedure site. Keep this Band-Aid on for the next 24 hours and then remove it leaving the site open to air. Some degree of bruising and tenderness is normal around the procedure site. It will take a while for any bruising to completely resolve. Keep your site clean and dry. You need to report the following to your metal weather stripper: Any draining or oozing from the site Any swelling at the site Any increased pain or tenderness at the site Any numbness in your leg where the procedure was done Any sign of infection WATCH FOR SIGNS OF INFECTION: Elevated temperature above 100.5 Redness or swelling Increased pain Foul odor or drainage. If you have any questions, please call your doctor at the number listed on your follow up instructions. Follow all instructions given to you by your physician. Document Released: 05/18/2006 Document Revised: 05/04/2013 Document Reviewed: 05/19/2014 ExitCare Patient Information 2015 [employer]. This information is not intended to replace advicegiven to you by your health care provider. Make sure you discuss any questions you have with your health care provider. Additional Information VACCINATE! IT SAVES LIVES! Members of the community who have not yet received the COVID-19 vaccine and would like to receive it can visit one of [facility] vaccine clinics. There are many vaccine clinic locations within the [facility]. For locations and available times, please visit [email or web address] It is important to note that some COVID mobile vaccine clinics are held outdoors and may be canceled in rainy or stormy conditions. To learn more about pediatric vaccinations (ages 5-11), we invite you to visit the [facility] webpage. [email or web address]/[email or web address] learn more about the COVID-19 vaccine, we invite you to visit the CDC website for a list of frequently asked questions.https://www.cdc.gov/coronavirus/2019-ncov/vaccines/faq.html [facility] Patient Portal Access Instructions: Stay connected with your healthcare team and access your personal medical information anytime with the [facility] Patient Portal. Please follow the directions below to create your [facility] account: 1.Access the email account you provided upon registration to the hospital/physician office.2.Look for an invitation email from [facility].3.Open the email and access the invitation link: AcceptInvitation to [employer].4.Fill in the required joyner to create your account. To access your account, visit [email or web address]. Click the blue button labeled Access Patient Portal and then log in with the username and password that you created in the steps above. You will be able to view your test results, lab results, a summary of your visits, upcoming appointments and more. There is also a convenient messaging option where you can send secure messages to your p XTRMvider. In addition, you will have the ability to download any documents or summaries to your computer and/or send the information securely to a physician. Remember that your healthcare information is confidential, so carefully consider who you will allowto register on the [place] [facility] Patient Portal for access to your information. You can also access the [place] [facility] Patient Portal on the [place] [employer] rehan. Simply click on Patient Portal and then log into your account. If you would like to receive a full copy of your medical records, please contact the [facility] Medical Records Department by calling [phone], Thursday through Thursday between 8 a.m. and 4:30 p.m. HOW TO SAFELY DISPOSE OF PRESCRIPTION MEDICATIONS Please use one of the following methods to safely dispose of your unused medications. 1.Use a drug disposal kit: the drug disposal pouch allows you to safely discard your old and unuseddrugs. Ask your nurse to give you one when you are discharged.2.Visit a local take-back location: Many local pharmacies and police departments have programs that collect old and unwanted prescriptiondrugs. Call your local pharmacy or go to http://bit.ly/1P5Ej8n to find one close to you.3.Make use of household items: Use cat litter or old coffee grounds to dispose medications if other options arenot available. Mix your drugs with these household products, seal them in an airtight container andthrow it into the garbage. Call [facility]: [phone] to be sure your drugs can be disposed of in this way. Some medicines may require a different approach.4.Never flush your medications down the toilet. IF YOU HAVE BEEN PRESCRIBED AN OPIOID FOR PAIN If you have been prescribed an opioid (such as hydrocodone, oxycodone or morphine), it is critical to understand the possible side effects and risks of opioid pain medications. Even when taken as directed, opioids can have several side effects including: Tolerance, meaning you might need to take more of a medication for the same pain relief. Nausea, vomiting and/or constipation. Sleepiness, dizziness, dry mouth, confusion, depression or itching. Physical dependence, meaning you have withdrawal symptoms when a medication is stopped, can develop within a few days. KNOW YOUR RESPONSIBILITIES It is important to know exactly how much and how often to take the opioid pain medications you are prescribed. Never take opioids in higher amounts or more often than prescribed. Do not combine opioids with alcohol or other drugs that cause drowsiness, such as benzodiazepines, also known as benzos, including diazepam and alprazolam, muscle relaxants or sleep aids. Never sell or share prescription opioids. This is illegal. Store opioids in a secure place and out of reach of others (including children, family, friends and visitors). The last page of this document has been signed and retained as a CHART COPY. Signatures Patient Education Materials 3-- EP Study/Ablation (03/2018) (CUSTOM) Medication Leaflets My discharge plan and instructions have been reviewed and explained to me and IISI CYNTHIA L understand my current condition and have read and understand these discharge instructions. I have received a written copy of the plan/instructions. If I have questions, I am aware that I should contactmy doctor. 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 ECG reviewed personally:(02/12 4:35a): Sinus 76 bpm, pr 158ms, qrs 96ms, QT 434ms, QTc 489ms. Dofetilide effect. LABS: reviewed. WBC 6.0, hemoglobin 14, 191,000 platelets, sodium 143, potassium 4.4, chloride 109,bicarb 26, glucose 100, BUN 16, creatinine 0.76. GFR greater than 60. Alkaline phosphatase 127, AST21, ALT 22. Bilirubin 0.8. SUBJECTIVE: In recovery area the patient demonstrated mild sinus tachycardia. She was changed from cardizem to low-dose metoprolol with rate normalizing. She declined iv soluCortef dose. The patient denies any angina, dyspnea, lightheadedness, or palpitations. Eating and ambulating ok. OBJECTIVE: 110/60, pulse 72 regular, respirations 18, afebrile. LUNGS: clear, normal respiratory excursion. COR: S1 S2, no S3 or rub. EXT: no edema, pulses 2+ bilaterally. Figure-of-8 sutures/stopcocks removed from bilateral groin cath sites, no hematoma. IMPRESSION/Recommendations: 1. s/p COMPLEX EPS/RF 02/11/23 for recurrent atrial arrhythmias: Radiofrequency (RF) catheter ablation Wide Pulmonary Vein Antral Isolation, Linear RF ablation left atrial roof and floor to isolate posterior wall, RF segmental ablation for SVC isolation., DC Cardioversions. HOME TODAY. 2. Sinus Node Dysfunction worsened on higher-dose antiarrhythmic therapy. stable. 3. HTN. stable. 4. DANIELLE-cpap. 5. Nonalcoholic Steatohepatitis, Abnormal LFTs. 6. GERD. 7. Vitamin D deficiency. 8. Osteoarthritis. 9. Dyslipidemia. 10. Generalized Anxiety Disorder. Memo Mitchell MD, [facility], [facility] pager [phone] Digitally Signed by MEMO MITCHELL MD on 02/12/2023 07:03 AM [id number] Physician Discharge summary DISCHARGE SUMMARY NOTEPCP: Bladimir Patient: Donna Snowden medical record# [id number] date of Admission: 02/11/23date of Discharge: 02/12/23 Discharge diagnoses: 1. Recurrent Paroxysmal AF/AT, CHADSVASC= 2, hx CRYO PVAI 01/2022. 2. Sinus Node Dysfunction worsened on higher-dose antiarrhythmic therapy. 3. HTN. 4. DANIELLE-cpap. 5. Nonalcoholic Steatohepatitis, Abnormal LFTs. 6. GERD. 7. Vitamin D deficiency. 8. Osteoarthritis. 9. Dyslipidemia. 10. Generalized Anxiety Disorder. Principal procedures performed: 1. Radiofrequency (RF) catheter ablation Wide Pulmonary Vein Antral Isolation. 2. Linear RF ablation left atrial roof and floor to isolate posterior wall. 3. RF segmental ablation for SVC isolation. 4. DC Cardioversions. 5. Electrophysiology Study (HRA/HIS/RV/CS) with HD GRID and 3D mapping (st derrek). 6. Dual-transeptal puncture for left atrial access. 7. Intracardiac Echocardiography and Vascular Ultrasound. 8. General Anesthesia & iv anticoagulation. 9. Adjustment of antiarrhythmic regimen. Discharge medications: 1. Eliquis 5 mg twice daily, resume evening February 12. 2. Dofetilide 250 mcg every 12 hours. 3. Metoprolol succinate 25 mg tablet, 1/2 tablet twice daily. 4. Spironolactone 25 mg daily. 5. Potassium chloride 10 mEq twice daily. 6. Magnesium oxide 400 mg twice daily. 7. Vitamin C 500 mg daily. 8. Zyrtec 10 mg daily. 9. Fiber Choice 1.5 g chewable daily. 10. Multivitamin daily. 11. Protonix 20 mg daily. 12. Sertraline 50 mg tablet, 1.5 tablets daily. 13. Zinc gluconate 50 mg daily. Discharge instructions: Resume prior diet. No lifting over 25 pounds for 48 hours. May shower. No tub bath or pool for 48 hours. Folllow up visit 03/31/23 11:15am. Summary: 62-year-old female presenting for complex electrophysiology study and radiofrequency catheter ablation for recurrent atrial arrhythmias. Please see history and physical for further details. Hospital course: Electrophysiology study demonstrated some reconnection along the left pulmonary veins/left atrial appendage ridge. A wider isolation was created for all of the veins. Linear ablation of the roof and floor of the left atrium was performed to isolate the posterior wall with exit block demonstrated. The SVC was also isolated. 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 Her post procedure course was marked by normal sinus rhythm. Her Cardizem was changed to low-dose Toprol. She declined a dose ofSolu-Cortef. She is eating and ambulating on the time of discharge. Her cath sites are healing wellwith no hematoma. He will follow-up with us in several weeks to review rhythm and symptoms. I thinkshe should remain on antiarrhythmic therapy for at least several months. Memo Mitchell MD, [facility], [facility] pager [phone] Digitally Signed by MEMO MITCHELL MD on 02/12/2023 06:56 AM [facility] [id number] NoteSINUS RHYTHM BORDERLINE PROLONGED QT INTERVAL Electronic Signature: EDUARDO RODRIGUEZ MD 02/12/2023 12:11:26[facility] 09-13-2023 Note ELECTROPHYSIOLOGY STUDY & RF ABLATION NOTE PCP: Bladimir Patient: Donna Snowden medical record# [id number] date of Procedure: 02/11/23 PROCEDURE: 1. Radiofrequency (RF) catheter ablation Wide Pulmonary Vein Antral Isolation. 2. Linear RF ablation left atrial roof and floor to isolate posterior wall. 3. RF segmental ablation for SVC isolation. 4. DC Cardioversions. 5. Electrophysiology Study (HRA/HIS/RV/CS) with HD GRID and 3D mapping (st derrek). 6. Dual-transeptal puncture for left atrial access. 7. Intracardiac Echocardiography and Vascular Ultrasound. 8. General Anesthesia & iv anticoagulation. INDICATION: 1. Recurrent Paroxysmal AF/AT, CHADSVASC= 2, hx CRYO PVAI 01/2022. 2. Sinus Node Dysfunction worsened on higher-dose antiarrhythmic therapy. Medications: Eliquis, Tikosyn, cardizem. SUMMARY: 1. Presenting rhythm sinus cl 1114ms, pr 135ms, qrs 124ms, QT 470ms. 2. There was some reconnection of left pulmonary veins along ridge between CARISSA and LPVs. The right pulmonary veins were isolated at ostium. Successful wider PVAI of all veins with exit block demonstrated. 3. Successful linear RF ablation of roof and floor left atrium between left & right pulmonary veins, isolating the Posterior Wall with exit block demonstrated. 4. Successful focal RF ablation to isolate SVC. 5. Post-ablation, Atrial Fibrillation inducible with RSP cs 260ms, with mapping demonstrating a oil truck driver from the right atrial appendage. This tissue is too thin to safely ablate. DCC performed returning sinus rhythm. 7. Normal Atrial refractoriness: AERP 600/310. 8. Normal AV Node function: AH 108ms, AVN Wenckebach 400ms, VA Wenckebach 500ms, AVNERP 600/<360. 9. Normal HIS-Purkinje function: HV 35ms. 10. Normal Ventricular refractoriness: VERPrva 600/270, 400/260. RECOMMENDATIONS: Observe overnight. Bedrest with legs still 4 hours, then may ambulate. Stop cardizem. Start iv/po metoprolol. Resume Tikosyn tonight. Resume Eliquis evening. SoluCortef 100mg iv x 1 today. Furosemide 20mg iv x 1 today. Remove Figure-of-8 sutures/stopcocks in am. Resume prior diet. No lifting over 25 pounds for 48 hours. May shower. No tub bath or pool for 48 hours. Folllow up visit 03/31/23 11:15am. Procedure: The patient was brought to [facility] in the fasting well-hydrated state and prepped and draped in the usual sterile fashion. The 3D mapping patches were applied on the thorax prior to draping the patient. General anesthesia was administered by anesthesia personnel present throughout the case, during which time an esophageal thermistor probe was placed for localizing the esophagus and for monitoring temperature during ablation, regularly repositioning the probe to a site closest to the ablationcatheter. Using modified Seldinger technique, one venous sheath was placed into left subclavian vein, throughwhich was advanced a decapolar coronary sinus catheter into the cs for left atrial recording/pacing. Using modified Seldinger technique and Vascular Ultrasound, one triport venous sheath and additional venous sheath were placed in the left femoral vein, through which were advanced diagnostic EP catheters to the HRA/HIS/RV locations, and an intracardiac echocardiography (ICE) catheter under fluoroscopic guidance into the right atrium, and a baseline ICE study was performed. Baseline ICE demonstrated normal LA/RA. Left and right ventricular size and function were normal. Mitral, tricuspid, pulmonic, and aortic valve leaflets were grossly normal in appearance with normal exam. There were two left pulmonary veins, and two right pulmonary veins. There was no intracardiac mass or thrombus. There was no pericardial effusion. Subsequently, the ICE catheter was positioned on a plane to demonstrate the intraatrial septum and left pulmonary vein. Using modified Seldinger technique and Vascular Ultrasound, sequentially two long guidewires were placed into the right femoral vein up to the the SVC and the patient was administered iv heparin bolus and drip to a goal ACT of 300-400s. Over the first guidewire was placed a [employer] Agilis Transeptal sheath mounted on an ACQ-Cross needle/dilator. The guidewire was withdrawn and With the fluoroscopy positioned in the BURKINAN position, the sheath was gradually withdrawn back into the RA until the tip tented against the intraatrial septum as verified by the ICE catheter. Transeptal puncture was performed verified by visualizing in the LA by ICE, as well as by passing theguidewire thru the needle/dilator assembly into the left pulmonary vein.The sheath was initially advanced, then exchanged over the wire for a nonsteerable transeptal sheath, then the guidewire needle/dilator were removed. This process was then repeated over the second guidewire, resulting in two transseptal punctures and two sheaths exiting in the left atrium, one of which was the Agilis steerable sheath. Through one sheath was placed the [employer] HD GRID high-density mapping catheter, and through the other was placed the [employer] TaciCath steerable RF ablation catheter with 4mm thermistor tip, pressure-sensitive tip, and open irrigation technology. An electro-anatomic map The left atrium and pulmonary veins was created. Then it was decided that wider RF PVAI ablation would be performed, with exit block demonstrated afterwards. Then linear ablation of the LA roof and floor from left to right pulmonary veins were performed isolating the posterior wall of the left atrium with exit block demonstrated. Ablation was performed during real- time analysis of the electrograms. Upon completion of this ablation, programmed stimulation was performed starting with ventricular programmed stimulation, then atrial programmed stimulation. Burst pacing from the cs resulted in induction of Atrial Fibrillation. Left atrial mapping showed a more-organized looking and slower rhythm. Mapping the right atrium showed a much faster AFIB rhythm with fractionated signals in the SVC and CARISSA. Focal RF ablation of the SVC was performed isolating the SVC. Prior to ablation, the course of the phrenic nerve was identified with pace mapping in order to avoid damage to this area. With SVC isolated, AFIB continued with the oil truck driver identified to be in the right atrial appendage. It was decided this tissue is too thin to safely ablate. DCC performed returning sinus rhythm which was maintained. At completion of testing, all catheters were removed from the body. A final ice study was performedand then this catheter was removed. The patient was recovered from anesthesia and administered IV protamine to reverse heparin effect. Local anesthesia with 1% lidocaine was administered to provide anumbing effect in the left and right femoral regions. Figure-of-8 sutures with 2-0 Vicryl were placed around each groin cath site, secured with stopcocks. The sheaths were pulled once the ACT level dropped below 160 seconds, and pressure was held until adequate hemostasis was obtained. Complications: None. Specimens: None. Estimated blood loss: 10 mL. Contrast: None. Memo Mitchell MD, [facility], [facility] pager [phone] Digitally Signed by MEMO MITCHELL MD on 02/11/2023 05:06 PM [id number] Evaluation + Plan noteExtracted from: Title:H&P 02/11/23 Author:MEMO MITCHELL MD Date:02/10/23 HISTORY & PHYSICALPCP: Mary bryant Patient: Donna Snowden medical record# [id number] date of Admission: 02/11/23 CC: Palpitations and AFIB. HPI: 62 yr old female patient presenting for COMPLEX Electrophysiology Study & Radiofrequency catheter ablation for Recurrent Paroxysmal Atrial Fibrillation and Atrial Tachycardia, CHADSVASC= 2, with palpitations and ill-feeling. She had a CRYO PVAI 01/2022 and initially felt well, but in recent months she developed recurring symptoms. Monitoring in September showed Paroxysmal AFIB 50-127 bpm. ECHO in 2015 showed EF 52% with moderate LAE. She has sinus node dysfunction on higher-dose antiarrhythmic therapy. ALLERGIES: metronidazole, morphine. MEDICATIONS: 1. Eliquis 5 mg twice daily, last dose 24 hours prior to admission. 2. Dofetilide 250 mcg every 12 hours. 3. Cardizem CD 120 mg daily. 4. Spironolactone 25 mg daily. 5. Vitamin C 500 mg daily. 6. Atorvastatin 20 mg evenings. 7. Zyrtec 10 mg daily. 8. Fiber Choice 1.5 g chewable daily. 9. Magnesium oxide 400 mg twice daily. 10. Multivitamin daily. 11. Protonix 20 mg daily. 12. Potassium chloride 10 mEq twice daily. 13. Sertraline 50 mg tablet, 1.5 tablets daily. 14. Zinc gluconate 50 mg daily. Past medical history: 1. Recurrent Paroxysmal AF/AT, CHADSVASC= 2, hx CRYO PVAI 01/2022. 2. Sinus Node Dysfunction worsened on higher-dose antiarrhythmic therapy. 3. HTN. 4. DANIELLE-cpap. 5. Nonalcoholic Steatohepatitis, Abnormal LFTs. 6. GERD. 7. Vitamin D deficiency. 8. Osteoarthritis. 9. Dyslipidemia. 10. Generalized Anxiety Disorder. 11. Ectopic surgery, tonsillectomy, tooth extraction. SHx: , employed, reformed tobacco use (20pk-yr hx), no alcohol consumption, no caffeine intake. FHx: Father had Heart Disease/CHF/HTN/DM. Mother had Heart Disease/HTN. RoS: Positives per HPI, remainder reviewed and negative. PE: 120/70, pulse 80, respirations 18, height 162 cm, weight 87 kg, BMI 33. CONSTITUTIONAL: Well-developed, well nourished, in no acute distress. HEAD: Normocephalic, atraumatic. EENT: Pupils round, reactive to light and accommodation. Extraoccular muscles intact. No ENT exudates. NECK: No jugular venous distention, no carotid bruits, no thyroid masses. LUNGS: Clear, normal respiratory excursion. COR: Apical impulse not displaced. Single S1, physiologic split S2, no S3, S4, rub, click or murmur. ABD: Bowel sounds present, soft, nontender, no masses or pulsations. EXTREMITIES: Pulses 2+ bilaterally, no edema. SKIN: No rash or chronic skin infection. LYMPH: No lymphadenopathy noted. NEURO: Alert and oriented to person place time, no gross focal motor deficit. IMPRESSION: 1. Recurrent Paroxysmal AF/AT, CHADSVASC= 2, hx CRYO PVAI 01/2022. 2. Sinus Node Dysfunction worsened on higher-dose antiarrhythmic therapy. 3. HTN. 4. DANIELLE-cpap. 5. Nonalcoholic Steatohepatitis, Abnormal LFTs. 6. GERD. 7. Vitamin D deficiency. 8. Osteoarthritis. 9. Dyslipidemia. 10. Generalized Anxiety Disorder. PLAN: COMPLEX EPS/RF (HRA/HIS/RV/CS) using HD GRID and 3D mapping ([employer]) to reassess pulmonary vein isolation, isolate posterior wall, CTI line, and any additional arrhythmia mechanisms that time allows. Findings reviewed with patient including risks of diagnoses. Proposed procedure and risks explained. Questions answered. She agrees to proceed. Post-procedure she will follow up 03/31/23 11:15am. Memo Mitchell MD, [facility], [facility] pager [phone] Extracted from: Title:H&P 01/02/23 Author:MEMO MITCHELL MD ate:12/29/22 HISTORY & PHYSICALPCP: Marybulmaro lincolnmaryann Patient: Donna Snowden medical record# [id number] date of Admission: 01/02/23 CC: Atrial Fibrillation and palpitations. HPI: 62 yr old female patient presenting Complex EPS/RF for Recurrent Paroxysmal Atrial Fibrillation, CHADSVASC= 2 despite prior CRYOP VAI 01/2022 and antiarrhythmic therapy, with symptoms of palpitations and ill-feeling. Sinus node dysfunction on needed meds. Moderate LAE with good LV function by ECHO years ago. ALLERGIES: metronidazole (thrush), morphine (nausea). MEDICATIONS: 1. Eliquis 5mg bid, last dose 24 hours prior to procedure. 2. Tikosyn 250mcg q12h. 3. Diltiazem CD 120mg daily. 4. Vitamin C 500mg daily. 5. Atorvastatin 20mg evenings. 6. Zyrtec 10mg daily. 7. Fiber Choice 1.5gm chewed daily. 8. Magnesium Oxide 400mg BID. 9. MVI daily. 10. pantoprazole 20mg daily. 11. potassium chloride 10mEQ BID. 12. Sertraline 50mg tablet, 1.5 tablets daily. 13. Spironolactone 25mg daily. 14. Zinc gluconate 50mg daily. PMH: 1. Recurrent Paroxysmal Atrial arrhythmias (AF, AT) with debilitating symptoms, CHADSVASC= 2 CAAP-AF= 6, hx CRYO PVAI 01/2022. 2. Sinus Node Dysfunction on higher-dose antiarrhythmic therapy. 3. HTN LVEF 52%, moderate LAE, moderate TR 2015. 4. DANIELLE-cpap. 5. GERD. 6. Anxiety/Depression. 7. MARISCAL. 8. Osteoarthritis. 9. Vitamin D deficiency. 10. tonsillectomy, ectopic surgery. SHx: , employed, reformed tobacco use over 20 pk-yr hx, no alcohol consumption. FHx: Father had heart disease, chf, htn, dm. Mother had Heart disease and htn. RoS: positives per HPI, remainder reviewed and negative. PE: 120/70 p80 r18 Ht 162cm Wt 87kg bmi 33.2 CONSTITUTIONAL: Well-developed, well nourished, in no acute distress. HEAD: Normocephalic, atraumatic. EENT: Pupils round, reactive to light and accommodation. Extraoccular muscles intact. No ENT exudates. NECK: No jugular venous distention, no carotid bruits, no thyroid masses. LUNGS: Clear, normal respiratory excursion. COR: Apical impulse not displaced. Single S1, S2, no S3, S4, rub, click or murmur. ABD: Bowel sounds present, soft, nontender, no masses or pulsations. EXTREMITIES: Pulses 2+ bilaterally, no edema. SKIN: No rash or chronic skin infection. LYMPH: No lymphadenopathy noted. NEURO: Alert and oriented to person place time, no gross focal motor deficit. IMPRESSION: 1. Recurrent Paroxysmal Atrial arrhythmias (AF, AT) with debilitating symptoms, CHADSVASC= 2 CAAP-AF= 6, hx CRYO PVAI 01/2022. 2. Sinus Node Dysfunction on higher-dose antiarrhythmic therapy. 3. HTN LVEF 52%, moderate LAE, moderate TR 2015. 4. DANIELLE-cpap. 5. GERD. 6. Anxiety/Depression. 7. MARISCAL. 8. Osteoarthritis. 9. Vitamin D deficiency. PLAN: Complex EPS/RF (HRA/HIS/RV/CS/HD GRID) with 3D mapping (st derrek) and Radiofrequency (RF) ablation of arrhythmia mechanisms identified, dual-transeptal puncture, intracardiac echocardiography & vascular ultrasound, general anesthesia and iv anticoagulation. Findings reviewed with patient including risks of diagnoses. Proposed procedure and risks explained. Questions answered. She agrees to proceed. Memo Mitchell MD, [facility], [facility] pager [phone] Addendum by YANI MITCHELL MD on January 02, 2023 11:16 EDT Patient call in sick and cancelled operation. Future Appointments Appointment Date:03/27/2023 08:30:00 AM Scheduled Provider:LUISA GARRISON MD Location:[facility] Appointment Type:PC OV Follow Up Appointment Date:03/31/2023 11:15:00 AM Scheduled Provider: Location:[facility] Appointment Type:CV OV Appointment Date:09/24/2023 01:30:00 PM Scheduled Provider:LUISA GARRISON MD Location:[facility] Appointment Type:PC Wellness Annual Appointment Date:10/06/2023 10:45:00 AM Scheduled Provider:AALIYAH DOWLING Location:[facility] Appointment Type:CV OV Future Scheduled Tests Laboratory* Hepatic Function Panel 05/03/22 * Lipid Profile 05/03/22 * Lipid Profile 03/24/23 * Vitamin D Level 02/09/23 * Complete Metabolic Panel 03/24/23 [facility] 09-13-2023 Anesthesiology Consult note Patient: DONNA SNOWDEN Age: 62 years Sex: Female : 1960 Associated Diagnoses: None Author: CARL MARTIN Preoperative Information Procedure/ Case: Ablation midnight Anesthesia history Patient's history: nausea and vomiting with anesthesia. Family's history: negative. Review of Systems Ear/Nose/Mouth/Throat: Negative except as documented in history of present illness. Respiratory: Negative except as documented in history of present illness. Cardiovascular: Negative except as documented in history of present illness. Gastrointestinal: Negative except as documented in history of present illness. Genitourinary: Negative except as documented in history of present illness. Endocrine: Negative except as documented in history of present illness. Musculoskeletal: Negative except as documented in history of present illness. Integumentary: Negative except as documented in history of present illness. Neurologic: Negative except as documented in history of present illness. Health Status Allergies: Allergic Reactions (Selected) Severity Not Documented Metronidazole- Thrush of mouth and esophagus. Morphine- Nausea., Allergies (2) ActiveReaction metronidazoleThrush of mouth and esophagus morphineNausea Current medications: (Selected) Prescriptions Prescribed Cardizem CD 120 mg/24 hours oral capsule, extended release: 120 mg, 1 cap(s), Oral, qDay, 30 cap(s), 11 Refill(s) Eliquis 5 mg oral tablet: 5 mg, 1 tab(s), Oral, BID, 180 tab(s), 3 Refill(s) Protonix 20 mg oral enteric coated tablet: 20 mg, 1 tab(s), Oral, qDay, for 90 day(s), 90 tab(s), 3Refill(s) dofetilide 250 mcg oral capsule: 1 cap(s), Oral, q12h, 60 cap(s), 11 Refill(s) magnesium oxide 400 mg oral tablet: 1 tab(s), Oral, BID, 180 tab(s), 3 Refill(s) potassium chloride 10 mEq oral capsule, extended release: 1 cap(s), Oral, BID, for 90 day(s), WITH FOOD., 180 cap(s), 11 Refill(s) sertraline 50 mg oral tablet: 75 mg, 1.5 tab(s), Oral, qDay, for 90 day(s), 135 tab(s), 3 Refill(s) spironolactone 25 mg oral tablet: See Instructions, TAKE 1 TABLET BY MOUTH EVERY DAY WITH MEALS, 30tab(s), 35 Refill(s) Documented Medications Documented Fiber Choice 1.5 g oral tablet, chewable: 1.5 gram(s), 1 tab(s), Chewed, Daily, 90 tab(s), 0 Refill(s) Multivitamin: 1 tab(s), Oral, Daily, 0 Refill(s) Vitamin C 500 mg oral tablet: 500 mg, 1 tab(s), Oral, qDay, 30 tab(s), 0 Refill(s) Zyrtec 10 mg oral tablet: 10 mg, 1 tab(s), Oral, qDay, 30 tab(s), 0 Refill(s) zinc (as gluconate) 50 mg oral tablet: 50 mg, 1 tab(s), Oral, Daily, 30 tab(s), 0 Refill(s), No qualifying data available Problem list: Medical Ectopic Atrial Tachycardia / SNOMED CT 517882622 / Confirmed Glucose intolerance / SNOMED CT 49311228 / Confirmed GERD (gastroesophageal reflux disease) / SNOMED CT 130784726 / Confirmed Generalized anxiety disorder / SNOMED CT 47817701 / Confirmed Grief reaction / SNOMED CT 126088232 / Confirmed Status post ablation of atrial fibrillation / SNOMED CT 238493916 / Confirmed Hypercholesterolemia / SNOMED CT 36793916 / Confirmed Abnormal LFTs / SNOMED CT 3186758652 / Confirmed Mortons neuroma of right foot / SNOMED CT 339963050537048 / Confirmed MARISCAL (nonalcoholic steatohepatitis) / SNOMED CT 8108277562 / Confirmed Obesity with serious comorbidity / SNOMED CT 5872384418 / Confirmed DANIELLE on CPAP / SNOMED CT 324295218 / Confirmed Osteoarthritis, multiple sites / SNOMED CT 4967848009 / Confirmed Osteoarthritis of right hip / SNOMED CT 0258591870 / Confirmed Pain in right foot / SNOMED CT 413494061775363 / Confirmed AF- Paroxysmal, chadsvasc= 2 / SNOMED CT 751367260 / Confirmed ECHO: EF 52% mod LAE, TR2+ [2016] / SNOMED CT 6962256171 / Confirmed Adult general medical exam / SNOMED CT 580809266 / Confirmed Mild recurrent major depression / SNOMED CT 170880873 / Confirmed Sinus node dysfunction / SNOMED CT 439937032 / Confirmed Drug-induced thrombophilia / SNOMED CT 5394605695 / Confirmed Vitamin D deficiency / SNOMED CT 87673070 / Confirmed, Active Problems (23) Abnormal LFTs Adult general medical exam AF- Paroxysmal, chadsvasc= 2 Drug-induced thrombophilia ECHO: EF 52% mod LAE, TR2+ [2016] Ectopic Atrial Tachycardia Generalized anxiety disorder GERD (gastroesophageal reflux disease) Glucose intolerance Grief reaction HTN (hypertension) Hypercholesterolemia Mild recurrent major depression Mortons neuroma of right foot MARISCAL (nonalcoholic steatohepatitis) Obesity with serious comorbidity DANIELLE on CPAP Osteoarthritis of right hip Osteoarthritis, multiple sites Pain in right foot Sinus node dysfunction Status post ablation of atrial fibrillation Vitamin D deficiency Histories Past Medical History: Resolved SOB (shortness of breath) (689722251): Resolved. Ectopic (60767517): Resolved. Panic attack (973239589): Resolved. Paroxysmal atrial tachycardia (295203657): Resolved. Visit for monitoring Tikosyn therapy (956971504): Resolved. Family History: Heart disease Mother Father Heart failure Father HTN - Hypertension Mother Father Diabetes Father Procedure history: Holter monitor ([id number]) on 11/01/2022 at 62 Years. Comments: 11/24/2022 12:40 Rosario Eli LPN SUMMARY: ABNORMAL STUDY Poor recordings: P waves not well-seen. Based on strips provided I have to assume the irregular rhythms are ATRIAL FIBRILLATION with V-response 50-127 bpm, and episodes of regular rhythm suggesting sinus mechanism. No significant pauses seen. Patient symptoms of skipped beats several times are associated with these irregular rhythms. Cryoablation ([id number]) on 02/12/2022 at 61 Years. Comments: 04/09/2022 11:27 Nithya Argueta LPN SUMMARY: 1. Successful CRYO PVAI with exit block in all pulmonary veins. 2. Presenting rhythm sinus cl 770ms, pr 140ms, qrs 90ms, QT 458ms. AF developed during mapping. Esophagus coursed closer to right pulmonary veins requiring titration of energy. Two left pulmonary veins, three right pulmonary veins. 3. Normal Sinus Node function (info not provided). 4. Normal Atrial refractoriness: AERP 600/270. 5. Normal AVN function: AH 80ms, AVN Wenckebach 420ms, VA Wenckebach 300ms, AVNERP 600/310. 6. Normal HIS-purkinje function: HV 50ms. 7. Normal Ventricular refractoriness: VERPrva 600/270, 400/250. 8. Subsequent to CRYO AF persisted. DCC 200j synch returned normal sinus rhythm which was maintained. Exit block mapping/pacing demonstrated subsequently. Echocardiogram ([id number]) in the month of 04/2021 at 60 Years. Comments: 06/26/2021 15:28 Pau Abreu RN Summary: 1. Left ventricle: The cavity size is normal. Wall thickness is normal. Systolic function is normal. The estimated ejection fraction is 50-55%. Wall motion is normal; there are no regional wall motion abnormalities. Normal diastolic function. 2. Right ventricle: The RV systolic pressure by Doppler is 17 mm Hg. Arthroplasty of right hip joint ([id number]) on 04/16/2021 at 60 Years. Echocardiography (procedure) ([id number]) in the month of 01/2016 at 55 Years. Comments: 08/14/2020 9:04 Pau Hyatt RN Outside Source Comment: EF 50-55%, LA moderately dilated, Mild MR, Mod TR Tonsillectomy ([id number]). Ectopic ([id number]). Comments: 11/20/2017 15:16 MONSE Cole 4 Tooth extraction ([id number]). Comments: 11/20/2017 15:16 MONSE Cole 24 Hour ECG (regime/therapy) ([id number]). Comments: 08/14/2020 9:04 Pau Hyatt RN Outside Source Comment: 03/2015, 11/2013 Cardiovascular stress testing (procedure) ([id number]). Comments: 08/14/2020 9:04 Pau Hyatt RN Outside Source Comment: 03/2015: Exercise nuclear stress test showing small fixed apical defect consistent with scar versus breast attenuation. No reversible ischemia noted. EF 63%. 2012: EF 53% Social History Social & Psychosocial Habits Alcohol 11/20/2017Risk Assessment: Denies Alcohol Use 11/03/2019 Use: Never Employment/School 08/14/2020 Status: Employed Substance Abuse 11/20/2017Risk Assessment: Denies Substance Abuse 04/16/2022 Use: Never Tobacco 07/25/2018 Tobacco Use: Former smoker, quit more Type: Cigarettes Started at age: 14 Years Stopped at age: 42 Years 2Risk Assessment: No Risk Home/Environment 08/14/2020 Marital Status of Patient if Patient Independent Adult: Nutrition/Health 04/16/2022 Caffeine intake amount: none . Physical Examination Vital Signs(last 24 hrs) Last Charted Resp Rate 20 br/min (FEB 11 09:26) EKN441 mmHg (FEB 11 09:26) DBP74 mmHg (SEP 13 09:26) Measurements from flowsheet : Measurements 02/11/2023 9:26 EDT Height 162.6 cm Height in inches 64 inch(es) Admission Weight 80.8 kg Weight Lbs 177.8 lb Weight Method Actual [place] Body Weight 54.74 kg Type of Scale Used Standing Admission Body Mass Index 30.56 m2 General: No acute distress. Airway: Normal temporomandibular joint mobility, Nares patent, No damage to dentition, Normal throat, Normal neck range of motion, Trachea midline. Mallampati classification: III (soft palate, base of uvula visible). Dentition Evaluation: Own teeth. Respiratory: Lungs are clear to auscultation. Cardiovascular: Normal rate, Regular rhythm. Heart Sounds: Normal, Murmur. Gastrointestinal: Soft, Non-tender, Non-distended. Musculoskeletal Normal range of motion. Integumentary: Intact, Warm. Neurologic: Alert, Oriented. Review / Management Results review: Labs (Last four charted values) WBC 6.0(FEB 11) Hgb 14.0(FEB 11) Hct 40.6(FEB 11) Plt 191(FEB 11) PT 12.1(FEB 11) INR 1.1(FEB 11) , Lab results 02/11/2023 9:33 EDT Electrocardiogram - EKG - CV Completed (In Progress) 02/11/2023 9:33 EDT Antecubital Left 02/11/2023 20 gauge Peripheral IV Activity: Assessed Peripheral IV Dressing Condition: Clean, Dry, Intact Peripheral IV Dressing Activity: Applied, Transparent dressing Peripheral IV Line Status/Patency: Flushes easily, Good blood return Peripheral IV Site Condition: No complications Peripheral IV Equipment: Manual, Extension set, PRN Adaptor Peripheral IV Number of Attempts: 2 02/11/2023 9:28 EDT Designated Person #1 We May Share PHI Mally Snowden [phone] Designated Person #1 Relationship Spouse Privacy Restrictions Requested None Status No, per patient Sensory Deficits None Diagnosed With Sleep Apnea Yes Advanced Directives No - refuses information Infectious Disease Symptoms Patient states no symptoms Infectious Disease Recent Exposure No Alcohol and Drug Use No Employee of Institutional Living No Health Care Employee No History of Exposure to TB No History of Positive Chest X-Ray for TB No History of Positive TB Skin Test No Homeless No Known Immunosuppression No Recent Immigrant No Resident of Institutional Living No Bloody Sputum No Fatigue No Fever No Loss of Appetite No Night Sweats No Persistent Cough > 3 Weeks No Weight Loss No Individuals Taught Patient Learning Readiness Willing to learn Barriers to Learning None evident Teaching Method Explanation, Printed materials Preferred Spoken Language [place]ican Preferred Written Language Puerto [place]ican Teaching Evaluation Verbalizes/Nonverbally indicates understanding Pre Procedure/Surgery Education Appropriate expectations, Date/Time of procedure/surgery, 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 Post op Activity Education Bedrest Procedure/Surgical Teaching Evaluation Verbalizes/Nonverbally indicates understanding Procedure/Surgery Testing Education EKG, Lab tests Safety Brochure Information Reviewed Yes Tika Arcos Video Viewed No Information Given by Patient Patient's Current Physicians Patient's Current Physicians Discharge To, Anticipated Home independently Prev Test Positive/Diagnosis w/COVID-19 Yes Previous COVID-19 Positive Date 2020 Current Quarantine/Isolated any Illness No Any Contact with Sick Animals/Birds No Traveled Anywhere in Last 30 Days No Lost Weight Unintentionally Recently No Eat Poorly Due to Decreased Appetite No Total MST Score 0 No Personal Devices, Patient Valuables None, Glasses Anesthesia/Transfusions Prior anesthesia, Prior anesthesia reaction Type of Anesthesia Reaction nausea Admission Note-Nursing Same Day Patient History 02/11/2023 9:26 EDT Height 162.6 cm Height in inches 64 inch(es) Admission Weight 80.8 kg Weight Lbs 177.8 lb Weight Method Actual [place] Body Weight 54.74 kg Type of Scale Used Standing Admission Body Mass Index 30.56 m2 Temperature Temporal Artery 36.7 DegC Peripheral Pulse Rate 80 bpm Respiratory Rate 20 br/min Systolic Blood Pressure Non-Invasive 121 mmHg Diastolic Blood Pressure Non-Invasive 74 mmHg Primary Pain Intensity 0 Pain Scale Type 0-10 Pain scale Heart Sounds ICU S1S2 Heart Rhythm Regular Murmur Auscultated No Dorsalis Pedis Pulse, Left 2+ Normal Dorsalis Pedis Pulse, Right 2+ Normal Posttibial Pulse, Left 2+ Normal Posttibial Pulse, Right 2+ Normal Brachial Pulse Left 2+ Normal Brachial Pulse Right 2+ Normal Ulnar Pulse Left 2+ Normal Ulnar Pulse Right 2+ Normal Radial Pulse, Left 2+ Normal Radial Pulse, Right 2+ Normal Respirations Unlabored Respiratory Pattern Regular Breath Sounds Auscultated Anterior and posterior All Lobes Breath Sounds Clear Cough and Deep Breathe Done Cough None Oxygen Therapy Room air Oxygen Saturation 97 % Abdomen Description Non-distended, Soft Passing Flatus Yes Bowel Sounds All Quadrants Present Urinary Elimination Voiding, no difficulties Skin Temperature Warm Skin Description [place], Dry Skin Integrity Intact Mucous Membrane Color [place] Skin Moisture General Dry IV Present Present Neurological Symptoms Patient denies Extremity Movement Equal Characteristics of Speech Clear Level of Consciousness Alert THELMA Yes Strength All Extremities Strong Sensation All Extremities Intact Affect/Behavior Appropriate, Calm, Cooperative Orientation Oriented x 4 Allergies Yes Consent Form Signed Yes Patient Dressed In Hospital gown, No undergarments Pre-op Preparation Jewelry removed, Undergarments removed History & Physical On Chart Yes Obstructive Sleep Apnea Assess Completed Yes Orientation Assessment Oriented x 4 Assistive Device None Positioning Repositions self Activity Status ADL Awake, Resting NPO Status Maintained Standard Safety ID band on, Allergy Band on, Call device within reach, Bed in low position, Wheels locked, Upper/Half-Length side-rails up, Visitor at bedside, Safety level maintained, Non-Slip footwear, Precautions maintained Demonstrates Correct Call Light Use Yes Allergy Band on and Verified Yes Patient ID Band on and Verified Yes Blood Consent Signed Yes Last Fluid Intake 02/10/2023 17:00 Last Food Intake 02/10/2023 17:00 Last Void 02/11/2023 9:28 02/11/2023 9:21 EDT WBC 6.0 10^3/mcL RBC 4.42 10^6/mcL Hgb 14.0 G/dL Hct 40.6 % MCV 91.9 fL MCH 31.6 pg MCHC 34.4 G/dL RDW 13.8 % Platelet 191 10^3/mcL MPV 9.2 fL Neutrophil % 67.2 % Lymphocyte % 22.9 % Monocyte % 6.5 % Eosinophil % 2.8 % Basophil % 0.6 % Neutrophil, Absolute 4.0 10^3/mcL Lymphocyte, Absolute 1.4 10^3/mcL Monocyte, Absolute 0.4 10^3/mcL Eosinophil, Absolute 0.2 10^3/mcL Basophil, Absolute 0.0 10^3/mcL Protime 12.1 seconds PT International Ratio 1.1 ratio NA 02/10/2023 19:17 EDT History and Physical (Blank) H&P 02/11/23 02/10/2023 9:38 EDT CSummarlilibeth EL . Assessment and Plan [place] [employer] Anesthesiologists (ASA) physical status classification: Class III. Anesthetic Preoperative Plan Premedication. Anesthetic technique: General. Induction: intravenously. Maintenance airway: Oral endotracheal tube. Special Monitoring: Arterial line. Postoperative pain management: Per surgeon. Risks discussed: nausea, vomiting, headache, sore throat, dental injury, hypotension, allergic reaction, serious complications. Informed consent: signed by patient. Digitally Signed by CARL MARTIN on 02/11/2023 10:07 AM [id number] Exam Date Time Procedure Performing Provider Status 02/11/23 10:15 AM Ablation RF-Ensite - CV Auth (Verified) [facility] 09-13-2023 Anesthesiology Consult note Patient: DONNA SNOWDEN Age: 62 years Sex: Female : 1960 Associated Diagnoses: None Author: CARL MARTIN Preoperative Information Procedure/ Case: Ablation midnight Anesthesia history Patient's history: nausea and vomiting with anesthesia. Family's history: negative. Review of Systems Ear/Nose/Mouth/Throat: Negative except as documented in history of present illness. Respiratory: Negative except as documented in history of present illness. Cardiovascular: Negative except as documented in history of present illness. Gastrointestinal: Negative except as documented in history of present illness. Genitourinary: Negative except as documented in history of present illness. Endocrine: Negative except as documented in history of present illness. Musculoskeletal: Negative except as documented in history of present illness. Integumentary: Negative except as documented in history of present illness. Neurologic: Negative except as documented in history of present illness. Health Status Allergies: Allergic Reactions (Selected) Severity Not Documented Metronidazole- Thrush of mouth and esophagus. Morphine- Nausea., Allergies (2) ActiveReaction metronidazoleThrush of mouth and esophagus morphineNausea Current medications: (Selected) Prescriptions Prescribed Cardizem CD 120 mg/24 hours oral capsule, extended release: 120 mg, 1 cap(s), Oral, qDay, 30 cap(s), 11 Refill(s) Eliquis 5 mg oral tablet: 5 mg, 1 tab(s), Oral, BID, 180 tab(s), 3 Refill(s) Protonix 20 mg oral enteric coated tablet: 20 mg, 1 tab(s), Oral, qDay, for 90 day(s), 90 tab(s), 3Refill(s) dofetilide 250 mcg oral capsule: 1 cap(s), Oral, q12h, 60 cap(s), 11 Refill(s) magnesium oxide 400 mg oral tablet: 1 tab(s), Oral, BID, 180 tab(s), 3 Refill(s) potassium chloride 10 mEq oral capsule, extended release: 1 cap(s), Oral, BID, for 90 day(s), WITH FOOD., 180 cap(s), 11 Refill(s) sertraline 50 mg oral tablet: 75 mg, 1.5 tab(s), Oral, qDay, for 90 day(s), 135 tab(s), 3 Refill(s) spironolactone 25 mg oral tablet: See Instructions, TAKE 1 TABLET BY MOUTH EVERY DAY WITH MEALS, 30tab(s), 35 Refill(s) Documented Medications Documented Fiber Choice 1.5 g oral tablet, chewable: 1.5 gram(s), 1 tab(s), Chewed, Daily, 90 tab(s), 0 Refill(s) Multivitamin: 1 tab(s), Oral, Daily, 0 Refill(s) Vitamin C 500 mg oral tablet: 500 mg, 1 tab(s), Oral, qDay, 30 tab(s), 0 Refill(s) Zyrtec 10 mg oral tablet: 10 mg, 1 tab(s), Oral, qDay, 30 tab(s), 0 Refill(s) zinc (as gluconate) 50 mg oral tablet: 50 mg, 1 tab(s), Oral, Daily, 30 tab(s), 0 Refill(s), No qualifying data available Problem list: Medical Ectopic Atrial Tachycardia / SNOMED CT 117251564 / Confirmed Glucose intolerance / SNOMED CT 11670228 / Confirmed GERD (gastroesophageal reflux disease) / SNOMED CT 800337651 / Confirmed Generalized anxiety disorder / SNOMED CT 63287198 / Confirmed Grief reaction / SNOMED CT 328282831 / Confirmed Status post ablation of atrial fibrillation / SNOMED CT 787269031 / Confirmed Hypercholesterolemia / SNOMED CT 49040789 / Confirmed Abnormal LFTs / SNOMED CT 6101728403 / Confirmed Mortons neuroma of right foot / SNOMED CT 633518560195589 / Confirmed MARISCAL (nonalcoholic steatohepatitis) / SNOMED CT 4213136233 / Confirmed Obesity with serious comorbidity / SNOMED CT 2462971884 / Confirmed DANIELLE on CPAP / SNOMED CT 850873974 / Confirmed Osteoarthritis, multiple sites / SNOMED CT 9895602741 / Confirmed Osteoarthritis of right hip / SNOMED CT 5893947219 / Confirmed Pain in right foot / SNOMED CT 359489466808297 / Confirmed AF- Paroxysmal, chadsvasc= 2 / SNOMED CT 277270221 / Confirmed ECHO: EF 52% mod LAE, TR2+ [2016] / SNOMED CT 2206282948 / Confirmed Adult general medical exam / SNOMED CT 109783724 / Confirmed Mild recurrent major depression / SNOMED CT 564368292 / Confirmed Sinus node dysfunction / SNOMED CT 601649023 / Confirmed Drug-induced thrombophilia / SNOMED CT 5092003159 / Confirmed Vitamin D deficiency / SNOMED CT 39422362 / Confirmed, Active Problems (23) Abnormal LFTs Adult general medical exam AF- Paroxysmal, chadsvasc= 2 Drug-induced thrombophilia ECHO: EF 52% mod LAE, TR2+ [2016] Ectopic Atrial Tachycardia Generalized anxiety disorder GERD (gastroesophageal reflux disease) Glucose intolerance Grief reaction HTN (hypertension) Hypercholesterolemia Mild recurrent major depression Mortons neuroma of right foot MARISCAL (nonalcoholic steatohepatitis) Obesity with serious comorbidity DANIELLE on CPAP Osteoarthritis of right hip Osteoarthritis, multiple sites Pain in right foot Sinus node dysfunction Status post ablation of atrial fibrillation Vitamin D deficiency Histories Past Medical History: Resolved SOB (shortness of breath) (110262367): Resolved. Ectopic (83120697): Resolved. Panic attack (136233220): Resolved. Paroxysmal atrial tachycardia (124654012): Resolved. Visit for monitoring Tikosyn therapy (563098995): Resolved. Family History: Heart disease Mother Father Heart failure Father HTN - Hypertension Mother Father Diabetes Father Procedure history: Holter monitor ([id number]) on 11/01/2022 at 62 Years. Comments: 11/24/2022 12:40 NANCYT - Rosario Pineda LPN SUMMARY: ABNORMAL STUDY Poor recordings: P waves not well-seen. Based on strips provided I have to assume the irregular rhythms are ATRIAL FIBRILLATION with V-response 50-127 bpm, and episodes of regular rhythm suggesting sinus mechanism. No significant pauses seen. Patient symptoms of skipped beats several times are associated with these irregular rhythms. Cryoablation ([id number]) on 02/12/2022 at 61 Years. Comments: 04/09/2022 11:27 Nithya Argueta LPN SUMMARY: 1. Successful CRYO PVAI with exit block in all pulmonary veins. 2. Presenting rhythm sinus cl 770ms, pr 140ms, qrs 90ms, QT 458ms. AF developed during mapping. Esophagus coursed closer to right pulmonary veins requiring titration of energy. Two left pulmonary veins, three right pulmonary veins. 3. Normal Sinus Node function (info not provided). 4. Normal Atrial refractoriness: AERP 600/270. 5. Normal AVN function: AH 80ms, AVN Wenckebach 420ms, VA Wenckebach 300ms, AVNERP 600/310. 6. Normal HIS-purkinje function: HV 50ms. 7. Normal Ventricular refractoriness: VERPrva 600/270, 400/250. 8. Subsequent to CRYO AF persisted. DCC 200j synch returned normal sinus rhythm which was maintained. Exit block mapping/pacing demonstrated subsequently. Echocardiogram ([id number]) in the month of 04/2021 at 60 Years. Comments: 06/26/2021 15:28 Pau Abreu RN Summary: 1. Left ventricle: The cavity size is normal. Wall thickness is normal. Systolic function is normal. The estimated ejection fraction is 50-55%. Wall motion is normal; there are no regional wall motion abnormalities. Normal diastolic function. 2. Right ventricle: The RV systolic pressure by Doppler is 17 mm Hg. Arthroplasty of right hip joint ([id number]) on 04/16/2021 at 60 Years. Echocardiography (procedure) ([id number]) in the month of 01/2016 at 55 Years. Comments: 08/14/2020 9:04 Pau Hyatt RN Outside Source Comment: EF 50-55%, LA moderately dilated, Mild MR, Mod TR Tonsillectomy ([id number]). Ectopic ([id number]). Comments: 11/20/2017 15:16 MONSE Cole 4 Tooth extraction ([id number]). Comments: 11/20/2017 15:16 EDT MONSE Lizarraga 24 Hour ECG (regime/therapy) ([id number]). Comments: 08/14/2020 9:04 Pau Hyatt RN Outside Source Comment: 03/2015, 11/2013 Cardiovascular stress testing (procedure) ([id number]). Comments: 08/14/2020 9:04 Pau Hyatt RN Outside Source Comment: 03/2015: Exercise nuclear stress test showing small fixed apical defect consistent with scar versus breast attenuation. No reversible ischemia noted. EF 63%. 2012: EF 53% Social History Social & Psychosocial Habits Alcohol 11/20/2017Risk Assessment: Denies Alcohol Use 11/03/2019 Use: Never Employment/School 08/14/2020 Status: Employed Substance Abuse 11/20/2017Risk Assessment: Denies Substance Abuse 04/16/2022 Use: Never Tobacco 07/25/2018 Tobacco Use: Former smoker, quit more Type: Cigarettes Started at age: 14 Years Stopped at age: 42 Years 2Risk Assessment: No Risk Home/Environment 08/14/2020 Marital Status of Patient if Patient Independent Adult: Nutrition/Health 04/16/2022 Caffeine intake amount: none . Physical Examination Vital Signs(last 24 hrs) Last Charted Resp Rate 20 br/min (FEB 11 09:26) ASJ653 mmHg (FEB 11 09:26) DBP74 mmHg (FEB 11 09:26) Measurements from flowsheet : Measurements 02/11/2023 9:26 EDT Height 162.6 cm Height in inches 64 inch(es) Admission Weight 80.8 kg Weight Lbs 177.8 lb Weight Method Actual [place] Body Weight 54.74 kg Type of Scale Used Standing Admission Body Mass Index 30.56 m2 General: No acute distress. Airway: Normal temporomandibular joint mobility, Nares patent, No damage to dentition, Normal throat, Normal neck range of motion, Trachea midline. Mallampati classification: III (soft palate, base of uvula visible). Dentition Evaluation: Own teeth. Respiratory: Lungs are clear to auscultation. Cardiovascular: Normal rate, Regular rhythm. Heart Sounds: Normal, Murmur. Gastrointestinal: Soft, Non-tender, Non-distended. Musculoskeletal Normal range of motion. Integumentary: Intact, Warm. Neurologic: Alert, Oriented. Review / Management Results review: Labs (Last four charted values) WBC 6.0(FEB 11) Hgb 14.0(FEB 11) Hct 40.6(FEB 11) Plt 191(FEB 11) PT 12.1(FEB 11) INR 1.1(FEB 11) , Lab results 02/11/2023 9:33 EDT Electrocardiogram - EKG - CV Completed (In Progress) 02/11/2023 9:33 EDT Antecubital Left 02/11/2023 20 gauge Peripheral IV Activity: Assessed Peripheral IV Dressing Condition: Clean, Dry, Intact Peripheral IV Dressing Activity: Applied, Transparent dressing Peripheral IV Line Status/Patency: Flushes easily, Good blood return Peripheral IV Site Condition: No complications Peripheral IV Equipment: Manual, Extension set, PRN Adaptor Peripheral IV Number of Attempts: 2 02/11/2023 9:28 EDT Designated Person #1 We May Share PHI Mally Snowden [phone] Designated Person #1 Relationship Spouse Privacy Restrictions Requested None Status No, per patient Sensory Deficits None Diagnosed With Sleep Apnea Yes Advanced Directives No - refuses information Infectious Disease Symptoms Patient states no symptoms Infectious Disease Recent Exposure No Alcohol and Drug Use No Employee of Institutional Living No Health Care Employee No History of Exposure to TB No History of Positive Chest X-Ray for TB No History of Positive TB Skin Test No Homeless No Known Immunosuppression No Recent Immigrant No Resident of Institutional Living No Bloody Sputum No Fatigue No Fever No Loss of Appetite No Night Sweats No Persistent Cough > 3 Weeks No Weight Loss No Individuals Taught Patient Learning Readiness Willing to learn Barriers to Learning None evident Teaching Method Explanation, Printed materials Preferred Spoken Language Puerto Rican Preferred Written Language Puerto Rican Teaching Evaluation Verbalizes/Nonverbally indicates understanding Pre Procedure/Surgery Education Appropriate expectations, Date/Time of procedure/surgery, 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 Post op Activity Education Bedrest Procedure/Surgical Teaching Evaluation Verbalizes/Nonverbally indicates understanding Procedure/Surgery Testing Education EKG, Lab tests Safety Brochure Information Reviewed Yes Tika Arcos Video Viewed No Information Given by Patient Patient's Current Physicians Patient's Current Physicians Discharge To, Anticipated Home independently Prev Test Positive/Diagnosis w/COVID-19 Yes Previous COVID-19 Positive Date 2020 Current Quarantine/Isolated any Illness No Any Contact with Sick Animals/Birds No Traveled Anywhere in Last 30 Days No Lost Weight Unintentionally Recently No Eat Poorly Due to Decreased Appetite No Total MST Score 0 No Personal Devices, Patient Valuables None, Glasses Anesthesia/Transfusions Prior anesthesia, Prior anesthesia reaction Type of Anesthesia Reaction nausea Admission Note-Nursing Same Day Patient History 02/11/2023 9:26 EDT Height 162.6 cm Height in inches 64 inch(es) Admission Weight 80.8 kg Weight Lbs 177.8 lb Weight Method Actual [place] Body Weight 54.74 kg Type of Scale Used Standing Admission Body Mass Index 30.56 m2 Temperature Temporal Artery 36.7 DegC Peripheral Pulse Rate 80 bpm Respiratory Rate 20 br/min Systolic Blood Pressure Non-Invasive 121 mmHg Diastolic Blood Pressure Non-Invasive 74 mmHg Primary Pain Intensity 0 Pain Scale Type 0-10 Pain scale Heart Sounds ICU S1S2 Heart Rhythm Regular Murmur Auscultated No Dorsalis Pedis Pulse, Left 2+ Normal Dorsalis Pedis Pulse, Right 2+ Normal Posttibial Pulse, Left 2+ Normal Posttibial Pulse, Right 2+ Normal Brachial Pulse Left 2+ Normal Brachial Pulse Right 2+ Normal Ulnar Pulse Left 2+ Normal Ulnar Pulse Right 2+ Normal Radial Pulse, Left 2+ Normal Radial Pulse, Right 2+ Normal Respirations Unlabored Respiratory Pattern Regular Breath Sounds Auscultated Anterior and posterior All Lobes Breath Sounds Clear Cough and Deep Breathe Done Cough None Oxygen Therapy Room air Oxygen Saturation 97 % Abdomen Description Non-distended, Soft Passing Flatus Yes Bowel Sounds All Quadrants Present Urinary Elimination Voiding, no difficulties Skin Temperature Warm Skin Description [place], Dry Skin Integrity Intact Mucous Membrane Color [place] Skin Moisture General Dry IV Present Present Neurological Symptoms Patient denies Extremity Movement Equal Characteristics of Speech Clear Level of Consciousness Alert THELMA Yes Strength All Extremities Strong Sensation All Extremities Intact Affect/Behavior Appropriate, Calm, Cooperative Orientation Oriented x 4 Allergies Yes Consent Form Signed Yes Patient Dressed In Hospital gown, No undergarments Pre-op Preparation Jewelry removed, Undergarments removed History & Physical On Chart Yes Obstructive Sleep Apnea Assess Completed Yes Orientation Assessment Oriented x 4 Assistive Device None Positioning Repositions self Activity Status ADL Awake, Resting NPO Status Maintained Standard Safety ID band on, Allergy Band on, Call device within reach, Bed in low position, Wheels locked, Upper/Half-Length side-rails up, Visitor at bedside, Safety level maintained, Non-Slip footwear, Precautions maintained Demonstrates Correct Call Light Use Yes Allergy Band on and Verified Yes Patient ID Band on and Verified Yes Blood Consent Signed Yes Last Fluid Intake 02/10/2023 17:00 Last Food Intake 02/10/2023 17:00 Last Void 02/11/2023 9:28 02/11/2023 9:21 EDT WBC 6.0 10^3/mcL RBC 4.42 10^6/mcL Hgb 14.0 G/dL Hct 40.6 % MCV 91.9 fL MCH 31.6 pg MCHC 34.4 G/dL RDW 13.8 % Platelet 191 10^3/mcL MPV 9.2 fL Neutrophil % 67.2 % Lymphocyte % 22.9 % Monocyte % 6.5 % Eosinophil % 2.8 % Basophil % 0.6 % Neutrophil, Absolute 4.0 10^3/mcL Lymphocyte, Absolute 1.4 10^3/mcL Monocyte, Absolute 0.4 10^3/mcL Eosinophil, Absolute 0.2 10^3/mcL Basophil, Absolute 0.0 10^3/mcL Protime 12.1 seconds PT International Ratio 1.1 ratio NA 02/10/2023 19:17 EDT History and Physical (Blank) H&P 02/11/23 02/10/2023 9:38 EDT CSummary CSUMMARY . Assessment and Plan [place] [employer] Anesthesiologists (ASA) physical status classification: Class III. Anesthetic Preoperative Plan Premedication. Anesthetic technique: General. Induction: intravenously. Maintenance airway: Oral endotracheal tube. Special Monitoring: Arterial line. Postoperative pain management: Per surgeon. Risks discussed: nausea, vomiting, headache, sore throat, dental injury, hypotension, allergic reaction, serious complications. Informed consent: signed by patient. Digitally Signed by CARL MARTIN on 02/11/2023 10:07 AM [id number] NoteSINUS RHYTHM PROLONGED QT INTERVAL Electronic Signature: EDUARDO RODRIGUEZ MD 02/12/2023 12:11:31[facility] 09-12-2023 History and physical note HISTORY & PHYSICALPCP: Bladimir Patient: Donna Snowden medical record# [id number] date of Admission: 02/11/23 CC: Palpitations and AFIB. HPI: 62 yr old female patient presenting for COMPLEX Electrophysiology Study & Radiofrequency catheter ablation for Recurrent Paroxysmal Atrial Fibrillation and Atrial Tachycardia, CHADSVASC= 2, with palpitations and ill-feeling. She had a CRYO PVAI 01/2022 and initially felt well, but in recent months she developed recurring symptoms. Monitoring in September showed Paroxysmal AFIB 50-127 bpm. ECHO in 2015 showed EF 52% with moderate LAE. She has sinus node dysfunction on higher- dose antiarrhythmic therapy. ALLERGIES: metronidazole, morphine. MEDICATIONS: 1. Eliquis 5 mg twice daily, last dose 24 hours prior to admission. 2. Dofetilide 250 mcg every 12 hours. 3. Cardizem CD 120 mg daily. 4. Spironolactone 25 mg daily. 5. Vitamin C 500 mg daily. 6. Atorvastatin 20 mg evenings. 7. Zyrtec 10 mg daily. 8. Fiber Choice 1.5 g chewable daily. 9. Magnesium oxide 400 mg twice daily. 10. Multivitamin daily. 11. Protonix 20 mg daily. 12. Potassium chloride 10 mEq twice daily. 13. Sertraline 50 mg tablet, 1.5 tablets daily. 14. Zinc gluconate 50 mg daily. Past medical history: 1. Recurrent Paroxysmal AF/AT, CHADSVASC= 2, hx CRYO PVAI 01/2022. 2. Sinus Node Dysfunction worsened on higher-dose antiarrhythmic therapy. 3. HTN. 4. DANIELLE-cpap. 5. Nonalcoholic Steatohepatitis, Abnormal LFTs. 6. GERD. 7. Vitamin D deficiency. 8. Osteoarthritis. 9. Dyslipidemia. 10. Generalized Anxiety Disorder. 11. Ectopic surgery, tonsillectomy, tooth extraction. SHx: , employed, reformed tobacco use (20pk-yr hx), no alcohol consumption, no caffeine intake. FHx: Father had Heart Disease/CHF/HTN/DM. Mother had Heart Disease/HTN. RoS: Positives per HPI, remainder reviewed and negative. PE: 120/70, pulse 80, respirations 18, height 162 cm, weight 87 kg, BMI 33. CONSTITUTIONAL: Well-developed, well nourished, in no acute distress. HEAD: Normocephalic, atraumatic. EENT: Pupils round, reactive to light and accommodation. Extraoccular muscles intact. No ENT exudates. NECK: No jugular venous distention, no carotid bruits, no thyroid masses. LUNGS: Clear, normal respiratory excursion. COR: Apical impulse not displaced. Single S1, physiologic split S2, no S3, S4, rub, click or murmur. ABD: Bowel sounds present, soft, nontender, no masses or pulsations. EXTREMITIES: Pulses 2+ bilaterally, no edema. SKIN: No rash or chronic skin infection. LYMPH: No lymphadenopathy noted. NEURO: Alert and oriented to person place time, no gross focal motor deficit. IMPRESSION: 1. Recurrent Paroxysmal AF/AT, CHADSVASC= 2, hx CRYO PVAI 01/2022. 2. Sinus Node Dysfunction worsened on higher-dose antiarrhythmic therapy. 3. HTN. 4. DANIELLE-cpap. 5. Nonalcoholic Steatohepatitis, Abnormal LFTs. 6. GERD. 7. Vitamin D deficiency. 8. Osteoarthritis. 9. Dyslipidemia. 10. Generalized Anxiety Disorder. PLAN: COMPLEX EPS/RF (HRA/HIS/RV/CS) using HD GRID and 3D mapping ([employer]) to reassess pulmonaryvein isolation, isolate posterior wall, CTI line, and any additional arrhythmia mechanisms that time allows. Findings reviewed with patient including risks of diagnoses. Proposed procedure and risks explained. Questions answered. She agrees to proceed. Post-procedure she will follow up 03/31/23 11:15am. Memo Mitchell MD, [facility], [facility] pager [phone] Digitally Signed by MEMO MITCHELL MD on 02/10/2023 07:34 PM [id number] Note ORIGINAL EXAMINATION: BONE DENSITOMETRY 02/06/2023 1:52 pm TECHNIQUE: A bone density dual x-ray absorptiometry (DEXA) scan was performed of the lumbar spine and left hip. COMPARISON: None. HISTORY: ORDERING SYSTEM PROVIDED HISTORY: Reason for Exam: screen FINDINGS: T Score Left Femoral Neck: -0.8 Left Femoral Neck: 0.757 (g/cm2) T Score Left Hip: -1.3 Left Hip: 0.780 (g/cm2) T Score Lumbar Spine: -0.3 Lumbar Spine: 1.017 (g/cmd2) FRAX: 10 year fracture risk assessment Major osteoporotic fracture: 7.3% Hip fracture: 0.4% IMPRESSION: Osteopenia by WHO criteria. *By the World Health Organization criteria: (Comparing with young normal sex matched population) - Normal: T-score at or above -1 SD (standard deviation) - Osteopenia: T-score between -1 and -2.5 SD - Osteoporosis: T-score at or below -2.5 SD Interpreted by: Royal Larsen DO Preliminary Report By: Royal Larsen DO Electronically signed By Royal Larsen DO Dictated Date: 02/06/2023 3:08:33 PM Prelim Date: 02/06/2023 3:09:01 PM Sign Date: 02/06/2023 3:09:01 PM Ordering Provider: [facility] History and physical note HISTORY & PHYSICALPCP: Bladimir Patient: Donna Snowden medical record# [id number] date of Admission: 01/02/23 CC: Atrial Fibrillation and palpitations. HPI: 62 yr old female patient presenting Complex EPS/RF for Recurrent Paroxysmal Atrial Fibrillation, CHADSVASC= 2 despite prior CRYOP VAI 01/2022 and antiarrhythmic therapy, with symptoms of palpitations and ill-feeling. Sinus node dysfunction on needed meds. Moderate LAE with good LV function by ECHO ye ars ago. ALLERGIES: metronidazole (thrush), morphine (nausea). MEDICATIONS: 1. Eliquis 5mg bid, last dose 24 hours prior to procedure. 2. Tikosyn 250mcg q12h. 3. Diltiazem CD 120mg daily. 4. Vitamin C 500mg daily. 5. Atorvastatin 20mg evenings. 6. Zyrtec 10mg daily. 7. Fiber Choice 1.5gm chewed daily. 8. Magnesium Oxide 400mg BID. 9. MVI daily. 10. pantoprazole 20mg daily. 11. potassium chloride 10mEQ BID. 12. Sertraline 50mg tablet, 1.5 tablets daily. 13. Spironolactone 25mg daily. 14. Zinc gluconate 50mg daily. PMH: 1. Recurrent Paroxysmal Atrial arrhythmias (AF, AT) with debilitating symptoms, CHADSVASC= 2 CAAP-AF= 6, hx CRYO PVAI 01/2022. 2. Sinus Node Dysfunction on higher-dose antiarrhythmic therapy. 3. HTN LVEF 52%, moderate LAE, moderate TR 2015. 4. DANIELLE-cpap. 5. GERD. 6. Anxiety/Depression. 7. MARISCAL. 8. Osteoarthritis. 9. Vitamin D deficiency. 10. tonsillectomy, ectopic surgery. SHx: , employed, reformed tobacco use over 20 pk-yr hx, no alcohol consumption. FHx: Father had heart disease, chf, htn, dm. Mother had Heart disease and htn. RoS: positives per HPI, remainder reviewed and negative. PE: 120/70 p80 r18 Ht 162cm Wt 87kg bmi 33.2 CONSTITUTIONAL: Well-developed, well nourished, in no acute distress. HEAD: Normocephalic, atraumatic. EENT: Pupils round, reactive to light and accommodation. Extraoccular muscles intact. No ENT exudates. NECK: No jugular venous distention, no carotid bruits, no thyroid masses. LUNGS: Clear, normal respiratory excursion. COR: Apical impulse not displaced. Single S1, S2, no S3, S4, rub, click or murmur. ABD: Bowel sounds present, soft, nontender, no masses or pulsations. EXTREMITIES: Pulses 2+ bilaterally, no edema. SKIN: No rash or chronic skin infection. LYMPH: No lymphadenopathy noted. NEURO: Alert and oriented to person place time, no gross focal motor deficit. IMPRESSION: 1. Recurrent Paroxysmal Atrial arrhythmias (AF, AT) with debilitating symptoms, CHADSVASC= 2 CAAP-AF= 6, hx CRYO PVAI 01/2022. 2. Sinus Node Dysfunction on higher-dose antiarrhythmic therapy. 3. HTN LVEF 52%, moderate LAE, moderate TR 2016. 4. DANIELLE-cpap. 5. GERD. 6. Anxiety/Depression. 7. MARISCAL. 8. Osteoarthritis. 9. Vitamin D deficiency. PLAN: Complex EPS/RF (HRA/HIS/RV/CS/HD GRID) with 3D mapping ([employer]) and Radiofrequency (RF) ablation of arrhythmia mechanisms identified, dual- transeptal puncture, intracardiac echocardiography & vascular ultrasound, general anesthesia and iv anticoagulation. Findings reviewed with patient including risks of diagnoses. Proposed procedure and risks explained. Questions answered. She agrees to proceed. Memo Mitchell MD, [facility], [facility] pager [phone] Digitally Signed by MEMO MITCHELL MD on 12/29/2022 06:12 PM [facility] [id number] History and physical note HISTORY & PHYSICALPCP: Bladimir Patient: Donna Snowden medical record# [id number] date of Admission: 01/02/23 CC: Atrial Fibrillation and palpitations. HPI: 62 yr old female patient presenting Complex EPS/RF for Recurrent Paroxysmal Atrial Fibrillation, CHADSVASC= 2 despite prior CRYOP VAI 01/2022 and antiarrhythmic therapy, with symptoms of palpitations and ill-feeling. Sinus node dysfunction on needed meds. Moderate LAE with good LV function by ECHO ye ars ago. ALLERGIES: metronidazole (thrush), morphine (nausea). MEDICATIONS: 1. Eliquis 5mg bid, last dose 24 hours prior to procedure. 2. Tikosyn 250mcg q12h. 3. Diltiazem CD 120mg daily. 4. Vitamin C 500mg daily. 5. Atorvastatin 20mg evenings. 6. Zyrtec 10mg daily. 7. Fiber Choice 1.5gm chewed daily. 8. Magnesium Oxide 400mg BID. 9. MVI daily. 10. pantoprazole 20mg daily. 11. potassium chloride 10mEQ BID. 12. Sertraline 50mg tablet, 1.5 tablets daily. 13. Spironolactone 25mg daily. 14. Zinc gluconate 50mg daily. PMH: 1. Recurrent Paroxysmal Atrial arrhythmias (AF, AT) with debilitating symptoms, CHADSVASC= 2 CAAP-AF= 6, hx CRYO PVAI 01/2022. 2. Sinus Node Dysfunction on higher-dose antiarrhythmic therapy. 3. HTN LVEF 52%, moderate LAE, moderate TR 2015. 4. DANIELLE-cpap. 5. GERD. 6. Anxiety/Depression. 7. MARISCAL. 8. Osteoarthritis. 9. Vitamin D deficiency. 10. tonsillectomy, ectopic surgery. SHx: , employed, reformed tobacco use over 20 pk-yr hx, no alcohol consumption. FHx: Father had heart disease, chf, htn, dm. Mother had Heart disease and htn. RoS: positives per HPI, remainder reviewed and negative. PE: 120/70 p80 r18 Ht 162cm Wt 87kg bmi 33.2 CONSTITUTIONAL: Well-developed, well nourished, in no acute distress. HEAD: Normocephalic, atraumatic. EENT: Pupils round, reactive to light and accommodation. Extraoccular muscles intact. No ENT exudates. NECK: No jugular venous distention, no carotid bruits, no thyroid masses. LUNGS: Clear, normal respiratory excursion. COR: Apical impulse not displaced. Single S1, S2, no S3, S4, rub, click or murmur. ABD: Bowel sounds present, soft, nontender, no masses or pulsations. EXTREMITIES: Pulses 2+ bilaterally, no edema. SKIN: No rash or chronic skin infection. LYMPH: No lymphadenopathy noted. NEURO: Alert and oriented to person place time, no gross focal motor deficit. IMPRESSION: 1. Recurrent Paroxysmal Atrial arrhythmias (AF, AT) with debilitating symptoms, CHADSVASC= 2 CAAP-AF= 6, hx CRYO PVAI 01/2022. 2. Sinus Node Dysfunction on higher-dose antiarrhythmic therapy. 3. HTN LVEF 52%, moderate LAE, moderate TR 2015. 4. DANIELLE-cpap. 5. GERD. 6. Anxiety/Depression. 7. MARISCAL. 8. Osteoarthritis. 9. Vitamin D deficiency. PLAN: Complex EPS/RF (HRA/HIS/RV/CS/HD GRID) with 3D mapping ([employer]) and Radiofrequency (RF) ablation of arrhythmia mechanisms identified, dual- transeptal puncture, intracardiac echocardiography & vascular ultrasound, general anesthesia and iv anticoagulation. Findings reviewed with patient including risks of diagnoses. Proposed procedure and risks explained. Questions answered. She agrees to proceed. Memo Mitchell MD, [facility], [facility] pager [phone] Digitally Signed by MEMO MITCHELL MD on 12/29/2022 06:12 PM [id number] Hospital Discharge instructions Patient Education 02/13/2022 07:50:23 3-- EP Study/Ablation (03/2018) (CUSTOM) ELECTROPHYSIOLOGY STUDY/ABLATION Discharge Instructions DIET INSTRUCTIONS Resume diet as prior to procedure ACTIVITIES Do not drive FOR 24 HOURS No heavy lifting GREATER THAN 25 POUNDS or pushing or straining FOR 48 hours BATHING/SHOWERING May tub bathe in 4 days Do not sit in hot tub, whirlpool, or swim for 4 days May shower today WOUND CARE You MAY go home with a Band-Aid over your procedure site. Keep this Band-Aid on for the next 24 hours and then remove it leaving the site open to air. Some degree of bruising and tenderness is normal around the procedure site. It will take a while for any bruising to completely resolve. Keep your site clean and dry. You need to report the following to your metal weather stripper: Any draining or oozing from the site Any swelling at the site Any increased pain or tenderness at the site Any numbness in your leg where the procedure was done Any sign of infection WATCH FOR SIGNS OF INFECTION: Elevated temperature above 100.5 Redness or swelling Increased pain Foul odor or drainage. If you have any questions, please call your doctor at the number listed on your follow up instructions. Follow all instructions given to you by your physician. Document Released: 05/18/2006 Document Revised: 05/04/2013 Document Reviewed: 05/19/2014 ExitCare Patient Information 2015 [employer]. This information is not intended to replace advicegiven to you by your health care provider. Make sure you discuss any questions you have with your health care provider. Follow Up Care 01/21/2022 13:45:59 With:MEMO MITCHELL MD Address: [address] [place] [address] [address] [facility] [place] [address]- [phone] When:04/01/2022 09:15:00 Comments:THIS APPOINTMENT WILL BE WITH JAY VICTORIA [facility] 09-15-2022 Summary of episode note Discharge Instructions Thank you for allowing [place] to assist you with your healthcare needs. The following is importantdischarge information regarding your hospital visit. Your Care Team LUISA GARRISON MD Your Diagnosis Atrial fibrillation Hypertension Hypomagnesemia What to do next Scheduled Follow-Up Appointments Appointment Type When With Where Contact InformationCV OV 04/01/2022 09:15 AM AALIYAH JACOBSON [facility] OV 05/21/2022 08:30 AM LUISA MCCORMICK MD [facility] CV OV 12/30/2022 10:15 AM AALIYAH JACOBSON [facility] Follow Up Appointments Follow Up with MEMO MITCHELL MD When 04/01/2022 09:15 AM EDT Why: THIS APPOINTMENT WILL BE WITH JAY VICTORIA Where: [address] [facility] [place] [address]- [phone] The Following Activity and Diet Have Been Ordered for You Discharge Activity - Ordered -- Lifting Restricted less than 25 pounds, No lifting over 25 pounds for 48 hours. May shower. No tub bath or pool for 48 hours., 02/13/22 7:02:00 EDT Discharge Diet - Ordered -- No changes were made to your diet during your hospital stay. Please resume your pre hospitalization diet on discharge., 02/13/22 7:02:00 EDT Allergies metronidazole (Thrush of mouth and esophagus) morphine (Nausea) Medications Please ask your primary doctor or pharmacist before taking any other medication not listed, including over the counter drugs, herbal medications, vitamins and or supplements as they may interact withyour home medications. What How Much When Why Instructions Last Dose New colchicine (colchicine 0.6 mg oral capsule) 1 cap by mouth Two (2) times a day Duration: 7 Days Pickup at [facility]/pharmacy #[id number] Unchanged apixaban (Eliquis 5 mg oral tablet) 1 tab(s) by mouth Two (2) times a day Unchanged ascorbic acid (Vitamin C 500 mg oral tablet) 1 tab(s) by mouth Once a day Unchanged atorvastatin (atorvastatin 20 mg oral tablet) 1 tab(s) by mouth Daily at bedtime Unchanged cetirizine (Zyrtec 10 mg oral tablet) 1 tab(s) by mouth Once a day Unchanged dilTIAZem (Cardizem CD 120 mg/ 24 hours oral capsule, extended release) 1 cap by mouth Once a day Unchanged dofetilide (Tikosyn 250 mcg oral capsule) 1 cap by mouth Every 12 hours Atrial fibrillation Unchanged inulin (Fiber Choice 1.5 g oral tablet, chewable) 1 tab(s) Chewed Every day Unchanged magnesium oxide (magnesium oxide 400 mg oral tablet) 1 tab(s) by mouth Two (2) times a day Hypomagnesemia Unchanged multivitamin (Multivitamin) 1 tab(s) by mouth Every day Unchanged pantoprazole (Protonix 20 mg oral enteric coated tablet) 1 tab(s) by mouth Once a day Duration: 90 Days Unchanged potassium chloride (potassium chloride 10 mEq oral capsule, extended release) 1 cap by mouth Two (2) times a day Duration: 90 Days take with food. Unchanged sertraline (sertraline 50 mg oral tablet) 1.5 tab(s) by mouth Once a day Duration: 90 Days Unchanged spironolactone (spironolactone 25 mg oral tablet) 1 tab(s) by mouth Once a day with a meal Hypertension Unchanged zinc gluconate (zinc (as gluconate) 50 mg oral tablet) 1 tab(s) by mouth Every day Pharmacy Information [facility]/pharmacy #[id number]: [address], [place] [id number] [phone] Please take this list to your next doctor s visit. Bring all medications you take, including over the counter medications, herbals and other supplements with you to your doctor s visit. Patients and families are reminded to discard old lists and to update any records with all medication providers or retail pharmacies. Education Materials ELECTROPHYSIOLOGY STUDY/ABLATION Discharge Instructions DIET INSTRUCTIONS Resume diet as prior to procedure ACTIVITIES Do not drive FOR 24 HOURS No heavy lifting GREATER THAN 25 POUNDS or pushing or straining FOR 48 hours BATHING/SHOWERING May tub bathe in 4 days Do not sit in hot tub, whirlpool, or swim for 4 days May shower today WOUND CARE You MAY go home with a Band-Aid over your procedure site. Keep this Band-Aid on for the next 24 hours and then remove it leaving the site open to air. Some degree of bruising and tenderness is normal around the procedure site. It will take a while for any bruising to completely resolve. Keep your site clean and dry. You need to report the following to your metal weather stripper: Any draining or oozing from the site Any swelling at the site Any increased pain or tenderness at the site Any numbness in your leg where the procedure was done Any sign of infection WATCH FOR SIGNS OF INFECTION: Elevated temperature above 100.5 Redness or swelling Increased pain Foul odor or drainage. If you have any questions, please call your doctor at the number listed on your follow up instructions. Follow all instructions given to you by your physician. Document Released: 05/18/2006 Document Revised: 05/04/2013 Document Reviewed: 05/19/2014 ExitCare Patient Information 2015 [employer]. This information is not intended to replace advicegiven to you by your health care provider. Make sure you discuss any questions you have with your health care provider. Additional Information VACCINATE! IT SAVES LIVES! Members of the community who have not yet received the COVID-19 vaccine and would like to receive it can visit one of [facility] vaccine clinics. There are many vaccine clinic locations within the [facility]. For locations and available times, please visit [email or web address].[place].gov/. It is important to note that some COVID mobile vaccine clinics are held outdoors and may be canceled in rainy or stormy conditions. To learn more about pediatric vaccinations (ages 5-11), we invite you to visit the [facility] webpage. https://www.[facility] [facility] [employer] [facility].org/pages/3561-Tmrxa-Ckkdvnotbzp-Fsskyiinpb-Riufc-Pvi stions.htmlTo learn more about the COVID-19 vaccine, we invite you to visit the [place] website for a list of frequently asked questions. [email or web address]-[email or web address]-Olhprkh-[email or web address] _[email or web address]-Questions.pdf [facility] Patient Portal Access Instructions: Stay connected with your healthcare team and access your personal medical information anytime with the [facility] Patient Portal.If you would like a full copy of your medical records, please contact the [facility] Medical Records Department, Thursday through Thursday between 8a.m. and 4:30p.m. Please follow the directions below to access the portal: 1.Access the email account you provided upon registration to the [facility].2.Look for an invitation email from [facility].3.Open the email and access the invitation link: Accept Invitation to [facility]4.Fill in the required joyner to create your account. Sign into www.[employer] with your username and password that you created in the above steps to stay up to date. You can then view a summary of results, a summary of your visits, and the ability to download your summaries to your computer or send the information securely to a physician. Remember that your healthcare information is confidential, so carefully consider who you will allow to register on the [facility] Patient Portal for access to your information. You can also access the [facility] Patient Portal on the emids. Simply click on Health Records under [employer] and then click on the [employer] logo. HOW TO SAFELY DISPOSE OF PRESCRIPTION MEDICATIONS Please use one of the following methods to safely dispose of your unused medications. 1.Use a drug disposal kit: the drug disposal pouch allows you to safely discard your old and unuseddrugs. Ask your nurse to give you one when you are discharged.2.Visit a local take-back location: Many local pharmacies and police departments have programs that collect old and unwanted prescriptiondrugs. Call your local pharmacy or go to http://[employer]/3S5Jx5t to find one close to you.3.Make use of household items: Use cat litter or old coffee grounds to dispose medications if other options arenot available. Mix your drugs with these household products, seal them in an airtight container andthrow it into the garbage. Call [facility]: [phone] to be sure your drugs can be disposed of in this way. Some medicines may require a different approach.4.Never flush your medications down the toilet. IF YOU HAVE BEEN PRESCRIBED AN OPIOID FOR PAIN If you have been prescribed an opioid (such as hydrocodone, oxycodone or morphine), it is critical to understand the possible side effects and risks of opioid pain medications. Even when taken as directed, opioids can have several side effects including: Tolerance, meaning you might need to take more of a medication for the same pain relief. Nausea, vomiting and/or constipation. Sleepiness, dizziness, dry mouth, confusion, depression or itching. Physical dependence, meaning you have withdrawal symptoms when a medication is stopped, can develop within a few days. KNOW YOUR RESPONSIBILITIES It is important to know exactly how much and how often to take the opioid pain medications you are prescribed. Never take opioids in higher amounts or more often than prescribed. Do not combine opioids with alcohol or other drugs that cause drowsiness, such as benzodiazepines, also known as benzos, including diazepam and alprazolam, muscle relaxants or sleep aids. Never sell or share prescription opioids. This is illegal. Store opioids in a secure place and out of reach of others (including children, family, friends and visitors). The last page of this document has been signed and retained as a CHART COPY. Signatures Patient Education Materials 3-- EP Study/Ablation (03/2018) (CUSTOM) Medication Leaflets My discharge plan and instructions have been reviewed and explained to me and I,DONNA SNOWDEN Nj understand my current condition and have read and understand these discharge instructions. I have received a written copy of the plan/instructions. If I have questions, I am aware that I should contactmy doctor. Patient/Public Health Analyst Signature: Date/Time: Relationship to Patient: Witness Name/Signature: Date/Time: [id number] Note EP PROGRESS NOTESeen for AF.PCP: Bladimir Patient: Donna Mauro Isi medical record# [id number] TELEMETRY reviewed: Normal sinus rhythm. QTc ok. ECG reviewed personally: (02/13 5:20a): Sinus 74 bpm, pr 166ms, qrs 93ms, QT 437ms, QTc 485ms. Borderline T-waves right precordial leads. LABS: reviewed. WBC 8.6, hemoglobin 13.5, 206,000 platelets, sodium 140, potassium 4.2, chloride 105, bicarb 24, glucose 108, BUN 24, creatinine 0.72. Bilirubin 0.9 alkaline phosphatase 168 AST 44 ALT 69. SUBJECTIVE: The patient developed pleuritic chest discomfort yesterday afternoon: anterior catchingpain with inspiration. She received one dose of solu-cortef, and started on colchicine, with improvement in symptoms. She feels a little jittery this morning, but denies any angina, dyspnea, lightheadedness, or palpitations. Swallowing and ambulating ok. OBJECTIVE: 100/60, pulse 80 regular, respirations 18, afebrile. HEENT: Unremarkable. Lungs: Clear, normal respiratory excursion. Cardiac: Single first and second heart sound, no S3 or rub appreciated. Abdomen: Bowel sounds present, soft, nontender, no abdominal pulsations. Extremities: No edema, pulses 2+ bilaterally. Bilateral groin Figure-of-8 sutures/stopcocks removed, no bleeding or hematoma. IMPRESSION/Recommendations: 1. s/p CRYO PVAI for Paroxysmal Atrial Fibrillation CHADSVASC= 2 CAAP-AF= 6(70%) with palpitations and fatigue. HOME TODAY. 1 week course of colchicine 0.6mg bid as tolerated. Follow up with Physician Magisterial District Judge in several weeks. Plan to stop Tikosyn in 3 months. 2. Ectopic Atrial Tachycardia. I think this is also eliminated with PVAI. 3. Sinus Node Dysfunction, worsened on stronger antiarrhythmic agents. stable. 4. HTN LVEF 52%, moderate LAE, TR2+. 5. DANIELLE-cpap. 6. GERD. 7. Osteoarthritis. 8. Vitamin D Deficiency. 9. Anxiety and Depression, panic attacks. 10. Fatty liver. Memo Mitchell MD, [facility], [facility] pager [phone] Digitally Signed by MEMO MITCHELL MD on 02/13/2022 07:22 AM [facility] [id number] Physician Discharge summary DISCHARGE SUMMARY NOTEPCP: Bladimir Patient: Donna Snowden medical record# [id number] date of Admission: 02/12/22date of Discharge: 02/13/22 Discharge diagnoses: 1. Paroxysmal Atrial Fibrillation CHADSVASC= 2 CAAP-AF= 6(70%) with palpitations and fatigue. 2. Ectopic Atrial Tachycardia. 3. Sinus Node Dysfunction, worsened on stronger antiarrhythmic agents. 4. HTN LVEF 52%, moderate LAE, TR2+. 5. DANIELLE-cpap. 6. GERD. 7. Osteoarthritis. 8. Vitamin D Deficiency. 9. Anxiety and Depression, panic attacks. 10. Fatty liver. 11. Post-ablation pleuritic chest pain. Principal Procedures Performed: 1. CRYO Pulmonary Vein Antral Isolation (PVAI) ablation. 2. Electrophysiology Study with 3D mapping (st derrek). 3. Transeptal puncture for left atrial access. 4. Intracardiac Echocardiography and Vascular Ultrasound. 5. General Anesthesia and iv anticoagulation. Discharge medications: 1. Eliquis 5 mg twice daily. 2. Colchicine 0.6 mg twice daily for 1 week. 3. Tikosyn 250 mcg every 12 hours. 4. Cardizem CD 120 mg daily. 5. Vitamin C 500 mg daily. 6. Atorvastatin 20 mg evenings. 7. Zyrtec 10 mg daily. 8. Fiber Choice 1.5 g, 1 tablet daily. 9. Magnesium oxide 400 mg twice daily. 10. Multivitamin daily. 11. Protonix 20 mg daily. 12. Potassium chloride 10 mEq twice daily. 13. Sertraline 50 mg tablet, 1.5 tablets daily. 14. Spironolactone 25 mg daily. 15. Zinc gluconate 50 mg daily. Discharge instructions: Resume prior diet. No lifting over 25 pounds for 48 hr after discharge. No tub bath or pool for 48 hr after discharge; may shower. Follow up visit 04/01/22 9:15a with Physician Magisterial District Judge, Nancy Dowling. Summary: 61-year-old female presenting for cryo ablative therapies for paroxysmal atrial fibrillation with moderate left atrial enlargement and debilitating symptoms. Please see H&P (01/13/22 Office EP Note) for further details. Hospital course: The patient underwent successful CRYO PVAI ablation with exit block demonstrated all 5 pulmonary veins. She developed some pleuritic chest pain post-operatively related to transmural ablation, treated with single dose solu-cortef and initiation of colchicine. On the day of discharge she is feeling better, eating and ambulating ok. Cath sites are healing well with no hematoma. Monitoring shows normal sinus rhythm. She will follow up through our office in several weeks to review rhythm and symptoms. Will look to wean off Tikosyn in 3 months, and possibly cardizem soon after. Memo Mitchell MD, [facility], [facility] pager [phone] Digitally Signed by MEMO MITCHELL MD on 02/13/2022 07:13 AM [facility] [id number] Anesthesiology Consult note Patient: DONNA SNOWDEN Age: 61 years Sex: Female : 1960 Associated Diagnoses: None Author: JUAREZ CAMP MD Postoperative Information Post Operative Info: Post op day: Day 0. Patient location: [facility]. Notes: s/p afib ablation. Assessment Postanesthesia assessment Vitals: Vital signs from flowsheet : Vital Signs 02/12/2022 12:30 EDT Heart Rate Monitored 82 bpm Respiratory Rate 14 br/min Systolic Blood Pressure NBP 117 mmHg Diastolic Blood Pressure NBP 57 mmHg LOW , Oxygen Therapy : Oxygen Therapy & Oxygenation Information 02/12/2022 12:30 EDT Oxygen Therapy Room air Oxygen Saturation 92 % LOW . Mental status: at preoperative baseline. Respiratory function: respirations are non-labored. Respiratory support: none. CV function: Normal rate, Regular rhythm. Cardiovascular support: none. Pain: Satisfactory. Nausea status: Satisfactory. Postoperative hydration status: within normal limits. Notes: Patient is sufficiently recovered from anesthesia to participate in the evaluation. No follow-up care needed. No complications post-anesthesia.. Digitally Signed by JUAREZ CAMP MD on 02/12/2022 12:35 PM [id number] Note ELECTROPHYSIOLOGY STUDY & ABLATION NOTEPCP: Bladimir Patient: Donna Snowden medical record# [id number] date of Procedure: 02/12/22 PROCEDURE: 1. CRYO Pulmonary Vein Antral Isolation (PVAI) ablation. 2. Electrophysiology Study with 3D mapping (st derrek). 3. Transeptal puncture for left atrial access. 4. Intracardiac Echocardiography and Vascular Ultrasound. 5. General Anesthesia and iv anticoagulation. INDICATION: 1. Paroxysmal Atrial Fibrillation CHADSVASC= 2 CAAP-AF= 6(70%) with palpitations and fatigue. 2. Ectopic Atrial Tachycardia. 3. Sinus Node Dysfunction, worsened on stronger antiarrhythmic agents. 4. HTN LVEF 52%, moderate LAE, TR2+. Medications: Eliquis, Tikosyn, Cardizem. SUMMARY: 1. Successful CRYO PVAI with exit block in all pulmonary veins. 2. Presenting rhythm sinus cl 770ms, pr 140ms, qrs 90ms, QT 458ms. AF developed during mapping. Esophagus coursed closer to right pulmonary veins requiring titration of energy. Two left pulmonary veins, three right pulmonary veins. 3. Normal Sinus Node function (info not provided). 4. Normal Atrial refractoriness: AERP 600/270. 5. Normal AVN function: AH 80ms, AVN Wenckebach 420ms, VA Wenckebach 300ms, AVNERP 600/310. 6. Normal HIS-purkinje function: HV 50ms. 7. Normal Ventricular refractoriness: VERPrva 600/270, 400/250. 8. Subsequent to CRYO AF persisted. DCC 200j synch returned normal sinus rhythm which was maintained. Exit block mapping/pacing demonstrated subsequently. RECOMMENDATIONS: Observe overnight. Bedrest 4 hours with legs still, then may ambulate. Resume prior diet. Resume Eliquis 02/13. Resume other meds. Will remove Figure-of-8 sutures/stopcocks from groin sites in am. No lifting over 25 pounds for 48 hr after discharge. No tub bath or pool for 48 hr after [facility] Follow up visit 04/01/22 9:15a with Physician Magisterial District Judge, Nancy Dowling. Procedure: The patient was brought to EP LAB #1 in the fasting well-hydrated state and prepped and draped in the usual sterile fashion. The 3D mapping patches were applied on the thorax prior to draping the patient. General anesthesia was administered by anesthesia personnel present throughout the case, during which time an esophageal thermistor probe was placed for localizing the esophagus and for monitoring temperature during ablation, regularly repositioning the probe to a site closest to the ablation catheter. Local anesthesia with 1% lidocaine was administered to provide a numbing effect in the left and right femoral regions. Using modified Seldinger technique and Vascular Ultrasound, one biport venous sheath and additional venous sheath were placed in the left femoral vein, through which were advanced diagnostic EP catheters to the HIS and RV (and later RA) locations, and an intracardiac echocardiography (ICE) catheter under fluoroscopic guidance into the right atrium, and a baseline ICE study was performed. Baseline ICE demonstrated LAE. RA nl. Left and right ventricular size and function were normal. Mitral, tricuspid, pulmonic, and aortic valve leaflets were grossly normal in appearance with normal exam. There were two left pulmonary veins, and THREE right pulmonary veins. There was no intracardiac mass or thrombus. There was no pericardial effusion. Subsequently, the ICE catheter was positioned on a plane to demonstrate the intraatrial septum and left pulmonary vein. Using modified Seldinger technique and Vascular Ultrasound, a long guidewire was placed into the right femoral vein up to the the SVC and the patient was administered iv heparin bolus and drip to a goal ACT of 300-400s. Over the guidewire was placed a Transeptal sheath mounted on a dilator. The guidewire was removed and the sheath carefully flushed and connected to heparinizedsaline solution. A BrockenCobrainugh needle was placed into the sheath. With the fluoroscopy positioned in the BURKINAN position, the sheath was gradually withdrawn back into the RA until the tip tented against the intraatrial septum as verified by the ICE catheter. Transeptal puncture was performed verifiedby injecting saline thru the needle assembly and visualizing in the LA by ICE. The sheath was advanced while the needle and dilator were removed resulting in one transseptal puncture and one sheath exiting in the left atrium. An exchange wire was advanced through the sheath into the left pulmonary vein, and the sheath was exchanged for a Medtronic steerable sheath placed similarly into the left atrium and the guidewire was removed. The sheath was carefully flushed and connected to heparinized saline solution. Through that sheath was advanced the HeliatekFront Advance CRYO-balloon and Achieve mapping catheter. An electro-anatomic map The left atrium and pulmonary veins was created compared with her prior obtained CT angiography. Cryoablation was then performed in a sequential manner starting with the left superior pulmonary vein, left inferior pulmonary vein, right inferior pulmonary vein, and right middle pulmonary vein, and superior pulmonary vein. Ablation was performed during real-time analysis of the electrograms. Prior to ablating the right pulmonary veins, the HIS bundle catheter was repositioned in the SVC to pace the phrenic nerve while monitoring diaphragmatic contraction to assure no damage to the phrenic nerve during ablation. Approximately two freezes were performed on each vein. Energy titrated to avoid excessive cooling of esophagus which coursed near right pulmonary veins. Upon completion of ablation, DC Cardioversion performed to return sinus rhythm, then the mapping catheter was repositioned in each of the veins and pacing was performed to demonstrate exit block. Upon completing ablation and testing, the ablation system and transseptal sheath were removed from the left atrium with the ablation system removed from the body, and the sheath pulled back to the inferior vena cava. The HIS bundle catheter was repositioned, and programmed stimulation was performed starting with ventricular programmed stimulation, then repositioning the RV catheter into the right atrium and performing atrial programmed stimulation. At completion of testing, all catheters were removed from the body. A final ice study was performedand then this catheter was removed. The patient was recovered from anesthesia and administered IV protamine to reverse heparin effect. Figure-of-8 sutures were placed around each groin cath site with2-0 Vicryl, secured with stopcocks. The sheaths were pulled once the ACT level dropped below 160 seconds, and pressure was held until adequate hemostasis was obtained. Complications: None. Specimens: None. Estimated blood loss: 10 mL. Contrast: 20mL. Memo Mitchell MD, [facility], [facility] pager [phone] Digitally Signed by MEMO MITCHELL MD on 02/12/2022 11:36 AM [facility] [id number] Note EP BRIEF NOTERe: Atrial Fibrillation.PCP: Bladimir Patient: Donna Snowden medical record# [id number] date of Admission: 02/12/22 Please see H&P (01/13/22 Office EP Note) for further details. IMPRESSION: 1. Paroxysmal Atrial Fibrillation CHADSVASC= 2 CAAP-AF= 6(70%) with palpitations and fatigue. Eliquis 2. Ectopic Atrial Tachycardia. 3. Sinus Node Dysfunction, worsened on stronger antiarrhythmic agents. 4. HTN LVEF 52%, moderate LAE, TR2+. 5. DANIELLE-cpap. 6. GERD. 7. Osteoarthritis. 8. Vitamin D Deficiency. 9. Anxiety and Depression, panic attacks. 10. Fatty liver. PLAN: CRYO Pulmonary Vein Antral Isolation (PVAI) ablation. We will perform EPS with 3D mapping (st derrek), with aid of Vascular Ultrasound and Intracardiac Echocardiography to guide transeptal puncture. Findings reviewed with patient including risks of diagnoses. Proposed alternative antiarrhythmic therapy (tikosyn) offered. Questions answered. Agrees to proceed with CRYO PVAI. Post- procedure she will have follow up 04/01/22 9:15a with Physician Magisterial District Judge, Nancy Dowling. Memo Mitchell MD, [facility], [facility] pager [phone] Digitally Signed by MEMO MITCHELL MD on 02/07/2022 10:19 AM [facility] [id number] Anesthesiology Consult note Patient: DONNA SNOWDEN Age: 61 years Sex: Female : 1960 Associated Diagnoses: None Author: JUAREZ CAMP MD Preoperative Information Time of last food or liquid consumption: 02/11/2022 23:00:00 Anesthesia history Patient's history: negative. History of Present Illness 61 yr old F pt with afib on Eliquis (last dose yesterday morning) presents for ablation. PMH: sinusnode dysfunction, HTN, HLD, GERD, fatty liver, DANIELLE on CPAP, obesity (BMI 35.8), OA, anxiety and depression. LVEF 52% per recent tear down man note. 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 Review of Systems Ear/Nose/Mouth/Throat: Negative except as documented in history of present illness. Respiratory: Negative except as documented in history of present illness. Cardiovascular: Negative except as documented in history of present illness. Gastrointestinal: No GERD symptoms.. Genitourinary: Negative except as documented in history of present illness. Endocrine: Negative except as documented in history of present illness. Musculoskeletal: Negative except as documented in history of present illness. Integumentary: Negative except as documented in history of present illness. Neurologic: Negative except as documented in history of present illness. Health Status Allergies: Allergic Reactions (Selected) Severity Not Documented Metronidazole- Thrush of mouth and esophagus. Morphine- No reactions were documented., Allergies (2) ActiveReaction metronidazoleThrush of mouth and esophagus morphineNone Documented Current medications: (Selected) Inpatient Medications Ordered NS 1,000 mL: 20 mL/hr, Intravenous Prescriptions Prescribed Cardizem CD 120 mg/24 hours oral capsule, extended release: 120 mg, 1 cap(s), Oral, qDay, 30 cap(s), 2 Refill(s) Eliquis 5 mg oral tablet: 5 mg, 1 tab(s), Oral, BID, 180 tab(s), 3 Refill(s) Protonix 20 mg oral enteric coated tablet: 20 mg, 1 tab(s), Oral, qDay, for 90 day(s), 90 tab(s), 3Refill(s) Tikosyn 250 mcg oral capsule: 250 mcg, 1 cap(s), Oral, q12h, 60 cap(s), 11 Refill(s) atorvastatin 20 mg oral tablet: 20 mg, 1 tab(s), Oral, qHS, 30 tab(s), 11 Refill(s) magnesium oxide 400 mg oral tablet: 400 mg, 1 tab(s), Oral, BID, 180 tab(s), 3 Refill(s) potassium chloride 10 mEq oral capsule, extended release: 10 mEq, 1 cap(s), Oral, BID, for 90 day(s), take with food., 180 cap(s), 11 Refill(s) sertraline 50 mg oral tablet: 75 mg, 1.5 tab(s), Oral, qDay, for 90 day(s), 135 tab(s), 3 Refill(s) spironolactone 25 mg oral tablet: 25 mg, 1 tab(s), Oral, qDayM, 90 tab(s), 11 Refill(s) Documented Medications Documented Fiber Choice 1.5 g oral tablet, chewable: 1.5 gram(s), 1 tab(s), Chewed, Daily, 90 tab(s), 0 Refill(s) Multivitamin: 1 tab(s), Oral, Daily, 0 Refill(s) Vitamin C 500 mg oral tablet: 500 mg, 1 tab(s), Oral, qDay, 30 tab(s), 0 Refill(s) Zyrtec 10 mg oral tablet: 10 mg, 1 tab(s), Oral, qDay, 30 tab(s), 0 Refill(s) zinc (as gluconate) 50 mg oral tablet: 50 mg, 1 tab(s), Oral, Daily, 30 tab(s), 0 Refill(s), Medications (1) Active Scheduled: (0) Continuous: (1) NS (0.9% nacl) 1,000 mL 1,000 mL, Intravenous, 20 mL/hr PRN: (0) Problem list: Medical Anxiety and depression / SNOMED CT 01052844 / Confirmed Atrial fibrillation / SNOMED CT 58999559 / Confirmed Ectopic Atrial Tachycardia / SNOMED CT 783920890 / Confirmed Hypertension / SNOMED CT 6624069 / Confirmed Essential (primary) hypertension / SNOMED CT 84553008 / Confirmed GERD (gastroesophageal reflux disease) / SNOMED CT 351416195 / Confirmed Hyperglycemia / SNOMED CT 897459108 / Confirmed Hypokalemia / SNOMED CT 52356542 / Confirmed Hypomagnesemia / SNOMED CT 538569678 / Confirmed Postmenopausal syndrome / SNOMED CT 417921718 / Confirmed Mixed hyperlipidemia / SNOMED CT 733727513 / Confirmed Mortons neuroma of right foot / SNOMED CT 926309860928709 / Confirmed Neuritis / SNOMED CT 350345660 / Confirmed OBSTRUCTIVE SLEEP APNEA, ADULT / SNOMED CT 3115626125 / Confirmed DANIELLE on CPAP / SNOMED CT 576060003 / Confirmed Osteoarthritis, multiple sites / SNOMED CT 0932417975 / Confirmed Osteoarthritis of right hip / SNOMED CT 8001772308 / Confirmed INCREASED BMI (Renamed from OVERWEIGHT) / SNOMED CT 303150139 / Confirmed Pain in right foot / SNOMED CT 714613493060843 / Confirmed Palpitations / SNOMED CT 557171579 / Confirmed PANIC ATTACKS / SNOMED CT 21099416 / Confirmed AF- Paroxysmal, chadsvasc= 2 / SNOMED CT 736448845 / Confirmed ECHO: EF 52% mod LAE, TR2+ [2015] / SNOMED CT 4569939859 / Confirmed Visit for monitoring Tikosyn therapy / SNOMED CT 166550369 / Confirmed Hospital discharge follow-up / SNOMED CT 3626016099 / Confirmed Sinus node dysfunction / SNOMED CT 286433676 / Confirmed Fatty liver / SNOMED CT 047954494 / Confirmed Vitamin D deficiency / SNOMED CT 08965127 / Confirmed, Active Problems (29) AF- Paroxysmal, chadsvasc= 2 Anxiety and depression Atrial fibrillation ECHO: EF 52% mod LAE, TR2+ [2015] Ectopic Atrial Tachycardia Essential (primary) hypertension Fatty liver GERD (gastroesophageal reflux disease) Hospital discharge follow-up HTN (hypertension) Hyperglycemia Hypertension Hypokalemia Hypomagnesemia INCREASED BMI (Renamed from OVERWEIGHT) Mixed hyperlipidemia Mortons neuroma of right foot Neuritis OBSTRUCTIVE SLEEP APNEA, ADULT DANIELLE on CPAP Osteoarthritis of right hip Osteoarthritis, multiple sites Pain in right foot Palpitations PANIC ATTACKS Postmenopausal syndrome Sinus node dysfunction Visit for monitoring Tikosyn therapy Vitamin D deficiency Histories Past Medical History: Resolved SOB (shortness of breath) (440544189): Resolved. Ectopic (59626163): Resolved. Panic attack (034418045): Resolved. Paroxysmal atrial tachycardia (263272765): Resolved. Family History: Heart disease Mother Father HTN - Hypertension Mother Father Procedure history: Echocardiogram (0538386909) in the month of 04/2021 at 60 Years. Comments: 06/26/2021 15:28 KAROLINA - Pau Dawson RN Summary: 1. Left ventricle: The cavity size is normal. Wall thickness is normal. Systolic function is normal. The estimated ejection fraction is 50-55%. Wall motion is normal; there are no regional wall motion abnormalities. Normal diastolic function. 2. Right ventricle: The RV systolic pressure by Doppler is 17 mm Hg. Arthroplasty of right hip joint ([id number]) on 04/16/2021 at 60 Years. Echocardiography (procedure) (17490167) in the month of 01/2016 at 55 Years. Comments: 08/14/2020 9:04 Pau Hyatt RN Outside Source Comment: EF 50-55%, LA moderately dilated, Mild MR, Mod TR Tonsillectomy (627226636). Ectopic (94775720). Comments: 11/20/2017 15:16 MONSE Cole 4 Tooth extraction (63685846). Comments: 11/20/2017 15:16 MONSE ColeDOM 24 Hour ECG (regime/therapy) (931897617). Comments: 08/14/2020 9:04 Pau Hyatt RN Outside Source Comment: 03/2015, 11/2013 Cardiovascular stress testing (procedure) (042401825). Comments: 08/14/2020 9:04 Pau Hyatt RN Outside Source Comment: 03/2015: Exercise nuclear stress test showing small fixed apical defect consistent with scar versus breast attenuation. No reversible ischemia noted. EF 63%. 2012: EF 53% Social History Social & Psychosocial Habits Alcohol 11/20/2017Risk Assessment: Denies Alcohol Use 11/03/2019 Use: Never Employment/School 08/14/2020 Status: Employed Substance Abuse 11/20/2017Risk Assessment: Denies Substance Abuse Tobacco 07/25/2018 Tobacco Use: Former smoker, quit more Type: Cigarettes Started at age: 14 Years Stopped at age: 42 Years 2Risk Assessment: No Risk Home/Environment 08/14/2020 Marital Status of Patient if Patient Independent Adult: Nutrition/Health 08/14/2020 Caffeine intake amount: current but reduced due to higher BP . Physical Examination Vital Signs 02/12/2022 5:37 EDT Respiratory Rate 18 br/min Vital Signs(last 24 hrs) Last Charted Resp Rate 18 br/min (FEB 12 05:37) Pain assessment: Pain Assessment 02/12/2022 5:37 EDT Primary Pain Intensity 0 Pain Scale Type 0-10 Pain scale . General: Alert and oriented, No acute distress. Airway: Normal temporomandibular joint mobility. Mallampati classification: II (soft palate, fauces, uvula visible). Head: Normocephalic, Atraumatic. Dentition Evaluation: Intact, Own teeth. Neck: Supple, Non-tender. Respiratory: Lungs are clear to auscultation, Respirations are non-labored. Cardiovascular: Normal rate, Regular rhythm, No murmur. Heart Sounds: Normal. Gastrointestinal: Soft, Non-tender. Musculoskeletal Normal range of motion. Normal strength. Integumentary: Intact, Warm. Neurologic: Alert, Oriented, No focal deficits. Review / Management Results review: Labs (Last four charted values) WBC 8.6(FEB 12) Hgb 13.5(FEB 12) Hct 38.7(FEB 12) Plt 206(FEB 12) PT 13.3(FEB 12) INR 1.1(FEB 12) , Lab results 02/12/2022 6:03 EDT Electrocardiogram - EKG - CV Completed (In Progress) 02/12/2022 5:54 EDT WBC 8.6 10^3/mcL RBC 4.37 10^6/mcL Hgb 13.5 G/dL Hct 38.7 % MCV 88.6 fL MCH 30.9 pg MCHC 34.9 G/dL RDW 14.3 % Platelet 206 10^3/mcL MPV 8.0 fL Neutrophil % 73.1 % Lymphocyte % 17.5 % LOW Monocyte % 6.9 % Eosinophil % 1.9 % Basophil % 0.6 % Neutrophil, Absolute 6.3 10^3/mcL Lymphocyte, Absolute 1.5 10^3/mcL Monocyte, Absolute 0.6 10^3/mcL Eosinophil, Absolute 0.2 10^3/mcL Basophil, Absolute 0.1 10^3/mcL Protime 13.3 seconds PT International Ratio 1.1 ratio NA 02/12/2022 5:37 EDT Respiratory Rate 18 br/min Primary Pain Intensity 0 Pain Scale Type 0-10 Pain scale Heart Sounds ICU S1S2 Heart Rhythm Regular Oxygen Therapy Room air Oxygen Saturation 99 % Extremity Movement Equal Characteristics of Speech Clear Level of Consciousness Alert Affect/Behavior Appropriate, Cooperative, Anxious Orientation Oriented x 4 Orientation Assessment Oriented x 4 . Assessment and Plan [place] [employer] Anesthesiologists (ASA) physical status classification: Class III. Anesthetic Preoperative Plan Premedication: intravenous. Anesthetic technique: General. Induction: intravenously. Maintenance airway: Oral endotracheal tube. Special Monitoring: Arterial line, CVC from the field.. Postoperative pain management: Per surgeon. Risks discussed: nausea, sore throat, dental injury, allergic reaction, serious complications. Informed consent: signed by patient. Digitally Signed by JUAREZ CAMP MD on 02/12/2022 06:41 AM Digitally Signed by JUAREZ CAMP MD on 02/12/2022 06:42 AM [id number] EP BRIEF NOTERe: Atrial Fibrillation.PCP: Bladimir Patient: Donna Snowden medical record# [id number] date of Admission: 02/12/22 Please see H&P (01/13/22 Office EP Note) for further details. IMPRESSION: 1. Paroxysmal Atrial Fibrillation CHADSVASC= 2 CAAP-AF= 6(70%) with palpitations and fatigue. Eliquis 2. Ectopic Atrial Tachycardia. 3. Sinus Node Dysfunction, worsened on stronger antiarrhythmic agents. 4. HTN LVEF 52%, moderate LAE, TR2+. 5. DANIELLE-cpap. 6. GERD. 7. Osteoarthritis. 8. Vitamin D Deficiency. 9. Anxiety and Depression, panic attacks. 10. Fatty liver. PLAN: CRYO Pulmonary Vein Antral Isolation (PVAI) ablation. We will perform EPS with 3D mapping (st derrek), with aid of Vascular Ultrasound and Intracardiac Echocardiography to guide transeptal puncture. Findings reviewed with patient including risks of diagnoses. Proposed alternative antiarrhythmic therapy (tikosyn) offered. Questions answered. Agrees to proceed with CRYO PVAI. Post- procedure she will have follow up 04/01/22 9:15a with Physician Magisterial District Judge, Nancy Dowling. Memo Mitchell MD, [facility], [facility] pager [phone] Digitally Signed by MEMO MITCHELL MD on 02/07/2022 10:19 AM [id number] PATIENT NAME:DONNA SNOWDEN MRN: [id number] AGE: 60 Years SEX: Female PHONE:[phone] DOS: 03/08/2021 11:10:00 : 1960 ATTENDING PHYSICIAN:Donovan Dickinson DO PCP: Physician, PCP Unknown CHIEF COMPLAINT: palpitations Allergies morphine (Nausea and vomiting) Problems Active Hyperlipidemia HTN (hypertension) Osteoarthritis Sleep apnea DISCHARGE DIAGNOSIS: DISCHARGE INSTRUCTIONS: Atrial Fibrillation ED PHYSICIAN DOCUMENTATION: History of Present Illness Patient is a 60-year-old female with history of PAC, HTN, HLD, sleep apnea presenting with a chief complaint of palpitations and shortness of breath today with some diaphoresis. Patient is on flecainide. No history of atrial fibrillation and not on blood thinners. 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 She has had some increased life stressors as well. She feels weak today. Denies any leg swelling or tenderness or any substernal chest pain. No history of ACS or history of DVT or PE. Denies any nausea vomiting diarrhea or known COVID-19 contacts. No fevers or chills. Has been tolerating p.o. intake without difficulty recently. No syncope or near syncope with her symptoms. Former smoker. No history of COPD. Social History: Denies illicit drug use. Medical Decision Making I saw and evaluated the patient. I have reviewed the chief complaint, triage note, past medical/surgical, family, and social history. The patient's old medical records have been reviewed. EKG shows atrial fibrillation with RVR, ventricular rate 120, QRS 102, QTc 497. Concern for infiltrate based on chest x-ray. Patient started on antibiotics for presumed pneumonia.May be contributing to patient's A. fib RVR as a secondary cause. Patient is a 60-year-old female, overall well-appearing presents today with A. fib RVR. Patient wassent out by cardiology on the floor. Patient remained stable in the ED. She may have findings of pneumonia based on chest x-ray and CT. No evidence of pulmonary embolism. Patient was treated for presumed pneumonia and I will be giving her prescription for home. I spoke with cardiology and they do not believe that the patient requires Eliquis at this time. She spontaneously converted with IV fluids and did not require any medical cardioversion or electrical cardioversion. Again patient remains hemodynamically stable at this time eligible for outpatient management and follow-up with return precautions. She does have cardiology follow-up. Patient discharged in stable condition. IMPRESSION: 1. A. fib RVR 2. 3. Procedure DISPOSITION: Time of Departure From ER 03/08/2021 17:36 Discharge/Transfer From ER Home 01 MEDICATION LISTS: CURRENT MEDICATION LIST doxycycline (doxycycline 100 mg oral capsule) 1 Capsule By Mouth once a day for 7 Days. Refills: 0. MEDICATIONS GIVEN DURING MEDICAL VISIT Sodium Chloride 0.9% 1,000 mL last dose given on 03/08/2021 at 12:48 Route: Intravenous Bolus, Infuse over 60 mins. azithromycin 500 mg last dose given on 03/08/2021 at 12:50 Route: IV Piggyback Administer over 60 minutes Sodium Chloride 0.9% 250 mL last dose given on 03/08/2021 at 12:51 Route: IV Piggyback ceftriaxone 1 Gm last dose given on 03/08/2021 at 12:51 Route: Intravenous LAB RESULTS: LABORATORY TESTS: Abnormal Lab Result(s): Date Order Results 03/08/2021 12:26 Lymphocyte L 20.8 % 03/08/2021 12:26 D Dimer Qn H 0.75 mcg/mL 03/08/2021 12:26 Potassium Level L 3.3 mMol/L 03/08/2021 12:26 Glucose Level H 110 mg/dL RADIOLOGY: RADIOLOGY RESULT(S) (Please contact Medical Records office for further information): 03/08/2021 11:58 XR Chest 1 View EXAMINATION TYPE: XR Chest 1 View DATE OF EXAM : 03/08/2021 11:58 AMHISTORY: Chest Pain,COMPARISON: NONEFINDINGS: Portable AP chest demonstrates mild enlargement of the cardiac silhouette accentuated by film technique. History of atrial fibrillation. There is diffuse prominence of bronchovascular markings which could relate to venous congestion/early congestive heart failure but I cannot confirm overt cephalization of flow. Therefore could not exclude an inflammatory/infectious process. Please correlate with equivocal exam findings.IMPRESSION: Faint interstitial alveolar opacities noted bilaterally as discussed above.[facility] thanks you for the opportunity to care for your patient. Workstation ID: [id number] 03/08/2021 13:48 CT Ang Chest w and/or w/o Contrast EXAMINATION TYPE: CT Ang Chest w and/or w/o Contrast , with 3-D ReconstructionsDATE OF EXAM : 03/08/2021 2:00 PMHISTORY: Pulmonary Embolism palpitati (more content not included)...[facility]10-08-2021 NoteID NOW COVID-19_[facility] HospitalComment on above:Performed By: #### [id number] #### [facility] [address] [place], [place] [address]Evaluation + Plan note Future Appointments Appointment Date:03/25/2021 08:45:00 AM Scheduled Provider:LUISA GARRISON MD Location:[facility] Appointment Type:PC OV Follow Up Appointment Date:03/26/2021 10:00:00 AM Scheduled Provider: Location:[facility] Appointment Type:CV OV Future Scheduled Tests Laboratory* Basic Metabolic Panel 09/04/20 * Basic Metabolic Panel 12/07/20 * A1C Hemoglobin 12/07/20 * ALT / SGPT 03/04/21 * Lipid Profile 10/17/20 * Lipid Profile 03/04/21 Radiology* MA Mammo Screening Bilateral w/ Efra 01/24/[address] [facility] Evaluation + Plan note Future Appointments Appointment Date:03/25/2021 08:45:00 AM Scheduled Provider:LUISA GARRISON MD Location:[facility] Appointment Type:PC OV Follow Up Appointment Date:03/26/2021 10:00:00 AM Scheduled Provider: Location:[facility] Appointment Type:CV OV Diagnostic Tests Pending * Urine Culture 03/21/21 Future Scheduled Tests Laboratory* Basic Metabolic Panel 09/04/20 * Basic Metabolic Panel 12/07/20 * A1C Hemoglobin 12/07/20 * ALT / SGPT 03/04/21 * Lipid Profile 10/17/20 * Lipid Profile 03/04/21 Radiology* MA Mammo Screening Bilateral w/ Efra 01/24/[address] [facility] Evaluation + Plan note Future Appointments Appointment Date:04/15/2021 04:00:00 PM Scheduled Provider: Location:[facility] Appointment Type:US Thyroid Appointment Date:07/02/2021 09:15:00 AM Scheduled Provider:AALIYAH DOWLING Location:[facility] Appointment Type:CV OV Appointment Date:08/20/2021 01:45:00 PM Scheduled Provider:LUISA GARRISON MD Location:[facility] Appointment Type:PC Wellness Annual Future Scheduled Tests Laboratory* Basic Metabolic Panel 04/04/21 * Magnesium Level 04/04/21 * ALT / SGPT 03/04/21 * Lipid Profile 03/04/21 Radiology* CT Thorax w/o Contrast 09/23/21 * US Thyroid 04/15/21 * MA Mammo Screening Bilateral w/ Efra 01/24/[address] [facility] Evaluation + Plan note Future Appointments Appointment Date:07/02/2021 09:15:00 AM Scheduled Provider:AALIYAH DOWLING Location:[facility] Appointment Type:CV OV Appointment Date:08/20/2021 01:45:00 PM Scheduled Provider:LUISA GARRISON MD Location:[facility] Appointment Type:PC Wellness Annual Future Scheduled Tests Laboratory* Basic Metabolic Panel 04/04/21 * Magnesium Level 04/04/21 * ALT / SGPT 03/04/21 * Lipid Profile 03/04/21 Radiology* CT Thorax w/o Contrast 09/23/21 * MA Mammo Screening Bilateral w/ Efra 01/24/[address] [facility] Evaluation + Plan note Future Appointments Appointment Date:07/02/2021 09:15:00 AM Scheduled Provider:AALIYAH DOWLING Location:[facility] Appointment Type:CV OV Appointment Date:08/20/2021 01:45:00 PM Scheduled Provider:LUISA GARRISON MD Location:[facility] Appointment Type:PC Wellness Annual Future Scheduled Tests Laboratory* Magnesium Level 05/29/21 * Thyroid Stimulating Hormone 11/13/21 * Complete Blood Count 11/13/21 * Gamma Glutamyl Transferase 05/29/21 * Lipid Profile 11/13/21 * Complete Metabolic Panel 11/13/21 Radiology* CT Thorax w/o Contrast 09/23/21 * US Thyroid 04/17/22 * MA Mammo Screening Bilateral w/ Efra 01/24/[address] [facility] Evaluation + Plan note Future Appointments Appointment Date:06/03/2021 11:00:00 AM Scheduled Provider: Location:[facility] Appointment Type:PT Treatment - [place] Appointment Date:06/06/2021 09:30:00 AM Scheduled Provider: Location:[facility] Appointment Type:PT Treatment - [place] Appointment Date:06/11/2021 11:00:00 AM Scheduled Provider: Location:[facility] Appointment Type:PT Treatment - [place] Appointment Date:06/14/2021 11:00:00 AM Scheduled Provider: Location:[facility] Appointment Type:PT Treatment - [place] Appointment Date:06/18/2021 11:00:00 AM Scheduled Provider: Location:[facility] Appointment Type:PT Treatment - [place] Appointment Date:07/02/2021 09:15:00 AM Scheduled Provider:AALIYAH DOWLING Location:[facility] Appointment Type:CV OV Appointment Date:08/20/2021 01:45:00 PM Scheduled Provider:LUISA GARRISON MD Location:[facility] Appointment Type: Wellness Annual Future Scheduled Tests Laboratory* Thyroid Stimulating Hormone 11/13/21 * Complete Blood Count 11/13/21 * Lipid Profile 11/13/21 * Complete Metabolic Panel 11/13/21 Radiology* CT Thorax w/o Contrast 09/23/21 * US Thyroid 04/17/22 * MA Mammo Screening Bilateral w/ Efra 01/24/[address] [facility] Evaluation + Plan note Future Appointments Appointment Date:06/21/2021 11:30:00 AM Scheduled Provider: Location:[facility] Appointment Type:PT Treatment - [place] Appointment Date:07/02/2021 09:15:00 AM Scheduled Provider:AALIYAH DOWLING Location:[facility] Appointment Type:CV OV Appointment Date:08/20/2021 01:45:00 PM Scheduled Provider:LUISA GARRISON MD Location:[facility] Appointment Type:PC Wellness Annual Future Scheduled Tests Laboratory* Thyroid Stimulating Hormone 11/13/21 * Complete Blood Count 11/13/21 * Lipid Profile 11/13/21 * Complete Metabolic Panel 11/13/21 Radiology* CT Thorax w/o Contrast 09/23/21 * US Thyroid 04/17/22 * MA Mammo Screening Bilateral w/ Efra 01/24/[address] [facility] Evaluation + Plan note Future Appointments Appointment Date:08/20/2021 01:45:00 PM Scheduled Provider:LUISA GARRISON MD Location:[facility] Appointment Type:PC Wellness Annual Appointment Date:12/31/2021 10:15:00 AM Scheduled Provider:AALIYAH DOWLING Location:[facility] Appointment Type:CV OV Future Scheduled Tests Laboratory* Hepatic Function Panel 06/24/21 * Hepatic Function Panel 12/22/21 * Hepatic Function Panel 06/24/22 * Hepatic Function Panel 12/22/22 * Thyroid Stimulating Hormone 11/13/21 * Complete Blood Count 11/13/21 * Lipid Profile 11/13/21 * Complete Metabolic Panel 11/13/21 Radiology* CT Thorax w/o Contrast 09/23/21 * US Thyroid 04/17/22 * MA Mammo Screening Bilateral w/ Efra 01/24/[address] [facility] Evaluation + Plan note Future Appointments Appointment Date:12/06/2021 11:15:00 AM Scheduled Provider:LUISA GARRISON MD Location:[facility] Appointment Type:PC Wellness Female Appointment Date:12/31/2021 10:15:00 AM Scheduled Provider:AALIYAH DOWLING Location:[facility] Appointment Type:CV OV Future Scheduled Tests Laboratory* Hepatic Function Panel 12/22/21 * Hepatic Function Panel 06/24/22 * Hepatic Function Panel 12/22/22 Radiology* MA Mammo Screening Bilateral w/ Efra 01/24/22 * US Thyroid 04/17/[address] [facility] Evaluation + Plan note Future Appointments Appointment Date:01/30/2022 01:30:00 PM Scheduled Provider: Location:[facility] Appointment Type:CT Angiography Chest w/ Contrast Appointment Date:02/12/2022 08:15:00 AM Scheduled Provider: Location:[facility] Appointment Type:EP Ablation Cryo-Ensite Appointment Date:04/01/2022 09:15:00 AM Scheduled Provider:AALIYAH DOWLING Location:[facility] Appointment Type:CV OV Appointment Date:05/21/2022 08:30:00 AM Scheduled Provider:LUISA GARRISON MD Location:[facility] Appointment Type:PC OV Appointment Date:12/30/2022 10:15:00 AM Scheduled Provider:AALIYAH DOWLING Location:[facility] Appointment Type:CV OV Future Scheduled Tests Laboratory* Basic Metabolic Panel 01/28/22 * Hepatic Function Panel 05/03/22 * Magnesium Level 01/28/22 * Lipid Profile 05/03/22 Radiology* CT Angiography Chest w/ Contrast 01/30/22 * US Thyroid 04/17/[address] [facility] Evaluation + Plan note Future Appointments Appointment Date:01/30/2022 01:30:00 PM Scheduled Provider: Location:[facility] Appointment Type:CT Angiography Chest w/ Contrast Appointment Date:02/12/2022 08:15:00 AM Scheduled Provider: Location:[facility] Appointment Type:EP Ablation Cryo-Ensite Appointment Date:04/01/2022 09:15:00 AM Scheduled Provider:AALIYAH DOWLING Location:[facility] Appointment Type:CV OV Appointment Date:05/21/2022 08:30:00 AM Scheduled Provider:LUISA GARRISON MD Location:[facility] Appointment Type:PC OV Appointment Date:12/30/2022 10:15:00 AM Scheduled Provider:AALIYAH DOWLING Location:[facility] Appointment Type:CV OV Future Scheduled Tests Laboratory* Hepatic Function Panel 05/03/22 * Lipid Profile 05/03/22 Radiology* CT Angiography Chest w/ Contrast 01/30/22 * US Thyroid 04/17/[address] [facility] Evaluation + Plan note Future Appointments Appointment Date:02/12/2022 08:15:00 AM Scheduled Provider: Location:[facility] Appointment Type:EP Ablation Cryo-Ensite Appointment Date:04/01/2022 09:15:00 AM Scheduled Provider:AALIYAH DOWLING Location:[facility] Appointment Type:CV OV Appointment Date:05/21/2022 08:30:00 AM Scheduled Provider:LUISA GARRISON MD Location:[facility] Appointment Type:PC OV Appointment Date:12/30/2022 10:15:00 AM Scheduled Provider:AALIYAH DOWLING Location:[facility] Appointment Type:CV OV Future Scheduled Tests Laboratory* Hepatic Function Panel 05/03/22 * Lipid Profile 05/03/22 Radiology* US Thyroid 04/17/22 [facility] evaluation + Plan note Future Appointments Appointment Date:04/01/2022 09:15:00 AM Scheduled Provider:AALIYAH DOWLING Location:[facility] Appointment Type:CV OV Appointment Date:05/21/2022 08:30:00 AM Scheduled Provider:LUISA GARRISON MD Location:[facility] Appointment Type:PC OV Appointment Date:12/30/2022 10:15:00 AM Scheduled Provider:AALIYAH DOWLING Location:[facility] Appointment Type:CV OV Future Scheduled Tests Laboratory* Hepatic Function Panel 05/03/22 * Lipid Profile 05/03/22 Radiology* US Thyroid 04/17/22 [facility] evaluation + Plan note Future Appointments Appointment Date:09/23/2022 02:15:00 PM Scheduled Provider:LUISA GARRISON MD Location:[facility] Appointment Type:PC OV Appointment Date:10/07/2022 10:15:00 AM Scheduled Provider:AALIYAH DOWLING Location:[facility] Appointment Type:CV OV Future Scheduled Tests Laboratory* Hepatic Function Panel 05/03/22 * Lipid Profile 05/03/[address] [facility] Evaluation + Plan note Future Appointments Appointment Date:02/06/2023 01:30:00 PM Scheduled Provider: Location:[facility] Appointment Type:BD Bone Density DEXA Axial Skeleton Appointment Date:02/06/2023 02:00:00 PM Scheduled Provider: Location:[facility] Appointment Type:MA Mammogram Screening Bilateral w/ Efra Appointment Date:03/27/2023 08:30:00 AM Scheduled Provider:LUISA GARRISON MD Location:[facility] Appointment Type:PC OV Follow Up Appointment Date:09/24/2023 01:30:00 PM Scheduled Provider:LUISA GARRISON MD Location:[facility] Appointment Type:PC Wellness Annual Appointment Date:10/06/2023 10:45:00 AM Scheduled Provider:AALIYAH DOWLING Location:[facility] Appointment Type:CV OV Future Scheduled Tests Laboratory* Hepatic Function Panel 05/03/22 * Lipid Profile 05/03/22 * Lipid Profile 03/24/23 * Complete Metabolic Panel 03/24/23 Radiology* MA Mammo Screening Bilateral w/ Efra 02/06/23 * BD Bone Density DEXA Axial Skeleton 02/06/[address] [facility] Evaluation + Plan note Future Appointments Appointment Date:02/11/2023 09:30:00 AM Scheduled Provider: Location:[facility] Appointment Type:EP Ablation RF-Ensite Appointment Date:03/27/2023 08:30:00 AM Scheduled Provider:LUISA GARRISON MD Location:[facility] Appointment Type:PC OV Follow Up Appointment Date:03/31/2023 11:15:00 AM Scheduled Provider: Location:[facility] Appointment Type:CV OV Appointment Date:09/24/2023 01:30:00 PM Scheduled Provider:LUISA GARRISON MD Location:[facility] Appointment Type:PC Wellness Annual Appointment Date:10/06/2023 10:45:00 AM Scheduled Provider:AALIYAH DOWLING Location:[facility] Appointment Type:CV OV Future Scheduled Tests Laboratory* Hepatic Function Panel 05/03/22 * Lipid Profile 05/03/22 * Lipid Profile 03/24/23 * Complete Metabolic Panel 03/24/[address] [facility] evaluation + Plan note Future Appointments Appointment Date:09/29/2023 11:15:00 AM Scheduled Provider: Location:[facility] Appointment Type:CV OV Appointment Date:09/30/2023 10:00:00 AM Scheduled Provider: Location:[facility] Appointment Type:PT [facility] Appointment Date:10/02/2023 09:30:00 AM Scheduled Provider: Location:[facility] Appointment Type:PT [facility] Appointment Date:10/07/2023 09:30:00 AM Scheduled Provider: Location:[facility] Appointment Type:[facility] Appointment Date:03/29/2024 10:15:00 AM Scheduled Provider:LUISA GARRISON MD Location:[facility] Appointment Type:PC OV Follow Up Appointment Date:09/28/2024 01:30:00 PM Scheduled Provider:LUISA GARRISON MD Location:[facility] Appointment Type: Wellness Annual Future Scheduled Tests Radiology* MA Mammo Screening Bilateral w/ Efra 02/24/24 * US Elastography Liver w/ABD Complete 09/24/[address] [facility] evaluation + Plan note Future Appointments Appointment Date:10/07/2023 09:30:00 AM Scheduled Provider: Location:[facility] Appointment Type:PT [facility] Appointment Date:03/29/2024 10:15:00 AM Scheduled Provider:LUISA GARRISON MD Location:[facility] Appointment Type:PC OV Follow Up Appointment Date:09/27/2024 11:00:00 AM Scheduled Provider: Location:[facility] Appointment Type:CV OV Appointment Date:09/28/2024 01:30:00 PM Scheduled Provider:LUISA GARRISON MD Location:[facility] Appointment Type:PC Wellness Annual Future Scheduled Tests Laboratory* ALT / SGPT 03/29/24 * Lipid Profile 03/29/24 Radiology* MA Mammo Screening Bilateral w/ Efra 02/24/24 * US Elastography Liver w/ABD Complete 09/24/[address] [facility] evaluation + Plan note Future Appointments Appointment Date:10/21/2023 12:00:00 PM Scheduled Provider: Location:[facility] Appointment Type:PC Nurse Immunization Appointment Date:03/29/2024 10:15:00 AM Scheduled Provider:LUISA GARRISON MD Location:[facility] Appointment Type:PC OV Follow Up Appointment Date:09/27/2024 11:00:00 AM Scheduled Provider: Location:[facility] Appointment Type:CV OV Appointment Date:09/28/2024 01:30:00 PM Scheduled Provider:LUISA GARRISON MD Location:[facility] Appointment Type:PC Wellness Annual Future Scheduled Tests Laboratory* ALT / SGPT 03/29/24 * Lipid Profile 03/29/24 Radiology* MA Mammo Screening Bilateral w/ Efra 02/24/24 * US Elastography Liver w/ABD Complete 09/24/[address] [facility] Evaluation + Plan note Future Appointments Appointment Date:03/28/2024 02:00:00 PM Scheduled Provider: Location:[facility] Appointment Type:CV OV Appointment Date:04/06/2024 11:00:00 AM Scheduled Provider:LUISA GARRISON MD Location:[facility] Appointment Type:PC OV Follow Up Appointment Date:05/17/2024 11:00:00 AM Scheduled Provider: Location:[facility] Appointment Type:PC Nurse Injection Appointment Date:09/27/2024 11:00:00 AM Scheduled Provider: Location:[facility] Appointment Type:CV OV Appointment Date:09/28/2024 01:30:00 PM Scheduled Provider:LUISA GARRISON MD Location:[facility] Appointment Type:PC Wellness Annual Future Scheduled Tests Laboratory* ALT / SGPT 03/29/24 * Lipid Profile 03/29/24 Radiology* US Elastography Liver w/ABD Complete 09/24/[address] [facility] Evaluation + Plan note Future Appointments Appointment Date:08/31/2024 02:00:00 PM Scheduled Provider:JOSEPH FONTAINE Location:[facility] Appointment Type:CV OV Appointment Date:09/28/2024 01:30:00 PM Scheduled Provider:LUISA GARRISON MD Location:[facility] Appointment Type:PC Wellness Annual Appointment Date:03/23/2025 11:00:00 AM Scheduled Provider:LUISA GARRISON MD Location:[facility] Appointment Type:PC OV Follow Up Future Scheduled Tests Laboratory* Potassium Level 06/29/24 * Lipid Profile 03/29/24 Radiology* US Elastography Liver w/ABD Complete 09/24/[address] [facility] Evaluation + Plan note Future Appointments Appointment Date:03/23/2025 11:00:00 AM Scheduled Provider:LUISA GARRISON MD Location:[facility] Appointment Type:PC OV Follow Up Appointment Date:08/30/2025 11:30:00 AM Scheduled Provider:JOSEPH FONTAINE Location:[facility] Appointment Type:CV OV Appointment Date:10/02/2025 01:00:00 PM Scheduled Provider:LUISA GARRISON MD Location:[facility] Appointment Type:PC Wellness Annual Future Scheduled Tests Laboratory* Potassium Level 06/29/24 * ALT / SGPT 04/14/25 * Lipid Profile 04/14/25 * Lipid Profile 03/29/24 * Fecal Immunochemical Test (FIT) 09/28/24 Radiology* MA Mammo Screening Bilateral w/ Efra 03/01/25 * BD Bone Density DEXA Axial Skeleton Adult (21 yrs or older) 01/31/25 * US Elastography Liver w/ABD Complete 09/28/[address] [facility] Evaluation note* Diagnosis Mouth pain- Primary Other and unspecified diseases of the oral soft tissues [facility] Preop testing- Primary Preoperative examination, unspecified Paroxysmal atrial fibrillation (HCC) Atrial fibrillation PONV (postoperative nausea and vomiting) Nausea with vomiting Sleep apnea, unspecified type Primary hypertension Unspecified essential hypertension Spinal headache Reaction to spinal or lumbar puncture Left hip pain Pain in joint, pelvic region and thigh Primary osteoarthritis of left hip Primary localized osteoarthrosis, pelvic region and thigh [facility] Narrative No data available for this section [facility] Hospital Discharge instructions No data available for this section [facility] Progress note No data available for this section [facility] Reason for referral (narrative)* Outpatient Procedure (Routine) - New Request Specialty Diagnoses / Procedures Referred By Contac t [facility] Diagnoses Preop testing Procedures ECG COMPLETE ECG ROUTINE ECG W/LEAST 12 LDS W/I&R Avelino Duron MD [address] [place] [address] [facility] [address] [place] [address] Referral ID Status Reason Start Date Expiration Date Visits Requested Visits Authorized [id number] New Request Auto-Generat ed Referral 4 03/28/2025 1 1 [facility] Summary Purpose Family History No Family History Records FoundNo Family History Records FoundNo Family History Records FoundNo Family History Records Found No data available for this section No data available for this section No Family History Records Found No data available for this section No data available for this section No data available for this section No Family History Records FoundNo Family History Records Found No data available for this section No Family History Records Found No data available for this section No data available for this section No data available for this section No Family History Records FoundNo Family History Records FoundNo Family History Records Found Advance Directives No Advanced Directives Records FoundNo Advanced Directives Records FoundNo Advanced Directives Records FoundNo Advanced Directives Records FoundNo Advanced Directives Records FoundNo Advanced Directives Records FoundNo Advanced Directives Records FoundNo Advanced Directives Records FoundNo Advanced Directives Records FoundNo Advanced Directives Records FoundNo Advanced Directives Records Found Additional Source Comments INFORMATION SOURCE (unrecogn ized section and content) DATE CREATED AUTHOR 04/17/2020 [facility] DATE CREATED AUTHOR AUTHOR'S ORGANIZ ATION 04/18/2020 [facility] DATE CREATED AUTHOR AUTHOR'S ORGANIZ ATION 08/12/2020 [facility] DATE CREATED AUTHOR AUTHOR'S ORGANIZ ATION 03/09/2021 [facility] DATE CREATED AUTHOR AUTHOR'S ORGANIZ ATION 08/23/2023 [facility] DATE CREATED AUTHOR AUTHOR'S ORGANIZ ATION 10/22/2023 [facility] DATE CREATED AUTHOR AUTHOR'S ORGANIZ ATION 01/26/2024 [facility] DATE CREATED AUTHOR AUTHOR'S ORGANIZ ATION 04/26/2024 [facility] DATE CREATED AUTHOR AUTHOR'S ORGANIZ ATION 11/25/2024 [facility] DATE CREATED AUTHOR AUTHOR'S ORGANIZ ATION 11/27/[address] [facility] DATE CREATED AUTHOR AUTHOR'S ORGANIZ ATION 11/28/2024 [facility] Care Team (unrecognized sect ion and content) Mixer Machine Feeder Relationship Specialty Start Date End Date Luisa Garrison MD PCP - General 08/02/07 Mixer Machine Feeder Relationship Specialty Start Date End Date Luisa Garrison MD PCP - General 08/02/07 Mixer Machine Feeder Relationship Specialty Start Date End Date Luisa Garrison MD PCP - General 08/02/07 Care Team (unrecognized sect ion and content) Care Team Personnel Name: Jonny Triplett Professional Nursegem Mcdermott Position: P3 Scheduling - Professional Nurse Advanced Member Role: Other Name: LUISA GARRISON MD Position: P4 Physician - Primary Care Member Role: Primary Care Physician Address: Address: [address] [place] [id number] Name: Lady Estrada Clerk Position: P3 Scheduling - Professional Nurse Advanced Member Role: Other Care Team Related Persons Name: MALLY SNOWDEN Address: Home [address] [place] [phone] Care Team Personnel Name: Uziel Therapy Professional Nurse Sharron Position: P3 Scheduling - Professional Nurse Advanced Member Role: Other Name: LUISA GARRISON MD Position: P4 Physician - Primary Care Member Role: Primary Care Physician Address: Address: [address] [place] [address] Name: NatalieLady Supply Controller Position: P3 Scheduling - Professional Nurse Advanced Member Role: Other Care Team Related Persons Name: MALLY SNOWDEN Address: Home [address] [place] [phone] Care Team Personnel Name: Uziel Therapy Professional Nurse Sharron Position: P3 Scheduling - Professional Nurse Advanced Member Role: Other Name: LUISA GARRISON MD Position: P4 Physician - Primary Care Member Role: Primary Care Physician Address: Address: [address] [place] [address] Name: Natalie, Lady Supply Controller Position: P3 Scheduling - Professional Nurse Advanced Member Role: Other Care Team Related Persons Name: MALLY SNOWDEN Address: Home [address] [place] [phone] Care Team Personnel Name: Uziel Therapy Professional Nurse Sharron Position: P3 Scheduling - Professional Nurse Advanced Member Role: Other Name: LUISA GARRISON MD Position: P4 Physician - Primary Care Med Service: Active Provider Member Role: Primary Care Physician Address: Address: [address] [place] [address] Name: NatalieLady Supply Controller Position: P3 Scheduling - Professional Nurse Advanced Member Role: Other Care Team Related Persons Name: SANDRA SNOWDEN Address: Home [address] [place] [phone] Source Comments (unrecognize d section and content) In the event this informatio n is protected by the Federal Confidentiality of Alcohol and Drug Abuse Patient Records regulations: The Federal rules restrict any use of the information to criminally investigate or prosecute any alcohol or drug abuse patient.[facility] the event this information is protected by the Federal Confidentiality of Alcohol and Drug Abuse Patient Records regulations: The Federal rules restrict any use of the information to criminally investigate or prosecute any alcohol or drug abuse patient.[facility] Hospital[facility] the event this information is protected by the Federal Confidentiality of Alcohol and Drug Abuse Patient Records regulations: The Federal rules restrict any use of the information to criminally investigate or prosecute any alcohol or drug abuse patient.[facility] Reason for Visit (unrecogniz ed section and content) Reason Comments Mouth/Lip Problem Thrush x4 days FOR RECORDS PERTAINING TO PATIENTS WHO ARE OR HAVE BEEN ENROLLED IN A CHEMICAL DEPENDENCY/SUBSTANCEABUSE PROGRAM, SOME INFORMATION MAY BE OMITTED. This clinical summary was aggregated from multiple sources. Caution should be exercised in using it in the provision of clinical care. This summary normalizes information from multiple sources, and as a consequence, information in this document may materially change the coding, format and clinical context of patient data. In addition, data may be omitted in some cases. CLINICAL DECISIONS SHOULD BE BASED ON THE PRIMARY CLINICAL RECORDS. [facility]. provides no warranty or guarantee of the accuracy or completeness of information in this document.
[2024-11-28 05:44] LABS: Troponin T High Sensitivity < 6 ng/L (<=14)
[2024-11-28 05:47] LABS: AST(SGOT) 20 U/L (<=31); Alanine Aminotransfer ALT/SGPT 18 U/L (<=34); Albumin, Serum 4.3 g/dL (3.4-4.8); Alkaline Phosphatase 126 U/L (35-104); Anion Gap 14 (5-15); BUN 19 mg/dL (4-19); BUN/Creat Ratio 25.7 RATIO (10-20); Bilirubin, Direct 0.24 mg/dL (0.00-0.30); Calcium,Total 9.3 mg/dL (7.6-11.0); Chloride 100 mmol/L (98-108); Creatinine, Serum 0.75 mg/dL (0.70-1.20); EST Glomerular Filtration Rate 88 (>60); Estimated Creatinine Clearance 73.93 ml/min (50-250); Globulin 3.1 g/dL (2.2-4.2); Glucose 140 mg/dL (70-99); Protein, Total 7.4 g/dL (5.9-8.4); Sodium Level 136 mmol/L (133-145); Total Bilirubin 0.56 mg/dL (0.00-1.30)
[2024-11-28] MEDS: Metoclopramide 10 MG/2 ML Vial IV (06:05)
[2024-11-28 06:47] LABS: Lipase 36 U/L (13-75)
[2024-11-28 07:00] VITALS: BP 122/58; PULSE 71; RESP 18; O2SAT 96
[2024-11-28 07:53] LABS: Troponin T High Sens 2 HR < 6 ng/L (<=14)
[2024-11-28 08:21] VITALS: BP 125/63; PULSE 76; RESP 16; TEMP 36.9; O2SAT 98
[2024-11-29 09:59] LABS: Platelet Estimate A (ADEQ); Red Cell Morphology NORM C+C NORMAL (NORM C&C)
== END 2024-11-28 08:22 | disposition home or self-care (01) ==
PROVIDERS: Emergency Provider Emergency Medicine; PCP Internal Medicine; Visit Provider Emergency Medicine
DX: M54.9 Dorsalgia, unspecified (principal); I48.91 Unspecified atrial fibrillation; E78.5 Hyperlipidemia, unspecified; R11.0 Nausea; K44.9 Diaphragmatic hernia without obstruction or gangrene; I10 Essential (primary) hypertension; Z79.01 Long term (current) use of anticoagulants; K21.9 Gastro-esophageal reflux disease without esophagitis; Z79.899 Other long term (current) drug therapy
CPT/HCPCS: 71275; 80048; 80076; 83690; 84484; 85025; 93005; 99285; Q9967; A4216; J2405

== ENCOUNTER 2025-04-28 10:00 | Outpatient (RCR) | payer BC, SELFPAY ==
--- NOTE | 2025-03-29 14:34 | HP.PTEVAL ---
Patient's Visit Information Visit Information Visit Information: DONNA SNOWDEN is a 64 year old F referred to Physical Therapy by Dr. Luisa Garrison MD with a diagnosis of L impingement syndrome. Date of Evaluation: 03/29/25 Physical Therapist: Neno Adams, DPT, OCS, CSCS Visit Plan Frequency: 2x /Week Duration: 4-6 Weeks Plan: 2x/week for 2-4 weeks for: IE HEP: activity modification and hammer theory with scap circles throughout day. Treat with activity modification to avoid pain, strength RC and scap and posture painfree to HEP, grade 1-2 g-h mobs, US nonthermal if needed to L supraspinatus insertion. Emphasize activity modification adn strengthening, wants to return to pilates. Subjective Subjective: Family doctor sent over. L back of arm pain for 3-4 months worsening, insidious onset. Does pilataes 3-4 x/week and it hurts, reaching behind hurts, lifting is not bad. Comfortable at rest. Sleep is occasionally interrupted if she lies on it. 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 Cleaning with L hand and is L handed. Dressing is fine. i ADLs. Hobbies. None reformer pilates. It hurts Pain L arm: Pain Intensity (Out of 10): 0 Pain Intensity Range: 0 and 5 Objective Objective: Walks into PT I, trasnffers I, no probleems with balance or arm swing. Posture is forward protracted scap, tilted FW. Tenderness on supraspinatus insertion L side moderately pretty locally. LLA movements are painful in the same area. + HK, + neeer, - labral, - ext rot lag, - drop arm. full aROM B shoulders except er 65 L and 70 R, some tenderness end range of flexion adn IR. elbow and wrist AROM WFL. reflexes 2/3 bi adn tri B sensation UE WNL to gross light touch. B strength er painful and 4-, flexion adn empty can painful and 3+, IR 4/5, bi and tri 4/5 no pain. L arm is 4+/5. Balance/Special Test Scores Quick DASH Score: 22.7250 Goals Goal 1:: pain in shoulder abolished 99% and 1/10 at worst Goal Time Frame: 4-6 Weeks Goal 2:: Full aROM L shoulder without pain Goal Time Frame: 4-6 Weeks Goal 3:: I appropriate HEP to minimize future problems Goal Time Frame: 4-6 Weeks Goal 4:: Pilates program without L shoulder pain Goal Time Frame: 4-6 Weeks Goal 5:: 13 or better quickdash score Goal Time Frame: 4-6 Weeks Rehabilitation Potential Physical Therapy Diagnosis: L shoulder pain and weakness causing pain with daily activities. Rehabilitation Potential: Good Anticipated Interventions Patient/Client Instruction: Educate patient on: Condition and Plan of Care For the Purpose of:: To decrease pain, To improve nutrient delivery to tissue, To improve muscle performance and motor function and To increase tolerance to activity/condition/position Therapeutic Exercise to Include: Strength training, Postural training, Flexibilty training, Passive ROM and Active ROM For the Purpose of:: To decrease pain, To improve nutrient delivery to tissue, To improve muscle performance and motor function, To increase tolerance to activity/condition/position, To improve ability of physical actions for home/community/work/leisure and To improve gait and locomotor functions Manual Therapy Techniques to Include: Mobilization and Functional dry needling For the Purpose of:: To decrease pain, To increase ROM and To improve nutrient delivery to tissue Ultrasound (thermal/non thermal): Yes For the Purpose of:: To improve nutrient delivery to tissue Text: Thank you for the opportunity to evaluate your patient. For Medicare and Medicare HMO plans, please review the plan of care and approve it. It will need to be FAXED BACK to us at [phone] for Medicare purposes. For Medicare only, by signing this I certify the plan of care. Please let me know if there are questions or concerns regarding this plan of care. Physician Signature: Date:
--- NOTE | 2025-04-28 10:49 | HP.PTDCSUM ---
Discharge Summary D/C summary: It has been my pleasure to treat DONNA SNOWDEN referred by Dr. Luisa Garrison MD, with the diagnosis of L impingement syndrome for a total of 5 visit(s). Discharge Date: 04/28/25 Please see the following information for a summary of their discharge status. Subjective Subjective: Not gtting any better. Still hurts most of time. Mostly comfortable at rest. Hurts to move it reaching back seat. Gets sharp pain with movement daily. Sleep is OK for thee most part. Hard to stay off shoulder. F/u with doctor but can. Doing home exercises. pilates but not specifically. Pain L arm: Pain Intensity (Out of 10): 9 Overall Improvement % Improvement: 0 Objective Objective/Function: Slow elevation to 135 then painful to push past, 65 er L with pain, IR is awkward adn slow. strngth er 3+ and pianful L, IR4- and painful, LLA flionand abd and empty can painful. + Labral test L, - drop arm and ext rotation lag test. Goals Goal 1:: pain in shoulder abolished 99% and 1/10 at worst Goal Progress: Not Progressing Goal 2:: Full aROM L shoulder without pain Goal Progress: Not Progressing Goal 3:: I appropriate HEP to minimize future problems Goal Progress: Not Progressing Goal 4:: Pilates program without L shoulder pain Goal Progress: Not Progressing Goal 5:: 13 or better quickdash score Goal Progress: Not Progressing Plan Plan: d/c, pt to doctor for next medical step(MRI vs ortho) D/C Information Discharge Comments: Back to doctor for next medical step d/c sentence: If there are questions or concerns regarding this patient's physical therapy, please feel free to call me at [phone]. Thank you for the referral of this patient. Sincerely, Neno Adams, DPT, OCS, CSCS Balance/Gait/Functional tests Balance/Special Test Scores Quick DASH Score: 31.8175 Improvement % Improvement: 0
== END 2025-04-28 11:48 | disposition home or self-care (01) ==
LOC: PT 10:00
PROVIDERS: PCP Internal Medicine; Referring Provider Internal Medicine; Visit Provider Internal Medicine
DX: M75.42 Impingement syndrome of left shoulder (principal); M79.622 Pain in left upper arm
CPT/HCPCS: 97110; 97161; 97530